=== PATIENT | female | born 1955 | race Caucasian/White ===

== ENCOUNTER → 2020-02-03 09:10 | Outpatient (REF) | payer MEDICARE, MEDICAID, SELFPAY ==
--- NOTE | 2020-02-03 09:30 | CA_ITS ---
Transthoracic Echocardiogram Patient (Last, First, Middle): Petra Meadows N Gender: Female Date of : 1955 Age: 64 Procedure Date: 02/03/2020 Procedure Type: Transthoracic Echocardiogram Location: OP Height: 162.56 cm Weight: 94.35 kg BSA: 1.99 m2 Heart Rate: bpm BP: 129 / 70 mmHg Scientific Systems Analyst: Referring MD: Jhonatan Aguilar MD Symptoms: [facility] [place] Study Quality: Good ECG Rhythm: Sinus Conclusions: - The left ventricular systolic function is normal. The visually estimated ejection fraction is between 55-60%. - There is mild to moderate tricuspid valve regurgitation. - There is a small pericardial effusion. Findings Left Ventricle Normal left ventricular cavity size. There is normal left ventricular wall thickness. The left ventricular systolic function is normal. The visually estimated ejection fraction is between 55-60%. There is no evidence of regional wall motion abnormalities. E/E prime ratio is between 8 and 15 consistent with indeterminate filling pressures. Evidence suggests grade I (mild) diastolic dysfunction. Right Ventricle Normal right ventricular cavity size and systolic function. Atria The left atrium is mildly dilated. The right atrium is normal in size. Aortic Valve There is a normal trileaflet aortic valve. There is no aortic valve stenosis. There is no aortic valve regurgitation. Mitral Valve The mitral valve appears normal. There is trace mitral valve regurgitation. There is no mitral valve stenosis. Pulmonic Valve The pulmonic valve was not well visualized. There is trace pulmonic valve regurgitation. Tricuspid Valve Normal tricuspid valve structure. There is mild to moderate tricuspid valve regurgitation. The pulmonary artery systolic pressure is normal. Great Vessels The aortic annulus, sinuses of valsalva, and asc aorta are normal in size. Venous The inferior vena cava is normal in size and collapses greater than 50% with inspiration. Pericardium/Pleural There is a small pericardial effusion. There are no definitive echocardiographic findings of tamponade physiology. Prior Study Comparison Changes noted compared to prior study dated: 11/13/1914. Pericardial effusion not previously described. Measurements 2D Linear Measurements RVIDd: 2.95 RVIDd Index: 1.48 IVSd: 0.92 0.6-0.9/0.6-1.0 cm LVIDd: 5.65 3.9-5.3/4.2-5.9 cm LVIDd Index: 2.84 2.4-3.2/2.2-3.1 cm/m2 LVIDs: 3.17 2.0-3.6 cm LVPWd: 0.93 0.7-1.1 cm Ao Root: 2.80 2.1-3.5 cm LA Diam: 4.40 2.7-3.8/3.0-4.0 cm LAIDs Index: 2.21 1.5-2.3 cm/m2 LV Mass: 250.12 67-162/88-224 g LV Mass Index: 125.69 43-95/49-115 g/m2 LVOT Diam: 2.00 3.0+(-)1.3 cm 2D Systolic Function EF 4C: 58.20 >55% EF 2C: 70.60 >55% EF BiP: 63.90 >55% Mitral Valve MV Pk E: 0.77 MV PK A: 0.71 MV Decel Time: 218.00 E/A: 1.10 E'Lateral: 8.22 E'Medial: 6.67 E/E' Med: 11.60 E/E' Lat: 9.40 Aortic Valve AoV Pk Rafal: 1.81 AoV Mn Rafal: 1.02 AoV VTI: 0.32 AoV Pk Grad: 13.00 Aov Mn Grad: 5.00 MICHELLE Cont.VTI: 2.88 LVOT LVOT Pk Rafal: 1.45 LVOT Mn Rafal: 0.90 LVOT VTI: 0.30 LVOT Pk Grad: 8.00 LVOT Mn Grad: 4.00 LVOT Diam: 2.00 LVOT Area: 3.14 Diastolic Function MV Pk E: 0.77 MV Pk A: 0.71 E/A: 1.10 E'Medial: 6.67 E/E' Med: 11.60 E' Laterial: 8.22 E/E' Lat: 9.40 Tricuspid Valve TR Pk Rafal: 2.52 TR Pk Grad: 25.00 RA Press: 3.00 RVSP: 28.00 Great Vessels Aorta Ao Root-2D: 2.80 2.0-3.7 cm Ao Asc: 2.70 2.1-3.4 cm Updated in Other Vendor System with Status of Final Nhan Moore MD electronically signed on 02/03/2020 12:18:00 PM with status of Final
== END ==
LOC: HO.CARD 09:10
PROVIDERS: PCP Student in an Organized Health Care Education/Training Program; Visit Provider Surgery
DX: Z01.818 Encounter for other preprocedural examination (principal); I10 Essential (primary) hypertension; R06.00 Dyspnea, unspecified
CPT/HCPCS: 93306

== ENCOUNTER → 2020-02-05 08:12 | Outpatient (BNVA) | payer MEDICARE, MEDICAID, SELFPAY | PROVIDERS: Visit Provider Surgery | DX: E66.9 Obesity, unspecified (principal); I10 Essential (primary) hypertension; E03.9 Hypothyroidism, unspecified; J45.909 Unspecified asthma, uncomplicated; G47.30 Sleep apnea, unspecified; K21.9 Gastro-esophageal reflux disease without esophagitis; R11.0 Nausea | CPT/HCPCS: 99214 ==

== ENCOUNTER 2020-02-14 08:39 | Outpatient (REF) | payer MEDICARE, MEDICAID, SELFPAY ==
[2020-02-14 10:13] LABS: MANUAL DIFF FLAG NO
[2020-02-14 10:24] LABS: Basophils Percent Auto 0.5 % (0-2); Eosinophils Absolute Auto 0.1 X10*3/uL (0.0-0.4); Eosinophils Percent Auto 1.2 % (0-4); Hematocrit 41.7 % (37-47); Hemoglobin 13.3 g/dl (12.0-16.0); Imm Gran Abs Auto 0.02 X10*3/uL (0.00-0.03); Imm Gran Pct Auto 0.3 % (0.0-0.4); Lymphocytes Absolute Auto 1.7 X10*3/uL (1.2-4.9); Lymphocytes Percent Auto 22.5 % (20-40); Mean Corpuscular HGB Conc 31.9 g/dl (31.0-35.0); Mean Corpuscular Hemoglobin 27.1 pg (27.0-33.0); Mean Corpuscular Volume 84.9 fL (80-98); Mean Platelet Volume 10.4 fL (9.4-12.3); Monocytes Absolute Auto 0.5 X10*3/uL (0.1-1.2); Monocytes Percent Auto 6.1 % (2-11); Neutrophils Absolute Auto 5.1 X10*3/uL (2.0-8.3); Neutrophils Percent Auto 69.4 % (45-73); Platelet Count 301 X10*3/uL (160-400); Red Blood Count 4.91 X10*6/uL (4.20-5.50); Red Cell Distribution Width 14.6 % (11.0-16.0); White Blood Count 7.3 X10*3/uL (4.8-10.8)
[2020-02-14 10:26] LABS: Estimated Average Glucose 117 mg/dL; Hemoglobin A1c % 5.7 %
[2020-02-14 10:28] LABS: INTERNATIONAL NORM RATIO 1.1 (0.9-1.1)
[2020-02-14 10:31] LABS: Partial Thromboplastin Time 35.3 SEC (24.1-38.0)
[2020-02-14 10:37] LABS: Alanine Aminotransferase 23 U/L (0-31); Albumin Level 4.6 g/dL (3.5-5.0); Alkaline Phosphatase 118 U/L (39-117); Anion Gap 12 (12-20); Aspartate Amino Transferase 27 U/L (5-31); Bilirubin Total 0.8 mg/dL (0.0-1.0); Blood Urea Nitrogen 12 mg/dL (9-16); Calcium 9.8 mg/dL (8.4-10.2); Carbon Dioxide 36 mmol/L (22-29); Chloride 92 mmol/L (96-108); Cholesterol 176 mg/dL; Estimated Glomerular Filt Rate 51; Glucose Random 110 mg/dL (60-115); HDL Cholesterol 40 mg/dL; LDL Cholesterol Calculated 113 mg/dl; Potassium 3.3 mmol/l (3.3-5.1); Sodium 137 mmol/L (135-145); Total Protein 7.7 g/dL (6.5-8.0); Triglycerides 118 mg/dL
[2020-02-14 10:58] LABS: Thyroid Stimulating Hormone 0.29 mIU/mL (0.32-4.0)
[2020-02-17 12:42] LABS: Insulin Level Total 13.1 uIU/mL
== END 2020-02-14 08:40 | disposition home or self-care (01) ==
LOC: HO.LAB 08:39
PROVIDERS: PCP Student in an Organized Health Care Education/Training Program; Visit Provider Surgery
DX: E66.9 Obesity, unspecified (principal); I10 Essential (primary) hypertension
CPT/HCPCS: 36415; 80053; 80061; 83036; 83525; 84443; 85025; 85610; 85730; 86140; 86850; 86870

== ENCOUNTER 2020-02-20 06:04 | Day surgery (SDC) | payer MEDICARE, MEDICAID, SELFPAY ==
[2020-02-13 14:52] VITALS: BMI 34.3
--- NOTE | 2020-02-14 14:00 | P.CONAN_ITS ---
Documented by User: Estefany Gamboa 02/14/20 15:24 HPI - Anesthesia Eval Consult details Narrative: 64yo F for gastric sleeve Remote h/o DI. Glidescope to be available. Airway exam at PAT benign. Stable at last pulm visit 12/30/19. Pt describes no SOB at rest and able to exercise regulary without signif BERNAL. PMFSH Past Medical History Medical History Anxiety Asthma Cervical spondylosis Fibromyalgia GERD (gastroesophageal reflux disease) Granulomatous angiitis Hiatal hernia Hypertension Hypothyroidism Obesity Osteoarthritis Paresthesia Sleep apnea Tricuspid valve regurgitation Wegeners granulomatosis Functional capacity: independent ambulation Family History Family History Father Heart disease Mother Cirrhosis of liver Recurrent strokes Diabetes Sister Lupus Arthritis Daughter No problems noted. Son No problems noted. Family history of problems with anesthesia: No Surgical History Surgical History History of bronchoscopy History of esophagogastroduodenoscopy (EGD) History of pneumonectomy Hx of biopsy Hx of biopsy Hx of colonoscopy Hx of LASIK History of Problems with Anesthesia: Yes (? Difficult intubation 2004) Social History Social History Are you a primary critical care educator to a significant other at home: No Do you presently have visiting nurse or other home services: No Alcohol intake: never Smoking Status: Former smoker Smoking Quit Date: 2003 Second Hand Smoke Exposure: No Use of substances other than those prescribed or required for medical reasons: No Have you been hit, kicked, punched, or otherwise hurt by someone within the past year? If so, by whom?: No Spiritual Healthcare Practices: none Yazdanism Healthcare Practices: none Cultural Healthcare Practices: none Advance Directives: No Advance Directives Information Provided: No Advance Directives on File: No Recently lost weight without trying: No Narrative Narrative: >4 mets with daily exercise (walking, aerobic video) No recent illness Meds Allergies Allergy/AdvReac Type Severity Reaction Status Date / Time iron dextran complex Allergy Unknown Shakiness Verified 02/20/20 08:33 [IRON DEXTRAN COMPLEX] Home Medications Medication Instructions Recorded Confirmed Type acetaminophen 325 mg tablet mg PO 02/05/20 02/05/20 History albuterol sulfate 90 mcg/actuation 2 puff PO Q4-6H PRN 02/05/20 02/05/20 History aerosol inhaler blood pressure test kit-large #1 ea 02/05/20 02/05/20 History cholecalciferol (vitamin D3) 50 50 mcg PO DAILY 02/05/20 02/05/20 History mcg (2,000 unit) capsule fluticasone 100 mcg-salmeterol 50 1 ea PO BID 02/05/20 02/05/20 History mcg/dose blistr powdr for inhalation fluticasone 250 mcg-salmeterol 50 1 inh INHALATION BID 02/05/20 02/05/20 History mcg/dose blistr powdr for inhalation furosemide 20 mg tablet 20 mg PO DAILY 02/05/20 02/05/20 History hydrochlorothiazide 25 mg tablet 25 mg PO DAILY 02/05/20 02/05/20 History levothyroxine 125 mcg tablet 125 mcg PO DAILY 02/05/20 02/05/20 History losartan 100 mg tablet 100 mg PO DAILY 02/05/20 02/05/20 History montelukast 10 mg tablet 10 mg PO BEDTIME 02/05/20 02/05/20 History sennosides 8.6 mg tablet 8.6 mg PO DAILY 02/05/20 02/05/20 History tramadol 50 mg tablet 50 mg PO BID PRN 02/05/20 02/05/20 History vitamin A 10,000 unit capsule 2 cap PO DAILY 02/05/20 02/05/20 History vitamin B complex 1 tab PO DAILY 02/05/20 02/05/20 History Exam Exam Date and Time: February 14, 2020 1400 Height,Weight and Vital Signs: Height 5 ft 4 in Weight 90.718 kg Pertinent Lab Results Pertinent Lab Results: Laboratory Tests 02/14/20 02/14/20 02/14/20 09:20 09:20 09:20 WBC 7.3 Hgb 13.3 Hct 41.7 Plt Count 301 PT 13.0 INR 1.1 APTT 35.3 Sodium 137 Potassium 3.3 Chloride 92 L Carbon Dioxide 36 H BUN 12 Creatinine 1.08 Hemoglobin A1c % C-Reactive Protein 1.70 H TSH 0.29 L 02/14/20 09:20 WBC Hgb Hct Plt Count PT INR APTT Sodium Potassium Chloride Carbon Dioxide BUN Creatinine Hemoglobin A1c % 5.7 C-Reactive Protein TSH TYPE AND SCREEN DONE Narrative Narrative: ECHO 02/03/20: LVEF 55-60%, nml systolic function, mil to mod TR, small pericard effusion (Rev'd with ASaviri) EKG 01/22/20 NSR @ 65, ? LAE PFT 01/07/20: No obstructive defect, moderate restrictive Airway Mallampati Class: II TM Dist: >3cm Neck ROM: Limited (Cervial sponylosis) Loose/Missing/Broken Teeth: No Heart: RRR Lungs: CTAB Assessment and Plan Assessment Anesthesia Assessment: Anesthesia Plan Discussed and PAT Visit Documented by User: Isidro Cortez 02/20/20 08:45 [facility] Past Medical History Medical History Anxiety Asthma Cervical spondylosis Fibromyalgia GERD (gastroesophageal reflux disease) Granulomatous angiitis Hiatal hernia Hypertension Hypothyroidism Obesity Osteoarthritis Paresthesia Sleep apnea Tricuspid valve regurgitation Wegeners granulomatosis Family History Family History Father Heart disease Mother Cirrhosis of liver Recurrent strokes Diabetes Sister Lupus Arthritis Daughter No problems noted. Son No problems noted. Surgical History Surgical History History of bronchoscopy History of esophagogastroduodenoscopy (EGD) History of pneumonectomy Hx of biopsy Hx of biopsy Hx of colonoscopy Hx of LASIK Social History Social History Are you a primary critical care educator to a significant other at home: No Do you presently have visiting nurse or other home services: No Alcohol intake: never Smoking Status: Former smoker Smoking Quit Date: 2003 Second Hand Smoke Exposure: No Use of substances other than those prescribed or required for medical reasons: No Have you been hit, kicked, punched, or otherwise hurt by someone within the past year? If so, by whom?: No Spiritual Healthcare Practices: none Yazdanism Healthcare Practices: none Cultural Healthcare Practices: none Advance Directives: No Advance Directives Information Provided: No Advance Directives on File: No Recently lost weight without trying: No Meds Allergies Allergy/AdvReac Type Severity Reaction Status Date / Time iron dextran complex Allergy Unknown Shakiness Verified 02/20/20 08:33 [IRON DEXTRAN COMPLEX] Home Medications Medication Instructions Recorded Confirmed Type acetaminophen 325 mg tablet mg PO 02/05/20 02/05/20 History albuterol sulfate 90 mcg/actuation 2 puff PO Q4-6H PRN 02/05/20 02/05/20 History aerosol inhaler blood pressure test kit-large #1 ea 02/05/20 02/05/20 History cholecalciferol (vitamin D3) 50 50 mcg PO DAILY 02/05/20 02/05/20 History mcg (2,000 unit) capsule fluticasone 100 mcg-salmeterol 50 1 ea PO BID 02/05/20 02/05/20 History mcg/dose blistr powdr for inhalation fluticasone 250 mcg-salmeterol 50 1 inh INHALATION BID 02/05/20 02/05/20 History mcg/dose blistr powdr for inhalation furosemide 20 mg tablet 20 mg PO DAILY 02/05/20 02/05/20 History hydrochlorothiazide 25 mg tablet 25 mg PO DAILY 02/05/20 02/05/20 History levothyroxine 125 mcg tablet 125 mcg PO DAILY 02/05/20 02/05/20 History losartan 100 mg tablet 100 mg PO DAILY 02/05/20 02/05/20 History montelukast 10 mg tablet 10 mg PO BEDTIME 02/05/20 02/05/20 History sennosides 8.6 mg tablet 8.6 mg PO DAILY 02/05/20 02/05/20 History tramadol 50 mg tablet 50 mg PO BID PRN 02/05/20 02/05/20 History vitamin A 10,000 unit capsule 2 cap PO DAILY 02/05/20 02/05/20 History vitamin B complex 1 tab PO DAILY 02/05/20 02/05/20 History
[2020-02-14 14:29] VITALS: BP 108/51; PULSE 106; RESP 16; O2SAT 97; BMI 34.1
--- NOTE | 2020-02-20 07:37 | PM.OP ---
Brief Operative Note Date of procedure: 02/20/20 Surgeon: Jhonatan Aguilar MD
--- NOTE | 2020-02-20 07:37 | MHC.SHP ---
Pre-Procedural Eval Section A The patient is an INPATIENT: Yes The History & Physical has been completed within 30 days and I have reviewed it.: Yes Section B Chief Complaint: S/p Gastrectomy Sleeve Allergies: Allergies Allergy/AdvReac Type Severity Reaction Status Date / Time iron dextran complex Allergy Unknown UNKNOWN Unverified 01/16/20 16:44 [IRON DEXTRAN COMPLEX] Review of Systems Sugical H&P ROS: Negative: Constitution, Cardiovascular, Respiratory, Neurological, Psychiatric, Hem-Onc, Allergic/Immunologic, Gastrointestinal, Genitourinary, Musculoskeletal, Integumentary, Endocrine and Eyes/Ears/Nose/Throat Exam Surgical H&P Exam: Normal: HEENT, Normal: Heart, Normal: Lungs, Normal: Extremities, Normal: Abdomen, Normal: Skin and Normal: Neurological Plan Diagnosis/Plan: Unchanged Patient has been examined and remains a candidate for the planned procedure
[2020-02-20 08:12] VITALS: BP 123/59; PULSE 79; RESP 18; TEMP 36.3; O2SAT 99
[2020-02-20] MEDS: Lactated Ringers 1,000 ML 999 ML IVCONT (08:59)
[2020-02-20] MEDS: Lactated Ringers 1,000 ML 100 ML IVCONT (08:59)
[2020-02-20] MEDS: ceFAZolin Sodium/Dextrose,Iso 2 GM/50 ML PIGGYBACK IV (09:02)
[2020-02-20 09:22] LABS: SARS COV2 PCR INHOUSE POSITIVE (Negative)
--- NOTE | 2020-02-20 10:39 | PC.NURSE ---
pt test result for covid came back positive. transferred to isolation room that's pressurized. in to speak with patient and surgery cancelled.
--- NOTE | 2020-02-20 14:20 | PC.NURSE ---
pt 's surgery cancelled earlier due to positive covid test. iv tylenol hanging on pole and bed stripped and cleaned by housekeeping. unable to return bottle. cori contacted and stated ok to just waste in the medical center.
== END 2020-02-20 23:59 ==
LOC: HO.SSS 06:04 → HO.SSSA 09:33 → HO.SSS 03-04 08:45
PROVIDERS: PCP Student in an Organized Health Care Education/Training Program; Visit Provider Surgery
DX: E66.9 Obesity, unspecified (principal); Z53.09 Procedure and treatment not carried out because of other contraindication; Z20.828 Contact with and (suspected) exposure to other viral communicable diseases; Z68.36 Body mass index [BMI] 36.0-36.9, adult; Z98.84 Bariatric surgery status; I10 Essential (primary) hypertension; E03.9 Hypothyroidism, unspecified; J45.909 Unspecified asthma, uncomplicated; G47.30 Sleep apnea, unspecified; K21.9 Gastro-esophageal reflux disease without esophagitis; Z79.51 Long term (current) use of inhaled steroids; Z79.899 Other long term (current) drug therapy; Z88.8 Allergy status to other drugs, medicaments and biological substances
CPT/HCPCS: 86850; 86870; 86880; 86885; 86900; 86901; 86905; 86920; 86922; 87635; J0131; J0690; J2250; J3010

== ENCOUNTER 2020-03-14 08:23 | Outpatient (REF) | payer MEDICARE, MEDICAID, SELFPAY ==
[2020-03-14 09:34] LABS: MANUAL DIFF FLAG NO
[2020-03-14 09:36] LABS: Basophils Percent Auto 0.6 % (0-2); Eosinophils Absolute Auto 0.1 X10*3/uL (0.0-0.4); Eosinophils Percent Auto 2.1 % (0-4); Hematocrit 37.4 % (37-47); Hemoglobin 11.7 g/dl (12.0-16.0); Imm Gran Abs Auto 0.02 X10*3/uL (0.00-0.03); Imm Gran Pct Auto 0.3 % (0.0-0.4); Lymphocytes Absolute Auto 1.4 X10*3/uL (1.2-4.9); Lymphocytes Percent Auto 21.3 % (20-40); Mean Corpuscular HGB Conc 31.3 g/dl (31.0-35.0); Mean Corpuscular Volume 86.4 fL (80-98); Mean Platelet Volume 9.9 fL (9.4-12.3); Monocytes Absolute Auto 0.4 X10*3/uL (0.1-1.2); Monocytes Percent Auto 5.8 % (2-11); Neutrophils Absolute Auto 4.6 X10*3/uL (2.0-8.3); Neutrophils Percent Auto 69.9 % (45-73); Platelet Count 261 X10*3/uL (160-400); Red Blood Count 4.33 X10*6/uL (4.20-5.50); Red Cell Distribution Width 15.3 % (11.0-16.0); White Blood Count 6.6 X10*3/uL (4.8-10.8)
[2020-03-14 09:56] LABS: Alanine Aminotransferase 19 U/L (0-31); Albumin Level 4.2 g/dL (3.5-5.0); Alkaline Phosphatase 103 U/L (39-117); Anion Gap 10 (12-20); Aspartate Amino Transferase 18 U/L (5-31); Bilirubin Total 0.5 mg/dL (0.0-1.0); Blood Urea Nitrogen 12 mg/dL (9-16); Calcium 9.2 mg/dL (8.4-10.2); Carbon Dioxide 31 mmol/L (22-29); Chloride 104 mmol/L (96-108); Estimated Glomerular Filt Rate > 60; Glucose Random 99 mg/dL (60-115); Potassium 4.3 mmol/l (3.3-5.1); Sodium 141 mmol/L (135-145)
[2020-03-14 10:10] LABS: INTERNATIONAL NORM RATIO 1.1 (0.9-1.1); Prothrombin Time 12.6 SEC (10.8-13.0)
[2020-03-14 10:12] LABS: Partial Thromboplastin Time 36.8 SEC (24.1-38.0)
== END 2020-03-14 08:24 | disposition home or self-care (01) ==
LOC: HO.LAB 08:23
PROVIDERS: Physician Assistant; PCP Student in an Organized Health Care Education/Training Program; Visit Provider Surgery
DX: Z13.89 Encounter for screening for other disorder (principal)
CPT/HCPCS: 36415; 80053; 85025; 85610; 85730; 86850; 86870; U0003

== ENCOUNTER 2020-03-17 06:56 | Inpatient (IN) | payer MEDICARE, MEDICAID, SELFPAY ==
[2020-03-17] VITALS (13 sets, daily range): BP systolic 143–168; BP diastolic 58–97; PULSE 70–85; RESP 12–18; TEMP 36.2–37.1; O2SAT 95–100; BMI 35.2
[2020-03-17 07:05] LABS: COVID-19 Test Negative (Negative)
--- NOTE | 2020-03-17 07:14 | P.CONAN_ITS ---
[facility] Past Medical History Medical History Anxiety Asthma Cervical spondylosis COVID-19 Fibromyalgia GERD (gastroesophageal reflux disease) Granulomatous angiitis Hiatal hernia Hypertension Hypothyroidism Obesity Osteoarthritis Paresthesia Sleep apnea Tricuspid valve regurgitation Wegeners granulomatosis Family History Family History Father Heart disease Mother Cirrhosis of liver Recurrent strokes Diabetes Sister Lupus Arthritis Daughter No problems noted. Son No problems noted. Surgical History Surgical History History of bronchoscopy History of esophagogastroduodenoscopy (EGD) History of pneumonectomy Hx of biopsy Hx of biopsy Hx of colonoscopy Hx of LASIK Social History Social History Are you a primary home day care provider to a significant other at home: No Do you presently have visiting nurse or other home services: No Alcohol intake: never Smoking Status: Former smoker Second Hand Smoke Exposure: No Advance Directives: No Advance Directives Information Provided: No Advance Directives on File: No Recently lost weight without trying: No Meds Allergies Allergy/AdvReac Type Severity Reaction Status Date / Time iron dextran complex Allergy Unknown Shakiness Verified 02/20/20 08:33 [IRON DEXTRAN COMPLEX] Home Medications Medication Instructions Recorded Confirmed Type acetaminophen 325 mg tablet mg PO 02/05/20 02/05/20 History albuterol sulfate 90 mcg/actuation 2 puff PO Q4-6H PRN 02/05/20 02/05/20 History aerosol inhaler blood pressure test kit-large #1 ea 02/05/20 02/05/20 History cholecalciferol (vitamin D3) 50 50 mcg PO DAILY 02/05/20 02/05/20 History mcg (2,000 unit) capsule fluticasone 100 mcg-salmeterol 50 1 ea PO BID 02/05/20 02/05/20 History mcg/dose blistr powdr for inhalation fluticasone 250 mcg-salmeterol 50 1 inh INHALATION BID 02/05/20 02/05/20 History mcg/dose blistr powdr for inhalation furosemide 20 mg tablet 20 mg PO DAILY 02/05/20 02/05/20 History hydrochlorothiazide 25 mg tablet 25 mg PO DAILY 02/05/20 02/05/20 History levothyroxine 125 mcg tablet 125 mcg PO DAILY 02/05/20 02/05/20 History losartan 100 mg tablet 100 mg PO DAILY 02/05/20 02/05/20 History montelukast 10 mg tablet 10 mg PO BEDTIME 02/05/20 02/05/20 History sennosides 8.6 mg tablet 8.6 mg PO DAILY 02/05/20 02/05/20 History tramadol 50 mg tablet 50 mg PO BID PRN 02/05/20 02/05/20 History vitamin A 10,000 unit capsule 2 cap PO DAILY 02/05/20 02/05/20 History vitamin B complex 1 tab PO DAILY 02/05/20 02/05/20 History Exam Exam Date and Time: March 17, 2020713 Height,Weight and Vital Signs: Height 5 ft 4 in Weight 93.18 kg Last Vital Signs Temp 98.4 F 03/17/20 06:23 Pulse 85 03/17/20 06:23 Resp 16 03/17/20 06:23 BP 143/58 H 03/17/20 06:23 Pulse Ox 98 03/17/20 06:23 Pertinent Lab Results Pertinent Lab Results: Laboratory Tests 03/14/20 03/17/20 09:10 06:19 COVID-19 ([facility]ST[facility]) Negative COVID-19 Clin Com See Note Blood Type O Positive Antibody Screen POSITIVE Antibody Identification Anti-S Airway Mallampati Class: III TM Dist: >3cm Neck ROM: Full Loose/Missing/Broken Teeth: No Heart: [id number] Lungs: cta b/l Assessment and Plan Assessment Anesthesia Assessment: Anesthesia Plan Discussed and Chart Reviewed Final Anesthetic Review NPO: Yes ASA Class: III Final Preanesthetic Review: No Changes in Pt Med Stat, Meds/Allgs Chart Reviewed, Consent Obtained/Reviewed and Anes Risks/Benef Reviewed Patient Risk: Intermediate Procedure Risk: Low Assessment/Block/Sedation in SS: Assess/Block/Sedation-SS Anesthetic Plan Anesthetic Plan: GA Disposition: Standard PACU
--- NOTE | 2020-03-17 07:30 | P.HPSUR_ITS ---
Pre-Procedural Eval Section A The patient is an INPATIENT: Yes Changes since office visit: Yes Cold of Flu in the past 2 weeks The History & Physical has been completed within 30 days and I have reviewed it.: Yes Section B Chief Complaint: obesity Details of Present Illness: obesity Relevant Family History (Specify if Yes): No Relevant Social History: None Present Medications: see Short Stay Collaborative assessment Medical History: Significant History (HTN, hypothyroidism, GERD, Riggins's esophagus, DJD, stress incontinence, hiatal hernia, asthma, Misael's granulomatous disease) History of Previous Operations: Relevant previous surgery/procedure and date(s) (Two c-sections) Allergies: Allergies Allergy/AdvReac Type Severity Reaction Status Date / Time iron dextran complex Allergy Unknown Shakiness Verified 02/20/20 08:33 [IRON DEXTRAN COMPLEX] Review of Systems Sugical H&P ROS: Negative: Constitution, Cardiovascular, Respiratory, Neurological, Psychiatric, Hem-Onc, Allergic/Immunologic, Gastrointestinal, Genitourinary, Musculoskeletal, Integumentary, Endocrine and Eyes/Ears/Nose/Throat Exam Surgical H&P Exam: Normal: HEENT, Normal: Heart, Normal: Lungs, Normal: Extremit ies, Normal: Abdomen, Normal: Skin and Normal: Neurological Plan Diagnosis/Plan: Unchanged Patient has been examined and remains a candidate for the planned procedure
[2020-03-17 10:53] LABS: MANUAL DIFF FLAG NO
[2020-03-17 10:56] LABS: Basophils Percent Auto 0.3 % (0-2); Eosinophils Percent Auto 0.1 % (0-4); Hematocrit 35.6 % (37-47); Hemoglobin 11.6 g/dl (12.0-16.0); Imm Gran Abs Auto 0.05 X10*3/uL (0.00-0.03); Imm Gran Pct Auto 0.5 % (0.0-0.4); Lymphocytes Absolute Auto 0.9 X10*3/uL (1.2-4.9); Lymphocytes Percent Auto 9.3 % (20-40); Mean Corpuscular HGB Conc 32.6 g/dl (31.0-35.0); Mean Corpuscular Hemoglobin 28.2 pg (27.0-33.0); Mean Corpuscular Volume 86.6 fL (80-98); Mean Platelet Volume 9.4 fL (9.4-12.3); Monocytes Absolute Auto 0.1 X10*3/uL (0.1-1.2); Monocytes Percent Auto 1.4 % (2-11); Neutrophils Absolute Auto 8.3 X10*3/uL (2.0-8.3); Neutrophils Percent Auto 88.4 % (45-73); Platelet Count 207 X10*3/uL (160-400); Red Blood Count 4.11 X10*6/uL (4.20-5.50); Red Cell Distribution Width 15.2 % (11.0-16.0); White Blood Count 9.4 X10*3/uL (4.8-10.8)
--- NOTE | 2020-03-17 10:56 | PM.OP ---
Brief Operative Note Date of Service: 03/17/20 Pre-op diagnosis: Severe obesity with a BMI of 38.3 kg/m2 ans associated comorbidities Post-op diagnosis: same Procedure: INITIAL PATIENT BMI ON PRESENTATION AT OUR OFFICE: 38.3 kg/m2 LAST BMI BEFORE SURGERY: 36 kg/m2 COMORBIDITIES: The patient participated in an intensive weekly lifestyle intervention and exercise program during which the patient has lost between the initial office visit and the last preoperative visit 14.4 lbs, or 6.46% of initial actual body weight. The patient met the BMI-criteria for bariatric surgery based on the BMI on initial presentation. The patient should not be penalized for achieving such weight loss because it is not sustainable long-term without surgical intervention and it was achieved in preparation for bariatric surgery under my direction and based on my published research ([email or web address] and [email or web address]) that a 10% preoperative weight loss improves long-term weight loss after surgery and reduces perioperative complications. Insurance carriers such as [facility] have endorsed my recommendations and have included in their policies criteria to include a 10% preoperative weight loss requirement. PROCEDURE: Esophago-gastroscopy, laparoscopic repair of incarcerated diaphragmatic hernia, laparoscopic lysis of adhesions, laparoscopic sleeve gastrectomy and laparoscopic gastropexy INDICATIONS: This is a 64 year-old female who was electively scheduled for laparoscopic, possibly open sleeve gastrectomy. The risks and complications of the procedure were discussed with the patient in advance, particularly the possibility of ; pulmonary embolism; staple line leak; bleeding; GERD; cardiac, pulmonary, or renal complications; as well as long-term problems such as insufficient weight loss, vitamin deficiency, strictures, or ulcers. The patient understood all the risks, and was in agreement to proceed with surgery. DESCRIPTION OF PROCEDURE: After informed consent was obtained from the patient, the patient was given preoperative antibiotics, and was transferred to the operating room. After successful induction of general anesthesia, pneumatic compressive devices were placed on both lower extremities. An upper endoscopy was performed next. The oropharynx and esophagus appeared to be within normal limits. There was a diaphragmatic hernia present of moderate size consistent with the findings of the preoperative upper GI. The stomach was entered. Then after all fluid and air were suctioned and the stomach was fully decompressed, the scope was withdrawn and secured in the mid esophagus. The patient was then prepped and draped in the usual sterile manner, and abdominal access was established at the right upper quadrant with the Dara technique. A 12 mm blunt port was inserted, and the abdomen was insufflated with CO2 to a pressure of 15 mmHg. Under direct visualization, additional ports were placed, specifically two 5 mm Versi-step ports to the left upper quadrant, and a 5 mm Versi-Step port to the right upper quadrant. 1% lidocained plan was used to infiltrate all port sites as well as all fascia defects. Following that, the patient was placed in a steep reverse Trendelenburg position. An additional 5 mm port was placed to the right flank for the Mediflex retractor that was used to retract the left lobe of the liver. The gastro-esophageal fat pad was opened with the ultrasonic device (Thunderbeat, Olympus) and the anterior esophagus and hiatus were exposed. The angle of His was opened with the ultrasonic device the fundus of the stomach from any diaphragmatic and splenic attachments. I then opened the gastrocolic ligament between the transverse colon and the greater curvature of the stomach with the ultrasonic device to enter the lesser sac and facilitate the ligation of the short gastric vessels. I started at a mid-point along the greater curvature and using the Thunderbeat, all short gastric vessels were divided all the way to the angle of His until the left adam was completely dissected at its entirety. I then divided the gastro-colic ligament distally to a distance of about 3-4 cm proximal to the esophagus. There were extensive congenital adhesions between the pancreas and posterior gastric wall. Those were lysed completely with the ultrasonic device. Adhesiolysis took approximately 25 min to complete. There was an obvious significant-sized hiatal hernia. I continued dissecting along the hiatus toward the left adam and the angle of His. I fully mobilized the fat pad that was incarcerated in the hernia. I then continued by dissecting even further into the posterior retro-esophageal space all the way to the angle of His. I continued to mobilize the esophagus into the mediastinum circumferentially. The right adam was also dissected completely. Both vagal nerves were seen and preserved. At that point, I was able to have at least 3 to 5 cm of esophagus into the abdomen. After I completely mobilized the esophagus from both the left and right adam and I had a good mobilization of the esophagus circumferentially, I closed the hernia defect with one interrupted #0 Surgidac suture using the Endo Stitch device, which was placed posterior to the esophagus. The stomach was then divided transversely with one Endo LLUVIA-45 purple load and five LLUVIA-60 articulating orange loads using the AEON stapler and loads. Every effort was made that the gastric sleeve had a tubular shape and an even caliber throughout. Once the sleeve resection was completed, the staple line of the gastric sleeve was reinforced with Hemoclips. The resected stomach was retrieved without difficulty from the Dara port. A gastropexy was then performed in order to prevent postoperative GERD and partial gastric volvulus. Several interrupted 2.0 Surgidac sutures were placed between the sleeve's staple line and the previously divided greater omentum and gastro-colic ligament using the Endo-Stitch device. An upper endoscopy was performed. There was no narrowing at the GE junction. The scope was easily advanced all the way to the pylorus which was clearly visualized. There was no narrowing anywhere and the sleeve's caliber was even throughout. The sleeve's staple line was inspected and there was no evidence of ischemia, bleeding or dehiscence. At that point the gastroscope was withdrawn from the patient?s mouth while we were decompressing the bowel and the stomach from any remaining air. I looked into the lesser sac to see how the sleeve was situating and it was situating well. There was no bleeding from the staple line, spleen, or short gastric vessels. The Mediflex retractor was removed, and the undersurface of the liver was inspected and there was no bleeding. The patient was placed in supine position. I closed the fascial defect of the 12 mm port site with a figure of eight #1 Polysorb suture. Then 100 cc 0.25 % Marcaine plain with 10 mg of Dexamethasone were used to infiltrate the fascial closure as well as all skin incisions. At this point, the abdomen was deflated, all ports were removed under direct vision, and no bleeding was noted from any of the port sites. The skin incisions were irrigated with saline and were closed with 4-0 absorbable monofilament sutures. Steri-Strips and OpSites were used to cover all incisions. The patient was extubated and was transferred in stable condition to the recovery room for further care. I was present and performed all stevenson parts of the procedure. Ms. Sanon was the management assistant. There were no residents to assist with this case. Adan Aguilar MD, PhD, FACS Surgeon: Jhonatan Aguilar MD Anesthesia: GETA, local and other (TAP block) Corporate Bond Trader: Maliha Sanon Estimated blood loss (mL): 10 IV fluids (mL): 2,500 Urine output (mL): 0 (No Floey to record) Pathology: other (Stomach) Condition: stable Disposition: PACU
[2020-03-17] MEDS: Famotidine/PF 20 MG/2 ML VIAL IVPUSH ×2 (10:57→21:15)
[2020-03-17] MEDS: ondansetron HCL 4 MG/2 ML VIAL IVPUSH ×2 (10:57→18:04)
--- NOTE | 2020-03-17 11:03 | PM.PNGS ---
Subjective Subjective Interval history: Patient has mild incisional pain. Was able to ambulate and use the incentive spirometer. Physical Exam Vital Signs: Vital Signs: Last Vital Signs Temp 97.1 F 03/17/20 10:19 Pulse 78 03/17/20 10:34 Resp 16 03/17/20 10:34 BP 154/74 H 03/17/20 10:34 Pulse Ox 100 03/17/20 10:34 Body Mass Index 35.2 Chest: Chest palpation & inspection: normal inspection of the chest Resp: Effort & Inspection: normal respiratory effort Cardio: Jugular venous distension: no JVD Rate: regular rate GI: Inspection: Yes normal to inspection, Yes incision (clean, dry and intact) and Yes obesity Extrem: Right lower extremity: normal to inspection (no calf tenderness) Left lower extremity: normal to inspection (no calf tenderness) Progress Note: A&P Assessment and plan (1) Obesity: Status: Acute Assessment and Plan: Doing well. 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,sees Dr Thurston, Dr Reed, Dr Marcus Whaley Status: Acute (12) S/P laparoscopic sleeve gastrectomy: Status: Acute (13) S/P repair of paraesophageal hernia: Status: Acute (14) Stress incontinence: Status: Acute (15) Steatosis, liver: Status: Acute (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: Status: Acute (17) Asthma: Problem details: daily and prn inhalers Status: Acute Fall Risk Details Current Medications: Current Medications Generic Name Dose Route Start Last Admin Trade Name Freq PRN Reason Stop Dose Admin Famotidine 20 mg 03/17/20 10:30 03/17/20 10:57 Famotidine/Pf 20 Mg/2 Ml Vial IVPUSH 20 mg BID LIDIA Administration Hydromorphone HCl 0.25 mg 03/17/20 10:18 Hydromorphone Hcl 0.5 Mg/0.5 Ml Syringe IVPUSH Q4H PRN Pain, Moderate (Pain Scale 4-6 Lactated Ringer's 1,000 mls @ 50 mls/hr 03/17/20 07:15 Lr IVCONT .Q20H LIDIA Lactated Ringer's 1,000 mls @ 125 mls/hr 03/17/20 10:30 Lr IVCONT .Q8H LIDIA Cefazolin Sodium/Dextrose 2 gm in 50 mls @ 100 mls/hr 03/17/20 13:30 Ancef IV 03/17/20 13:59 [id number]@1330 LIDIA Metoclopramide HCl 10 mg 03/17/20 10:18 Metoclopramide Hcl 10 Mg/2 Ml Vial IVPUSH Q6H PRN Nausea Ondansetron HCl 4 mg 03/17/20 07:18 Ondansetron Hcl 4 Mg/2 Ml Vial IVPUSH ONCE PRN Nausea and Vomiting Ondansetron HCl 4 mg 03/17/20 11:00 03/17/20 10:57 Ondansetron Hcl 4 Mg/2 Ml Vial IVPUSH 4 mg Q8H LIDIA Administration Sodium Chloride 3 ml 03/17/20 16:00 0.9 % Sodium Chloride Flush 3 Ml Syringe IVFLUSH QSHIFT LIDIA Time Spent With Patient Time: Total time spent is greater than 50% in coordination of care (as documented) at patient's floor/unit and/or counseling patient: Time with patient: less than 15 minutes Procedures Abscess I/D Date of Service: 03/18/20
[2020-03-17 11:27] LABS: Alanine Aminotransferase 51 U/L (0-31); Albumin Level 3.9 g/dL (3.5-5.0); Alkaline Phosphatase 106 U/L (39-117); Anion Gap 12 (12-20); Anion Gap 13 (12-20); Aspartate Amino Transferase 50 U/L (5-31); Bilirubin Total 0.6 mg/dL (0.0-1.0); Blood Urea Nitrogen 8 mg/dL (9-16); Calcium 8.8 mg/dL (8.4-10.2); Carbon Dioxide 26 mmol/L (22-29); Carbon Dioxide 27 mmol/L (22-29); Chloride 106 mmol/L (96-108); Creatinine Clr Calc Pharmacy 84.9; Estimated Glomerular Filt Rate > 60; Glucose Random 139 mg/dL (60-115); Glucose Random 143 mg/dL (60-115); Potassium 4.3 mmol/l (3.3-5.1); Sodium 141 mmol/L (135-145); Total Protein 6.7 g/dL (6.5-8.0)
[2020-03-17] MEDS: Lactated Ringers 1,000 ML 125 ML IVCONT (12:14)
[2020-03-17] MEDS: ceFAZolin Sodium/Dextrose,Iso 2 GM/50 ML PIGGYBACK IV (13:08)
[2020-03-17] MEDS: Losartan Potassium 50 MG TABLET 100 MG PO (13:09)
--- NOTE | 2020-03-17 14:28 | MHC.CM.PN ---
NURSE DRYWALL HANGER FRAMER NOTE ELECTRONIC MEDICAL RECORD REVIEWED . MET WITH PATIENT AND EXPLAINED THE ROLE OF THE NURSE DRYWALL HANGER FRAMER IN THE TRANSITION OF HOSPITAL TO HOME, PATIENT IS S/P BARIATRIC SURGERY. SHE REPORTS THAT SHE DOES REQUIRE ASSISTANCE OF HER FAMILY AT TIMES , SECONDARY TO HER MANY DIAGNOSIS. SHE LIVES WITH HER SISTER AND FAMILY, ALSO SUPPORTS ,SHE REPORTED THAT SHE IS FOLLOWED BY PULMONARY , RHEUMATOLOGY AND RENAL SPECIALIST SHE REPORTS THAT SHE HAS ANXIETY BUT IT IN IS IN RELATION TO HAVING A MRI OR CT , CONFINED TO SMALL PLACES ,.SHE REPORTED THAT SHE HAS A CANE , WALKER AT HOME , SHE HAS DIFFICULITIES GOING UP /DOWN THE STAIRS. SHE HAS SLEEP APNEA AND WAS USING A CPAPA MACHINE BUT NO ONGER NEEDS IT.SHE CURRENTLY HAS NO VNA /NO DME SERVICES IN THE HOME . SHE IS AWARE THAT SHE WI PROBABY BE ABLE TO BE DISCHARGED HOME TOMORROW AND WILL NOT HAVE ANY VNA . DISCHARGE PLAN HOME NO SERVICES PCP DR FAIR PATIENT TO FOLLOW UP POST [facility]OS[facility]ITLA DISCHARGE INSTRUCTIONS BARIATRIC SURGICAL FOLOW UP PER DISCHARGE INSTRUCTINS TRANSPORTATION FAMILY
[2020-03-17] MEDS: Montelukast Sodium 10 MG TABLET PO (21:15)
[2020-03-17] MEDS: Metoclopramide HCl 10 MG/2 ML VIAL IVPUSH (21:15)
[2020-03-17] MEDS: Lactated Ringers 1,000 ML 100 ML IVCONT (21:16)
[2020-03-17] MEDS: 0.9 % Sodium Chloride Flush 3 ML SYRINGE IVFLUSH (21:16)
[2020-03-18] MEDS: ondansetron HCL 4 MG/2 ML VIAL IVPUSH ×2 (02:04→10:52)
[2020-03-18 04:00] VITALS: BP 143/66; PULSE 67; RESP 18; TEMP 36.3; O2SAT 96
[2020-03-18] MEDS: Levothyroxine Sodium 125 MCG TABLET PO (05:02)
[2020-03-18] MEDS: Lactated Ringers 1,000 ML 100 ML IVCONT (06:21)
[2020-03-18 06:26] LABS: MANUAL DIFF FLAG NO
[2020-03-18 06:51] LABS: Basophils Percent Auto 0.2 % (0-2); Hematocrit 34.1 % (37-47); Hemoglobin 10.9 g/dl (12.0-16.0); Imm Gran Abs Auto 0.06 X10*3/uL (0.00-0.03); Imm Gran Pct Auto 0.5 % (0.0-0.4); Lymphocytes Absolute Auto 1.2 X10*3/uL (1.2-4.9); Lymphocytes Percent Auto 10.3 % (20-40); Mean Corpuscular Hemoglobin 27.4 pg (27.0-33.0); Mean Corpuscular Volume 85.7 fL (80-98); Monocytes Absolute Auto 0.7 X10*3/uL (0.1-1.2); Monocytes Percent Auto 5.7 % (2-11); Neutrophils Absolute Auto 9.4 X10*3/uL (2.0-8.3); Neutrophils Percent Auto 83.3 % (45-73); Platelet Count 248 X10*3/uL (160-400); Red Blood Count 3.98 X10*6/uL (4.20-5.50); Red Cell Distribution Width 15.3 % (11.0-16.0); White Blood Count 11.3 X10*3/uL (4.8-10.8)
[2020-03-18 07:12] LABS: Anion Gap 14 (12-20); Blood Urea Nitrogen 8 mg/dL (9-16); Calcium 8.8 mg/dL (8.4-10.2); Carbon Dioxide 26 mmol/L (22-29); Chloride 100 mmol/L (96-108); Creatinine Clr Calc Pharmacy 92.3; Estimated Glomerular Filt Rate > 60; Glucose Random 93 mg/dL (60-115); Potassium 4.1 mmol/l (3.3-5.1); Sodium 136 mmol/L (135-145)
[2020-03-18 07:36] LABS: Thyroid Stimulating Hormone 0.11 uIU/mL (0.32-4.0)
[2020-03-18 08:00] VITALS: BP 146/61; PULSE 61; RESP 18; TEMP 36.1; O2SAT 99
--- NOTE | 2020-03-18 09:02 | HO.POSTANES ---
Post Anesthesia Evaluation Post Anesthesia Evaluation Vital Signs: Vital Signs Temp Pulse Resp BP Pulse Ox 03/18/20 08:00 97.0 F 61 18 146/61 H 99 03/18/20 04:00 97.3 F 67 18 143/66 H 96 03/17/20 23:59 98.7 F 79 16 152/64 H 96 Anesthesia: General Mental Status: Awake Pain Control: Satisfactory Nausea/Vomiting: None Hydration: Adequate Anesthesia-Related Issues: No Anes. Related Issues
--- NOTE | 2020-03-18 09:31 | MHC.CM.PN ---
nurse care management note electronic medical record reviewed anticipate patient to be discharged home today with no services primary care physician- patient to call for follow up post hospital discharge bariatric surgical fllow up per discharge instructions transportation griffin
[2020-03-18] MEDS: Famotidine/PF 20 MG/2 ML VIAL IVPUSH (09:32)
[2020-03-18] MEDS: Losartan Potassium 50 MG TABLET 100 MG PO (09:32)
--- NOTE | 2020-04-22 15:41 | PM.DS ---
DS: Providers Provider Date of admission: 03/17/20 06:56 Primary care physician: Fatuma Hardy MD DS: Diagnosis Discharge Diagnosis (1) Obesity: Status: Acute (2) BMI 38.0-38.9,adult: Status: Acute (3) Sleep apnea with use of continuous positive airway pressure (CPAP): Status: Acute (4) Hypothyroidism: Status: Acute Problem details: Paige's thyroiditis (5) GERD (gastroesophageal reflux disease): Status: Acute (6) Hypertension: Status: Acute (7) Diaphragmatic hernia: Status: Acute (8) Granulomatous angiitis: Status: Acute (9) Osteoarthritis: Status: Acute (10) Wegeners granulomatosis: Status: Acute Problem details: lungs and kidneys,sees Dr Thurston, Dr Reed, Dr Marcus Whaley (11) S/P laparoscopic sleeve gastrectomy: Status: Acute (12) S/P repair of paraesophageal hernia: Status: Acute (13) Stress incontinence: Status: Acute (14) Steatosis, liver: Status: Acute (15) Congenital intra-abdominal adhesions: Status: Acute (16) Asthma: Status: Acute Problem details: daily and prn inhalers DS: Medications Discharge Medications Home Medications: Home Medications Medication Instructions Recorded Confirmed acetaminophen 325 mg tablet mg PO 02/05/20 02/05/20 albuterol sulfate 90 mcg/actuation 2 puff PO Q4-6H PRN 02/05/20 02/05/20 aerosol inhaler blood pressure test kit-large #1 ea 02/05/20 02/05/20 fluticasone 100 mcg-salmeterol 50 1 ea PO BID 02/05/20 02/05/20 mcg/dose blistr powdr for inhalation fluticasone 250 mcg-salmeterol 50 1 inh INHALATION BID 02/05/20 02/05/20 mcg/dose blistr powdr for inhalation furosemide 20 mg tablet 20 mg PO DAILY 02/05/20 02/05/20 hydrochlorothiazide 25 mg tablet 25 mg PO DAILY 02/05/20 02/05/20 levothyroxine 125 mcg tablet 125 mcg PO DAILY 02/05/20 02/05/20 losartan 100 mg tablet 100 mg PO DAILY 02/05/20 02/05/20 montelukast 10 mg tablet 10 mg PO BEDTIME 02/05/20 02/05/20 sennosides 8.6 mg tablet 8.6 mg PO DAILY 02/05/20 02/05/20 Previous Rx's Medication Instructions Recorded ondansetron HCl 4 mg tablet 4 mg PO Q6H PRN #30 tab 02/05/20 pantoprazole 40 mg tablet,delayed 40 mg PO DAILY #30 tab 02/05/20 release sucralfate 100 mg/mL oral 10 ml PO BID #1800 ml 03/18/20 suspension tramadol 50 mg tablet 50 mg PO BID PRN #60 tab 03/31/20 DS: Summary Time Spent with Patient Time attestation: Total time spent providing and/or coordinating discharge services: Physical Exam Vital Signs: Vital Signs: Last Vital Signs Temp 97.0 F 03/18/20 08:00 Pulse 61 03/18/20 08:00 Resp 18 03/18/20 08:00 BP 146/61 H 03/18/20 08:00 Pulse Ox 99 03/18/20 08:00 Body Mass Index 35.2 DS: Data Data Completed and Pending Completed studies during hospitalization [Text1]: Pending at discharge 03/17/20 08:40 Surgical [PTH] Routine Procedures Excision of Stomach, Percutaneous Endoscopic Approach, Vertical (03/17/20) Release Peritoneum, Percutaneous Endoscopic Approach (03/17/20) Repair Diaphragm, Percutaneous Endoscopic Approach (03/17/20) Labs on day of discharge: 03/14/20 09:10 Antibody Identification Routine Type and Screen Routine 03/17/20 05:07 Complete Blood Count Auto Diff DAILY@0500 03/17/20 06:19 COVID-19 ID NOW (Hernandez) Stat 03/17/20 07:05 Bupivacaine MPF 0.25 % [Sensorcaine-MPF 0.25% 10 ML] 10 ml .ROUTE .STK-MED ONE Lidocaine HCl 1 % MPF [Xylocaine 1 % MPF] 5 ml .ROUTE .STK-MED ONE 03/17/20 07:08 Ketamine HCl/NS 50 mg IVPUSH .STK-MED ONE Lidocaine HCl 2 % MPF [Xylocaine 2 % MPF] 5 ml .ROUTE .STK-MED ONE Midazolam HCl/PF [Versed] 2 mg .ROUTE .STK-MED ONE Rocuronium Goldvein [Zemuron] 100 mg IV .STK-MED ONE dexAMETHasone Sod Phosphate/PF [Decadron] 10 mg .ROUTE .STK-MED ONE fentaNYL citrate/PF [Sublimaze] 50 mcg .ROUTE .STK-MED ONE propofoL [Diprivan] 200 mg IVPUSH .STK-MED ONE 03/17/20 07:15 Lactated Ringers [Lr] 1,000 ml IVCONT 50 mls/hr 03/17/20 07:18 Continuous pulse oximetry CONT Oxygen administration Nasal Cannula 3 lpm Vital Signs Q1H Vital Signs Q5MIN ondansetron HCL [Zofran] 4 mg IVPUSH ONCE PRN 03/17/20 07:30 Lactated Ringers [Lr] 1,000 ml IVCONT 999 mls/hr 03/17/20 07:32 ceFAZolin Sodium/Dextrose,Iso [Ancef] 2 gm in 50 ml IV PREOP 03/17/20 07:34 Acetaminophen [Ofirmev] 1,000 mg in 100 ml IV As directed 03/17/20 07:53 ceFAZolin Sodium/Dextrose,Iso [Ancef] 2 gm in 50 ml .ROUTE As directed 03/17/20 08:01 dexAMETHasone sod phosphate [Decadron] 4 mg .ROUTE .STK-MED ONE ondansetron HCL [Zofran] 4 mg .ROUTE .STK-MED ONE 03/17/20 08:09 Lidocaine HCl 1 % MPF [Xylocaine 1 % MPF] 5 ml .ROUTE .STK-MED ONE 03/17/20 08:34 Phenylephrine HCL 1,000 mcg IVPUSH .STK-MED ONE 03/17/20 08:40 Surgical [PTH] Routine 03/17/20 08:43 HYDROmorphone HCl [Dilaudid] 2 mg .ROUTE .STK-MED ONE 03/17/20 09:53 Sugammadex Sodium [Bridion] 200 mg IVPUSH .STK-MED ONE 03/17/20 10:18 Ambulate Q4H WHILE AWAKE Compression Therapy QSHIFT Head of bed elevation DIRECTED Incentive Spirometry Q1HR WHILE AWAKE Intake and Output Q4HR Oxygen administration Nasal Cannula 2 lpm Code Status Routine HYDROmorphone HCl [Dilaudid] 0.25 mg IVPUSH Q4H PRN Metoclopramide HCl [Reglan] 10 mg IVPUSH Q6H PRN 03/17/20 10:19 Apply Abdominal Binder TOLERATED Vital Signs Q4H 03/17/20 10:30 Famotidine/PF [Pepcid/PF] 20 mg IVPUSH BID Lactated Ringers [Lr] 1,000 ml IVCONT 100 mls/hr 03/17/20 10:49 Basic Metabolic Panel Stat Comprehensive Met. Panel DAILY@0500 03/17/20 10:51 Famotidine/PF [Pepcid/PF] 20 mg IVPUSH .STK-MED ONE ondansetron HCL [Zofran] 4 mg .ROUTE .STK-MED ONE 03/17/20 11:00 ondansetron HCL [Zofran] 4 mg IVPUSH Q8H 03/17/20 11:47 Albuterol Sulfate [Ventolin] 2 puff INHALE RQ6H PRN 03/17/20 11:59 Losartan Potassium [Cozaar] 100 mg PO ONCE ONE 03/17/20 13:30 ceFAZolin Sodium/Dextrose,Iso [Ancef] 2 gm in 50 ml IV ONCE@1330 03/17/20 16:00 0.9 % Sodium Chloride Flush [NS Flush] 3 ml IVFLUSH QSHIFT 03/17/20 17:45 Acetaminophen [Ofirmev] 1,000 mg in 100 ml IV 16.7 mls/hr 03/17/20 21:00 Montelukast Sodium [Singulair] 10 mg PO BEDTIME 03/18/20 06:00 Levothyroxine Sodium [Synthroid] 125 mcg PO DAILY@0600 03/18/20 06:02 Basic Metabolic Panel DAILY@0600 Complete Blood Count Auto Diff DAILY@0600 Thyroid Stimulating Hormone Routine 03/18/20 08:00 Fluticasone/Vilanterol 100/25 [Breo Ellipta 100/25] 1 puff INHALE RDAILY 03/18/20 09:00 Losartan Potassium [Cozaar] 100 mg PO DAILY Laboratory Last Values WBC 11.3 X10*3/uL (4.8-10.8) H 03/18/20 06:02 RBC 3.98 X10*6/uL (4.20-5.50) L 03/18/20 06:02 Hgb 10.9 g/dl (12.0-16.0) L 03/18/20 06:02 Hct 34.1 % (37-47) L 03/18/20 06:02 MCV 85.7 fL (80-98) 03/18/20 06:02 MCH 27.4 pg (27.0-33.0) 03/18/20 06:02 MCHC 32.0 g/dl (31.0-35.0) 03/18/20 06:02 RDW 15.3 % (11.0-16.0) 03/18/20 06:02 Plt Count 248 X10*3/uL (160-400) 03/18/20 06:02 MPV 10.0 fL (9.4-12.3) 03/18/20 06:02 Immature Gran % (Auto) 0.5 % (0.0-0.4) H 03/18/20 06:02 Neut % (Auto) 83.3 % (45-73) H 03/18/20 06:02 Lymph % (Auto) 10.3 % (20-40) L 03/18/20 06:02 [place] % (Auto) 5.7 % (2-11) 03/18/20 06:02 Eos % (Auto) 0.0 % (0-4) 03/18/20 06:02 Baso % (Auto) 0.2 % (0-2) 03/18/20 06:02 Lymph # (Auto) 1.2 X10*3/uL (1.2-4.9) 03/18/20 06:02 [place] # (Auto) 0.7 X10*3/uL (0.1-1.2) 03/18/20 06:02 Eos # (Auto) 0.0 X10*3/uL (0.0-0.4) 03/18/20 06:02 Baso # (Auto) 0.0 X10*3/uL (0.0-0.2) 03/18/20 06:02 Abs Immat Gran (auto) 0.06 X10*3/uL (0.00-0.03) H 03/18/20 06:02 Absolute Neuts (auto) 9.4 X10*3/uL (2.0-8.3) H 03/18/20 06:02 Absolute Nucleated RBC 0.000 X10*3/uL (0.0-0.012) 03/18/20 06:02 Nucleated RBC % (auto) 0.0 /100WBC (0.0-0.2) 03/18/20 06:02 Sodium 136 mmol/L (135-145) 03/18/20 06:02 Potassium 4.1 mmol/l (3.3-5.1) 03/18/20 06:02 Chloride 100 mmol/L (96-108) 03/18/20 06:02 Carbon Dioxide 26 mmol/L (22-29) 03/18/20 06:02 Anion Gap 14 (12-20) 03/18/20 06:02 BUN 8 mg/dL (9-16) L 03/18/20 06:02 Creatinine 0.69 mg/dL (0.5-1.4) 03/18/20 06:02 Estim Creat Clear Calc 92.3 03/18/20 06:02 Estimated GFR > 60 03/18/20 06:02 Random Glucose 93 mg/dL (60-115) 03/18/20 06:02 Calcium 8.8 mg/dL (8.4-10.2) 03/18/20 06:02 Total Bilirubin 0.6 mg/dL (0.0-1.0) 03/17/20 10:49 AST 50 U/L (5-31) H D 03/17/20 10:49 ALT 51 U/L (0-31) H 03/17/20 10:49 Alkaline Phosphatase 106 U/L (39-117) 03/17/20 10:49 Total Protein 6.7 g/dL (6.5-8.0) 03/17/20 10:49 Albumin 3.9 g/dL (3.5-5.0) 03/17/20 10:49 TSH 0.11 uIU/mL (0.32-4.0) L 03/18/20 06:02 COVID-19 (KARSTEN) Negative (Negative) 03/17/20 06:19 COVID-19 Clin Com See Note 03/17/20 06:19 Blood Type O Positive 03/14/20 09:10 Antibody Screen POSITIVE 03/14/20 09:10 Antibody Identification Anti-Fya Anti-S 03/14/20 09:10 Antibody Identification Anti-Fya Anti-S 03/14/20 09:10 Crossmatch (AHG) See Detail 03/14/20 09:10 Discharge Plan Discharge Anticipated Discharge Date/Time: 03/18/20 11:33 Patient Disposition: Home, Self-Care Referrals: Fatuma Hardy MD [Primary Care Provider] - Discharge Medications: Continued levothyroxine 125 mcg tablet 125 mcg PO DAILY RF: 0 montelukast 10 mg tablet 10 mg PO BEDTIME RF: 0 losartan 100 mg tablet 100 mg PO DAILY RF: 0 fluticasone propion-salmeterol 100-50 mcg/dose blister with device 1 ea PO BID RF: 0 albuterol sulfate 90 mcg/actuation HFA aerosol inhaler 2 puff PO Q4-6H PRN (Reason: Shortness Of Breath Or Wheezing) RF: 0 acetaminophen 325 mg tablet PO RF: 0 fluticasone propion-salmeterol [Advair Diskus] 250-50 mcg/dose blister with device 1 inh inhalation BID RF: 0 ondansetron HCl [Zofran] 4 mg tablet 4 mg PO Q6H PRN (Reason: nausea and vomiting) Qty: 30 RF: 0 pantoprazole 40 mg tablet,delayed release (DR/EC) 40 mg PO DAILY Qty: 30 RF: 2 Held hydrochlorothiazide 25 mg tablet 25 mg PO DAILY RF: 0 Hold Instructions: Resume on 03/20/20. Discuss with Dr Aguilar before restarting furosemide 20 mg tablet 20 mg PO DAILY RF: 0 Hold Instructions: Resume on 03/20/20. Discuss with Dr Aguilar before restarting sennosides [Natural Senna Laxative] 8.6 mg tablet 8.6 mg PO DAILY RF: 0 Hold Instructions: Resume on 03/24/20. Discuss with Dr Aguilar before restarting Discontinued polyethylene glycol 3350 [Miralax] 17 gram powder in packet 17 g PO DAILY Qty: 14 RF: 0 cholecalciferol (vitamin D3) 50 mcg (2,000 unit) capsule 50 mcg PO DAILY RF: 0 vitamin A 10,000 unit capsule 2 cap PO DAILY RF: 0 vitamin B complex [B Complex-Vitamin B12] Tablet 1 tab PO DAILY RF: 0 peg 3350-electrolytes [Golytely] 236-22.74-6.74 -5.86 gram recon soln 120 ml PO Q10M Qty: 4000 RF: 0 No Action sucralfate 100 mg/mL suspension 10 ml PO BID Qty: 1800 RF: 0 tramadol 50 mg tablet 50 mg PO BID PRN (Reason: pain) Qty: 60 RF: 5 (DME) blood pressure test kit-large Kit See Rx Instructions ea .ROUTE DIRECTED Qty: 1 RF: 0 Discharge Orders: Discharge Order (Routine); Ordered 03/18/20 Ordered By: Jhonatan Aguilar Diet: other Activity on Discharge: No heavy lifting Discharge Date/Time: 03/18/20 11:40 Activity Restrictions/Additional Instructions: ADMITTING DIAGNOSIS: morbid obesity, hiatal hernia. HTN, Hypothyroidism, COPD, Wegeners syndrome, Asthma, ANTHONY, GERD, fibromyalgia DISCHARGE DIAGNOSIS: same, s/p laparoscopic sleeve gastrectomy and hiatal hernia repair PAST SURGICAL HISTORY: c section x 2, lung and kidney PROCEDURE: upper endoscopy, laparoscopic sleeve gastrectomy and hiatal hernia repair DISCHARGE SUMMARY: History of Present Illness: The patient is a 64 year-old woman with a BMI of 38.27 kg/m2 and associated co-morbidities as described above. The patient had extensive work-up,lost 14.4 lbs preoperatively and was electively scheduled for laparoscopic, possible open sleeve gastrectomy and gastropexy. Risks and complications of the surgery were discussed with the patient in advance, particularly the possibility of , pulmonary embolism, anastomotic leak, bleeding, bowel injury, GERD, cardiac, renal or pulmonary complications. The patient understood all the risks and was in agreement with the surgical plan. Hospital Course: The patient underwent an uneventful laparoscopic sleeve gastrectomy with gastropexy the day of admission. Postoperatively, the patient was transferred to the surgical floor. The patient was on IV Acetaminophen and IV dilaudid for pain control. Patient was started on bariatric phase 1 diet POD #0. On postoperative day one, the patient was feeling well without nausea, vomiting, fevers, or tachycardia. The patient had some mild incisional pain. The abdomen was soft. On the morning of postoperative day one, the patient was continued on 1 ounce of water or ice every half hour. During the first day, the patient did fairly well, having some incisional pain, but able to ambulate adequately and to tolerate liquids well. Since the patient is doing well, we decided that the patient was ready to be discharged. The patient was given instructions to follow-up with me next week and to call my office for any fever over 101, persistent abdominal pain, nausea, vomiting, GERD, change in the color of the CHRISTINA fluid, symptoms of DVT such as calf tenderness, or leg swelling, or pulmonary embolism such as chest pain or shortness of breath. The patient was also instructed to drink 40-60 ounces of liquids per day using the 1-ounce cups. The patient was given prescription for Tylenol for pain, Zofran prn for nausea, and pantoprazole and carafate. The patient was encouraged to ambulate and use the incentive spirometer. The patient was allowed to shower, but no baths, and encouraged to stay active at home. All of these instructions were given to the patientpersonally. All questions were answered and the patient understood all instructions, the instructions were also given to the patient in print. INSTRUCTIONS You are being discharged home on bariatric diet phase 1. Continue this today and start bariatric phase 2 tomorrow morning. Follow all instructions in the bariatric hand book and call with any questions. No lifting, sexual relations, tub baths or vigorous exercise, do not restart until told to do so by Dr Aguilar. No alcohol, tobacco or caffeine products. Visit Report Forms: Patient Portal Discharge page Care Plan Goals: weight loss Health Concerns: obesity Plan of Treatment: see discharge instructions
== END 2020-03-18 11:40 | disposition home or self-care (01) | DRG 620 ==
LOC: HO.SSSA 11:22 → HO.S3 11:23
PROVIDERS: Physician Assistant; Admitting Provider Surgery; PCP Student in an Organized Health Care Education/Training Program; Visit Provider Surgery
PROC: 0DB64Z3 Excision of Stomach, Percutaneous Endoscopic Approach, Vertical (ICD-10-PCS; CPT 43845; principal; 2020-03-17 07:30)
DX: E66.01 Morbid (severe) obesity due to excess calories (principal); K44.0 Diaphragmatic hernia with obstruction, without gangrene; F41.9 Anxiety disorder, unspecified; J45.909 Unspecified asthma, uncomplicated; K21.9 Gastro-esophageal reflux disease without esophagitis; K66.0 Peritoneal adhesions (postprocedural) (postinfection); E03.9 Hypothyroidism, unspecified; G47.30 Sleep apnea, unspecified; Z20.828 Contact with and (suspected) exposure to other viral communicable diseases; Z68.35 Body mass index [BMI] 35.0-35.9, adult; Z79.51 Long term (current) use of inhaled steroids; Z79.890 Hormone replacement therapy; Z79.891 Long term (current) use of opiate analgesic; Z79.899 Other long term (current) drug therapy
CPT/HCPCS: 36415; 80048; 80053; 84443; 85025; 85610; 85730; 86850; 86870; 86885; 86900; 86901; 86920; 86922; 87635; 88307; 88342; 99024; A4649; J0131; J0690; J1100; J1170; J2250; J2370; J2405; J2765; J3010; U0003

== ENCOUNTER → 2020-03-23 07:32 | Outpatient (BNVA) | payer MEDICARE, MEDICAID, SELFPAY | PROVIDERS: PCP Student in an Organized Health Care Education/Training Program; Referring Provider Student in an Organized Health Care Education/Training Program; Visit Provider Surgery | DX: E66.9 Obesity, unspecified (principal); Z68.31 Body mass index [BMI] 31.0-31.9, adult; Z98.84 Bariatric surgery status | CPT/HCPCS: 99212 ==

== ENCOUNTER → 2020-04-27 09:10 | Outpatient (BNVA) | payer MEDICARE, MEDICAID, SELFPAY | PROVIDERS: PCP Student in an Organized Health Care Education/Training Program; Visit Provider Surgery | DX: E66.9 Obesity, unspecified (principal); Z68.31 Body mass index [BMI] 31.0-31.9, adult; Z71.3 Dietary counseling and surveillance | CPT/HCPCS: 99212 ==

== ENCOUNTER 2020-05-09 07:55 | Outpatient (REF) | payer MEDICARE, MEDICAID, SELFPAY ==
[2020-05-09 08:39] LABS: MANUAL DIFF FLAG NO
[2020-05-09 08:42] LABS: Basophils Percent Auto 0.4 % (0-2); Eosinophils Absolute Auto 0.2 X10*3/uL (0.0-0.4); Eosinophils Percent Auto 2.1 % (0-4); Hematocrit 37.4 % (37-47); Hemoglobin 11.9 g/dl (12.0-16.0); Imm Gran Abs Auto 0.03 X10*3/uL (0.00-0.03); Imm Gran Pct Auto 0.4 % (0.0-0.4); Lymphocytes Absolute Auto 1.2 X10*3/uL (1.2-4.9); Lymphocytes Percent Auto 14.6 % (20-40); Mean Corpuscular HGB Conc 31.8 g/dl (31.0-35.0); Mean Corpuscular Hemoglobin 28.1 pg (27.0-33.0); Mean Corpuscular Volume 88.4 fL (80-98); Monocytes Absolute Auto 0.8 X10*3/uL (0.1-1.2); Monocytes Percent Auto 9.2 % (2-11); Neutrophils Absolute Auto 6.2 X10*3/uL (2.0-8.3); Neutrophils Percent Auto 73.3 % (45-73); Platelet Count 221 X10*3/uL (160-400); Red Blood Count 4.23 X10*6/uL (4.20-5.50); Red Cell Distribution Width 15.7 % (11.0-16.0); White Blood Count 8.5 X10*3/uL (4.8-10.8)
[2020-05-09 09:17] LABS: C Reactive Protein 11.27 mg/dL (< or = 0.50)
[2020-05-09 09:18] LABS: Protein/Creatinine Ratio, Ur 0.14 (<0.2); Total Protein Urine Random 49 mg/dL (<12)
[2020-05-09 09:37] LABS: Erythrocyte Sedimentation Rate 38 MM/HR (0-20)
== END 2020-05-09 07:56 | disposition home or self-care (01) ==
LOC: HO.LAB 07:55
PROVIDERS: PCP Student in an Organized Health Care Education/Training Program; Visit Provider Student in an Organized Health Care Education/Training Program
DX: M31.30 Wegener's granulomatosis without renal involvement (principal)
CPT/HCPCS: 36415; 84156; 85025; 85652; 86140

== ENCOUNTER → 2020-05-25 08:03 | Outpatient (BNVA) | payer MEDICARE, MEDICAID, SELFPAY | PROVIDERS: PCP Student in an Organized Health Care Education/Training Program; Visit Provider Surgery | DX: E66.3 Overweight (principal) | CPT/HCPCS: 99212 ==

== ENCOUNTER 2020-06-26 08:22 | Outpatient (REF) | payer MEDICARE, MEDICAID, SELFPAY ==
--- NOTE | ~2020-06-26 | XR_ITS ---
EXAMINATION: XR CHEST CLINICAL INFORMATION: Cough. COMPARISON: 01/22/2020 TECHNIQUE: 2 views of the chest were obtained. FINDINGS: Cardiac and mediastinal silhouette is stable. Redemonstrated is volume loss in the left hemithorax. Left lung atelectasis/scarring, more prominent in the left upper lobe, overall appears similar as compared to previous. No new focal consolidation is seen. No lobar consolidation is seen. No effusion, edema or pneumothorax. No acute osseous abnormality. XR/XR chest 2V IMPRESSION: Volume loss in the left hemithorax with scarring and atelectasis, appearing similar as compared to previous. No new focal consolidation is seen.
[2020-06-26 13:14] LABS: MANUAL DIFF FLAG NO
[2020-06-26 13:17] LABS: Basophils Percent Auto 0.5 % (0-2); Eosinophils Absolute Auto 0.2 X10*3/uL (0.0-0.4); Eosinophils Percent Auto 3.3 % (0-4); Hematocrit 38.8 % (37-47); Hemoglobin 12.4 g/dl (12.0-16.0); Imm Gran Abs Auto 0.01 X10*3/uL (0.00-0.03); Imm Gran Pct Auto 0.2 % (0.0-0.4); Lymphocytes Absolute Auto 1.8 X10*3/uL (1.2-4.9); Lymphocytes Percent Auto 29.4 % (20-40); Mean Corpuscular Hemoglobin 28.4 pg (27.0-33.0); Mean Corpuscular Volume 88.8 fL (80-98); Mean Platelet Volume 10.2 fL (9.4-12.3); Monocytes Absolute Auto 0.3 X10*3/uL (0.1-1.2); Monocytes Percent Auto 5.3 % (2-11); Neutrophils Absolute Auto 3.7 X10*3/uL (2.0-8.3); Neutrophils Percent Auto 61.3 % (45-73); Platelet Count 242 X10*3/uL (160-400); Red Blood Count 4.37 X10*6/uL (4.20-5.50); Red Cell Distribution Width 14.8 % (11.0-16.0); White Blood Count 6.1 X10*3/uL (4.8-10.8)
[2020-06-26 13:38] LABS: C Reactive Protein 0.66 mg/dL (< or = 0.50)
[2020-06-26 13:56] LABS: Erythrocyte Sedimentation Rate 19 MM/HR (0-20)
== END 2020-06-26 08:23 | disposition home or self-care (01) ==
LOC: HO.LAB 08:22
PROVIDERS: Absent Provider Student in an Organized Health Care Education/Training Program; PCP Student in an Organized Health Care Education/Training Program; Visit Provider Surgery
DX: Z13.89 Encounter for screening for other disorder (principal)
CPT/HCPCS: 36415; 71046; 85025; 85652; 86140; Q3014

== ENCOUNTER 2020-06-26 11:28 | Outpatient (REF) | payer MEDICARE, MEDICAID, SELFPAY | END 2020-06-26 11:29 | disposition home or self-care (01) | LOC: HO.LAB 11:28 | PROVIDERS: Visit Provider Internal Medicine | DX: Z20.822 Contact with and (suspected) exposure to COVID-19 (principal) | CPT/HCPCS: 36415; 71046; 85025; 85652; 86140; C9803; Q3014; U0003; U0005 ==

== ENCOUNTER → 2020-07-24 08:08 | Outpatient (BNVA) | payer MEDICARE, MEDICAID, SELFPAY | PROVIDERS: PCP Student in an Organized Health Care Education/Training Program; Visit Provider Surgery | DX: E66.3 Overweight (principal); Z68.27 Body mass index [BMI] 27.0-27.9, adult; Z71.3 Dietary counseling and surveillance | CPT/HCPCS: Q3014 ==

== ENCOUNTER 2020-08-14 07:55 | Outpatient (REF) | payer MEDICARE, MEDICAID, SELFPAY ==
[2020-08-14 08:38] LABS: MANUAL DIFF FLAG NO
[2020-08-14 08:46] LABS: Basophils Percent Auto 0.4 % (0-2); Eosinophils Absolute Auto 0.2 X10*3/uL (0.0-0.4); Eosinophils Percent Auto 3.7 % (0-4); Hematocrit 39.1 % (37-47); Hemoglobin 12.3 g/dl (12.0-16.0); Imm Gran Abs Auto 0.01 X10*3/uL (0.00-0.03); Imm Gran Pct Auto 0.2 % (0.0-0.4); Lymphocytes Absolute Auto 1.5 X10*3/uL (1.2-4.9); Lymphocytes Percent Auto 30.3 % (20-40); Mean Corpuscular HGB Conc 31.5 g/dl (31.0-35.0); Mean Corpuscular Hemoglobin 27.7 pg (27.0-33.0); Mean Corpuscular Volume 88.1 fL (80-98); Mean Platelet Volume 9.6 fL (9.4-12.3); Monocytes Absolute Auto 0.2 X10*3/uL (0.1-1.2); Monocytes Percent Auto 4.9 % (2-11); Neutrophils Percent Auto 60.5 % (45-73); Platelet Count 223 X10*3/uL (160-400); Red Blood Count 4.44 X10*6/uL (4.20-5.50); White Blood Count 4.9 X10*3/uL (4.8-10.8)
[2020-08-14 09:00] LABS: Albumin Level 4.1 g/dL (3.5-5.0); Anion Gap 12 (12-20); Blood Urea Nitrogen 18 mg/dL (9-16); Calcium 9.5 mg/dL (8.4-10.2); Carbon Dioxide 28 mmol/L (22-29); Chloride 107 mmol/L (96-108); Estimated Glomerular Filt Rate > 60; Phosphorus 3.7 mg/dL (2.7-4.5); Potassium 4.8 mmol/L (3.3-5.1); Sodium 142 mmol/L (135-145)
[2020-08-14 09:11] LABS: Alanine Aminotransferase 14 U/L (0-31); Alkaline Phosphatase 94 U/L (39-117); Aspartate Amino Transferase 14 U/L (5-31); Bilirubin Direct 0.3 mg/dL (0.0-0.5); Bilirubin Total 0.4 mg/dL (0.0-1.0); Cholesterol 155 mg/dL; HDL Cholesterol 48 mg/dL; LDL Cholesterol Calculated 92 mg/dl; Triglycerides 77 mg/dL
[2020-08-14 09:16] LABS: Vitamin D 25-OH Total 26.2 ng/mL (>30)
[2020-08-14 09:17] LABS: Thyroid Stimulating Hormone 0.12 uIU/mL (0.32-4.0)
[2020-08-14 09:32] LABS: Renal w Reflex Lab Use Only Order verified
[2020-08-14 10:10] LABS: Glucose Urine UA NEG (NEG); Leukocyte Esterase Urine NEG (NEG); Nitrite Urine NEG (NEG); Urine Blood TRACE (NEG); Urine Ketones NEG (NEG); Urine Protein NEG (NEG-TRACE)
[2020-08-14 10:12] LABS: Appearance Urine CLEAR; Color Urine YELLOW
[2020-08-14 10:13] LABS: Renal w Reflex-LAB USE ONLY Order Verified
[2020-08-14 10:16] LABS: Squamous Epithelial Cell Urine 1+ /LPF; WBC Urine 0 /HPF (0-4)
[2020-08-14 11:20] LABS: Creatinine Urine 204.14 mg/dL; Microalbum/Creatinine Ratio Ur 27.9 ug/mg cr; Total Protein Urine Random 20 mg/dL (<12)
== END 2020-08-14 07:56 | disposition home or self-care (01) ==
LOC: HO.LAB 07:55
PROVIDERS: Absent Provider Student in an Organized Health Care Education/Training Program; PCP Student in an Organized Health Care Education/Training Program; Visit Provider Internal Medicine Nephrology
DX: I12.9 Hypertensive chronic kidney disease with stage 1 through stage 4 chronic kidney disease, or unspecified chronic kidney disease (principal); N18.2 Chronic kidney disease, stage 2 (mild); R31.9 Hematuria, unspecified; R80.9 Proteinuria, unspecified
CPT/HCPCS: 36415; 80051; 80061; 80076; 81001; 82040; 82043; 82306; 82310; 82565; 83735; 84100; 84156; 84443; 84520; 85025

== ENCOUNTER → 2020-08-19 07:57 | Outpatient (BNVA) | payer MEDICARE, MEDICAID, SELFPAY | PROVIDERS: PCP Student in an Organized Health Care Education/Training Program; Visit Provider Student in an Organized Health Care Education/Training Program | DX: Z86.79 Personal history of other diseases of the circulatory system (principal) | CPT/HCPCS: 99212 ==

== ENCOUNTER → 2020-08-31 08:23 | Outpatient (BNVA) | payer MEDICARE, MEDICAID, SELFPAY | PROVIDERS: PCP Student in an Organized Health Care Education/Training Program; Visit Provider Surgery | DX: E66.3 Overweight (principal); Z68.25 Body mass index [BMI] 25.0-25.9, adult | CPT/HCPCS: Q3014 ==

== ENCOUNTER → 2020-09-03 10:56 | Outpatient (BNVA) | payer MEDICARE, MEDICAID, SELFPAY | PROVIDERS: PCP Student in an Organized Health Care Education/Training Program; Referring Provider Student in an Organized Health Care Education/Training Program; Visit Provider Physician Assistant ==

== ENCOUNTER 2021-01-05 08:03 | Outpatient (REF) | payer MEDICARE, MEDICAID, SELFPAY ==
[2021-01-05 08:40] LABS: MANUAL DIFF FLAG NO
[2021-01-05 08:55] LABS: Basophils Percent Auto 0.6 % (0-2); Eosinophils Absolute Auto 0.2 X10*3/uL (0.0-0.4); Eosinophils Percent Auto 3.1 % (0-4); Hematocrit 39.5 % (37-47); Hemoglobin 12.6 g/dl (12.0-16.0); Imm Gran Abs Auto 0.01 X10*3/uL (0.00-0.03); Imm Gran Pct Auto 0.2 % (0.0-0.4); Lymphocytes Absolute Auto 1.5 X10*3/uL (1.2-4.9); Lymphocytes Percent Auto 29.7 % (20-40); Mean Corpuscular HGB Conc 31.9 g/dl (31.0-35.0); Mean Corpuscular Volume 90.8 fL (80-98); Mean Platelet Volume 9.4 fL (9.4-12.3); Monocytes Absolute Auto 0.3 X10*3/uL (0.1-1.2); Monocytes Percent Auto 6.3 % (2-11); Neutrophils Absolute Auto 2.9 X10*3/uL (2.0-8.3); Neutrophils Percent Auto 60.1 % (45-73); Platelet Count 180 X10*3/uL (160-400); Red Blood Count 4.35 X10*6/uL (4.20-5.50); Red Cell Distribution Width 13.8 % (11.0-16.0); White Blood Count 4.9 X10*3/uL (4.8-10.8)
[2021-01-05 09:11] LABS: Alanine Aminotransferase 24 U/L (0-31); Albumin Level 3.9 g/dL (3.5-5.0); Alkaline Phosphatase 96 U/L (39-117); Anion Gap 8 (12-20); Aspartate Amino Transferase 19 U/L (5-31); Bilirubin Total 0.9 mg/dL (0.0-1.0); Blood Urea Nitrogen 15 mg/dL (9-16); C Reactive Protein 0.12 mg/dL (< or = 0.50); Calcium 9.5 mg/dL (8.4-10.2); Carbon Dioxide 30 mmol/L (22-29); Chloride 109 mmol/L (96-108); Estimated Glomerular Filt Rate > 60; Glucose Random 88 mg/dL (60-115); Potassium 4.7 mmol/L (3.3-5.1); Sodium 142 mmol/L (135-145); Total Protein 6.6 g/dL (6.5-8.0)
[2021-01-05 09:32] LABS: Erythrocyte Sedimentation Rate 8 MM/HR (0-20)
[2021-01-05 09:43] LABS: Appearance Urine CLEAR; Color Urine YELLOW; Glucose Urine UA NEG (NEG); Leukocyte Esterase Urine NEG (NEG); Nitrite Urine NEG (NEG); Specific Gravity - Urine 1.025 (1.005-1.025); Urine Blood 2+ (NEG); Urine Ketones NEG (NEG); Urine Protein NEG (NEG-TRACE)
[2021-01-05 10:30] LABS: Mucus Urine 1+ /LPF; Squamous Epithelial Cell Urine 1+ /LPF
== END 2021-01-05 08:04 | disposition home or self-care (01) ==
LOC: HO.LAB 08:03
PROVIDERS: PCP Student in an Organized Health Care Education/Training Program; Visit Provider Student in an Organized Health Care Education/Training Program
DX: Z86.79 Personal history of other diseases of the circulatory system (principal)
CPT/HCPCS: 36415; 80053; 81001; 85025; 85652; 86140

== ENCOUNTER → 2021-01-07 07:52 | Outpatient (BNVA) | payer MEDICARE, MEDICAID, SELFPAY | PROVIDERS: PCP Student in an Organized Health Care Education/Training Program; Visit Provider Student in an Organized Health Care Education/Training Program | CPT/HCPCS: Q3014 ==

== ENCOUNTER → 2021-01-11 08:28 | Outpatient (BNVA) | payer MEDICARE, MEDICAID, SELFPAY | PROVIDERS: PCP Student in an Organized Health Care Education/Training Program; Visit Provider Physician Assistant Surgical | CPT/HCPCS: Q3014 ==

== ENCOUNTER 2021-01-20 07:16 | Outpatient (REF) | payer MEDICARE, MEDICAID, SELFPAY ==
--- NOTE | ~2021-01-20 | FL_ITS ---
EXAMINATION: FL GI SERIES CLINICAL INFORMATION: Gastroesophageal reflux disease without esophagitis. COMPARISON: None TECHNIQUE: Routine upper GI air-contrast study was performed in upright and lying position. FINDINGS: Following oral administration of thick barium and effervescent granules there is normal propagation of bolus from the oral cavity through the pharynx, esophagus into stomach without any evidence of obstruction, narrowing or stricture. On placing patient supine there is small size stomach likely from previous gastric reduction surgery/sleeve surgery. There is large gastroesophageal reflux into the upper esophagus but no hiatal hernia. The rest of the course of the stomach, duodenum and the sweep is normal except for small diverticulum in the duodenum. The mucosal pattern of the stomach and the duodenum is normal. FLUOROSCOPY TIME: 1.6 minutes DOSE AREA PRODUCT: 18.275 uGy-m2 (microgray-meter squared) FL/FL upper GI series IMPRESSION: Small stomach likely from previous gastric sleeve or gastric reduction surgery. Large gastroesophageal reflux into the upper esophagus. There is a small diverticulum in the second segment of the duodenum.
== END 2021-01-20 07:17 | disposition home or self-care (01) ==
LOC: HO.XRAY 07:16
PROVIDERS: PCP Student in an Organized Health Care Education/Training Program; Visit Provider Physician Assistant Surgical
DX: K21.9 Gastro-esophageal reflux disease without esophagitis (principal); Z87.19 Personal history of other diseases of the digestive system; Z98.890 Other specified postprocedural states
CPT/HCPCS: 74240

== ENCOUNTER 2021-01-29 08:37 | Outpatient (REF) | payer MEDICARE, MEDICAID, SELFPAY ==
--- NOTE | ~2021-01-29 | MM_ITS ---
EXAMINATION: MM SCREENING DIGITAL BREAST TOMOSYNTHESIS, BILATERAL CLINICAL INFORMATION: Screening. Asymptomatic. The lifetime risk of breast cancer based on the Tyrer-Cuzick Model is 8%. COMPARISON: Mammography: 12/13/2019, 04/16/2018, 04/30/2016 TECHNIQUE: Digital breast tomosynthesis is performed in both the craniocaudal and mediolateral oblique views along with computer-aided detection (CAD). Synthesized 2D images are generated from the tomosynthesis. FINDINGS: There are scattered areas of fibroglandular density (ACR BI-RADS breast composition Category b). Breast tissue composition borders on heterogeneously dense. There is a fibronodular parenchymal pattern with stable smooth nodularity posterior central left breast and mid medial right breast. The group of dermal calcifications overlie o'clock left breast. Other scattered benign punctate round calcifications again seen. Significant changes. MM/MM tomosynthesis screening BI IMPRESSION: No significant changes from prior exams. ASSESSMENT: BI-RADS 2: Benign RECOMMENDATION: Routine annual mammography screening. This patient's information was entered into a reminder system with a target due date for their next mammogram.
[2021-01-29 10:27] LABS: Anion Gap 12 (12-20); Blood Urea Nitrogen 16 mg/dL (9-16); Calcium 9.6 mg/dL (8.4-10.2); Carbon Dioxide 28 mmol/L (22-29); Chloride 106 mmol/L (96-108); Estimated Glomerular Filt Rate > 60; Glucose Random 88 mg/dL (60-115); Potassium 4.8 mmol/L (3.3-5.1); Sodium 141 mmol/L (135-145)
== END 2021-01-29 08:38 | disposition home or self-care (01) ==
LOC: HO.MAMMO 08:37
PROVIDERS: Absent Provider Internal Medicine; PCP Student in an Organized Health Care Education/Training Program; Visit Provider Student in an Organized Health Care Education/Training Program
DX: Z12.31 Encounter for screening mammogram for malignant neoplasm of breast (principal); I10 Essential (primary) hypertension
CPT/HCPCS: 36415; 77063; 77067; 80048

== ENCOUNTER → 2021-02-15 08:11 | Outpatient (BNVA) | payer MEDICARE, MEDICAID, SELFPAY | PROVIDERS: PCP Student in an Organized Health Care Education/Training Program; Visit Provider Physician Assistant Surgical | DX: Z13.89 Encounter for screening for other disorder (principal) | CPT/HCPCS: Q3014 ==

== ENCOUNTER → 2021-05-10 07:56 | Outpatient (BNVA) | payer MEDICARE, MEDICAID, SELFPAY | PROVIDERS: PCP Student in an Organized Health Care Education/Training Program; Visit Provider Physician Assistant Surgical ==

== ENCOUNTER → 2021-10-12 07:49 | Outpatient (BNVA) | payer MEDICARE, MEDICAID, SELFPAY | PROVIDERS: PCP Student in an Organized Health Care Education/Training Program; Visit Provider Nurse Practitioner Family | DX: Z86.79 Personal history of other diseases of the circulatory system (principal) | CPT/HCPCS: 99212 ==

== ENCOUNTER 2021-10-19 07:37 | Outpatient (REF) | payer MEDICARE, MEDICAID, SELFPAY ==
--- NOTE | ~2021-10-19 | XR_ITS ---
EXAMINATION: XR CHEST CLINICAL INFORMATION: Z86.79, personal history of other disease of circulatory system COMPARISON: 06/26/2020 TECHNIQUE: 2 views of the chest were obtained. FINDINGS: No acute findings. Chronic volume loss of the left upper lobe. Old linear opacities of scarring in the left lung. No acute consolidation or pleural effusion. The chronic left lung volume loss is associated with mild left-sided shift of the cardiomediastinal silhouette. Pulmonary vessels are normal in size. The visualized bones are intact. A staple line is observed in the epigastric region of the upper abdomen. XR/XR chest 2V IMPRESSION: Chronic opacities of scarring in the left lung and chronic left upper lobe volume loss. No acute cardiopulmonary disease compared to 06/26/2020.
[2021-10-19 08:05] LABS: MANUAL DIFF FLAG NO
[2021-10-19 08:42] LABS: Basophils Percent Auto 0.4 % (0-2); Eosinophils Absolute Auto 0.1 X10*3/uL (0.0-0.4); Eosinophils Percent Auto 2.8 % (0-4); Hematocrit 38.6 % (37.0-47.0); Hemoglobin 12.3 g/dl (12.0-16.0); Imm Gran Abs Auto 0.01 X10*3/uL (0.00-0.03); Imm Gran Pct Auto 0.2 % (0.0-0.4); Lymphocytes Absolute Auto 1.4 X10*3/uL (1.2-4.9); Lymphocytes Percent Auto 29.9 % (20-40); Mean Corpuscular HGB Conc 31.9 g/dl (31.0-35.0); Mean Corpuscular Hemoglobin 29.1 pg (27.0-33.0); Mean Corpuscular Volume 91.3 fL (80.0-98.0); Mean Platelet Volume 9.4 fL (9.4-12.3); Monocytes Absolute Auto 0.3 X10*3/uL (0.1-1.2); Monocytes Percent Auto 6.9 % (2-11); Neutrophils Absolute Auto 2.8 x10*3/uL (2.0-8.3); Neutrophils Percent Auto 59.8 % (45-73); Platelet Count 208 X10*3/uL (160-400); Red Blood Count 4.23 X10*6/uL (4.20-5.50); Red Cell Distribution Width 14.5 % (11.0-16.0); White Blood Count 4.7 X10*3/uL (4.8-10.8)
[2021-10-19 09:03] LABS: Alanine Aminotransferase 22 U/L (0-31); Alkaline Phosphatase 104 U/L (39-117); Anion Gap 10 (12-20); Aspartate Amino Transferase 23 U/L (5-31); Bilirubin Total 0.7 mg/dL (0.0-1.0); Blood Urea Nitrogen 10 mg/dL (9-16); C Reactive Protein 0.19 mg/dL (< or = 0.50); Calcium 9.4 mg/dL (8.4-10.2); Carbon Dioxide 29 mmol/L (22-29); Chloride 107 mmol/L (96-108); Estimated Glomerular Filt Rate > 60; Glucose Random 71 mg/dL (60-115); Potassium 4.5 mmol/L (3.3-5.1); Sodium 141 mmol/L (135-145); Total Protein 6.8 g/dL (6.5-8.0)
[2021-10-19 09:22] LABS: Erythrocyte Sedimentation Rate 14 MM/HR (0-20)
[2021-10-19 10:09] LABS: Appearance Urine CLEAR; Color Urine YELLOW; Glucose Urine UA NEG (NEG); Leukocyte Esterase Urine NEG (NEG); Nitrite Urine NEG (NEG); PH 5.5 (5.0-8.0); Specific Gravity - Urine 1.025 (1.005-1.025); Urine Blood TRACE (NEG); Urine Ketones NEG (NEG); Urine Protein NEG (NEG-TRACE)
[2021-10-19 10:25] LABS: Squamous Epithelial Cell Urine TRACE /LPF; WBC Urine 0 /HPF (0-4)
[2021-10-19 10:48] LABS: Creatinine Urine 128.09 mg/dL; Microalbum/Creatinine Ratio Ur 18.7 ug/mg cr
== END 2021-10-19 07:38 | disposition home or self-care (01) ==
LOC: HO.LAB 07:37
PROVIDERS: PCP Student in an Organized Health Care Education/Training Program; Visit Provider Nurse Practitioner Family
DX: Z86.79 Personal history of other diseases of the circulatory system (principal)
CPT/HCPCS: 36415; 71046; 80053; 81001; 82043; 85025; 85652; 86140

== ENCOUNTER → 2022-03-30 11:38 | Outpatient (BNVA) | payer MEDICARE, MEDICAID, SELFPAY | PROVIDERS: PCP Student in an Organized Health Care Education/Training Program; Visit Provider Physician Assistant Surgical | DX: E66.3 Overweight (principal); K21.9 Gastro-esophageal reflux disease without esophagitis; Z98.84 Bariatric surgery status; Z68.27 Body mass index [BMI] 27.0-27.9, adult | CPT/HCPCS: 99212 ==

== ENCOUNTER 2022-04-08 07:57 | Outpatient (REF) | payer MEDICARE, MEDICAID, SELFPAY ==
[2022-04-08 08:16] LABS: MANUAL DIFF FLAG NO
[2022-04-08 08:39] LABS: Basophils Percent Auto 0.6 % (0-2); Eosinophils Absolute Auto 0.1 X10*3/uL (0.0-0.4); Eosinophils Percent Auto 2.9 % (0-4); Hematocrit 38.4 % (37.0-47.0); Hemoglobin 12.3 g/dl (12.0-16.0); Imm Gran Abs Auto 0.01 X10*3/uL (0.00-0.03); Imm Gran Pct Auto 0.2 % (0.0-0.4); Lymphocytes Absolute Auto 1.4 X10*3/uL (1.2-4.9); Lymphocytes Percent Auto 30.1 % (20-40); Mean Corpuscular Hemoglobin 29.6 pg (27.0-33.0); Mean Corpuscular Volume 92.5 fL (80.0-98.0); Mean Platelet Volume 9.4 fL (9.4-12.3); Monocytes Absolute Auto 0.4 X10*3/uL (0.1-1.2); Monocytes Percent Auto 7.3 % (2-11); Neutrophils Absolute Auto 2.8 x10*3/uL (2.0-8.3); Neutrophils Percent Auto 58.9 % (45-73); Platelet Count 245 X10*3/uL (160-400); Red Blood Count 4.15 X10*6/uL (4.20-5.50); Red Cell Distribution Width 13.7 % (11.0-16.0); White Blood Count 4.8 X10*3/uL (4.8-10.8)
[2022-04-08 08:51] LABS: Estimated Average Glucose 111 mg/dL; Hemoglobin A1c % 5.5 %
[2022-04-08 09:27] LABS: Alanine Aminotransferase 11 U/L (0-31); Alkaline Phosphatase 105 U/L (39-117); Anion Gap 10 (12-20); Aspartate Amino Transferase 15 U/L (5-31); Bilirubin Total 0.5 mg/dL (0.0-1.0); Blood Urea Nitrogen 19 mg/dL (9-16); C Reactive Protein 0.28 mg/dL (< or = 0.50); Calcium 9.5 mg/dL (8.4-10.2); Carbon Dioxide 29 mmol/L (22-29); Chloride 105 mmol/L (96-108); Cholesterol 179 mg/dL; Estimated Glomerular Filt Rate > 60; Ferritin 15 ng/mL (10-250); Glucose Random 85 mg/dL (60-115); HDL Cholesterol 69 mg/dL; Insulin 6 uU/mL (2-29); Iron 65 mcg/dL (30-160); LDL Cholesterol Calculated 100 mg/dl; Percent Iron Saturation 22 % (15-50); Potassium 4.4 mmol/L (3.3-5.1); Sodium 140 mmol/L (135-145); TSH reflex Free T4 0.64 uIU/mL (0.32-4.0); Total Iron Binding Capacity 301 mcg/dL (228-428); Total Protein 6.8 g/dL (6.5-8.0); Triglycerides 51 mg/dL; Unsaturated Iron Binding 236 ug/dL; Vitamin D 25-OH Total 15.9 ng/mL (>30)
[2022-04-08 10:19] LABS: Folate 10.8 ng/mL (> or = 4.0); Vitamin B12 < 148 pg/mL (200-900)
[2022-04-12 15:13] LABS: Calcium (PTHI) 9.5 mg/dL (8.6-10.4); PTHI 61 pg/mL (16-77)
[2022-04-14 05:58] LABS: Zinc 84 mcg/dL (60-130)
[2022-04-14 12:49] LABS: Vitamin A 36 mcg/dL (38-98)
[2022-04-16 14:28] LABS: Vitamin B1 14 nmol/L (8-30)
== END 2022-04-08 07:58 | disposition home or self-care (01) ==
LOC: HO.LAB 07:57
PROVIDERS: PCP Student in an Organized Health Care Education/Training Program; Visit Provider Physician Assistant Surgical
DX: K91.2 Postsurgical malabsorption, not elsewhere classified (principal); Z98.84 Bariatric surgery status
CPT/HCPCS: 36415; 80053; 80061; 82306; 82607; 82728; 82746; 83036; 83525; 83540; 83970; 84425; 84443; 84590; 84630; 85025; 86140

== ENCOUNTER 2022-10-20 19:48 | Emergency (ER) | payer MEDICARE, MEDICAID, SELFPAY ==
[2022-10-20 20:16] VITALS: BP 147/69; PULSE 77; RESP 15; TEMP 36.8; O2SAT 97; BMI 27.3
--- NOTE | 2022-10-20 20:17 | ED_ITS ---
HPI - General Adult General Chief complaint: General Medical Stated complaint: Throat swollen/body aches/chills Time Seen by Provider: 10/20/22 21:54 Source: patient Mode of arrival: ambulatory Limitations: no limitations History of Present Illness HPI narrative: 67 y/o F, hx of granulomatosis and polyangiitis, GERD, and sleep apnea, presenting to the ER for sore throat, chills and subjective fevers x 2 days. Enrique flores states that she is able to swallow liquids but has increased pain with swallowing solids. She states that the glans of her neck feels swollen. She also complains of myalgias and arthralgias. She had nausea with no vomiting. She states she took Tylenol and tramadol at home with no relief for pain Related Data Home Medications Medication Instructions Recorded Confirmed acetaminophen 325 mg tablet mg PO 02/05/20 03/30/22 albuterol sulfate 90 mcg/actuation 2 puff PO Q4-6H PRN Shortness Of 02/05/20 03/30/22 aerosol inhaler Breath Or Wheezing blood pressure test kit-large #1 ea 02/05/20 03/30/22 fluticasone 100 mcg-salmeterol 50 1 ea PO BID 02/05/20 03/30/22 mcg/dose blistr powdr for inhalation fluticasone 250 mcg-salmeterol 50 1 inh inhalation BID 02/05/20 03/30/22 mcg/dose blistr powdr for inhalation (Advair Diskus) montelukast 10 mg tablet 10 mg PO BEDTIME 02/05/20 03/30/22 sennosides 8.6 mg tablet (Natural 8.6 mg PO DAILY 02/05/20 03/30/22 Senna Laxative) tramadol 50 mg tablet 50 mg PO BID PRN 10/12/21 03/30/22 levothyroxine 125 mcg tablet 100 mcg PO DAILY 03/30/22 03/30/22 Previous Rx's Medication Instructions Recorded tizanidine 4 mg tablet 4 mg PO BEDTIME PRN muscle 01/07/21 spasticity #90 tabs famotidine 20 mg tablet 20 mg PO BID #60 tabs 03/30/22 cholecalciferol (vitamin D3) 125 125 mcg PO DAILY #90 caps 04/19/22 mcg (5,000 unit) capsule vitamin A palmitate 3,000 mcg 10,000 unit PO DAILY #90 caps 04/19/22 (10,000 unit) capsule cyanocobalamin (vitamin B-12) 1,000 mcg PO DAILY #90 tabs 08/02/22 1,000 mcg tablet Allergies Allergy/AdvReac Type Severity Reaction Status Date / Time iron dextran complex Allergy Unknown Shakiness Verified 03/30/22 11:42 [IRON DEXTRAN COMPLEX] Review of Systems Review of Systems: Yes all other systems are reviewed and are negative [facility] Past Medical History [facility] Narrative: Social history: She denies tobacco, alcohol and drug use. Medical History Anxiety Asthma Riggins esophagus Riggins's esophagus Cervical spondylosis Congenital intra-abdominal adhesions COPD (chronic obstructive pulmonary disease) COVID-19 Diaphragmatic hernia Fibromyalgia GERD (gastroesophageal reflux disease) Granulomatous angiitis Hiatal hernia History of granulomatosis with polyangiitis Hypertension Hypothyroidism Obesity Osteoarthritis Paresthesia Sleep apnea Steatosis, liver Stress incontinence Tricuspid valve regurgitation Wegeners granulomatosis Surgical History History of bronchoscopy History of esophagogastroduodenoscopy (EGD) History of pneumonectomy History of sleeve gastrectomy Hx of biopsy Hx of biopsy Hx of colonoscopy Hx of LASIK S/P laparoscopic sleeve gastrectomy Family History Family History Father Heart disease Mother Cirrhosis of liver Recurrent strokes Diabetes Sister Lupus Arthritis Daughter No problems noted. Son No problems noted. Social History Social History Are you a primary healthcare economics consultant to a significant other at home: No Do you presently have visiting nurse or other home services: No Alcohol intake: never Patient Tobacco Use Status: Former Tobacco user Smoked in Last 30 Days: Yes Second Hand Smoke Exposure: No Use of substances other than those prescribed or required for medical reasons: No Advance Directives: No Advance Directives Information Provided: No Physical Exam ED Vital Signs: Vital Signs - 24 hr 10/20/22 20:16 10/20/22 21:23 Temperature 98.3 F 97.6 F Pulse Rate 77 76 Respiratory Rate 15 16 Blood Pressure 147/69 H 142/62 H Pulse Oximetry 97 98 Oxygen Delivery Method Room Air Room Air BMI result Body Mass Index 27.3 Const General: cooperative and no acute distress Orientation/consciousness: oriented to person and oriented to place Limitations: no limitations HENMT Other: Normal cephalic atraumatic, pupils equal round reactive light, sclera contact however normal, mouth revealed moist membranes with posterior erythema and exudates, no palate or tonsil swelling, no trismus Eyes General: appearance normal, both eyes and all related structures Pupils: Equal, round and reactive pupils present Neck Neck: Yes normal visual inspection, Yes no lymphadenopathy, Yes trachea midline and Yes supple Chest Chest palpation & inspection: normal inspection of the chest and normal palpation of entire chest wall Resp Effort & Inspection: normal respiratory effort and able to speak in complete sentences Auscultation: clear to auscultation bilaterally Cardio Rate: regular rate Rhythm: regular rhythm Heart sounds: S1 normal heart sound present, S2 normal heart sound present and no murmurs GI Inspection: Yes normal to inspection Palpation (GI): Soft to palpation, nontender and no guarding Auscultation: normal bowel sounds Neuro General: oriented to person and oriented to place Cranial nerves: Yes CN's II-XII intact bilaterally and Yes Equal, round and reactive pupils present Cognition (Neuro): normal cognition Extrem General: Yes normal to inspection Course Course Course Narrative: This is an RME: Additional HPI, ROS, PE not included below will be deferred to primary provider. 67 y/o F, hx of granulomatosis and polyangiitis, GERD, and sleep apnea, presenting to the ER for sore throat, chills and subjective fevers x 2 days. Oral pharynx mildly erythematous, airway patent. Plan: strep test ordered Medications Administered Discontinued Medications Generic Name Dose Route Start Last Admin Trade Name Freq PRN Reason Stop Dose Admin Ibuprofen 400 mg 10/20/22 22:08 10/20/22 22:44 Ibuprofen 400 Mg Tablet PO 10/20/22 22:09 400 mg ONCE ONE Administration Penicillin V Potassium 500 mg 10/20/22 22:08 10/20/22 22:44 Penicillin V Potassium 250 Mg Tablet PO 10/20/22 22:09 500 mg ONCE ONE Administration Medical Decision Making Medical Decision Making [facility] Narrative: 67-year-old female who presents emergency department for evaluation of sore throat, nausea, chills, myalgias, arthralgias x2 days. Patient's vital signs did reveal an elevated blood pressure 147/69. Patient's posterior pharynx has erythema with exudates, exam is otherwise unremarkable. Patient's rapid strep test was negative. COVID-19 was ordered. Patient was given penicillin 500 mg orally, and ibuprofen 40 mg orally. Patient will be treated with penicillin 500 mg twice a day for 10 days for bacterial pharyngitis. Differential Diagnosis Differential diagnosis includes was not limited to strep pharyngitis, bacterial and pharyngitis, viral pharyngitis, COVID-19 infection Lab Data [facility] Lab Attestation statement: I reviewed the patient's lab results. Patient's rapid strep test was negative. Patient's COVID-19 test was negative. Labs: Lab Results 10/20/22 10/20/22 Range/Units 20:32 22:33 COVID-19 (KARSTEN) Negative (Negative) COVID-19 Clin Com See Note S. pyogenes GrpA JULIUS Negative (Negative) Discharge Plan Discharge Clinical Impression: Pharyngitis Qualifiers: Pharyngitis/tonsillitis etiology: unspecified etiology Qualified Code(s): J02.9 - Acute pharyngitis, unspecified Patient Disposition: Home, Self-Care Instructions: Pharyngitis (ED) Additional Instructions: Your rapid strep test was negative. I will text your daughter with your COVID-19 result Take ibuprofen 200 mg pills, 23 pills every 6 hours as needed for pain. Take Tylenol (acetaminophen) 500 mg pills, 2 pills every 6 hours as needed for pain. Take penicillin 500 mg pills, 1 pill twice a day for 10 days. Finish the entire antibiotic prescription. Follow-up with your doctor in 2 days. Please return to the emergency department if your symptoms get worse or if you develop any symptoms that are concerning to you. Prescriptions: No Action cholecalciferol (vitamin D3) 125 mcg (5,000 unit) capsule 125 mcg PO DAILY Qty: 90 3RF vitamin A palmitate 10,000 unit capsule 10,000 unit PO DAILY Qty: 90 3RF cyanocobalamin (vitamin B-12) 1,000 mcg tablet 1,000 mcg PO DAILY Qty: 90 0RF montelukast 10 mg tablet 10 mg PO BEDTIME (DME) blood pressure test kit-large Kit See Rx Instructions .ROUTE DIRECTED Qty: 1 Rx Instructions: As directed fluticasone propion-salmeterol 100-50 mcg/dose blister with device 1 ea PO BID albuterol sulfate 90 mcg/actuation HFA aerosol inhaler 2 puff PO Q4-6H PRN (Reason: Shortness Of Breath Or Wheezing) acetaminophen 325 mg tablet PO fluticasone propion-salmeterol [Advair Diskus] 250-50 mcg/dose blister with de vice 1 inh inhalation BID sennosides [Natural Senna Laxative] 8.6 mg tablet 8.6 mg PO DAILY Hold Instructions: Resume on 03/24/20. Discuss with Dr Aguilar before restarting levothyroxine 125 mcg tablet 100 mcg PO DAILY tizanidine 4 mg tablet 4 mg PO BEDTIME PRN (Reason: muscle spasticity) Qty: 90 2RF famotidine 20 mg tablet 20 mg PO BID Qty: 60 3RF tramadol 50 mg tablet 50 mg PO BID PRN Interventions: ED Discharge Assessment Last Done: 10/20/22 23:02 Discharge Date/Time: 10/20/22 23:03
[2022-10-20 21:15] LABS: IDNOW Serial# 08D9AD1C; Strep A Nucleic Acid Negative (Negative)
[2022-10-20 21:23] VITALS: BP 142/62; PULSE 76; RESP 16; TEMP 36.4; O2SAT 98
[2022-10-20] MEDS: Penicillin V Potassium 250 MG TABLET 500 MG PO (22:44)
[2022-10-20] MEDS: Ibuprofen 400 MG TABLET PO (22:44)
[2022-10-20 22:51] LABS: COVID-19 Test Negative (Negative); IDNOW Serial# BCCEAD1C
== END 2022-10-20 23:03 | disposition home or self-care (01) ==
PROVIDERS: Physician Assistant Medical; Emergency Provider Emergency Medicine Emergency Medical Services; PCP Student in an Organized Health Care Education/Training Program
DX: J02.9 Acute pharyngitis, unspecified (principal); Z20.822 Contact with and (suspected) exposure to COVID-19; I10 Essential (primary) hypertension; Z79.899 Other long term (current) drug therapy
CPT/HCPCS: 87635; 87651; 99283; 99284

== ENCOUNTER → 2022-11-03 09:58 | Outpatient (BNVA) | payer MEDICARE, MEDICAID, SELFPAY | PROVIDERS: PCP Student in an Organized Health Care Education/Training Program; Visit Provider Internal Medicine Rheumatology ==

== ENCOUNTER 2022-11-03 11:20 | Outpatient (REF) | payer MEDICARE, MEDICAID, SELFPAY | END 2022-11-03 11:21 | disposition home or self-care (01) | LOC: HO.10HDL 11:20 | PROVIDERS: Visit Provider Internal Medicine Rheumatology | DX: E55.9 Vitamin D deficiency, unspecified (principal); Z86.79 Personal history of other diseases of the circulatory system | CPT/HCPCS: 36415; 80053; 82306; 84156; 85025; 85652; 86140; 99212 ==

== ENCOUNTER 2023-05-22 09:16 | Outpatient (REF) | payer MEDICARE, MEDICAID, SELFPAY ==
[2023-05-22 15:40] LABS: Anion Gap 10 (12-20); Blood Urea Nitrogen 15 mg/dL (9-16); Calcium 9.8 mg/dL (8.4-10.2); Carbon Dioxide 30 mmol/L (22-29); Chloride 106 mmol/L (96-108); Estimated Glomerular Filt Rate > 60; Glucose Random 74 mg/dL (60-115); Potassium 4.3 mmol/L (3.3-5.1); Sodium 142 mmol/L (135-145)
[2023-05-22 15:43] LABS: Thyroid Stimulating Hormone 0.14 uIU/mL (0.32-4.0); Vitamin D 25-OH Total 18.9 ng/mL (>30)
[2023-05-22 15:58] LABS: Vitamin B12 154 pg/mL (200-900)
== END 2023-05-22 09:17 | disposition home or self-care (01) ==
LOC: HO.CHCLDS 09:16
PROVIDERS: Visit Provider Student in an Organized Health Care Education/Training Program
DX: I12.9 Hypertensive chronic kidney disease with stage 1 through stage 4 chronic kidney disease, or unspecified chronic kidney disease (principal); N18.9 Chronic kidney disease, unspecified; E55.9 Vitamin D deficiency, unspecified; E03.9 Hypothyroidism, unspecified; R53.83 Other fatigue
CPT/HCPCS: 36415; 80048; 82306; 82607; 84443

== ENCOUNTER 2023-06-28 07:44 | Outpatient (REF) | payer MEDICARE, MEDICAID, SELFPAY ==
--- NOTE | ~2023-06-28 | MM_ITS ---
EXAMINATION: MM SCREENING DIGITAL BREAST TOMOSYNTHESIS, BILATERAL CLINICAL INFORMATION: Screening. Asymptomatic. COMPARISON: Mammography: This study is compared with prior exams dating back to 2018. TECHNIQUE: Digital breast tomosynthesis is performed in both the craniocaudal and mediolateral oblique views along with computer-aided detection (CAD). Synthesized 2D images are generated from the tomosynthesis. FINDINGS: The breasts are heterogeneously dense, which may obscure small masses (ACR BI-RADS breast composition Category c). In the lower outer quadrant of the left breast, there are grouped calcifications which warrant additional mammographic imaging with magnification. In the right breast, there are no significant masses, abnormal calcifications, or other abnormalities. MM/MM tomosynthesis screening BI IMPRESSION: Left breast calcifications warrant additional mammographic imaging with magnification. No mammographic signs of malignancy right breast. ASSESSMENT: BI-RADS BI-RADS 0 - Incomplete: Needs additional Imaging. RECOMMENDATION: Additional views of the left breast Radiology department staff will contact the patient for additional imaging. Additional Imaging required This examination should not preclude the clinical evaluation of a suspicious palpable abnormality. This patient's information was entered into a reminder system with a target due date for their next mammogram.
== END 2023-06-28 07:45 | disposition home or self-care (01) ==
LOC: HO.MAMMO 07:44
PROVIDERS: PCP Student in an Organized Health Care Education/Training Program; Visit Provider Student in an Organized Health Care Education/Training Program
DX: Z12.31 Encounter for screening mammogram for malignant neoplasm of breast (principal)
CPT/HCPCS: 77063; 77067

== ENCOUNTER → 2023-06-28 08:30 | Outpatient (BNV) | payer MEDICARE, MEDICAID, SELFPAY | PROVIDERS: PCP Student in an Organized Health Care Education/Training Program; Visit Provider Radiology Diagnostic Radiology | DX: Z12.31 Encounter for screening mammogram for malignant neoplasm of breast (principal) | CPT/HCPCS: 77063; 77067 ==

== ENCOUNTER 2023-07-20 08:05 | Outpatient (REF) | payer MEDICARE, MEDICAID, SELFPAY ==
--- NOTE | ~2023-07-20 | MM_ITS ---
EXAMINATION: MM DIAGNOSTIC DIGITAL MAMMOGRAPHY, LEFT CLINICAL INFORMATION: Evaluate calcifications seen screening exam inferior left breast on MLO view, and far lateral posterior left breast on CC view. COMPARISON: Mammography: 06/20/2023, 01/29/2021, 12/13/2019, 04/16/2018, and 02/29/2016. TECHNIQUE: Digital mammography is performed in the following views: 2-D spot magnification left CC and left ML views x2 FINDINGS: The breasts are heterogeneously dense, which may obscure small masses (ACR BI-RADS breast composition Category c). Calcifications in the inferior left breast are dermal in origin, and benign. These have been previously characterized. Calcifications in the approximate 3:00 axis of the left breast, posterior one third, have been present to some degree since 2000 exams, and even dating back to 2018 exam, and have minimally changed although no prior magnification view is available for comparison. These calcifications are probably benign. There is predominantly globular in appearance, grouped, with no definite pleomorphic, branching, or casting forms. No suspicious distribution. They remain probably benign and six-month interval follow-up left breast diagnostic mammography to include magnification views is recommended for continued evaluation. Results are provided to the patient at time of visit by the technologist. MM/MM added views LT IMPRESSION: 1. Calcifications in the inferior left breast are dermal and benign. No further follow-up recommended. 2. Calcifications in the approximate 9:00 axis left breast are probably benign, and follow-up in 6 months with diagnostic left breast magnification views is recommended to ensure stability. ASSESSMENT: BI-RADS BI-RADS 3 - Probably benign finding(s) - 6 month follow-up suggested RECOMMENDATION: 6 Month F/U This patient's information was entered into a reminder system with a target due date for their next mammogram.
== END 2023-07-20 08:06 | disposition home or self-care (01) ==
LOC: HO.MAMMO 08:05
PROVIDERS: PCP Student in an Organized Health Care Education/Training Program; Visit Provider Student in an Organized Health Care Education/Training Program
DX: R92.1 Mammographic calcification found on diagnostic imaging of breast (principal)
CPT/HCPCS: 77065

== ENCOUNTER → 2023-07-20 08:30 | Outpatient (BNV) | payer MEDICARE, MEDICAID, SELFPAY | PROVIDERS: PCP Student in an Organized Health Care Education/Training Program; Visit Provider Radiology Diagnostic Radiology | DX: R92.1 Mammographic calcification found on diagnostic imaging of breast (principal) | CPT/HCPCS: 77065 ==

== ENCOUNTER 2024-01-29 10:15 | Outpatient (REF) | payer MEDICARE, MEDICAID, SELFPAY ==
--- NOTE | ~2024-01-29 | MM_ITS ---
EXAMINATION: MM DIAGNOSTIC DIGITAL BREAST TOMOSYNTHESIS, LEFT CLINICAL INFORMATION: 6 month follow-up for probably benign left breast calcifications inferior, far lateral and posterior left breast. COMPARISON: Mammography: 07/20/2023 (BI-RADS 3), 06/28/2023 (BI-RADS 0), and exams dating back to 2018. TECHNIQUE: Digital breast tomosynthesis is performed in the following views: 2-D spot magnification left CC and LM views. Per technologist, patient was in some degree of respiratory distress, limiting the LM magnification view from motion. FINDINGS: The breasts are heterogeneously dense, which may obscure small masses (ACR BI-RADS breast composition Category c). Calcifications in the upper outer quadrant 3:00 axis left breast, posterior one third, has slightly become more coarse and appearance since the prior exam 6 months ago, however the number of calcifications has remained unchanged. No aggressive changes observed. There are skin calcifications along the nipple line on the CC magnification view. A stable small benign circumscribed mass is also present along the CC nipple. No suspicious abnormalities. MM/MM tomosynthesis diagnostic LT IMPRESSION: -There are no findings in the left breast suspicious for malignancy. -Probably benign calcifications left breast, as described. Recommend additional 6 month follow-up magnification views when the patient is due for bilateral screening, to continue to assess for stability. ASSESSMENT: BI-RADS BI-RADS 3 - Probably benign finding(s) - 6 month follow-up suggested RECOMMENDATION: 6 Month F/U Results were provided to the patient at time of visit by the technologist. This patient's information was entered into a reminder system with a target due date for their next mammogram. Electronically signed by: Berto Yeh MD 01/29/2024 11:41 AM EDT
== END 2024-01-29 10:16 | disposition home or self-care (01) ==
LOC: HO.MAMMO 10:15
PROVIDERS: PCP Student in an Organized Health Care Education/Training Program; Visit Provider Student in an Organized Health Care Education/Training Program
DX: R92.1 Mammographic calcification found on diagnostic imaging of breast (principal)
CPT/HCPCS: 77061; 77065

== ENCOUNTER → 2024-01-29 11:00 | Outpatient (BNV) | payer MEDICARE, MEDICAID, SELFPAY | PROVIDERS: PCP Student in an Organized Health Care Education/Training Program; Visit Provider Radiology Diagnostic Radiology | DX: R92.1 Mammographic calcification found on diagnostic imaging of breast (principal) | CPT/HCPCS: 77065; G0279 ==

== ENCOUNTER 2024-01-30 15:28 | Outpatient (AMB) | payer MEDICARE, MEDICAID, SELFPAY ==
[2024-01-30 15:48] VITALS: BP 122/68; PULSE 76; O2SAT 99; BMI 28.9
--- NOTE | 2024-01-30 15:48 | A.OFFVIS_ITS ---
Vital Signs 01/30/24 15:48 Height 5 ft 3 in Weight 163 lb BMI 28.9 BP 122/68 Blood Pressure Location Lt brachial Position Sitting Pulse 76 Pulse Source Pulse Oximeter Pulse Oximetry (%) 99 Oxygen Delivery Method Room Air Intake Visit Reasons: GPA Intake Note: Patient presents today for follow up on GPA and lab review, she was last seen in the office on 11/03/[address] Patel. Allergies iron dextran complex [IRON DEXTRAN COMPLEX] Allergy (Unknown, Verified 01/30/24 15:49) Shakiness Medication List - Last Reconciled 01/30/24 by Radha Ruiz MD acetaminophen mg PO albuterol sulfate 90 mcg/actuation 2 puffs PO Q4-6H PRN blood pressure test kit-large As directed cholecalciferol (vitamin D3) 125 mcg PO DAILY cyanocobalamin (vitamin B-12) 1,000 mcg PO DAILY famotidine 20 mg PO BID fluticasone propion-salmeterol 100-50 mcg/dose 1 ea PO BID fluticasone propion-salmeterol 250-50 mcg/dose (Advair Diskus) 1 inh inhalation BID ibuprofen 600 mg PO Q8H PRN levothyroxine 100 mcg PO DAILY montelukast 10 mg PO BEDTIME penicillin V potassium 500 mg PO BID sennosides (Natural Senna Laxative) 8.6 mg PO DAILY tizanidine 4 mg PO BEDTIME PRN tramadol 50 mg PO BID PRN vitamin A palmitate 10,000 units PO DAILY HPI Comments Details: This is a 68-year-old female with history of GPA who presents for follow-up. Last seen 10/[address] Patel. She has not been treated since approximately 2011. She states that she has been doing plenty of testing and going to multiple doctors recently. She had a PET scan showed activity in the lung. She had a bronchoscopy with biopsy. The pathology is benign. She states that she has generalized tingling and numbness of her upper and lower extremities. 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 Steatosis, liver Stress incontinence Diaphragmatic hernia Riggins's esophagus COVID-19 Cervical spondylosis Tricuspid valve regurgitation Hiatal hernia Paresthesia Granulomatous angiitis Osteoarthritis Fibromyalgia Wegeners granulomatosis Anxiety GERD (gastroesophageal reflux disease) Sleep apnea Asthma Hypothyroidism Hypertension Obesity Surgical History History of sleeve gastrectomy S/P laparoscopic sleeve gastrectomy Hx of LASIK History of pneumonectomy Hx of biopsy Hx of biopsy History of bronchoscopy History of esophagogastroduodenoscopy (EGD) Hx of colonoscopy Family History Father Heart disease Mother Cirrhosis of liver Recurrent strokes Diabetes Sister Lupus Arthritis Daughter No problems noted. Son No problems noted. Social History Are you a primary hospice spiritual care coordinator to a significant other at home: No Do you presently have visiting nurse or other home services: No Alcohol intake: never Patient Tobacco Use Status: Former Tobacco user Second Hand Smoke Exposure: No Review of Systems Const Reports fatigue, Reports weakness and Denies weight loss Musc Reports arthralgias, Reports numbness and Reports tingling Neuro Reports numbness, Reports tingling and Reports weakness Endo Reports fatigue Physical Exam Vital Signs: Last Vital Signs Pulse 76 01/30/24 15:48 BP 122/68 01/30/24 15:48 Pulse Ox 99 01/30/24 15:48 Oxygen Delivery Method Room Air 01/30/24 15:48 BMI result Body Mass Index 28.9 Const General: cooperative, healthy appearing and comfortable Nutritional Appearance: overweight Orientation/consciousness: patient oriented x3 Limitations: no limitations HEENT Head: Yes normocephalic and Yes atraumatic Mouth: moist mucous membranes Resp Effort & Inspection: normal respiratory effort Auscultation: rales on the left at the base Cardio Rate: regular rate Skin General skin exam: no rashes or lesions noted Neuro General: patient oriented x3 Extrem Other: No active synovitis No rashes Normal nailfold capillaroscopy Assessment & Plan Assessment & Plan (1) History of granulomatosis with polyangiitis: Comment: 2006 - polyarthritis RX with Plaquenil. rheumatoid nodule 2006 bx of lung showed GPA, sinuisitis. pneumothorax [id number] oral cytoxan [id number] Imuran. Hx kidney bx showing sclerosis/no vasculitis - ? date Code(s): Z86.79 - Personal history of other diseases of the circulatory system Category: Medical Plan: This is a 68-year-old female who presents for evaluation of GPA. This is her 1st visit with me. Upon evaluation I do not see any obvious signs of active dis ease. 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 Recent PET scan was positive for lung nodules, bronchoscopy with biopsy was negative for malignancy or inflammation. Follow-up in about 4 weeks (2) Respiratory crackles at left lung base: Code(s): R09.89 - Other specified symptoms and signs involving the circulatory and respiratory systems Category: Medical Plan: Will attempt to reach out to patient's outside collector to w to request a recent CT scan of the chest (3) Fibromyalgia: Code(s): M79.7 - Fibromyalgia Category: Medical Plan: Does explain most of her symptoms today I will refill her tizanidine She takes tramadol 50 mg as needed for joint pains. Will prescribe tramadol, 15 tablets should last her one-month Plan I spent 46 minutes reviewing patient's chart, evaluating patient, ordering diag nostic workup, counseling patient and documenting in the chart Orders: Orders WALTER Reflex Titer and Pattern Today M32.9 - Systemic lupus erythematosus, unspecified Anti DNA DS Antibody Today M32.9 - Systemic lupus erythematosus, unspecified Complement C3 Today M32.9 - Systemic lupus erythematosus, unspecified Complement C4 Today M32.9 - Systemic lupus erythematosus, unspecified C Reactive Protein Today M32.9 - Systemic lupus erythematosus, unspecified Erythrocyte Sedimentation Rate Today M32.9 - Systemic lupus erythematosus, unspecified Sjogren's Antibodies Today M32.9 - Systemic lupus erythematosus, unspecified Cyclic Citrullinated Peptide Today M32.9 - Systemic lupus erythematosus, unspecified T Spot TB Today Z11.7 - Encounter for testing for latent tuberculosis infection ANCA Vasculitides Today Z86.79 - Personal history of other diseases of the circulatory system Comprehensive Met. Panel Today M32.9 - Systemic lupus erythematosus, unspecified Thiopurine Methyltransferase Today Z51.81 - Encounter for therapeutic drug level monitoring, Z79.624 - half-way (current) use of inhibitors of nucleotide synthesis Anti Extractable Nuclear Ag Today M32.9 - Systemic lupus erythematosus, unspecified DNA Double Stranded-Crithidia Today M32.9 - Systemic lupus erythematosus, unspecified Protein Creatinine Ratio, Ur Today M32.9 - Systemic lupus erythematosus, unspecified UA w Microscopic Today M32.9 - Systemic lupus erythematosus, unspecified Rheumatoid Factor Today M32.9 - Systemic lupus erythematosus, unspecified Immunofixation Pnl, Serum Today M32.9 - Systemic lupus erythematosus, unspecified Protein Electrophoresis, Serum Today M32.9 - Systemic lupus erythematosus, unspecified Hepatitis A,B,C Profile Today Z11.59 - Encounter for screening for other viral diseases Complete Blood Count Auto Diff Today M32.9 - Systemic lupus erythematosus, unspecified Medications: Changed From tramadol 50 mg PO BID PRN To tramadol 15 tabs should last 30 days 50 mg PO DAILY PRN 15 tabs 0RF pain From tizanidine 4 mg PO BEDTIME PRN 90 tabs 2RF muscle spasticity To tizanidine 8 mg (2 x 4 mg) PO BEDTIME 60 tabs 2RF Coding Level of Care Code Est Pt Level 5 (52647) Complex EM visit Add On G2211 Diagnoses History of granulomatosis with polyangiitis Z86.79 Respiratory crackles at left lung base R09.89 Fibromyalgia M79.7
== END 2024-01-30 16:17 | disposition home or self-care (01) ==
PROVIDERS: PCP Student in an Organized Health Care Education/Training Program; Visit Provider Student in an Organized Health Care Education/Training Program
DX: R09.89 Other specified symptoms and signs involving the circulatory and respiratory systems (principal); Z86.79 Personal history of other diseases of the circulatory system; M79.7 Fibromyalgia
CPT/HCPCS: 99215; G2211

== ENCOUNTER → 2024-01-30 15:28 | Outpatient (BNVA) | payer MEDICARE, MEDICAID, SELFPAY | PROVIDERS: PCP Student in an Organized Health Care Education/Training Program; Visit Provider Student in an Organized Health Care Education/Training Program | DX: M79.7 Fibromyalgia (principal); M32.9 Systemic lupus erythematosus, unspecified; R09.89 Other specified symptoms and signs involving the circulatory and respiratory systems; Z86.79 Personal history of other diseases of the circulatory system; Z79.624 Long term (current) use of inhibitors of nucleotide synthesis | CPT/HCPCS: 99212 ==

== ENCOUNTER 2024-02-05 08:01 | Outpatient (REF) | payer MEDICARE, MEDICAID, SELFPAY ==
[2024-02-05 08:29] LABS: MANUAL DIFF FLAG NO
[2024-02-05 09:08] LABS: Basophils Percent Auto 0.8 % (0-2); Eosinophils Absolute Auto 0.1 X10*3/uL (0.0-0.4); Eosinophils Percent Auto 2.9 % (0-4); Hematocrit 36.3 % (37.0-47.0); Hemoglobin 11.6 g/dl (12.0-16.0); Imm Gran Abs Auto 0.01 X10*3/uL (0.00-0.03); Imm Gran Pct Auto 0.2 % (0.0-0.4); Lymphocytes Absolute Auto 1.6 X10*3/uL (1.2-4.9); Lymphocytes Percent Auto 32.8 % (20-40); Mean Corpuscular Hemoglobin 27.4 pg (27.0-33.0); Mean Corpuscular Volume 85.8 fL (80.0-98.0); Mean Platelet Volume 9.3 fL (9.4-12.3); Monocytes Absolute Auto 0.4 X10*3/uL (0.1-1.2); Monocytes Percent Auto 7.4 % (2-11); Neutrophils Absolute Auto 2.7 x10*3/uL (2.0-8.3); Neutrophils Percent Auto 55.9 % (45-73); Platelet Count 242 X10*3/uL (160-400); Red Blood Count 4.23 X10*6/uL (4.20-5.50); Red Cell Distribution Width 14.3 % (11.0-16.0); White Blood Count 4.9 X10*3/uL (4.8-10.8)
[2024-02-05 09:22] LABS: Appearance Urine Clear; Color Urine Yellow; Glucose Urine UA Negative (Negative); Leukocyte Esterase Urine Small (1+) (Negative); Nitrite Urine Negative (Negative); PH 6.5 (5.0-9.0); Specific Gravity - Urine 1.025 (1.005-1.025); UMIC TRIGGER UA YES; Urine Blood Small (1+) (Negative); Urine Ketones Negative (Negative); Urine Protein Negative (Neg-Trace)
[2024-02-05 09:37] LABS: Bacteria Urine None Seen (None Seen); Hyaline Casts Urine 0-2 /LPF (0-2); Squamous Epithelial Cell Urine 0-2 /HPF (0-2); WBC Urine 0-5 /HPF (0-5)
[2024-02-05 09:50] LABS: Alanine Aminotransferase 40 U/L (0-31); Alkaline Phosphatase 114 U/L (39-117); Anion Gap 12 (12-20); Aspartate Amino Transferase 32 U/L (5-31); Bilirubin Total 0.5 mg/dL (0.0-1.0); Blood Urea Nitrogen 12 mg/dL (9-16); C Reactive Protein 0.67 mg/dL (< or = 0.50); Calcium 10.1 mg/dL (8.4-10.2); Carbon Dioxide 27 mmol/L (22-29); Chloride 107 mmol/L (96-108); Erythrocyte Sedimentation Rate 28 MM/HR (0-20); Estimated Glomerular Filt Rate > 60; Glucose Random 88 mg/dL (60-115); Potassium 4.1 mmol/L (3.3-5.1); Sodium 142 mmol/L (135-145); Total Protein 7.3 g/dL (6.5-8.0)
[2024-02-05 10:10] LABS: Creatinine Urine 183.47 mg/dL; Protein/Creatinine Ratio, Ur 0.08 (<0.2); Total Protein Urine Random 14 mg/dL (<12)
[2024-02-05 10:11] LABS: HBS Num1 0.33 mIU/mL (0-7.99); HBc Num1 0.11 S/CO (0.00-0.79); HBsAGNum1 0.26 S/CO (0.00-0.99); Hepatitis A Antibody IgM 0.12 Index (0-0.79); Hepatitis B Core Antibody Nonreactive (Nonreactive); Hepatitis B Surface Antigen Negative (Negative); ~HepC Num1 0.12 S/CO (0.00-0.79); ~Hepatitis A Antibody IgM Nonreactive (Nonreactive); ~Hepatitis B Surface Antibody NONREACTIVE (Nonreactive); ~Hepatitis C Antibody Nonreactive (Nonreactive)
[2024-02-05 10:14] LABS: Rheumatoid Factor < 13.0 IU/mL (<15.0)
[2024-02-05 10:20] LABS: Alanine Aminotransferase 40 U/L (0-31); Alkaline Phosphatase 113 U/L (39-117); Anion Gap 11 (12-20); Aspartate Amino Transferase 33 U/L (5-31); Bilirubin Direct 0.2 mg/dL (0.0-0.5); Bilirubin Total 0.5 mg/dL (0.0-1.0); Blood Urea Nitrogen 13 mg/dL (9-16); Carbon Dioxide 28 mmol/L (22-29); Chloride 106 mmol/L (96-108); Cholesterol 167 mg/dL (<200); Estimated Glomerular Filt Rate > 60; Glucose Random 87 mg/dL (60-115); HDL Cholesterol 63 mg/dL (>40); LDL Cholesterol Calculated 88 mg/dL (<100); Potassium 4.1 mmol/L (3.3-5.1); Sodium 141 mmol/L (135-145); Total Protein 7.2 g/dL (6.5-8.0); Triglycerides 80 mg/dL (<150)
[2024-02-05 10:27] LABS: TSH reflex Free T4 < 0.01 uIU/mL (0.32-4.0)
[2024-02-05 11:26] LABS: Free T4 (Free Thyroxine) 1.35 ng/dL (0.71-1.85)
[2024-02-06 13:13] LABS: Prot Elec - Alpha1 0.3 g/dL (0.2-0.3); Prot Elec - Alpha2 0.8 g/dL (0.5-0.9); Prot Elec - Beta 1 0.5 g/dL (0.4-0.6); Prot Elec - Beta 2 0.4 g/dL (0.2-0.5); Prot Elec - Gamma 1.2 g/dL (0.8-1.7); Prot Elec - Total Protein 7.2 g/dL (6.1-8.1)
[2024-02-07 07:54] LABS: Anti DNA DS Antibody <1 IU/mL; Antibody to SS-A Antigen <1.0 NEG AI (<1.0 NEG); Antibody to SS-B Antigen <1.0 NEG AI (<1.0 NEG); Myeloperoxidase Antibody <1.0 AI; Proteinase 3 PR3 Antibodies <1.0 AI; SM/Ribonucleoprotein Ab <1.0 NEG AI (<1.0 NEG); Smith Protein <1.0 NEG AI (<1.0 NEG)
[2024-02-07 18:08] LABS: Complement C3 80 mg/dL (83-193)
[2024-02-07 21:28] LABS: IgA 169 mg/dL (70-320); IgG 1351 mg/dL (600-1540); IgM 106 mg/dL (50-300)
[2024-02-08 00:59] LABS: TS Negative Control Passed; TS Panel A 1; TS Panel B 1; TS Positive Control Passed; TSpotTB Negative (Negative)
[2024-02-08 13:48] LABS: Anti Nuclear Antibody Screen POSITIVE (NEGATIVE)
[2024-02-09 05:14] LABS: DNAds, Crithidia Antibody Positive (Negative)
[2024-02-09 05:33] LABS: DNAds, Crithidia Antibody 1:20 titer (<1:10)
[2024-02-13 12:05] LABS: Cyclic Citrullinated Peptide <16
== END 2024-02-05 08:02 | disposition home or self-care (01) ==
LOC: HO.LAB 08:01
PROVIDERS: Absent Provider Student in an Organized Health Care Education/Training Program; PCP Student in an Organized Health Care Education/Training Program; Visit Provider Student in an Organized Health Care Education/Training Program
DX: I10 Essential (primary) hypertension (principal); I12.9 Hypertensive chronic kidney disease with stage 1 through stage 4 chronic kidney disease, or unspecified chronic kidney disease; E03.9 Hypothyroidism, unspecified; M32.9 Systemic lupus erythematosus, unspecified; Z11.7 Encounter for testing for latent tuberculosis infection; Z86.79 Personal history of other diseases of the circulatory system; Z51.81 Encounter for therapeutic drug level monitoring; Z79.624 Long term (current) use of inhibitors of nucleotide synthesis; Z11.59 Encounter for screening for other viral diseases
CPT/HCPCS: 36415; 80048; 80053; 80061; 80076; 81001; 82248; 82570; 82784; 84156; 84165; 84433; 84439; 84443; 85025; 85652; 86021; 86038; 86039; 86140; 86160; 86200; 86225; 86235; 86255; 86334; 86431; 86481; 86704; 86706; 86709; 86803; 87340

== ENCOUNTER 2024-03-12 07:06 | Outpatient (AMB) | payer MEDICARE, MEDICAID, SELFPAY ==
--- NOTE | 2024-03-12 07:31 | MHC.OFFVIS ---
Vital Signs 03/12/24 07:38 Height 5 ft 3 in Weight 165 lb 5.547 oz BMI 29.3 BP 115/64 Blood Pressure Location Rt brachial Position Sitting Pulse 79 Pulse Source Pulse Oximeter Pulse Oximetry (%) 99 Oxygen Delivery Method Room Air Intake Visit Reasons: GPA/CM Intake Note: Patient presents for GPA. Allergies iron dextran complex [IRON DEXTRAN COMPLEX] Allergy (Unknown, Verified 03/12/24 07:35) Shakiness Medication List - Last Reconciled 03/12/24 by Radha Ruiz MD acetaminophen mg PO albuterol sulfate 90 mcg/actuation 2 puffs PO Q4-6H PRN blood pressure test kit-large As directed cholecalciferol (vitamin D3) 125 mcg PO DAILY cyanocobalamin (vitamin B-12) 1,000 mcg PO DAILY famotidine 20 mg PO BID fluticasone furoate-vilanterol 200-25 mcg/dose (Breo Ellipta) 1 inh inhalation DAILY fluticasone propion-salmeterol 100-50 mcg/dose 1 ea PO BID fluticasone propion-salmeterol 250-50 mcg/dose (Advair Diskus) 1 inh inhalation BID hydrochlorothiazide 12.5 mg PO DAILY ibuprofen 600 mg PO Q8H PRN levothyroxine 100 mcg PO DAILY montelukast 10 mg PO BEDTIME penicillin V potassium 500 mg PO BID sennosides (Natural Senna Laxative) 8.6 mg PO DAILY sumatriptan succinate 50 mg PO tizanidine 8 mg (2 x 4 mg) PO BEDTIME tramadol 50 mg PO DAILY PRN umeclidinium 62.5 mcg/actuation (Incruse Ellipta) 1 inh inhalation DAILY vitamin A palmitate 10,000 units PO DAILY HPI Comments Details: This is a 68-year-old female with history of GCA who presents for follow-up after completion of her blood work. She states that she continues to have achiness and stiffness of her neck, shoulders, hips. She gets tired with activity. She states that she was evaluated by a physician in the past and injections in her neck and spine were discussed but patient did not proceed with it. She would like to be evaluated for that. Denies any fevers, skin rashes, swollen joints. Initial history : This is a 68-year-old female with history of GPA who presents for follow-up. Last seen 10/[address] Patel. She has not been treated since approximately 2011. She states that she has been doing plenty of testing and going to multiple doctors recently. She had a PET scan showed activity in the lung. She had a bronchoscopy with biopsy. The pathology is benign. She states that she has generalized tingling and numbness of her upper and lower extremities. 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 Steatosis, liver Stress incontinence Diaphragmatic hernia Riggins's esophagus COVID-19 Cervical spondylosis Tricuspid valve regurgitation Hiatal hernia Paresthesia Granulomatous angiitis Osteoarthritis Fibromyalgia Wegeners granulomatosis Anxiety GERD (gastroesophageal reflux disease) Sleep apnea Asthma Hypothyroidism Hypertension Obesity Surgical History History of sleeve gastrectomy S/P laparoscopic sleeve gastrectomy Hx of LASIK History of pneumonectomy Hx of biopsy Hx of biopsy History of bronchoscopy History of esophagogastroduodenoscopy (EGD) Hx of colonoscopy Family History Father Heart disease Mother Cirrhosis of liver Recurrent strokes Diabetes Sister Lupus Arthritis Daughter No problems noted. Son No problems noted. Social History Are you a primary intensive care anaesthetist to a significant other at home: No Do you presently have visiting nurse or other home services: No Alcohol intake: never Patient Tobacco Use Status: Former Tobacco user Second Hand Smoke Exposure: No Review of Systems Const Reports fatigue, Reports weakness and Denies weight loss ENT Reports neck pain Musc Reports back pain, Reports arthralgias, Reports neck pain, Reports numbness and Reports tingling Neuro Reports numbness, Reports tingling and Reports weakness Endo Reports fatigue Physical Exam Vital Signs: Last Vital Signs Pulse 79 03/12/24 07:38 BP 115/64 03/12/24 07:38 Pulse Ox 99 03/12/24 07:38 Oxygen Delivery Method Room Air 03/12/24 07:38 BMI result Body Mass Index 29.3 Const General: cooperative, healthy appearing and comfortable Nutritional Appearance: overweight Orientation/consciousness: patient oriented x3 Limitations: no limitations HEENT Head: Yes normocephalic and Yes atraumatic Mouth: moist mucous membranes Resp Effort & Inspection: normal respiratory effort Auscultation: rales on the left at the base Cardio Rate: regular rate Skin General skin exam: no rashes or lesions noted Neuro General: patient oriented x3 Extrem Other: No active synovitis No rashes Normal nailfold capillaroscopy Results Reviewed Results Reviewed: Assessment & Plan Assessment & Plan (1) History of granulomatosis with polyangiitis: Comment: 2006 - polyarthritis RX with Plaquenil. rheumatoid nodule 2006 bx of lung showed GPA, sinuisitis. pneumothorax [id number] oral cytoxan [id number] Imuran. Hx kidney bx showing sclerosis/no vasculitis - ? date Code(s): Z86.79 - Personal history of other diseases of the circulatory system Category: Medical Plan: This is a 68-year-old female who presents for evaluation of GPA. Upon evaluation. I do not see any active disease. I do not see any need for DMARDs at this time. Recent PET scan was positive for lung nodules, bronchoscopy with biopsy was negative for malignancy or inflammation. We will continue to follow patient periodically. Labs before next visit in 6 months (2) Fibromyalgia: Code(s): M79.7 - Fibromyalgia Category: Medical Plan: Does explain most of her symptoms today I will refill her tizanidine She takes tramadol 50 mg as needed for joint pains. Will prescribe tramadol, 15 tablets should last her one-month (3) Degenerative cervical disc: Code(s): M50.30 - Other cervical disc degeneration, unspecified cervical region Category: Medical Plan: Was evaluated by a specialist in the past and injections were discussed. Patient would like to be re-evaluated. Referred her to pain management. Plan I spent 26 minutes reviewing patient's chart, evaluating patient, ordering diagnostic workup, counseling patient and documenting in the chart Orders: Orders Comprehensive Met. Panel 6 Months M32.9 - Systemic lupus erythematosus, unspecified C Reactive Protein 6 Months M32.9 - Systemic lupus erythematosus, unspecified Anti DNA DS Antibody 6 Months M32.9 - Systemic lupus erythematosus, unspecified Complement C3 6 Months M32.9 - Systemic lupus erythematosus, unspecified Complement C4 6 Months M32.9 - Systemic lupus erythematosus, unspecified UA w Microscopic 6 Months M32.9 - Systemic lupus erythematosus, unspecified Protein Creatinine Ratio, Ur 6 Months M32.9 - Systemic lupus erythematosus, unspecified DNA Double Stranded-Crithidia 6 Months M32.9 - Systemic lupus erythematosus, unspecified Complete Blood Count Auto Diff 6 Months M32.9 - Systemic lupus erythematosus, unspecified Erythrocyte Sedimentation Rate 6 Months M32.9 - Systemic lupus erythematosus, unspecified Referrals Pain Management Referral M50.30 - Other cervical disc degeneration, unspecified cervical region Coding Level of Care Code Est Pt Level 4 (76796) Diagnoses History of granulomatosis with polyangiitis Z86.79 Fibromyalgia M79.7 Degenerative cervical disc M50.30
[2024-03-12 07:38] VITALS: BP 115/64; PULSE 79; O2SAT 99; BMI 29.3
== END 2024-03-12 07:57 | disposition home or self-care (01) ==
PROVIDERS: PCP Student in an Organized Health Care Education/Training Program; Visit Provider Student in an Organized Health Care Education/Training Program
DX: Z86.79 Personal history of other diseases of the circulatory system (principal); M79.7 Fibromyalgia; M50.30 Other cervical disc degeneration, unspecified cervical region
CPT/HCPCS: 99214

== ENCOUNTER → 2024-03-12 07:06 | Outpatient (BNVA) | payer MEDICARE, MEDICAID, SELFPAY | PROVIDERS: PCP Student in an Organized Health Care Education/Training Program; Visit Provider Student in an Organized Health Care Education/Training Program | DX: M25.611 Stiffness of right shoulder, not elsewhere classified (principal); M25.612 Stiffness of left shoulder, not elsewhere classified; M79.7 Fibromyalgia; M50.30 Other cervical disc degeneration, unspecified cervical region; M32.9 Systemic lupus erythematosus, unspecified; Z86.79 Personal history of other diseases of the circulatory system | CPT/HCPCS: 99212 ==

== ENCOUNTER 2024-05-08 08:35 | Outpatient (AMB) | payer MEDICARE, MEDICAID, SELFPAY ==
--- NOTE | 2024-05-08 08:39 | A.OFFVIS_ITS ---
Vital Signs 05/08/24 08:40 Height 5 ft 3 in Weight 163 lb BMI 28.9 BP 163/69 H Blood Pressure Location Lt brachial Position Sitting Respiration 16 Pulse 72 Pulse Source Pulse Oximeter Pulse Oximetry (%) 97 Oxygen Delivery Method Room Air Intake Visit Reasons: Other cervical disc degeneration Allergies iron dextran complex [IRON DEXTRAN COMPLEX] Allergy (Unknown, Verified 05/08/24 08:42) Shakiness Medication List - Last Reconciled 05/08/24 by Letitia Alba LPN acetaminophen 650 mg PO Q4-6H PRN albuterol sulfate 90 mcg/actuation 2 puffs PO Q4-6H PRN blood pressure test kit-large As directed cetirizine 10 mg PO DAILY cyanocobalamin (vitamin B-12) 1,000 mcg PO DAILY hydrochlorothiazide 12.5 mg PO DAILY levothyroxine 100 mcg PO DAILY montelukast 10 mg PO BEDTIME naproxen 500 mg PO BID sumatriptan succinate 50 mg PO tizanidine 8 mg (2 x 4 mg) PO BEDTIME PRN tramadol 50 mg PO DAILY PRN umeclidinium 62.5 mcg/actuation (Incruse Ellipta) 1 inh inhalation DAILY HPI Comments Details: Petra is a very pleasant 68-year-old female who presents to the office today for evaluation and management of her chronic neck pain. She was referred by Rheumatology. She reports many years of neck pain. Denies inciting injury, fall, trauma. Denies radiation of the pain down either upper extremities. Pain is worse with movement, tender to palpation. She endorses decreased range of motion of her neck. Denies recent imaging Denies recent attempts at physical therapy, chiropractor, acupuncture. She has tried massage which helps some though can not be painful if they use too much pressure. Currently taking Tylenol, naproxen, tizanidine and tramadol as needed for her pain. Pain today is rated as 8/10. Low she is also suffering fibromyalgia therefore she states that her pain is everywhere including hands neck feet arms legs back. In terms of muscle damage condition is described as burning, numbness, stabbing, cramping, flushing, tingling, tiring, aching, cold Pain is negatively impacting patient's enjoyment of life, general activity, ability to care for self, ability to function normally, sleep and mobility. 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 She has a cane that she uses as needed for mobility. Pain is constant throughout the day. Worse at night which is somewhat improved but the prescribed tizanidine. Denies implantable devices, pacemaker or defibrillator Denies current use of anticoagulants Denies current use of nicotine, tobacco, alcohol or illicit substances [facility] Medical History Riggins esophagus COPD (chronic obstructive pulmonary disease) History of granulomatosis with polyangiitis Congenital intra-abdominal adhesions Steatosis, liver Stress incontinence Diaphragmatic hernia Riggins's esophagus COVID-19 Cervical spondylosis Tricuspid valve regurgitation Hiatal hernia Paresthesia Granulomatous angiitis Osteoarthritis Fibromyalgia Wegeners granulomatosis Anxiety GERD (gastroesophageal reflux disease) Sleep apnea Asthma Hypothyroidism Hypertension Obesity Surgical History History of sleeve gastrectomy S/P laparoscopic sleeve gastrectomy Hx of LASIK History of pneumonectomy Hx of biopsy Hx of biopsy History of bronchoscopy History of esophagogastroduodenoscopy (EGD) Hx of colonoscopy Family History Father Heart disease Mother Cirrhosis of liver Recurrent strokes Diabetes Sister Lupus Arthritis Daughter No problems noted. Son No problems noted. Social History Are you a primary healthcare financial analyst to a significant other at home: No Do you presently have visiting nurse or other home services: No Alcohol intake: never Patient Tobacco Use Status: Former Tobacco user Second Hand Smoke Exposure: No Review of Systems Const All systems reviewed & are unremarkable except as noted in HPI and below Physical Exam Vital Signs: Last Vital Signs Pulse 72 05/08/24 08:40 Resp 16 05/08/24 08:40 BP 163/69 H 05/08/24 08:40 Pulse Ox 97 05/08/24 08:40 Oxygen Delivery Method Room Air 05/08/24 08:40 BMI result Body Mass Index 28.9 General: awake, alert, oriented. Answers questions appropriately. Fully engaged in examination. Skin: warm, dry, intact HEENT: Normocephalic. Hearing intact. Cardiac: External chest normal in appearance. Respiratory: No cough, audible wheezing or stridor. Abdomen: without gross distension. MS: No obvious swelling or deformities. Able to transition from sit to stand unassisted. Ambulates with bilaterally normal heel strike and toe off Cervical Spine: Visible inspection without gross abnormality Tenderness throughout bilateral upper trapezius muscles Tenderness to palpation midline cervical vertebrae and cervical paraspinal muscles decreased cervical ROM in all planes Spurling compression test positive BUE strength 5/5 Neurological: Oriented to person, place, time and situation. Thought process intact. No gait abnormalities appreciated. Psychiatric: Appropriate mood and affect. Good judgment and insight. Assessment & Plan Assessment & Plan (1) Myofascial neck pain: Code(s): M54.2 - Cervicalgia Category: Medical (2) Cervical spondylolysis: Code(s): M43.02 - Spondylolysis, cervical region Category: Medical Plan Patient presents the office today for evaluation and management of her chronic neck pain History, physical exam and provocative testing consistent with cervical spondylosis, myofascial neck pain with underlying component of fibromyalgia. Order placed for PT eval and treat X-ray cervical spine ordered TENS unit ordered, patient provided with pamphlet detailing instructions for use Continue with Tylenol, naproxen, tizanidine and tramadol as needed All questions and concerns have been answered, patient agrees with the plan. Follow up after physical therapy, sooner if needed Orders: Orders PT Evaluation and Treatment Today M43.02 - Spondylolysis, cervical region, M54.2 - Cervicalgia XR cervical spine w flex/ext Today M43.02 - Spondylolysis, cervical region, M50.30 - Other cervical disc degeneration, unspecified cervical region, M54.2 - Cervicalgia Coding Level of Care Code New Pt Level 4 (44176) Complex EM visit Add On G2211 Diagnoses Myofascial neck pain M54.2 Cervical spondylolysis M43.02
[2024-05-08 08:40] VITALS: BP 163/69; PULSE 72; RESP 16; O2SAT 97; BMI 28.9
== END 2024-05-08 09:28 | disposition home or self-care (01) ==
PROVIDERS: PCP Student in an Organized Health Care Education/Training Program; Referring Provider Student in an Organized Health Care Education/Training Program; Visit Provider Registered Nurse Emergency
DX: M54.2 Cervicalgia (principal); M43.02 Spondylolysis, cervical region
CPT/HCPCS: 99204; G2211

== ENCOUNTER → 2024-05-08 08:35 | Outpatient (BNVA) | payer MEDICARE, MEDICAID, SELFPAY | PROVIDERS: PCP Student in an Organized Health Care Education/Training Program; Referring Provider Student in an Organized Health Care Education/Training Program; Visit Provider Registered Nurse Emergency | DX: M54.2 Cervicalgia (principal); M43.02 Spondylolysis, cervical region | CPT/HCPCS: 99202 ==

== ENCOUNTER 2024-07-13 08:40 | Outpatient (REF) | payer MEDICARE, MEDICAID, SELFPAY ==
[2024-07-13 08:55] LABS: MANUAL DIFF FLAG NO
[2024-07-13 09:42] LABS: Basophils Percent Auto 0.6 % (0-2); Eosinophils Absolute Auto 0.1 X10*3/uL (0.0-0.4); Eosinophils Percent Auto 2.3 % (0-4); Hematocrit 38.3 % (37.0-47.0); Hemoglobin 12.3 g/dl (12.0-16.0); Imm Gran Abs Auto 0.01 X10*3/uL (0.00-0.03); Imm Gran Pct Auto 0.2 % (0.0-0.4); Lymphocytes Absolute Auto 1.8 X10*3/uL (1.2-4.9); Lymphocytes Percent Auto 35.4 % (20-40); Mean Corpuscular HGB Conc 32.1 g/dl (31.0-35.0); Mean Corpuscular Hemoglobin 26.9 pg (27.0-33.0); Mean Corpuscular Volume 83.8 fL (80.0-98.0); Mean Platelet Volume 9.8 fL (9.4-12.3); Monocytes Absolute Auto 0.5 X10*3/uL (0.1-1.2); Neutrophils Absolute Auto 2.7 x10*3/uL (2.0-8.3); Neutrophils Percent Auto 52.5 % (45-73); Platelet Count 241 X10*3/uL (160-400); Red Blood Count 4.57 X10*6/uL (4.20-5.50); Red Cell Distribution Width 15.4 % (11.0-16.0); White Blood Count 5.2 X10*3/uL (4.8-10.8)
[2024-07-13 10:05] LABS: Appearance Urine Clear; Color Urine Dark Yellow; Glucose Urine UA Negative (Negative); Leukocyte Esterase Urine Small (1+) (Negative); Nitrite Urine Negative (Negative); Specific Gravity - Urine >= 1.030 (1.005-1.025); UMIC TRIGGER UA YES; Urine Blood Moderate (2+) (Negative); Urine Ketones Trace mg/dL (Negative); Urine Protein 30 (1+) mg/dL (Neg-Trace)
[2024-07-13 10:10] LABS: Bacteria Urine None Seen (None Seen); Hyaline Casts Urine 0-2 /LPF (0-2); RBC Urine >20 /HPF (0-2)
[2024-07-13 10:23] LABS: Anion Gap 13 (12-20); Blood Urea Nitrogen 23 mg/dL (9-16); Calcium 9.8 mg/dL (8.4-10.2); Carbon Dioxide 30 mmol/L (22-29); Chloride 103 mmol/L (96-108); Estimated Glomerular Filt Rate > 60; Potassium 3.5 mmol/L (3.3-5.1); Sodium 142 mmol/L (135-145)
[2024-07-13 10:38] LABS: Protein/Creatinine Ratio, Ur 0.12 (<0.2); Total Protein Urine Random 33 mg/dL (<12)
[2024-07-18 15:32] LABS: Anti Nuclear Antibody Screen POSITIVE (NEGATIVE)
== END 2024-07-13 08:41 | disposition home or self-care (01) ==
LOC: HO.LAB 08:40
PROVIDERS: PCP Student in an Organized Health Care Education/Training Program; Visit Provider Internal Medicine Nephrology
DX: R80.1 Persistent proteinuria, unspecified (principal); N18.32 Chronic kidney disease, stage 3b; N18.2 Chronic kidney disease, stage 2 (mild)
CPT/HCPCS: 36415; 80051; 81001; 82310; 82565; 82570; 84156; 84520; 85025; 86038; 86039

== ENCOUNTER 2024-08-07 09:41 | Outpatient (REF) | payer MEDICARE, MEDICAID, SELFPAY ==
--- NOTE | ~2024-08-07 | MM_ITS ---
EXAMINATION: MM DIAGNOSTIC DIGITAL BREAST TOMOSYNTHESIS, BILATERAL CLINICAL INFORMATION: 1 year follow-up for grouped calcifications in the upper outer left breast. COMPARISON: Mammography: Comparison is made with relevant prior exams. TECHNIQUE: Digital breast mammography with tomosynthesis is performed in both the craniocaudal and mediolateral oblique views along with computer-aided detection (CAD). FINDINGS: The breasts are heterogeneously dense, which may obscure small masses (ACR BI-RADS breast composition Category c). Grouped amorphous calcifications in the upper outer breast are not significantly changed from priors dating back for one year on magnification views. No suspicious masses or other abnormal findings. Results are provided to the patient at time of visit by the technologist. MM/MM tomosynthesis diagnostic BI IMPRESSION: Grouped amorphous calcifications in the upper outer quadrant are not significantly changed on magnification views dating back for one year. Recommend one-year follow-up with magnification views to demonstrate 2 years of stability. ASSESSMENT: BI-RADS BI-RADS 3 - Probably benign finding(s) - 12 month follow-up suggested RECOMMENDATION: 12 month diagnostic follow up This patient's information was entered into a reminder system with a target due date for their next mammogram. Electronically signed by: Dolly Howard DO 08/07/2024 12:09 PM EDT
--- OUTSIDE RECORDS SUMMARY | 2024-08-07 10:34 | XMS_ITS | Encounter Summary ---
Author Organization [employer] Address [address] [place] [address] [address] [place] [address] Care Team Providers Care Director Search Marketing Strategies Name Role Phone Fatuma Hardy MD Primary Care Provider [phone] Encounter Details Date Type Department Care Team (Latest Contact Info) Description 12/29/2020 Abstract [facility] CONVERSIONS Dental, Provider, DDS Social History Tobacco Use Types Packs/Day Years Used Date Smoking Tobacco: Never Assessed Comments Unknown Sex and Gender Information Value Date Recorded Sex Assigned at Female 02/28/2022 10:17 AM EDT Legal Sex Female 10:17 AM EDT Gender Identity Female 02/28/2022 10:17 AM EDT Sexual Orientation Straight 02/28/2022 10 :17 AM EDT documented as of this encounter Plan of Treatment Upcoming Encounters Date Type Department Care Team (Late st Contact Info) Description 08/14/2024 11:00 AM EDT Office Visit [facility] [address] [place] [address] Cornelius Herr DMD [address] [place] [address] 08/27/2024 9:00 AM EDT Office Visit [facility] [address] [place] [address] Dar Hull 09/02/2024 8:30 AM EDT Office Visit [facility] [address] [place] [address] Fatuma Hardy MD [address] [place] [address] documented as of this encounter Visit Diagnoses Not on filedocumented in this encounter Care Teams Director Search Marketing Strategies Relationship Specialty Start Date End Date Fatuma Hardy MD [address] [place] [id number] PCP - General Family Medicine 04/12/12 documented as of this encounter
--- OUTSIDE RECORDS SUMMARY | 2024-08-07 10:34 | XMS_ITS | Encounter Summary ---
Author Organization [employer] Address [address] [place] [address] [address] [place] [address] Care Team Providers Care Mechanical Repair Worker Name Role Phone Fatuma Hardy MD Primary Care Provider [phone] Encounter Details Date Type Department Care Team (Late st Contact Info) Description 11/24/2022 Orders Only [facility] [address] [place] [address] Fatuma Hardy MD [address] [place] [address] Social History Tobacco Use Types Packs/Day Years Used Date Smoking Tobacco: Never Smokeless Tobacco: Never Comments Unknown Sex and Gender Information Value [...] Description 08/14/2024 11:00 AM EDT Office Visit [facility] [address] [place] [address] Cornelius Herr DMD [address] [place] [address] 08/27/2024 9:00 AM EDT Office Visit [facility] [address] [place] [address] Dar Barton 09/02/2024 8:30 AM EDT Office Visit [facility] [address] [place] [address] Fatuma Hardy MD [address] [place] [address] documented as of this encounter Visit Diagnoses Not on filedocumented in this encounter Care Teams Mechanical Repair Worker Relationship Specialty Start Date End Date Fatuma Hardy MD [address] [place] [id number] PCP - General Family Medicine 04/12/12 documented as of this encounter
--- OUTSIDE RECORDS SUMMARY | 2024-08-07 10:34 | XMS_ITS | Encounter Summary ---
Author Organization [employer] Address [address] [place] [address] [address] [place] [address] Care Team Providers Care Kick Boxer Name Role Phone Fatuma Hardy MD Primary Care Provider Reason for Visit * Reason Onset Date Comments PT1 08/09/2022 Encounter Details Date Type Department Care Team (Late st Contact Info) Description 08/09/2022 Telephone [facility] [address] [place] [address] Fatuma Hardy MD [address] [place] [address] PT1 Social History Tobacco Use Types Packs/Day Years Used Date Smoking Tobacco: Never Smokeless Tobacco: Never Comments Unknown Sex and Gender Information Value Date Recorded Sex Assigned at Female 02/28/2022 10:17 AM EDT Legal Sex Female 10:17 AM EDT Gender Identity Female 02/28/2022 10:17 AM EDT Sexual Orientation Straight 02/28/2022 10 :17 AM EDT documented as of this encounter Miscellaneous Notes * Telephone Encounter - Ronna Gregorio - 08/09/2022 1:43 PM EDT Tc from pt requesting a PT1 Location: [address] [place] [address] Specialty: wine and spirits clerk Date&Time: N/a Cocoa Bean Roaster Helper: no No wheel chair or cane documented in this encounter Plan of Treatment Upcoming Encounters Date Type Department Care Team (Late st Contact Info) Description 08/14/2024 11:00 AM EDT Office Visit [facility] [address] [place] [address] Cornelius Herr DMD [address] [place] [address] 08/27/2024 9:00 AM EDT Office Visit [facility] [address] [place] [address] Dar Hull 09/02/2024 8:30 AM EDT Office Visit [facility] [address] [place] [address] Fatuma Hardy MD [address] [place] [address] documented as of this encounter Visit Diagnoses Not on filedocumented in this encounter Care Teams Kick Boxer Relationship Specialty Start Date End Date Fatuma Hardy MD [address] [place] [phone] PCP - General Family Medicine 04/12/12 documented as of this encounter
--- OUTSIDE RECORDS SUMMARY | 2024-08-07 10:34 | XMS_ITS | Clinical Summary ---
Author Organization 175 [facility] Address [address] [place] [address] Phone Care Team Providers Care Relations Manager Name Role Phone Fatuma Hardy MD Primary Care Provider [phone] Allergies No known active allergies Medications albuterol HFA (PROAIR HFA ; PROVENTIL HFA ; VENTOLIN HFA) 90 mcg/actuation inhaler Inhale 2 puffs by mouth every 4 (four) hours if needed. Active cetirizine (ZyrTEC) 10 mg tablet Take 1 tablet (10 mg total) by mouth. Active montelukast (SINGULAIR) 10 mg tablet Take 1 tablet (10 mg total) by mouth at bedtime. Active albuterol 2.5 mg /3 mL (0.083 %) nebulizer solution Take 3 mL (2.5 mg total) by nebulization every 4 (four) hours if needed for wheezing. Active cyclobenzaprine (FLEXERIL) 10 mg tablet Take 1 tablet (10 mg total) by mouth 2 (two) times a day if needed for muscle spasms. Active fluticasone/carmen anterol (FLUTICASONE FUROATE-VILANTE ROL INHL) Inhale by mouth. 100-25 MCG/ACT AEROSOL POWDER,BREATH ACTIVATED Active fluticasone propion-salmete roL (ADVAIR DISKUS) 500-50 mcg/dose diskus inhaler Inhale by mouth. Act jovani furosemide (LASIX) 20 mg tablet Take 1 tablet (20 mg total) by mouth 1 (one) time each day. Active umeclidinium-vi lanteroL (ANORO ELLIPTA) 62.5-25 mcg/actuation inhaler Inhale by mouth. Act jovani vitamin A 3,000 mcg (10,000 unit) tablet Take by mouth daily. 3 Active calcium carbonate-vitam in D3 600 mg-5 mcg (200 unit) capsule Take 1 capsule by mouth. 3 Active ALPRAZolam (XANAX) 0.25 mg tablet TAKE 1 TABLET BY MOUTH 1 HOUR PRIOR TO PROCEDURE THEN TAKE 1 TABLET BY MOUTH EVERY DAY NEEDED AFTER PROCEDURE 4 Active BinaxNOW COVID-19 Ag Self Test kit TEST DIRECTED TODAY 4 Active famotidine (PEPCID) 20 mg tablet Take 1 tablet (20 mg total) by mouth. Active hydroCHLOROthia zide 12.5 mg tablet Take 1 tablet (12.5 mg total) by mouth 1 (one) time each day. 4 02/26/20 25 Active levothyroxine (SYNTHROID, LEVOTHROID) 150 mcg tablet Take 1 tablet (150 mcg total) by mouth. 4 Active SUMAtriptan (IMITREX) 50 mg tablet TAKE 1 TABLET(50 MG) BY MOUTH 1 TIME NEEDED FOR MIGRAINE. MAY REPEAT DOSE 1 TIME IN 2 HOURS IF NO RELIEF. DO NOT EXCEED 2 DOSES IN 24 HOURS 5 Active tiZANidine (ZANAFLEX) 4 mg capsule Take 1 capsule (4 mg total) by mouth. Active traMADoL (ULTRAM) 50 mg tablet Take 1 tablet (50 mg total) by mouth 1 (one) time each day if needed. Max Daily Amount: 50 mg Active Incruse Ellipta 62.5 mcg/actuation inhalation Take 1 puff by mouth 1 (one) time each day. 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 Acanthosis nigricans 04/11/2012 Hypothyroidism 04/11/2012 Resolved Problems Problem Noted Date Diagnosed Date Resolved Date Blood in urine 10/08/2020 05/15/2024 Encounters Date Type Department Care Team Description 07/16/2024 8:10 AM EDT - 07/16/2024 11:59 PM EDT Hospital Encounter [facility] [address] [place] [phone] Asthma Discharge Disposition: Home or Self Care 05/15/2024 9:00 AM EST Consult Orthopedic Surgery - [place] [address] [facility] [address] [place] [phone] Lino Francois, DPM Dermatophytosis of nail (Primary Dx); Pain in toe of right foot; Pain in toe of left foot; Corns and callosities; Metatarsalgia of both feet; Bilateral femoral artery stenosis (CMS/HCC); Tinea pedis of both feet from Last 3 Months Immunizations Name Administration Dates Next Due Influenza Quadravalent, MDCK , 0.5ml, preservative free (Flucelvax) 6mo and older 03/09/2019 Influenza Quadrivalent, with preservative (Fluzone; Afluria) 6mo and older 03/29/2018,03/08/2016 Influenza Split 01/15/2013 Influenza trivalent, 0.5mL ( Fluzone High-dose) 65yo and older 01/31/2024 Influenza trivalent, with pr eservative (Fluzone; Afluria) 6mo and older 01/18/2010 Pneumococcal polysaccharide 23 valent (Pneumovax 23) 2yo and older 08/08/2013,04/04/2006 Tdap Tetanus diptheria acell ular pertussis (Boostrix; Adacel) 7yo and older 03/08/2016,11/21/2015 Medical History Medical History Date Comments Blood in urine 10/08/2020 Social History Tobacco Use Types Packs/Day Years Used Date Smoking Tobacco: Never Assessed Comments Unknown Sex and Gender Information Value Date Recorded Sex Assigned at Female 07/12/2024 10:42 AM EDT Legal Sex Female 3:42 PM EDT Gender Identity Female 07/12/2024 10:42 AM EDT Sexual Orientation Straight 07/12/2024 10 :42 AM EDT Obstetrics History Last Filed Vital Signs Vital Sign Reading Time Taken Comments Blood Pressure - - Pulse - - Temperature - - Respiratory Rate - - Oxygen Saturation - - Inhaled Oxygen Concentration - - Weight 74.4 kg (164 lb) 05/15/2024 8:57 AM EST Height 160 cm (5' 3 ) 05/15/2024 8:57 AM EST Body Mass Index 29.05 05/15/2024 8:57 AM EST Plan of Treatment Upcoming Encounters Date Type Department Care Team (Late st Contact Info) Description 09/11/2024 10:00 AM EDT Ancillary Procedure [facility] - [facility] [address] [facility] [address] [place] [address] 10/14/2024 9:45 AM EDT Office Visit [facility] - [place] [address] [phone] Lino Francois, DPM [address] [address] Health Maintenance Due Date Last Done Comments Breast Cancer Screening 1955 Zoster Vaccines (1 of 2) 2006 Pneumococcal Vaccine: 50+ Years (2 of 2 - PCV) 08/08/2014 08/08/2013, 04/04/2006 RSV Immunization Adult Patients (1 - Risk 60-74 years 1-dose series) 2016 COVID-19 Vaccine ( season) 2023 06/16/2021, 10/07/2020, 09/02/2020 Depression Screening 02/07/2024 Falls Risk Assessment 02/07/2024 Hepatitis C Screening 02/07/2024 Medicare Annual Wellness Visit 02/07/2024 Osteoporosis Screening (Bone Density Screening) 02/07/2024 Social Influencers of Health Screening 02/07/2024 Hypertension/CHF/CAD Annual BMP Blood Test 05/22/2024 05/22/2023 DTaP,Tdap,and Td Vaccines (3 - Td or Tdap) 03/08/2026 03/08/2016, 11/21/2015 Colorectal Cancer Screening: FIT-DNA (Cologuard) 06/05/2026 06/05/2023, 06/05/2023 Cholesterol Screening (Lipid Panel) 02/04/2029 02/05/2024, 07/21/2022 Influenza Vaccine Completed 01/31/2024, , 03/29/2018, Additional history exists HIB Vaccines Aged Out No longer eligi ble based on patient's age to complete this topic HPV Vaccines Aged Out No longer eligi ble based on patient's age to complete this topic Hepatitis A Vaccines Aged Out No long er eligible based on patient's age to complete this topic Hepatitis B Vaccines Aged Out No long er eligible based on patient's age to complete this topic IPV Vaccines Aged Out No longer eligi ble based on patient's age to complete this topic MMR Vaccines Aged Out No longer eligi ble based on patient's age to complete this topic Meningococcal ACWY Vaccine Aged Out N o longer eligible based on patient's age to complete this topic Meningococcal B Vaccine Aged Out No l onger eligible based on patient's age to complete this topic RSV Immunization Patients Under 20 months Aged Out No longer eligible based on patient's age to complete this topic Varicella Vaccines Aged Out No longer eligible based on patient's age to complete this topic Procedures Procedure Name Priority Date/Time Associated Diagnosis Comments HC SPIROMETRY BRONCHODILATION RESPONSIVENESS PRE/POST BRONCHODILATOR ADMINISTRATION Routine 07/16/2024 9:06 AM EDT Asthma FIT-DNA Routine 06/05/2023 ANNUAL BMP BLOOD TEST Routine 05/22/2023 LIPID PANEL Routine 07/21/2022 from Last 3 Months or Most Recently Relevant to Health Maintenance Results * Pulmonary function testing: Carbon Monoxide Diffusing Capacity, Nitrogen Wash Out, Spirometry with Bronchodilator (07/16/2024 9:06 AM EDT) Narrative Bita Amin MD - 07/16/2024 10:46 AM EDT FEV1/FVC 70%. FEV1 1.53 at 72.5% w/ Z-score of -1.52 FVC 81.4%. No bronchodilator response. TLC 74% w/ Z-score of -2.18. RV 70%. DLCO 77% (adjusted 77%). Mild obstruction. ??Mild restriction. ??And mild decrease in diffusion. 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 Result [facility] Maximus Thurston MD PFT ORDERABLES Final Result * FIT-DNA (Cologuard) (06/05/2023) [facility] Colorectal Cancer Screening: FIT-DNA (Cologuard) no interpretation , abstracted Result [facility] Provider HEALTH MAINTENANCE Final Result * Annual BMP Blood Test (05/22/2023) [facility] Annual BMP Blood Test abstracted Result [facility] Provider HEALTH MAINTENANCE Final Result * Lipid panel (07/21/2022) [facility] LDL/HDL Ratio 0 0 - 0 Triglycerides 0 0 - 0 mg/dL Cholesterol 0 0 - 0 mg/dL HDL 0 0 - 0 mg/dL LDL Cholesterol 0 0 - 0 mg/dL Blood Venous blood specimen / Unknown Result [facility] Provider LAB BLOOD ORDERABLES Della l Result from Last 3 Months or Most Recently Relevant to Health Maintenance Insurance MEDICARE MEDICAID - [place] Care Teams Relations Manager Relationship Specialty Start Date End Date Fatuma Hardy MD [address] [place] [id number] PCP - General Family Medicine 07/02/24
--- OUTSIDE RECORDS SUMMARY | 2024-08-07 10:34 | XMS_ITS | Encounter Summary ---
Author Organization [employer] Address [address] [place] [address] [address] [place] [address] Care Team Providers Care Child Care Group Leader Name Role Phone Fatuma Hardy MD Primary Care Provider [phone] Reason for Visit * Reason Onset Date Comments Med Refill 04/17/2023 Encounter Details Date Type Department Care Team (Late Contact Info) Description 04/17/2023 Telephone [facility] [address] [place] [address] Fatuma Hardy MD [address] [place] [address] Med Refill Social History Tobacco Use Types Packs/Day Years [...] encounter Miscellaneous Notes * Telephone Encounter - Yasmin Cornejo - 04/17/2023 9:45 AM EST Tc from pt requesting med refill on; tiZANidine (Zanaflex) 4 MG tablet documented in this encounter Plan of Treatment Upcoming Encounters Date Type Department Care Team (Late Contact Info) Description 08/14/2024 11:00 AM EDT Office Visit [facility] [address] [place] [address] Cornelius Herr DMD [address] [place] [address] 08/27/2024 9:00 AM EDT Office Visit [facility] [address] [place] [address] [place] 09/02/2024 8:30 AM EDT Office Visit [facility] [address] [place] [address] Fatuma Hardy MD [address] [place] [address] documented as of this encounter Visit Diagnoses Not on filedocumented in this encounter Care Teams Child Care Group Leader Relationship Specialty Start Date End Date Fatuma Hardy MD [address] [place] [phone] PCP - General Family Medicine 04/12/12 documented as of this encounter
--- OUTSIDE RECORDS SUMMARY | 2024-08-07 10:34 | XMS_ITS | Clinical Summary ---
Author Organization [facility] Address [address] [facility] [address] [place] [address] Phone Care Team Providers Care Limnology Teacher Name Role Phone Fatuma Hardy MD Primary Care Provider [phone] Allergies No known active allergies Medications montelukast (SINGULAIR) 10 MG tablet Active fluticasone-master meterol (ADVAIR DISKUS) 250-50 MCG/DOSE diskus inhaler Active cyclobenzaprine (AMRIX) 15 MG 24 hr capsule Take 1 capsule by mouth 1 (one) time each day Active cholecalciferol (VITAMIN D-3) 25 MCG (1000 UT) capsule Take 1 capsule by mouth 1 (one) time each day Active albuterol HFA (PROVENTIL HFA;VENTOLIN HFA) 108 (90 Base) MCG/ACT inhaler 2 puffs by Other route 4 (four) times a day Active senna (SENOKOT) 8.6 MG tablet TAKE 1 TO 2 TABLETS BY MOUTH EVERY NIGHT AT BEDTIME IF NEEDED FOR CONSTIPATION . 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 Blood in urine 10/08/2020 Chronic kidney disease stage 2 10/08/2020 Hypertensive renal disease 10/08/2020 Hypertensive renal disease 10/08/2020 Proteinuria 10/08/2020 Encounters Date Type Department Care Team Description 07/13/2024 Orders Only [facility] [address] [phone] Vidal Reed MD 07/08/2024 Orders Only [facility] [address] [phone] Vidal Reed MD Persistent proteinuria; 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, not otherwise specified (HCC); Chronic kidney disease stage 2 07/04/2024 9:15 AM EST Telemedicine [facility] [address] [phone] Vidal Reed MD Persistent proteinuria (Primary Dx); 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, not otherwise specified (HCC); Chronic kidney disease stage 2 06/25/2024 Office Communication [facility] [address] [phone] Melida Mary from Last 3 Months Immunizations Name Administration Dates Next Due Influenza Split 01/15/2013 Influenza Split High Dose Preservative Free IM 1 Influenza, MDCK, PF, Quadrivalent 03/09/2019 Influenza, Quadrivalent, With Preservative 03/29,03/08/2016 Pneumococcal Polysaccharide 08/08/2013, 6 Tdap 03/08/2016,11/21/2015 Family History Medical History Relation Comments Heart disease Father Diabetes Mother Hypertension Mother Stroke Mother Hypertension Sibling sister Relation Status Comments Father Mother Sibling Social History Tobacco Use Types Packs/Day Years Used Date Smoking Tobacco: Former Alcohol Use Standard Drinks/Week Comments Yes 0 (1 standard drink = 0.6 oz pure alcohol) Alcoholic Drinks/day: Occasional social drink Comments Unknown Sex and Gender Information Value Date Recorded Sex Assigned at Not on file Legal Sex Female 4:58 PM EST Gender Identity Not on file Sexual Orientation Not on file Last Filed Vital Signs Vital Sign Reading Time Taken Comments Blood Pressure 120/70 02/26/2024 9:02 AM EDT Pulse 65 02/26/2024 9:02 AM EDT Temperature - - Respiratory Rate - - Oxygen Saturation 99% 02/26/2024 9:02 AM EDT Inhaled Oxygen Concentration - - Weight 74.6 kg (164 lb 6.4 oz) 02/26/2024 9:02 A M EDT Height 162.6 cm (5' 4 ) 05/02/2019 12:00 PM EST Body Mass Index 28.22 05/02/2019 12:00 PM EST Plan of Treatment Upcoming Encounters Date Type Department Care Team (Late st Contact Info) Description 02/26/2025 1:00 PM EDT Office Visit [facility] [address] [phone] Vidal Reed MD [address] [phone] Health Maintenance Due Date Last Done Comments Breast Cancer Screening 1955 Colorectal Cancer Screening: Annual FOBT 2005 Colorectal Cancer Screening: Colonoscopy 2005 Colorectal Cancer Screening: Sigmoidoscopy 2005 Pneumococcal Vaccine: 65+ Years (3 of 3 - PCV) 08/08/2014 08/08/2013, 04/04/2006 Influenza Vaccine Completed 01/31/2024, , 03/29/2018, Additional history exists Hepatitis B Vaccine Aged Out No longe r eligible based on patient's age to complete this topic Procedures Procedure Name Priority Date/Time Associated Diagnosis Comments PROTEIN / CREATININE RATIO, URINE Routine 07/13/2024 9:45 AM EDT Persistent proteinuria 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, not otherwise specified (HCC) Chronic kidney disease stage 2 URINALYSIS WITH MICROSCOPIC Routine 07/13/2024 9:45 AM EDT Persistent proteinuria 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, not otherwise specified (HCC) Chronic kidney disease stage 2 WALTER W/REFLEX Routine 07/13/2024 8:53 AM EDT CALCIUM Routine 07/13/2024 8:53 AM EDT CREATININE, BLOOD Routine 07/13/2024 8:5 3 AM EDT BUN Routine 07/13/2024 8:53 AM EDT ELECTROLYTE PANEL Routine 07/13/2024 8:5 3 AM EDT CBC AND DIFFERENTIAL Routine 07/13/2024 8:53 AM EDT Persistent proteinuria 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 Urine (Urine, Clean Catch) 07/13/2024 9:45 AM EDT 07/13/2024 9:45 AM EDT us Vidal Reed MD LAB URINE ORDERABLES Final Re sult [place] See order comments [place] [address] * (ABNORMAL) Urinalysis with microscopic (07/13/2024 9:45 AM EDT) Color Urine Dark Yellow See or mingo comments Appearance Urine Clear See order comments pH Urine 6.0 5.0 - 9.0 See order comments Glucose Urine Negative Negative mg/dL See order comments Blood, Urine Moderate (2+)(A) Negative See order comments Specific Simms Urine >=1.030(H) 1.005 - 1.025 See order comments Protein Urine 30 (1+)(A) Neg-Trace mg/dL See order comments Ketones, Urine Trace Negative mg/dL See order comments Nitrite, Urine Negative Negative See o rder comments Leukocyte Esterase Urine Small (1+)(A) Negative See order comments RBC, Urine >20(A) 0 - 2 /HPF See orde r comments WBC 6-10(A) 0 - 5 /HPF See order comments Squamous Epithelial, Urine 6-10 0 - 2 /HPF See order comments Bacteria, Urine None Seen None Seen See order comments Hyaline Casts, Urine 0-2 0 - 2 /LPF See order comments Urine (Urine, Clean Catch) 07/13/2024 9:45 AM EDT 07/13/2024 9:45 AM EDT us Vidal Reed MD LAB URINE ORDERABLES Final Re sult Performing Organization Address [facility] de Phone Number [facility] See order comments [place] [address] * Creatinine (07/13/2024 8:53 AM EDT) Creatinine Serum 0.62 0.5 - 1.4 mg/dL See order comments eGFR >60 See order comments Comment: Chronic Kidney Disease: ??Estimated GFR < 60 mL/min/1.73m2 Severe Kidney Disease: ??Estimated GFR < 15 mL/min/1.73m2 07/13/2024 8:53 AM EDT 07/13/2024 8:53 AM EDT us Vidal Reed MD LAB BLOOD ORDERABLES Final Re sult Performing Organization Address [facility] de Phone Number [place] See order comments [place] [address] * (ABNORMAL) WALTER W/Reflex (07/13/2024 8:53 AM EDT) WALTER Screen POSITIVE( A) NEGATIVE See order comments Comment: WALTER IFA is a first line screen for detecting the presence of up to approximately 150 autoantibodies in various autoimmune diseases. A positive WALTER IFA result is suggestive of autoimmune disease and reflexes to titer and pattern. Further laboratory testing may be considered if clinically indicated. For additional information, please refer to http://education.Recurly/faq/IRB643 (This link is being provided for informational/ educational purposes only.) WALTER 1:80(A) titer See order comments Comment: A low level WALTER titer may be present in pre-clinical autoimmune diseases and normal individuals. ?Reference Range ?<1:40 ?Negative ?1:40-1:80 ?Low Antibody Level ?>1:80 ?Elevated Antibody Level WALTER Pattern (A) See jodi smith comments Comment: Cytoplasmic, Reticular/AMA ??Abnormal Flag: A Coarse granular filamentous staining extending throughout the cytoplasm (e.g., anti-mitochondrial antibodies). Pattern is common in primary biliary cholangitis (PBC), systemic sclerosis, and rare in other systemic autoimmune rheumatic diseases (SARD). AC-21: Reticular/AMA International Consensus on WALTER Patterns (https://doi.org/10.1515/nllp-2549-4799) THIS TEST WAS PERFORMED AT: [employer] [address] [place] [address] ??[phone] RIGO MAYEN MD WALTER TITER 2 TNP See orde r comments WALTER Pattern 2 TNP See or mingo comments WALTER TITER 3 TNP See orde r comments WALTER Pattern 3 TNP See or mingo comments 07/13/2024 8:53 AM EDT 07/13/2024 8:53 AM EDT us Vidal Reed MD LAB BLOOD ORDERABLES Final Re sult [place] See order comments [place] [address] * (ABNORMAL) CBC and differential (07/13/2024 8:53 AM EDT) WBC 5.2 4.8 - 10.8 X10*3/uL See order comments RBC 4.57 4.20 - 5.50 X10*6/uL See order comments Hgb 12.3 12.0 - 16.0 g/dl See order comments Hematocrit 38.3 37.0 - 47.0 % See order comments MCV 83.8 80.0 - 98.0 fL See order comments MCH 26.9(L) 27.0 - 33.0 pg See order comments MCHC 32.1 31.0 - 35.0 g/dl See order comments RDW 15.4 11.0 - 16.0 % See order comments Platelets 241 160 - 400 X10*3/uL See order comments MPV 9.8 9.4 - 12.3 fL See order comments Neutrophils % Auto 52.5 45 - 73 % See order comments Immature Granulocytes 0.2 0.0 - 0.4 % See order comments Lymphocytes Relative 35.4 20 - 40 % See order comments Monocytes 9.0 2 - 11 % See order comments Eosinophils Relative 2.3 0 - 4 % See order comments Basophils Relative 0.6 0 - 2 % See order comments nRBC Count 0.0 0.0 - 0.2 /100WBC See order comments Neutrophils Absolute 2.7 2.0 - 8.3 x10*3/uL See order comments Immature Grans (Absolute) 0.01 0.00 - 0.03 X10*3/uL See order comments Lymphocytes Absolute 1.8 1.2 - 4.9 X10*3/uL See order comments Monocytes Absolute 0.5 0.1 - 1.2 X10*3/uL See order comments Eosinophils Absolute 0.1 0.0 - 0.4 X10*3/uL See order comments Basophils Absolute 0.0 0.0 - 0.2 X10*3/uL See order comments NRBC Absolute 0.000 0.0 - 0.012 X10*3/uL See order comments Blood (Blood, Venous) 07/13/2024 8:53 AM EDT 07/13/2024 8:53 AM EDT us Vidal Reed MD LAB BLOOD ORDERABLES Final Re sult [place] See order comments [place] [address] * (ABNORMAL) BUN (07/13/2024 8:53 AM EDT) BUN 23(H) 9 - 16 mg/dL See order comments 07/13/2024 8:53 AM EDT 07/13/2024 8:53 AM EDT Vidal Reed MD LAB BLOOD ORDERABLES Final Re sult Performing Organization Address [facility] Co de Phone Number [place] See order comments [place] [address] * Calcium (07/13/2024 8:53 AM EDT) Calcium 9.8 8.4 - 10.2 mg/dL See order comments 07/13/2024 8:53 AM EDT 07/13/2024 8:53 AM EDT Vidal Reed MD LAB BLOOD ORDERABLES Final Re sult Performing Organization Address [facility] de Phone Number [place] See order comments [place] [address] * (ABNORMAL) Electrolyte panel (07/13/2024 8:53 AM EDT) Sodium 142 135 - 145 mmol/L See order comments Potassium 3.5 3.3 - 5.1 mmol/L See order comments Chloride 103 96 - 108 mmol/L See order comments Bicarbonate (CO2) 30(H) 22 - 29 mmol/L See order comments Anion Gap 13 12 - 20 See order comments 07/13/2024 8:53 AM EDT 07/13/2024 8:53 AM EDT us Vidal Reed MD LAB BLOOD ORDERABLES Final Re sult Performing Organization Address [facility] de Phone Number [facility] See order comments [place] [address] from Last 3 Months Insurance [place]ICAID [place] MEDICARE [place]ICAID [place] MEDICARE Care Teams Limnology Teacher Relationship Specialty Start Date End Date Fatuma Hardy MD [address] [place] [id number] PCP - General 05/11/20
--- OUTSIDE RECORDS SUMMARY | 2024-08-07 10:34 | XMS_ITS | Encounter Summary ---
Author Organization [employer] Address [address] [place] [address] 7t [place] [address] Care Team Providers Care Hatchery Man Name Role Phone Fatuma Hardy MD Primary Care Provider [phone] Reason for Visit * Reason Onset Date Comments PA status 06/28/2022 Encounter Details Date Type Department Care Team (Late st Contact Info) Description 06/28/2022 Telephone [facility] MED & PEDS [address] [place] [address] Fatuma Hardy MD [address] [place] [address] PA status Social History Tobacco Use Types Packs/Day Years [...] encounter Miscellaneous Notes * Telephone Encounter - Vahe Mcclelland - 06/28/2022 1:23 PM EST Tc from pt requesting status a previous PA Please contact pt at [phone] documented in this encounter Plan of Treatment Upcoming Encounters Date Type Department Care Team (Late st Contact Info) Description 08/14/2024 11:00 AM EDT Office Visit [facility] ADULT DENTAL [address] [place] [address] Cornelius Herr DMD [address] [place] [address] 08/27/2024 9:00 AM EDT Office Visit [facility] ADULT DENTAL [address] [place] [address] Dar Hull 09/02/2024 8:30 AM EDT Office Visit [facility] MED & PEDS [address] [place] [address] Fatuma Hardy MD [address] [place] [address] documented as of this encounter Visit Diagnoses Not on filedocumented in this encounter Care Teams Hatchery Man Relationship Specialty Start Date End Date Fatuma Hardy MD [address] [place] [address] PCP - General Family Medicine 04/12/12 documented as of this encounter
--- OUTSIDE RECORDS SUMMARY | 2024-08-07 10:34 | XMS_ITS | Encounter Summary ---
Author Organization [employer] Address [address] [place] [address] 7t [place] [address] Care Team Providers Care Channeler Insole Name Role Phone Fatuma Hardy MD Primary Care Provider [phone] Reason for Visit * Reason Comments Med Refill Encounter Details Date Type Department Care Team (Late st Contact Info) Description 04/18/2023 Refill [facility] MED & PEDS [address] [place] [address] Fatuma Hardy MD [address] [place] [address] Fibromyositis Social History Tobacco Use Types Packs/Day Years [...] 11:00 AM EDT Office Visit [facility] ADULT DENTAL [address] [place], [place] [phone] Cornelius Herr DMD [address] [place] [address] 08/27/2024 9:00 AM EDT Office Visit [facility] ADULT DENTAL [address] [place] [address] Dar Hull 09/02/2024 8:30 AM EDT Office Visit [facility] MED [facility]EDS [address] [place] [address] Fatuma Hardy MD [address] [place] [address] documented as of this encounter Visit Diagnoses Diagnosis Fibromyositis Unspecified myalgia and myositis documented in this encounter Care Teams Channeler Insole Relationship Specialty Start Date End Date Fatuma Hardy MD [address] [place] [address] PCP - General Family Medicine 04/12/12 documented as of this encounter
--- OUTSIDE RECORDS SUMMARY | 2024-08-07 10:35 | XMS_ITS | Encounter Summary ---
Author Organization [facility] [facility] Address [address] [place] [address] 7t [place] [address] Care Team Providers Care Application Development Specialist Name Role Phone Fatuma Hardy MD Primary Care Provider [phone] Encounter Details Date Type Department Care Team (Late st Contact Info) Description 11/10/2023 Orders Only [facility] MED & PEDS [address] [place] [address] Provider, MD Pipe Social History Tobacco Use Types Packs/Day Years Used Date Smoking Tobacco: Never Smokeless Tobacco: Never Comments No Sex and Gender Information Value Date Recorded Sex Assigned at Female 02/28/2022 10:17 AM EDT Legal Sex Female 10:17 AM EDT Gender Identity Female 02/28/2022 10:17 AM EDT Sexual Orientation Straight 02/28/2022 10 :17 AM EDT documented as of this encounter Plan of Treatment Upcoming Encounters Date Type Department Care Team (Late st Contact Info) Description 08/14/2024 11:00 AM EDT Office Visit [facility] ADULT DENTAL [address] [place] [address] Cornelius Herr, LAUREN [address] [place] [address] 08/27/2024 9:00 AM EDT Office Visit [facility] ADULT DENTAL [address] [place] [address] Dar Hull 09/02/2024 8:30 AM EDT Office Visit [facility] MED & PEDS [address] [place] [address] Fatuma Hardy MD [address] [place] [address] documented as of this encounter Procedures Procedure Name Priority Date/Time Associated Diagnosis Comments CT CHEST WO CONTRAST Routine 11/09/2023 10:34 AM EDT documented in this encounter Results * CT Chest w/o Contrast (11/09/2023 10:34 AM EDT) Anatomical Region Laterality Modality Body, Chest Computed Tomogra phy us Historical Provider MD VILLASENOR CT PROCEDURES Final R esult documented in this encounter Visit Diagnoses Not on filedocumented in this encounter Care Teams Application Development Specialist Relationship Specialty Start Date End Date Fatuma Hardy MD [address] [place] [address] PCP - General Family Medicine 04/12/12 documented as of this encounter
--- OUTSIDE RECORDS SUMMARY | 2024-08-07 10:35 | XMS_ITS | Encounter Summary ---
Author Organization [employer] Address [address] [facility] 7t [place] [address] Care Team Providers Care Buffing Machine Operator Name Role Phone Fatuma Hardy MD Primary Care Provider Reason for Visit * Reason Onset Date Comments Nurse Triage 06/26/2024 Encounter Details Date Type Department Care Team ([facility] Contact Info) Description 06/26/2024 Telephone [facility] MED & PEDS [address] [place] [address] Fatuma Hardy MD 505 [place] [address] Nurse Triage Social History Tobacco Use Types Packs/Day Years Used Date Smoking Tobacco: Never Smokeless Tobacco: Never Alcohol Use Standard Drinks/Week Comments Defer 0 (1 standard drink = 0.6 oz pur e alcohol) Housing Stability Answer Date Recorded What is your housing situation today? I have arabella reyes 01/23/[address] you li ve. Do you have problems with any of the following? None of the above 01/23/2024 Food Insecurity Answer Date Recorded Within the past 12 months, y ou worried that your food would run out before you got money to buy more: Never True 01/23/2024 Within the past 12 months,th e food you bought just didn't last and you didn't have enough money to get more: Never True Transportation Answer Date Recorded In the past 12 months, has l ack of transportation kept you from medical appts, meetings, work or from getting things needed for daily living? No 01/23/2024 Utilities Answer Date Recorded In the past 12 months, has t he electric, gas, oil or water company threatened to shut off services in your home? No 01/23/2024 Internet Access Answer Date Recorded Internet Access Q1 Yes 01/23/2024 Internet Access Q2 Not on file 01/23/2024 Comments No Sex and Gender Information Value Date Recorded Sex Assigned at Female 02/28/2022 10:17 AM EDT Legal Sex Female 10:17 AM EDT Gender Identity Female 02/28/2022 10:17 AM EDT Sexual Orientation Straight 02/28/2022 10 :17 AM EDT documented as of this encounter Miscellaneous Notes * Telephone Encounter - Danielle Delcid RN - 06/26/2024 3:08 PM EST Pt called back to cancel apt for the due to transportation. [facility] apt scheduled for 07/03/24 @1100am with Dr. Hardy. Pt will call PT 1 now to secure transportation. * Telephone Encounter - Danielle Delcid RN - 06/26/2024 1:02 PM EST Triage call Pt reports was at [facility] apt yesterday and was told BP was very low. No number given or known. Pt had been taking hydrochlorothyazide prescribed by renal MD. Pt was told to stop taking this medication and follow up with PCP. Pt reports stopped taking the medication yesterday as instructed. Pt has BP machine at home but, reports it is broken and unable to take BP at time of call. Pt reports tiredness and dizziness yesterday but, not today. Pt is given home care instructions for fall prevention, advised to continue to not take HCTZ and drink adequate liquids. ASK apt with PCP06/27/24 @ 1045am . Pt agrees with disposition and insurance is verified as active prior to booking. Protocol Used: Blood Pressure - Low (Adult) Protocol-Based Disposition: See in Office or Video Visit within 3 Days Positive Triage Questions: * Brief weakness or lightheadedness after standing up or eating * Wants doctor to measure BP * All higher-acuity triage questions were negative Care Advice Discussed: * Reassurance and Education - Low (Diastolic) Blood Pressure * Reassurance and Education - Low (Systolic) Blood Pressure * Where Can You Go to Get a Blood Pressure Check? * Fall Prevention * Reasons To Call Back - Lightheadedness, weakness, or dizziness occurs - Systolic BP under 90 - You feel sick - You become worse * Telephone Encounter - Ronna Gregorio - 06/26/2024 12:20 PM EST Symptom: Low Blood Pressure concern , some tiredness, dizziness - Caller Reports Outcome: Schedule a same-day appointment or talk to a nurse or provider today Reason: Caller denied all higher acuity questions The caller accepted this outcome. documented in this encounter Plan of Treatment Upcoming Encounters Date Type Department Care Team (Late st Contact Info) Description 08/14/2024 11:00 AM EDT Office Visit [facility] ADULT DENTAL [address] [place] [address] Cornelius Herr, LAUREN [address] [place] [address] 08/27/2024 9:00 AM EDT Office Visit [facility] ADULT DENTAL [address] [place] [address] Dar Hull 09/02/2024 8:30 AM EDT Office Visit [facility] MED & PEDS [address] [place] [address] Fatuma Hardy MD 505 [place] [address] documented as of this encounter Visit Diagnoses Not on filedocumented in this encounter Care Teams Buffing Machine Operator Relationship Specialty Start Date End Date Fatuma Hardy MD [address] [place] [address] PCP - General Family Medicine 04/12/12 documented as of this encounter
--- OUTSIDE RECORDS SUMMARY | 2024-08-07 10:35 | XMS_ITS | Encounter Summary ---
Author Organization [employer] Address [address] [facility] 7t [place] [address] Care Team Providers Care Dry Cleaning Supervisor Name Role Phone Fatuma Hardy MD Primary Care Provider [phone] Reason for Visit * Reason Onset Date Comments PT-1 06/04/2024 Encounter Details Date Type Department Care Team ([facility] Contact Info) Description 06/04/2024 Telephone [facility] CHC MED & PEDS [address] [place] [address] Fatuma Hardy MD [address] [place] [address] PT-1 Social History Tobacco Use Types Packs/Day Years [...] * Telephone Encounter - Ronna Gregorio - 06/04/2024 2:23 PM EST 1.)Patient calling requesting PT1 Home Address verified: Y/N: Yes Provider name or facility name: [facility] Facility Address: [address] [address] Escort needed: Y/N: No Do you have a wheelchair: Y/N: No If yes- Manual or electric: n/a Visits: 2 times a month for 12 months 2.)Home Address verified: Y/N: Yes Provider name or facility name: [facility] Facility Address: [address] [place] [address] Escort needed: Y/N: No Do you have a wheelchair: Y/N: No If yes- Manual or electric: N/a Visits: 2 times a month for 12 months documented in this encounter Plan of Treatment Upcoming Encounters Date Type Department Care Team (Late st Contact Info) Description 08/14/2024 11:00 AM EDT Office Visit [facility] ADULT DENTAL [address] [place] [address] Cornelius Herr DMD [address] [place] [address] 08/27/2024 9:00 AM EDT Office Visit [facility] ADULT DENTAL [address] [place] [address] Dar Hull 09/02/2024 8:30 AM EDT Office Visit [facility] CHC MED & PEDS [address] [place] [address] Fatuma Hardy MD [address] [place] [address] documented as of this encounter Visit Diagnoses Not on filedocumented in this encounter Care Teams Dry Cleaning Supervisor Relationship Specialty Start Date End Date Fatuma Hardy MD [address] [place] [id number] PCP - General Family Medicine 04/12/12 documented as of this encounter
--- OUTSIDE RECORDS SUMMARY | 2024-08-07 10:35 | XMS_ITS | Encounter Summary ---
Author Organization [employer] Address [address] [facility] 7t [place] [address] Care Team Providers Care Public Housing Manager Name Role Phone Fatuma Hardy MD Primary Care Provider [phone] Reason for Visit * Reason Onset Date Comments PT-1 05/05/2023 Encounter Details Date Type Department Care Team (Late st Contact Info) Description 05/05/2023 Telephone [facility] MEDICINE [address] [place] [address] Fatuma Hardy MD [address] [place], [place] [phone] PT-1 Social History Tobacco Use Types Packs/Day [...] encounter Miscellaneous Notes * Telephone Encounter - Rosario Huerta - 05/05/2023 12:00 PM EST PT-1 submitted for patient. They will receive a letter of approval or denial in the mail. * Telephone Encounter - Harrison Benz - 05/05/2023 8:43 AM EST PT1 needed Date N/A Time: N/A Visits: 4 Address: [address] [facility] Facility: [facility] Wheel Chair: no Chart Snatcher Needed: no PT1 needed Date: N/A Time: N/A Visits: 4 Address: [address] [facility] Facility: [facility] Wheel Chair: no Chart Snatcher Needed: no PT1 needed Date: N/A Time: N/A Visits: 4 Address: [address], [place] [address] Facility:[facility] Wheel Chair: no Chart Snatcher Needed: no documented in this encounter Plan of Treatment Upcoming Encounters Date Type Department Care Team (Late st Contact Info) Description 08/14/2024 11:00 AM EDT Office Visit [facility] ADULT DENTAL [address] [place] [address] oCrnelius Herr, LAUREN [address] [place] [address] 08/27/2024 9:00 AM EDT Office Visit [facility] ADULT DENTAL [address] [place] [address] Dar Hull 09/02/2024 8:30 AM EDT Office Visit [facility] MED & PEDS [address] [place] [address] Fatuma Hardy MD [address] [place] [address] documented as of this encounter Visit Diagnoses Not on filedocumented in this encounter Care Teams Public Housing Manager Relationship Specialty Start Date End Date Fatuma Hardy MD [address] [place] [address] PCP - General Family Medicine 04/12/12 documented as of this encounter
--- OUTSIDE RECORDS SUMMARY | 2024-08-07 10:35 | XMS_ITS | Encounter Summary ---
Author Organization [employer] Address [address] [facility] 7t [place] [address] Care Team Providers Care Jewelry Sales Coordinator Name Role Phone Fatuma Hardy MD Primary Care Provider [phone] Reason for Visit * Reason Onset Date Comments PT1 11/03/2023 Encounter Details Date Type Department Care Team ([facility] st Contact Info) Description 11/03/2023 Telephone [facility] MEDICINE [address] [place] [address] Fatuma Hardy MD [address] [place], [place] [phone] PT1 Social History Tobacco Use Types Packs/Day [...] * Telephone Encounter - Yasmin Cornejo - 11/03/2023 1:53 PM EDT Patient calling requesting PT1 Home Address verified: Y/N: Yes Provider name or facility name: [facility] Facility Address: [address] [place] [address] Escort needed: Y/N: No Do you have a wheelchair: Y/N: No If yes- Manual or electric: n/a Visits: 12 a year documented in this encounter Plan of Treatment Upcoming Encounters Date Type Department Care Team (Late st Contact Info) Description 08/14/2024 11:00 AM EDT Office Visit [facility] ADULT DENTAL [address] [place] [address] Cornelius Herr, DMD [address] [place] [address] 08/27/2024 9:00 AM EDT Office Visit [facility] ADULT DENTAL [address] [place] [address] Dar Hull 09/02/2024 8:30 AM EDT Office Visit [facility] MED & PEDS [address] [place] [address] Fatuma Hardy MD [address] [place] [address] documented as of this encounter Visit Diagnoses Not on filedocumented in this encounter Care Teams Jewelry Sales Coordinator Relationship Specialty Start Date End Date Fatuma Hardy MD [address] [place] [address] PCP - General Family Medicine 04/12/12 documented as of this encounter
--- OUTSIDE RECORDS SUMMARY | 2024-08-07 10:35 | XMS_ITS | Encounter Summary ---
Author Organization [employer] Address [address] [facility] 7t [place] [address] Care Team Providers Care Test Lead Application Testing Name Role Phone Fatuma Hardy MD Primary Care Provider [phone] Reason for Visit * Reason Onset Date Comments PT1 06/26/2024 Encounter Details Date Type Department Care Team ([facility] Contact Info) Description 06/26/2024 Telephone [facility] MED & PEDS [address] [place] [address] Fatuma Hardy MD [address] [place] [address] PT1 Social History Tobacco Use Types Packs/Day [...] Telephone Encounter - Ronna Gregorio - 06/26/2024 12:15 PM EST Patient calling requesting PT1 Home Address verified: Y/N: Yes Provider name or facility name: [facility] Facility Address: [address] [place] [address] [address], [place] [address] Escort needed: Y/N: No Do you have a wheelchair: Y/N: No If yes- Manual or electric: n/a Visits: 1-2 for 6 months documented in this encounter Plan of Treatment Upcoming Encounters Date Type Department Care Team (Late st Contact Info) Description 08/14/2024 11:00 AM EDT Office Visit [facility] ADULT DENTAL [address] [place] [address] Cornelius Herr DMD [address] [place] [address] 08/27/2024 9:00 AM EDT Office Visit [facility] ADULT DENTAL [address] [place] [address] Dar Hull 09/02/2024 8:30 AM EDT Office Visit [facility] MED & PEDS [address] [place] [address] Fatuma Hardy MD [address] [place] [address] documented as of this encounter Visit Diagnoses Not on filedocumented in this encounter Care Teams Test Lead Application Testing Relationship Specialty Start Date End Date Fatuma Hardy MD [address] [place] [address] PCP - General Family Medicine 04/12/12 documented as of this encounter
--- OUTSIDE RECORDS SUMMARY | 2024-08-07 10:35 | XMS_ITS | Clinical Summary ---
Author Organization [employer] Address [address] [facility] [facility] [address] [place] [address] Care Team Providers Care Stock Hanger Name Role Phone Fatuma Hardy MD Primary Care Provider [phone] Allergies No known active allergies Medications lidocaine (Lidoderm) 5 % patchIndicatio ns:Pain Apply 2 patches topically in the morning. Remove & discard patch within 12 hours or as directed by . 60 patch 11 05/11/19 23 Active albuterol 108 (90 Base) MCG/ACT inhaler Inhale 2 puffs every 4 (four) hours if needed. 08/30/19 23 Active Calcium Carbonate-Zoya min D (Liquid Calcium/Vitami n D) 600-5 MG-MCG capsule Take 1 tablet by mouth. 07/14/19 13 Active ibuprofen 600 MG tablet Take 1 tablet by mouth every 8 (eight) hours if needed. 10/22/19 23 Active beta carotene (vitamin A) 3 MG (85831 UT) capsule Take by mouth in the morning. 08/02/19 23 Active traMADol (Ultram) 50 MG tabletIndicati ons:Fibromyosi tis TAKE 1 TABLET(50 MG) BY MOUTH EVERY 12 HOURS 10 tablet 01/08/20 24 Active tiZANidine (Zanaflex) 4 MG tabletIndicati ons:Fibromyosi tis TAKE 1 TABLET(4 MG) BY MOUTH AT BEDTIME FOR 10 DAYS 30 tablet 3 01/27/20 24 Active cyclobenzaprin e (Amrix) 15 MG 24 hr capsule Take 1 capsule by mouth Once per day. Active Breo Ellipta 100-25 MCG/ACT aerosol powder INAHLE 1 PUFF BY MOUTH ONCE DAILY AT THE SAME TIME EVERY DAY 01/30/20 24 Active montelukast (Singulair) 10 MG tablet Take 10 mg by mouth at bedtime. Active ALPRAZolam (Xanax) 0.25 MG tablet TAKE 1 TABLET BY MOUTH 1 HOUR PRIOR TO PROCEDURE THEN TAKE 1 TABLET BY MOUTH EVERY DAY NEEDED AFTER PROCEDURE 11/08/19 24 Active SUMAtriptan (Imitrex) 50 MG tablet TAKE 1 TABLET(50 MG) BY MOUTH 1 TIME NEEDED FOR MIGRAINE. MAY REPEAT DOSE 1 TIME IN 2 HOURS IF NO RELIEF. DO NOT EXCEED 2 DOSES IN 24 HOURS 9 tablet 05/08/19 25 Active levothyroxine (Synthroid, Levoxyl) 150 MCG tablet TAKE 1 TABLET(150 MCG) BY MOUTH BEFORE BREAKFAST 90 tablet 1 05/23/19 25 Active Blood Pressure kit CHECK BLOOD PRESSURE DAILY 1 kit 07/24/19 25 Active Blood Pressure kit CHECK BLOOD PRESSURE DAILY 1 kit 07/04/19 25 025 Discontinued(Re order (will not trigger notification to Pharmacy)) Active Problems Problem Noted Date Diagnosed Date Primary hypertension 01/31/2024 Rhinosinusitis 03/31/2023 Assessment & Plan (03/31/2023 2:41 PM EST): Patient that presented visit with complaints of Rhinosinusitis will be prescribed antibiotics to treat symptoms. 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 04/11/2012 Hypothyroidism 04/11/2012 Asthma 04/11/2012 Acanthosis nigricans 04/11/2012 Obstructive sleep apnea syndrome 04/11/2012 Encounters Date Type Department Care Team Description 07/25/2024 8:00 AM EDT Office Visit [facility] [address] [place] [address] Cornelius Herr DMD Dental caries (Primary Dx); Full coverage crown needed for tooth at risk for fracture 07/22/2024 Refill [facility] [address] [place] [address] Fatuma Hardy MD 07/13/2024 Orders Only GENERIC EXTERNAL DATA DEPARTMENT Provider, Generic External Data 07/03/2024 11:00 AM EST Office Visit [facility] [address] [place] [address] Fatuma Hardy MD Edema, unspecified type (Primary Dx); Primary hypertension 07/03/2024 Refill [facility] [address] [facility] [place] [address] Fatuma Hardy MD 07/03/2024 Travel 07/02/2024 Travel 06/26/2024 Patient Outreach [facility] [address] [place] [address] Fatuma Hardy MD Care Coordination (CHW outreach for SDOH PT-1 and food needs-referral completed /) 06/26/2024 Telephone [facility] [address] [place] [address] Fatuma Hardy MD Nurse Triage 06/26/2024 Telephone [facility] [address] [place] [address] Fatuma Hardy MD PT1 06/04/2024 Patient Outreach [facility] [address] [place] [address] Fatuma Hardy MD Care Coordination (CHW outreach for SDOH PT-1 and food needs-referral completed /) 06/04/2024 Telephone [facility] [address] [place] [address] Fatuma Hardy MD PT-1 05/22/2024 Refill [facility] [address] [place] [address] Fatuma Hardy MD from Last 3 Months Immunizations Name Administration Dates Next Due Influenza, High Dose Seasonal, Preservative Free 01/31/2024 Pneumococcal Polysaccharide PPSV23 08/08/2013, Tdap 03/08/2016,11/21/2015 Social History Tobacco Use Types Packs/Day Years Used Date Smoking Tobacco: Never Smokeless Tobacco: Never Tobacco Cessation:Counseling Given: Not Answered Alcohol Use Standard Drinks/Week Comments Defer 0 [...] Orientation Straight 02/28/2022 10 :17 AM EDT Last Filed Vital Signs Vital Sign Reading Time Taken Comments Blood Pressure 130/78 07/25/2024 8:09 AM EDT Pulse 68 07/03/2024 11:02 AM EST Temperature 36.6 ??C (97.9 ??F) 07/03/2024 11:[address] Respiratory Rate 16 07/03/2024 11:02 AM EST Oxygen Saturation 98% 07/03/2024 11:02 AM EST Inhaled Oxygen Concentration - - Weight 75.1 kg (165 lb 9.6 oz) 07/03/2024 11:02 AM EST Height 160 cm (5' 3 ) 07/03/2024 11:02 AM EST Body Mass Index 29.33 07/03/2024 11:02 AM EST Plan of Treatment Upcoming Encounters Date Type Department Care Team (Late st Contact Info) Description 08/14/2024 11:00 AM EDT Office Visit [facility] [address] [place] [address] Cornelius Herr, DMD [address] [place] [address] 08/27/2024 9:00 AM EDT Office Visit [facility] [address] [place] [address] Dar Hull 09/02/2024 8:30 AM EDT Office Visit [facility] [address] [place] [address] Fatuma Hardy MD [address] [place] [address] Health Maintenance Due Date Last Done Comments CT Colonography 1955 Colonoscopy 1955 Depression Screening 1955 FIT 1955 FOBT 1955 Sigmoidoscopy 1955 Alcohol/Substance Use Screening 1968 Zoster Vaccines (1 of 2) 2006 Pneumococcal Vaccine: 50+ Years (2 of 2 - PCV) 08/08/2014 08/08/2013, 04/04/2006 RSV Patients and Patients Aged 60 years or older (1 - Risk 60-74 years 1-dose series) 2016 COVID-19 Vaccine ( season) 2023 06/16/2021, 10/07/2020, 09/02/2020 Mammogram 07/28/2024 01/29/2024, 03/05/2023, 06/28/2023, Additional history exists Dental X-Ray: Bitewings 07/31/2024 07/31/19 24, 12/21/2022, 04/20/2022 Dental Oral Exam 08/14/2024 02/13/2024, , 04/20/2022 Dental Prophylaxis 08/14/2024 02/13/2024, 0 07/31/2023, 12/21/2022, Additional history exists SDOH Screening 01/22/2025 01/23/2024 Tobacco Screening 07/25/2025 07/25/2024 DTaP/Tdap/Td Vaccines (3 - Td or Tdap) 03/08/2026 03/08/2016, 11/21/2015 Colorectal Cancer Screening 06/05/2026 FIT DNA/Cologuard 06/05/2026 06/05/2023 Dental X-Ray: Full Mouth 07/31/2026 07/31/2023 Lipid Panel 02/04/2029 02/05/2024, 0306/2022, 04/08/2022, Additional history exists Cervical Cancer Screening Discontinued HPV/Cotest Discontinued 03/29/2016 Influenza Vaccine Completed 01/31/2024, , 03/29/2018, Additional history exists Hepatitis C Screening Completed 02/05/2024 HIB Vaccines Aged Out No longer eligi [...] patient's age to complete this topic Meningococcal Vaccine Aged Out No conrad riya eligible based on patient's age to complete this topic Pap Smear Discontinued RSV under 20 months Aged Out No longe r eligible based on patient's age to complete this topic Rotavirus Vaccines Aged Out No longer eligible based on patient's age to complete this topic Procedures Procedure Name Priority Date/Time Associated Diagnosis Comments CASE PRESENTATION, DETAILED AND EXTENSIVE TREATMENT PLANNING Routine 07/25/2024 8:00 AM EDT Dental caries Full coverage crown needed for tooth at risk for fracture 30 CORE BUILDUP, INCL ANY PINS WHEN REQ Routine 07/25/2024 8:00 AM EDT Dental caries Full coverage crown needed for tooth at risk for fracture 30 CROWN PREP Routine 07/25/2024 8:00 AM EDT Dental caries Full coverage crown needed for tooth at risk for fracture WALTER SCREEN, IFA, W/REFL TITER AND PATTERN Routine 07/13/2024 8:53 AM EDT CALCIUM Routine 07/13/2024 8:53 AM EDT CREATININE, SERUM Routine 07/13/2024 8:5 3 AM EDT UREA NITROGEN (BUN) Routine 07/13/2024 8 :53 AM EDT ELECTROLYTE PANEL Routine 07/13/2024 8:5 3 AM EDT CBC WITH AUTO DIFFERENTIAL Routine 07/13/2024 8:53 AM EDT PROTEIN CREATININE RATIO, URINE Routine 07/13/2024 8:50 AM EDT URINALYSIS, COMPLETE Routine 07/13/2024 8:50 AM EDT PROPHYLAXIS - ADULT Routine 02/13/2024 9 :00 AM EDT Gingivitis Dental caries PERIODIC ORAL EVALUATION - ESTABLISHED PATIENT Routine 02/13/2024 9:00 AM EDT Gingivitis Dental caries HEPATITIS PANEL, GENERAL Routine 02/05/2024 8:23 AM EDT LIPID PANEL, STANDARD Routine 02/05/2024 8:23 AM EDT Primary hypertension BI MAMMOGRAM DIAGNOSTIC TOMOSYNTHESIS LEFT Routine 01/29/2024 10:30 AM EDT INTRAORAL - COMPLETE SERIES OF RADIOGRAPHIC IMAGES Routine 07/31/2023 8:00 AM EDT LAB COLOGUARD?? COLON CANCER SCREEN Routine 06/05/2023 1:00 PM EST Encounter for screening for malignant neoplasm of colon ZZZ HISTORICAL HPV MRNA E6/E7 Routine 03/29/2016 1:40 PM EST from Last 3 Months or Most Recently Relevant to Health Maintenance Results * Creatinine, Serum (07/13/2024 8:53 AM EDT) Creatinine, Serum 0.62 0.5 - 1.4 mg/dL [facility] Estimated Glomerular Filt Rate >60 [facility] Comment:Chronic Kidney Disea se: Estimated GFR < 60 mL/min/[id number] Kidney Disease: Estimated GFR < 15 mL/min/1.73m2 07/13/2024 8:53 AM EDT 07/13/2024 8:53 AM EDT us Generic External Data Provider LAB BLOOD ORDERAB LES Final Result [facility] [address] [place] [address] [phone] * (ABNORMAL) CBC auto differential (07/13/2024 8:53 AM EDT) White Blood Count 5.2 4.8 - 10.8 X10*3/uL [facility] Red Blood Count 4.57 4.20 - 5.50 X10*6/uL [facility] Hemoglobin 12.3 12.0 - 16.0 g/dl [facility] Hematocrit 38.3 37.0 - 47.0 % [facility] Mean Corpuscular Volume 83.8 80.0 - 98.0 fL [facility] Mean Corpuscular Hemoglobin 26.9(L) 27.0 - 33.0 pg [facility] Mean Corpuscular HGB Conc 32.1 31.0 - 35.0 g/dl [facility] Red Cell Distribution Width 15.4 11.0 - 16.0 % [facility] Platelet Count 241 160 - 400 X10*3/uL [facility] Mean Platelet Volume 9.8 9.4 - 12.3 fL [facility] Neutrophils Percent Auto 52.5 45 - 73 % [facility] Imm Gran Pct Auto 0.2 0.0 - 0.4 % [facility] Lymphocytes Percent Auto 35.4 20 - 40 % [facility] Monocytes Percent Auto 9.0 2 - 11 % [facility] Eosinophils Percent Auto 2.3 0 - 4 % [facility] Basophils Percent Auto 0.6 0 - 2 % [facility] NRBC Pct Auto 0.0 0.0 - 0.2 /100WBC [facility] Neutrophils Absolute Auto 2.7 2.0 - 8.3 x10*3/uL [facility] Imm Gran Abs Auto 0.01 0.00 - 0.03 X10*3/uL [facility] Lymphocytes Absolute Auto 1.8 1.2 - 4.9 X10*3/uL [facility] Monocytes Absolute Auto 0.5 0.1 - 1.2 X10*3/uL [facility] Eosinophils Absolute Auto 0.1 0.0 - 0.4 X10*3/uL [facility] Basophils Absolute Auto 0.0 0.0 - 0.2 X10*3/uL [facility] NRBC Abs Auto 0.000 0.0 - 0.012 X10*3/uL [facility] 07/13/2024 8:53 AM EDT 07/13/2024 8:53 AM EDT us Generic External Data Provider LAB BLOOD ORDERAB LES Final Result [facility] [address] [place] [phone] * (ABNORMAL) WALTER Screen,IFA, with Reflex to Titer and Pattern (07/13/2024 8:53 AM EDT) Anti Nuclear Antibody Screen POSITIVE (A) NEGATIVE [facility] Comment:WALTER IFA is a first l ine screen for detecting thepresence of up to approximately 150 autoantibodies invarious autoimmune diseases. A positive WALTER IFA resultis suggestive of autoimmune disease and reflexes totiter and pattern. Further laboratory testing may beconsidered if clinically indicated.For additional information, please refer [email or web address](This link is being provided for informational/educational purposes only.) WALTER Titer 1:80(A) titer [facility] Comment:A low level WALTER tite r may be present in pre-clinicalautoimmune diseases and normal individuals. Reference Range <1:40 Negative 1:40-1:80 Low Antibody Level >1:80 Elevated Antibody Level WALTER Pattern (A) [facility] Comment:Cytoplasmic, Reticul ar/AMA Abnormal Flag: ACoarse granular filamentous staining extendingthroughout the cytoplasm (e.g., anti-mitochondrialantibodies). Pattern is common in primary biliarycholangitis (PBC), systemic sclerosis, and rare inother systemic autoimmune rheumatic diseases (SARD).AC-21: Reticular/AMAInternational Consensus on WALTER Patterns(https://doi.org/10.1515/rnhx-8560-5695)THIS TEST WAS PERFORMED AT:[employer] [place] [phone] MAYEN MD WALTER TITER 2 (REF LAB) [facility] WALTER Pattern 2 [facility] WALTER TITER 3 [facility] WALTER PATTERN 3 [facility] 07/13/2024 8:53 AM EDT 07/13/2024 8:53 AM EDT Generic External Data Provider LAB BLOOD ORDERAB LES Final Result Performing Organization Address [facility]/ZIP Co de Phone Number [facility] [address] [place] [phone] * (ABNORMAL) BUN (Blood Urea Nitrogen) (07/13/2024 8:53 AM EDT) Urea Nitrogen (BUN) 23(H) 9 - 16 mg/dL [facility] 07/13/2024 8:53 AM EDT 07/13/2024 8:53 AM EDT Generic External Data Provider LAB BLOOD ORDERAB LES Final Result Performing Organization Address [facility]/ZIP Co de Phone Number [facility] [address] [place] [phone] * Calcium (07/13/2024 8:53 AM EDT) Calcium 9.8 8.4 - 10.2 mg/dL [facility] 07/13/2024 8:53 AM EDT 07/13/2024 8:53 AM EDT Generic External Data Provider LAB BLOOD ORDERAB LES Final Result Performing Organization Address [facility] de Phone Number [facility] [address] [place] [phone] * (ABNORMAL) Electrolyte Panel (07/13/2024 8:53 AM EDT) Sodium 142 135 - 145 mmol/L [facility] Potassium 3.5 3.3 - 5.1 mmol/L [facility] Chloride 103 96 - 108 mmol/L [facility] Carbon Dioxide 30(H) 22 - 29 mmol/L [facility] Anion Gap 13 12 - 20 [facility] 07/13/2024 8:53 AM EDT 07/13/2024 8:53 AM EDT Generic External Data Provider LAB BLOOD ORDERAB LES Final Result Performing Organization Address [facility] de Phone Number [facility] [address] [place] [phone] * (ABNORMAL) Protein Creatinine Ratio, Urine (07/13/2024 8:50 AM EDT) Creatinine, Urine 282.06 mg/dL [facility] Protein, Total, Random Urine 33(H) <12 mg/dL [facility] Protein/Creati nine Ratio, Ur 0.12 <0.2 [facility] Comment:The spot urine prote in:creatinine ratio may increase to 0.3during normal . 07/13/2024 8:50 AM EDT 07/13/2024 9:45 AM EDT Generic External Data Provider LAB URINE ORDERAB LES Final Result Performing Organization Address [facility] de Phone Number [facility] [address] [place] [phone] * (ABNORMAL) Urinalysis Complete (07/13/2024 8:50 AM EDT) Color Urine Dark Yellow [facility] Appearance Urine Clear [facility] PH 6.0 5.0 - 9.0 [facility] Glucose Urine UA Negative Negative mg/dL [facility] Urine Blood Moderate (2+)(A) Negative [facility] Specific Gaffney - Urine >=1.030(H) 1.005 - 1.025 [facility] Urine Protein 30 (1+)(A) Neg-Trace mg/dL [facility] Urine Ketones Trace Negative mg/dL [facility] Nitrite Urine Negative Negative [facility] Leukocyte Esterase Urine Small (1+)(A) Negative [facility] RBC Urine >20(A) 0 - 2 /HPF [facility] Urine WBC 6-10(A) 0 - 5 /HPF [facility] Urine Squamous Epithelial Cell 6-10 0 - 2 /HPF [facility] Urine Bacteria None Seen None Seen [facility] Hyaline Casts, Urine 0-2 0 - 2 /LPF [facility] 07/13/2024 8:50 AM EDT 07/13/2024 9:45 AM EDT us Generic External Data Provider LAB URINE ORDERAB LES Final Result [facility] [address] [place] [phone] * Hepatitis Panel, General (02/05/2024 8:23 AM EDT) Hepatitis A IgM Nonreactive Nonreactive [facility] Comment:IgM antibodies to GONZALEZ V not detected; does not exclude earlyacute or recovered HAV infection. ~Hepatitis B Surface Antibody NONREACTIVE Nonreactive [facility] Comment:Nonreactive: < 8.00 mIU/mL Hepatitis B Core Antibody Nonreactive Nonreactive [facility] Hepatitis C Antibody Nonreactive Nonreactive [facility] Comment:Antibodies to HCV no t detected; does not exclude early acuteHCV infection. Hepatitis B Surface Ag Negative Negative [facility] 02/05/2024 8:23 AM EDT 02/05/2024 8:27 AM EDT us Generic External Data Provider LAB BLOOD ORDERAB LES Final Result Performing Organization Address City/[facility]/ZIP Co de Phone Number [facility] [address] [place] [phone] [phone] * Lipid Panel, Standard (02/05/2024 8:23 AM EDT) Triglycerides 80 <150 mg/dL [facility] Comment:Desirable Triglyceri de: less than 150 mg/dLBorderline High Triglyceride 150-199 mg/dLHigh Triglyceride: 200-499 mg/dLVery High Triglyceride: greater than or equal to 5OO mg/dL Cholesterol 167 <200 mg/dL [facility] Comment:Desirable Cholestero l: less than 200 mg/dLBorderline High Cholesterol: 200-239 mg/dLHigh Cholesterol: greater than 239 mg/dL LDL Cholesterol Calculated 88 <100 mg/dL [facility] Comment:Desirable LDL: less than 100 mg/dLNear Optimal/Above Optimal LDL: 110- 129 mg/dLBorderline High LDL: 130-159 mg/dLHigh LDL: 160-189 mg/dLVery High LDL: greater than or equal to 190 mg/dL HDL Cholesterol 63 >40 mg/dL [facility] Comment:Desirable HDL: great er than 40 mg/dL Note: This HDL assay may give artificially low results in patients with liver disease. Blood Venous blood specimen / Unknown 02/05/2024 8:23 AM EDT 02/05/2024 8:27 AM EDT us Fatuma Hardy MD LAB BLOOD ORDERABLES Final Resul t Performing Organization Address City/[facility]/ZIP Co de Phone Number [facility] [address] [place] [phone] * BI Mammogram Diagnostic Tomosynthesis Left (01/29/2024 10:30 AM EDT) Anatomical Region Laterality Modality Breast Left Mammography 01/29/2024 10:3 0 AM EDT Narrative 01/29/2024 11:44 AM EDT ? [facility] ? [address] ?[place] [address] ? Mammography Report ? Signed ? Patient: Meadows,Ada N ?MR#: [id number] ? : 1955 ?Acct:[id number] ? Age/Sex: 68 / F ?ADM Date: 01/29/24 ? Loc: HO.MAMMO ? Attending Dr: Fatuma Hardy MD ? Ordering Physician: Fatuma Hardy MD ?Results: 3.6MPro ?? bably Benign Finding - Short 6 M F/U Suggested ? Date of Service: 01/29/24 ?Follow Up: 6 Month F/U ? Procedure(s): MM tomosynthesis diagnostic LT ?? Accession Number(s): [id number] ? cc: Fatuma Hardy MD ? EXAMINATION: ?? MM DIAGNOSTIC DIGITAL BREAST TOMOSYNTHESIS, LEFT ? CLINICAL INFORMATION: ? 6 month follow-up for probably benign left breast calcifications ?? inferior, far lateral and posterior left breast. ? COMPARISON: ?? Mammography: 07/20/2023 (BI-RADS 3), 06/28/2023 (BI-RADS 0), and exams ?? dating back to 2018. ? TECHNIQUE: ?? Digital breast tomosynthesis is performed in the following views: 2-D ?? spot magnification left CC and LM views. Per technologist, patient was ?? in some degree of respiratory distress, limiting the LM magnification ?? view from motion. ? FINDINGS: ?? The breasts are heterogeneously dense, which may obscure small masses ?? (ACR BI-RADS breast composition Category c). ? Calcifications in the upper outer quadrant 3:00 axis left breast, ?? posterior one third, has slightly become more coarse and appearance ?? since the prior exam 6 months ago, however the number of calcifications ?? has remained unchanged. No aggressive changes observed. ? There are skin calcifications along the nipple line on the CC ?? magnification view. A stable small benign circumscribed mass is also ?? present along the CC nipple. No suspicious abnormalities. ? MM/MM tomosynthesis diagnostic LT ?? IMPRESSION: ?? -There are no findings in the left breast suspicious for malignancy. ? -Probably benign calcifications left breast, as described. Recommend ?? additional 6 month follow-up magnification views when the patient is ?? due for bilateral screening, to continue to assess for stability. ? ASSESSMENT: ? BI-RADS BI-RADS 3 - Probably benign finding(s) - 6 month follow-up ?? suggested ? RECOMMENDATION: ?? 6 Month F/U ? Results were provided to the patient at time of visit by the ?? technologist. ? This patient's information was entered into a reminder system with a ?? target due date for their next mammogram. ? Electronically signed by: ??Berto Yeh MD ??01/29/2024 11:41 AM EDT RP ? Dictated By: ?Berto Yeh MD ? Signed By: ?<Electronically signed by Berto Yeh MD in OV> ?01/29/24 1141 ? DD/ 1030 ? TD/TT: 01/29/24 1050 ? Bark Spudder: ? Procedure Note Oanh, Hetal - 01/29/2024 [place] [facility] [address] [place] [address] Mammography Report Signed Patient: Petra Meadows NMR#: [id number] : 7Acct:[id number] Age/Sex: 68 / FADM Date: 01/29/24 Loc: HO.MAMMO Attending Dr: Fatuma Hardy MD Ordering Physician: Fatuma Hardy MDResults: 3.6MPro bably Benign Finding - Short 6 M F/U Suggested Date of Service: 01/29/24Follow Up: 6 Month F/U Procedure(s): MM tomosynthesis diagnostic LT Accession Number(s): [id number] cc: Fatuma Hardy MD EXAMINATION: MM DIAGNOSTIC DIGITAL BREAST TOMOSYNTHESIS, LEFT CLINICAL INFORMATION: 6 month follow-up for probably benign left breast calcifications inferior, far lateral and posterior left breast. COMPARISON: Mammography: 07/20/2023 (BI-RADS 3), 06/28/2023 (BI-RADS 0), and exams dating back to 2018. TECHNIQUE: Digital breast tomosynthesis is performed in the following views: 2-D spot magnification left CC and LM views. Per technologist, patient was in some degree of respiratory distress, limiting the LM magnification view from motion. FINDINGS: The breasts are heterogeneously dense, which may obscure small masses (ACR BI-RADS breast composition Category c). Calcifications in the upper outer quadrant 3:00 axis left breast, posterior one third, has slightly become more coarse and appearance since the prior exam 6 months ago, however the number of calcifications has remained unchanged. No aggressive changes observed. There are skin calcifications along the nipple line on the CC magnification view. A stable small benign circumscribed mass is also present along the CC nipple. No suspicious abnormalities. MM/MM tomosynthesis diagnostic LT IMPRESSION: -There are no findings in the left breast suspicious for malignancy. -Probably benign calcifications left breast, as described. Recommend additional 6 month follow-up magnification views when the patient is due for bilateral screening, to continue to assess for stability. ASSESSMENT: BI-RADS BI-RADS 3 - Probably benign finding(s) - 6 month follow-up suggested RECOMMENDATION: 6 Month F/U Results were provided to the patient at time of visit by the technologist. This patient's information was entered into a reminder system with a target due date for their next mammogram. Electronically signed by: Berto Yeh MD 01/29/2024 11:41 AM EDT Dictated By: Berto Yeh MD Signed By: <Electronically signed by Berto Yeh MD in OV> 01/29/24 1141 DD/ 1030 TD/TT: 01/29/24 1050 Bark Spudder: Fatuma Hardy MD IMG BI PROCEDURES Final Result * Cologuard?? colon cancer screening (06/05/2023 1:00 PM EST) Cologuard Result Negative Negative 06/18/19 9:01 AM EST [facility] (CLIA #:[id number]) Comment: NEGATIVE TEST RESULT. A negative Cologuard result indicates a low likelihood that a colorectal cancer (CRC) or advanced adenoma (adenomatous polyps with more advanced pre-malignant features) ??is present. The chance that a person with a negative Cologuard test has a colorectal cancer is less than 1 in 1500 (negative predictive value >99.9%) or has an ??advanced adenoma is less than ??5.3% (negative predictive value 94.7%). These data are based on a prospective cross-sectional study of 10,000 individuals at average risk for colorectal cancer who were screened with both Cologuard and colonoscopy. (Alicia Jeter et al, N Engl J Med 2014;370(14):1286- 1297) The normal value (reference range) for this assay is negative. COLOGUARD RE-SCREENING RECOMMENDATION: Periodic colorectal cancer screening is an important part of preventive healthcare for asymptomatic individuals at average risk for colorectal cancer. ??Following a negative Cologuard result, the [place] [employer] and U.S. Multi-Society Task Force screening guidelines recommend a Cologuard re-screening interval of 3 years. References: [place] [employer] Guideline for Colorectal Cancer Screening: https://www.cancer.org/cancer/lzkke-oymtzc-wxnayc/zxxspfvei-kgqkirzji-teuugup/ac s-rec ommendations.html.; Julio WORTHINGTON, Vipin MCGOWAN, Dominitz JK, Colorectal Cancer Screening: Recommendations for Physicians and Patients from the U.S. Multi-Society Task Force on Colorectal Cancer Screening , Am J Gastroenterology 2017; 112:4548-3766. TEST DESCRIPTION: Composite algorithmic analysis of stool DNA-biomarkers with hemoglobin immunoassay. ?? Quantitative values of individual biomarkers are not reportable and are not associated with individual biomarker result reference ranges. Cologuard is intended for colorectal cancer screening of adults of either sex, 45 years or older, who are at average-risk for colorectal cancer (CRC). Cologuard has been approved for use by the U.S. FDA. The performance of Cologuard was established in a cross sectional study of average-risk adults aged 50-84. Cologuard performance in patients ages 45 to 49 years was estimated by sub-group analysis of near-age groups. Colonoscopies performed for a positive result may find as the most clinically significant lesion: colorectal cancer [4.0%], advanced adenoma (including sessile serrated polyps greater than or equal to 1cm diameter) [20%] or non- advanced adenoma [31%]; or no colorectal neoplasia [45%]. These estimates are derived from a prospective cross-sectional screening study of 10,000 individuals at average risk for colorectal cancer who were screened with both Cologuard and colonoscopy. (Alicia Andrew. et al, N Engl J Med 2014;370(14):9132-3946.) Cologuard may produce a false negative or false positive result (no colorectal cancer or precancerous polyp present at colonoscopy follow up). A negative Cologuard test result does not guarantee the absence of CRC or advanced adenoma (pre-cancer). The current Cologuard screening interval is every 3 years. ([place] [employer] and U.S. Multi-Society Task Force). Cologuard performance data in a 10,000 patient pivotal study using colonoscopy as the reference method can be accessed at the following location: www.ID.me/results. Additional description of the Cologuard test process, warnings and precautions can be found at www.[employer]. Stool specimen (specimen) 06/05/2023 1:00 PM EST 06/07/2023 2:46 PM EST us Fatuma Hardy MD LAB MOLECULAR DIAGNOSTICS ORDERA BLES Final Result [facility] (CLIA #:[id number]) [place] [address], * HPV mRNA E6/E7 (03/29/2016 1:40 PM EST) HPV mRNA E6/E7 Not Detected NOT DETECTED [facility] Comment: This test was performed using the APTIMA(R) HPV Assay ([employer] This assay detects E6/E7 viral messenger RNA (mRNA) from 14 high-risk HPV types (16,18,31,33,35,39,45,51, 52,56,58,59,66,68). For additional information please refer to: http://education.eNovance/faq/XEZ027e1 (This link is being provided for informational/ educational purposes only.) Test Performed by [facility], [employer] [facility], [address] [place] [address] Jim Young M.D., Ph.D., Director of Laboratories , [place] [id number] Please note: ??Effective 01/11/2016, HPV testing will be performed using [employer]'s APTIMA test which targets mRNA. Detecting mRNA instead of DNA, as in older methods, offers significant improvements in specificity. 03/29/2016 1:40 PM EST us Xochilt Alcaraz CNM HISTORICAL/NON ORDERABLE LABS Final Result [facility] [address] from Last 3 Months or Most Recently Relevant to Health Maintenance Insurance [facility] MEDICAID STAND ADULT Care Teams Stock Hanger Relationship Specialty Start Date End Date Fatuma Hardy MD [address] [place] [address] [place] [address] PCP - General Family Medicine 04/12/12
--- OUTSIDE RECORDS SUMMARY | 2024-08-07 10:35 | XMS_ITS | Encounter Summary ---
Author Organization [employer] Address [address] [facility] [address] [place] [address] Care Team Providers Care Data Processing Control Clerk Name Role Phone Fatuma Hardy MD Primary Care Provider [phone] Reason for Visit * Reason Onset Date Comments PT1 04/10/2024 Encounter Details Date Type Department Care Team ([facility] Contact Info) Description 04/10/2024 Telephone [facility] [address] [place] [address] Fatuma Hardy MD [address] [place] [address] PT1 Social History Tobacco Use Types Packs/Day [...] encounter Miscellaneous Notes * Telephone Encounter - Jane Hester - 04/17/2024 2:55 PM EST Tc from pt returning update on PT-1 for [facility] [address] [place] [id number] , states PT-1 was submitted with [address] and they are no longer located in that location and needs to be updated with correct address. Please contact at [phone] * Telephone Encounter - Mariola Jimmy - 04/10/2024 11:14 AM EST Patient calling requesting PT1 Home Address verified: Y/N: Yes Provider name or facility name: [facility] Facility Address: [address] [place] [address] Escort needed: Y/N: No Do you have a wheelchair: Y/N: No If yes- Manual or electric: n/a Visits: 1 x 3 months Patient calling requesting PT1 Home Address verified: Y/N: Yes Provider name or facility name: [facility] Facility Address: [address] [facility] Escort needed: Y/N: No Do you have a wheelchair: Y/N: No If yes- Manual or electric: n/a Visits: 1 x 3 months Patient calling requesting PT1 Home Address verified: Y/N: Yes Provider name or facility name: [facility] Facility Address: [address] [place] [address] Escort needed: Y/N: Yes Do you have a wheelchair: Y/N: No If yes- Manual or electric: n/a Visits: 1 x month Patient calling requesting PT1 Home Address verified: Y/N: Yes Provider name or facility name: [facility] Facility Address: [address] [place] [address] [address], [place] [address] Escort needed: Y/N: No Do you have a wheelchair: Y/N: No If yes- Manual or electric: n/a Visits: 1 x 3 months documented in this encounter Plan of Treatment Upcoming Encounters Date Type Department Care Team (Late st Contact Info) Description 08/14/2024 11:00 AM EDT Office Visit [facility] [address] [place] [address] Corenlius Herr, DMD [address] [place] [address] 08/27/2024 9:00 AM EDT Office Visit [facility] [address] [place] [address] Dar Hull 09/02/2024 8:30 AM EDT Office Visit [facility] [address] [place] [address] Fatuma Hardy MD [address] [place] [address] documented as of this encounter Visit Diagnoses Not on filedocumented in this encounter Care Teams Data Processing Control Clerk Relationship Specialty Start Date End Date Fatuma Hardy MD [address] [place] [address] PCP - General Family Medicine 04/12/12 documented as of this encounter
== END 2024-08-07 09:42 | disposition home or self-care (01) ==
LOC: HO.MAMMO 09:41
PROVIDERS: PCP Student in an Organized Health Care Education/Training Program; Visit Provider Student in an Organized Health Care Education/Training Program
DX: R92.1 Mammographic calcification found on diagnostic imaging of breast (principal)
CPT/HCPCS: 77062; 77066

== ENCOUNTER → 2024-08-07 10:30 | Outpatient (BNV) | payer MEDICARE, MEDICAID, SELFPAY | PROVIDERS: PCP Student in an Organized Health Care Education/Training Program; Visit Provider Internal Medicine | DX: R92.1 Mammographic calcification found on diagnostic imaging of breast (principal) | CPT/HCPCS: 77066; G0279 ==

== ENCOUNTER 2024-09-10 08:48 | Outpatient (AMB) | payer MEDICARE, MEDICAID, SELFPAY ==
--- NOTE | 2024-09-10 08:55 | MHC.OFFVIS ---
Vital Signs 09/10/24 09:00 Height 5 ft 3 in Weight 166 lb 0.129 oz BMI 29.4 BP 130/80 Blood Pressure Location Lt brachial Position Sitting Respiration 16 Pulse 68 Pulse Source Pulse Oximeter Pulse Oximetry (%) 98 Oxygen Delivery Method Room Air Intake Visit Reasons: GPA/FMS Intake Note: Patient presents for GPA/FMS follow up. Allergies iron dextran complex [IRON DEXTRAN COMPLEX] Allergy (Unknown, Verified 09/10/24 08:59) Shakiness HPI Comments Details: Patient is a 69-year-old female with hypertension, hypothyroidism, migraine headaches, fibromyalgia and granulomatosis with polyangiitis here today for follow up Interval History: Patient last seen 03/12/[address] Ruiz. At that time she was following up for her GPA and fibromyalgia. Not on any immunosuppression but on Tizanidine and Tramadol for her fibromyalgia pain. Continued to complain of achiness/stiffness in her neck, shoulder and hips. Today, No hemoptysis, frothy urine, blood in the urine, recurrent sinus infections, or respiratory complaints Still complains of shoulder, neck and hip stiffness Rheumatologic History: GPA 2005 - polyarthritis RX with Plaquenil. rheumatoid nodule 2006 respirtatory complaints along with recurrent sinus infections. Complicated by respiratory failure and ICU stay. bx of lung showed GPA, sinuisitis. pneumothorax. Steroids [id number] oral cytoxan 1330-9957 Imuran. Hx kidney bx showing sclerosis/no vasculitis - ? date Has been off medication Current Rheumatology Medication(s): Tizanidine 8mg at night prn Tramadol 50mg prn PFSH Medical History (Updated 09/10/24 @ 09:15 by Melba Caputo MD) Granulomatosis with polyangiitis Riggins esophagus COPD (chronic obstructive pulmonary disease) Congenital intra-abdominal adhesions Steatosis, liver Stress incontinence Diaphragmatic hernia Riggins's esophagus COVID-19 Cervical spondylosis Tricuspid valve regurgitation Hiatal hernia Paresthesia Granulomatous angiitis Osteoarthritis Fibromyalgia Anxiety GERD (gastroesophageal reflux disease) Sleep apnea Asthma Hypothyroidism Hypertension Obesity Surgical History History of sleeve gastrectomy S/P laparoscopic sleeve gastrectomy Hx of LASIK History of pneumonectomy Hx of biopsy Hx of biopsy History of bronchoscopy History of esophagogastroduodenoscopy (EGD) Hx of colonoscopy Family History Father Heart disease Mother Cirrhosis of liver Recurrent strokes Diabetes Sister Lupus Arthritis Daughter No problems noted. Son No problems noted. Social History Are you a primary certified caregiver to a significant other at home: No Do you presently have visiting nurse or other home services: No Alcohol intake: never Patient Tobacco Use Status: Former Tobacco user Second Hand Smoke Exposure: No Review of Systems Const Details: Review of Systems Constitutional: Denies fever, chills, weight loss ENT: Denies vision changes, eye pain or eye redness, dental caries, dry mouth GI: Denies nausea, vomiting, diarrhea, abdominal pain, change in BM Pulm: Denies SOB, BERNAL, hemoptysis, wheezing Cards: Denies chest pain, palpitations Skin: Denies Raynaud's, rash, nail changes, photosensitivity, WATER PLUMBER: Denies headaches, weakness, paresthesias, recurrent falls MSK: as per HPI All other systems reviewed and are unremarkable except noted above Physical Exam Vital Signs: Last Vital Signs Pulse 68 09/10/24 09:00 Resp 16 09/10/24 09:00 BP 130/80 09/10/24 09:00 Pulse Ox 98 09/10/24 09:00 Oxygen Delivery Method Room Air 09/10/24 09:00 BMI result Body Mass Index 29.4 Vital signs reviewed Physical Examination CONSTITUITIONAL Patient alert and cooperative. Well appearing and in no apparent painful distress HEENT Conjunctiva and sclera clear. ?Pupils equal round and reactive to light. ?No lymphadenopathy. ? CHEST/RESPIRATORY SYSTEM Normal respiratory effort and able to speak in complete sentences. ?Clear to auscultation bilaterally. ?No crackles, rales, rhonchi, wheezes heard. CARDIAC SYSTEM Regular rate and rhythm. ?S1 and S2 heard no murmurs. ?Radial pulses intact bilaterally MSK Hands: ?Able to make a fist. No synovitis noted to the MCPs, PIPs or DIPs. ?No tenderness to palpation of these joints. No deformities noted. ? Wrists: ?Full range of motion at the wrists without pain. ?No tenderness to palpation or synovitis noted to the wrists. Elbows: Full range of motion without pain. No tenderness, weakness, swelling, increased warmth or erythema. Shoulders: Full range of active range of motion without pain. No tenderness, weakness, swelling, increased warmth or erythema. Hips: Full range of motion without pain. Hip bursa: No tenderness to palpation Knees: ?Full range of motion. ?No tenderness, swelling, increased warmth or erythema.?No effusion or crepitations Ankles: Full range of motion. ?No tenderness, swelling, increased warmth or erythema.? Feet: ?Negative squeeze test. ?No tenderness to palpation or swelling of the MTPs. Tender points:?Tenderness to palpation of the bilateral trapezius, supraspinatus, anterior costochondral junctions, bilateral gluteal areas, bilateral suboccipital muscle insertions SKIN Skin intact without rashes. Results Reviewed Results Reviewed: Laboratory Tests 09/10/24 09:56 WBC 5.4 RBC 4.18 L Hgb 11.2 L Hct 34.8 L Plt Count 239 ESR 25 H Sodium 140 Potassium 4.3 D Chloride 106 Carbon Dioxide 27 BUN 18 H Creatinine 0.58 AST 26 ALT 19 C-Reactive Protein 0.43 Urine studies 09/10/24 09:56 Urine Color Yellow Urine Appearance Clear Urine Protein Negative Urine Blood Negative Protein/Creatinin Ratio 0.17 Immunology lab 02/05/24 08:23 Proteinase 3 (PR3) Ab <1.0 Myeloperoxidase Ab <1.[address] Skull to thighs 11/2023 Findings: Head and neck: No abnormal FDG activity Thorax: Bilateral postsurgical change. Previously seen opacity in the left lung base decreased in size from prior and now measures 11 x 9 mm (previously 26 x 23 mm) SUV max 1.5. More anteriorly in the left lung base 18 x 18 mm opacity without significant FDG activity SUV max 1.4; similar in appearance dating back to 2013. Architectural distortion in the lingula SUV max 1.9; similar in appearance dating back to October 2013 Left hilar FDG activity corresponding to soft tissue attenuation measuring up to SUV max 4.2; near site of postsurgical change. Focal FDG activity along the wall of the ascending thoracic aorta SUV max 6.9. Ascending thoracic aorta is dilated at the level of the pulmonary trunk measuring approximately 3.8 cm; similar to most recent prior outside chest CT. Paratracheal lymph node without significant FDG activity SUV max 1.7. Nonspecific focal FDG activity of the mid esophagus measuring up to 2.5 SUV max. Abdomen/pelvis: No FDG avid abdominal or pelvic lymph nodes. Mild FDG activity noted in bilateral inguinal lymph nodes measuring up to 1.5 SUV max; possibly reactive Nonspecific FDG activity in segment V SUV max 2.9 (background liver activity SUV max 2.7). Status post gastric bypass surgery. Diverticulosis with variable nonspecific bowel FDG activity. Musculoskeletal: No abnormal FDG activity. Impression: 1. Interval decrease in size of left lung base opacity demonstrating mild FDG activity; likely representing postinfectious/postinflammatory process 2. Nonspecific left hilar FDG activity corresponding to soft tissue attenuation and postsurgical change. Consider direct visualization with bronchoscopy 3. Dilatation of the ascending thoracic aorta measuring approximately 3.8 cm at the level of the pulmonary trunk with focal FDG activity along the wall in keeping with vasculitis 4. Nonspecific focal FDG activity in the right hepatic lobe segment the; slightly increased from background liver activity without a CT correlate. Consider further evaluation with contrast-enhanced MRI of the abdomen Assessment & Plan Assessment & Plan (1) Granulomatosis with polyangiitis: Comment: 2005 - polyarthritis RX with Plaquenil. rheumatoid nodule 2006 bx of lung showed GPA, sinuisitis. pneumothorax [id number] oral cytoxan [id number] Imuran. Hx kidney bx showing sclerosis/no vasculitis - ? 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 Plan: #GPA Patient is a 69-year-old female with granulomatosis with polyangiitis without renal involvement here today for follow up. At this time patient appears to be in remission with no respiratory, sinus or renal complaints. Her previous urine studies showed blood in the urine however her repeat done today did not have any blood or protein in the urine. Her last PET scan done 11/2023 showed some dilatation of the ascending thoracic aorta with focal FDG activity in keeping with vasculitis. It is unclear whether she is having an active disease currently. I think this warrants a repeat PET scan in November of this year. Since she is currently asymptomatic we can continue to monitor her off immunosuppression with low threshold to restart medication Plan - Continue to monitor off immunosuppression - Repeat PET scan 11/2024 - RTC 4 months - Labs before visit: CBC, CMP,ESR, CRP, ANCA vasculitidies, UA and UPC (2) Fibromyalgia: Code(s): M79.7 - Fibromyalgia Category: Medical Plan: #Fibromyalgia Patient with fibromyalgia, overall doing okay. Continue on tizanidine and tramadol Plan I spent 38 minutes reviewing the record and labs, taking a history, examining the patient, discussing the treatment plan, ordering diagnostic work up and documenting in the medical record Orders: Orders Comprehensive Met. Panel 4 Months - 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 Comprehensive Met. Panel 09/10/24 - Mauriloi's granulomatosis without renal involvement Complete Blood Count Auto Diff 4 Months - 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 C Reactive Protein 4 Months - 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 ANCA Vasculitides 09/10/24 - 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 Erythrocyte Sedimentation Rate 4 Months - 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 Protein Creatinine Ratio, Ur 09/10/24 - 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 UA w Microscopic 09/10/24 - 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 ANCA Vasculitides 4 Months - 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 Complete Blood Count Auto Diff 09/10/24 - 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 C Reactive Protein 09/10/24 - 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 Erythrocyte Sedimentation Rate 09/10/24 - 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 Vitamin D 25-OH (D2 and D3) 09/10/24 E55.9 - Vitamin D deficiency, unspecified Protein Creatinine Ratio, Ur 4 Months - 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 UA w Microscopic 4 Months - 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 Medications: Refilled tizanidine 8 mg (2 x 4 mg) PO BEDTIME PRN 60 tabs 5RF for muscle spasm M79.7 - Fibromyalgia tramadol 50 mg PO ONCE PRN 30 tabs 5RF pain M54.2 - Cervicalgia Coding Level of Care Code Est Pt Level 4 (79569) Complex EM visit Add On G2211 Diagnoses Granulomatosis with polyangiitis, unspecified whether renal involvement M31.30 Granulomatosis renal involvement: unspecified whether renal involvement Fibromyalgia M79.7
[2024-09-10 09:00] VITALS: BP 130/80; PULSE 68; RESP 16; O2SAT 98; BMI 29.4
--- OUTSIDE RECORDS SUMMARY | 2024-09-10 09:13 | XMS_ITS | Encounter Summary ---
Author Organization [employer] Address [address] [facility] [address] [place] [address] Care Team Providers Care Printing Press Operator Name Role Phone Fatuma Hardy MD Primary Care Provider [phone] Reason for Visit * Reason Onset Date Comments PT1 06/26/2024 Encounter Details Date Type Department Care Team ([facility] st Contact Info) Description 06/26/2024 Telephone [facility] [address] [place] [address] Fatuma Hardy MD [address] [place] [address] PT1 Social History Tobacco Use Types Packs/Day [...] Y/N: Yes Provider name or facility name: [facility] Facility Address: [address] [place] [address] [address] [address] Escort needed: Y/N: No Do you have a wheelchair: Y/N: No If yes- Manual or electric: n/a Visits: 1-2 for 6 months documented in this encounter Plan of Treatment Upcoming Encounters Date Type Department Care Team (Late st Contact Info) Description 02/26/2025 8:00 AM EDT Office Visit [facility] [address] [place] [address] Miriam Watson documented as of this encounter Visit Diagnoses Not on filedocumented in this encounter Care Teams Printing Press Operator Relationship Specialty Start Date End Date Fatuma Hardy MD [address] [place] [address] PCP - General Family Medicine 04/12/12 documented as of this encounter
--- OUTSIDE RECORDS SUMMARY | 2024-09-10 09:13 | XMS_ITS | Encounter Summary ---
Author Organization [employer] Address 75 [facility] 7t [place] [address] Care Team Providers Care Slate Splitter Name Role Phone Fatuma Hardy MD Primary Care Provider [phone] Reason for Visit * Reason Onset Date Comments PT1 11/03/2023 Encounter Details Date Type Department Care Team ([facility] st Contact Info) Description 11/03/2023 Telephone [facility] MEDICINE [address] [place] [address] Fatuma Hardy MD [address] [place], [place] [address] PT1 Social History Tobacco Use Types Packs/Day [...] Y/N: Yes Provider name or facility name: [facility] Facility Address: [address] [place] [address] Escort needed: Y/N: No Do you have a wheelchair: Y/N: No If yes- Manual or electric: n/a Visits: 12 a year documented in this encounter Plan of Treatment Upcoming Encounters Date Type Department Care Team (Late st Contact Info) Description 02/26/2025 8:00 AM EDT Office Visit [facility] ADULT DENTAL [address] [place] [address] Miriam Watson documented as of this encounter Visit Diagnoses Not on filedocumented in this encounter Care Teams Slate Splitter Relationship Specialty Start Date End Date Fatuma Hardy MD [address] [place] [address] PCP - General Family Medicine 04/12/12 documented as of this encounter
--- OUTSIDE RECORDS SUMMARY | 2024-09-10 09:13 | XMS_ITS | Encounter Summary ---
Author Organization [employer] Address 75 [facility] 7t [place] [address] Care Team Providers Care Mill Worker Name Role Phone Fatuma Hardy MD Primary Care Provider [phone] Reason for Visit * Reason Onset Date Comments PT-1 05/05/2023 Encounter Details Date Type Department Care Team ([facility] st Contact Info) Description 05/05/2023 Telephone [facility] MEDICINE [address] [place] [address] Fatuma Hardy MD [address] [place], [place] [phone] PT-1 Social History Tobacco Use Types Packs/Day [...] N/A Time: N/A Visits: 4 Address: [address] [facility] Facility: [facility] Wheel Chair: no Jewel Bearing Polisher Needed: no PT1 needed Date: N/A Time: N/A Visits: 4 Address: 100 [facility] Facility: [employer] Wheel Chair: no Jewel Bearing Polisher Needed: no PT1 needed Date: N/A Time: N/A Visits: 4 Address: [address] [place] [address] 3rd Floor, [place] [address] Facility:[facility] Wheel Chair: no Jewel Bearing Polisher Needed: no documented in this encounter Plan of Treatment Upcoming Encounters Date Type Department Care Team (Late st Contact Info) Description 02/26/2025 8:00 AM EDT Office Visit [facility] ADULT DENTAL [address] [place] [address] Miriam Watson documented as of this encounter Visit Diagnoses Not on filedocumented in this encounter Care Teams Mill Worker Relationship Specialty Start Date End Date Fatuma Hardy MD [address] [place] [address] PCP - General Family Medicine 04/12/12 documented as of this encounter
--- OUTSIDE RECORDS SUMMARY | 2024-09-10 09:13 | XMS_ITS | Encounter Summary ---
Author Organization [employer] Address [address] [place] [address] 7t [place] [address] Care Team Providers Care Electrical Control Assembler Name Role Phone Fatuma Hardy MD Primary Care Provider [phone] Reason for Visit * Reason Comments Med Refill Encounter Details Date Type Department Care Team (Late st Contact Info) Description 04/18/2023 Refill [facility] MED & PEDS [address] [place], [place] [phone] Fatuma Hardy MD [address] [place], [place] [phone] Fibromyositis Social History Tobacco Use Types Packs/Day [...] Department Care Team (Late Contact Info) Description 02/26/2025 8:00 AM EDT Office Visit [facility] ADULT DENTAL [address] [place], [place] [phone] Miriam Watson documented as of this encounter Visit Diagnoses Diagnosis Fibromyositis Unspecified myalgia and myositis documented in this encounter Care Teams Electrical Control Assembler Relationship Specialty Start Date End Date Fatuma Hardy MD [address] [place] [address] [id number] PCP - General Family Medicine 04/12/12 documented as of this encounter
--- OUTSIDE RECORDS SUMMARY | 2024-09-10 09:13 | XMS_ITS | Encounter Summary ---
Author Organization [employer] Address 75 [facility] 7t [place] [address] Care Team Providers Care Mental Health Program Manager Name Role Phone Fatuma Hardy MD Primary Care Provider [phone] Reason for Visit * Reason Onset Date Comments PT1 08/09/2022 Encounter Details Date Type Department Care Team (Late st Contact Info) Description 08/09/2022 Telephone [facility] MED & PEDS 505 [place] [address] Fatuma Hardy MD [address] [place] [address] PT1 Social History Tobacco Use Types Packs/Day [...] Tc from pt requesting a PT1 Location: [address] [place] [address] 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: N/a Machine Puller: no No wheel chair or cane documented in this encounter Plan of Treatment Upcoming Encounters Date Type Department Care Team (Late st Contact Info) Description 02/26/2025 8:00 AM EDT Office Visit [facility] ADULT DENTAL [address] [place] [address] Miriam Watson documented as of this encounter Visit Diagnoses Not on filedocumented in this encounter Care Teams Mental Health Program Manager Relationship Specialty Start Date End Date Fatuma Hardy MD [address] [place] [address] PCP - General Family Medicine 04/12/12 documented as of this encounter
--- OUTSIDE RECORDS SUMMARY | 2024-09-10 09:13 | XMS_ITS | Encounter Summary ---
Author Organization [employer] Address 75 [facility] 7t [place] [address] Care Team Providers Care Pharmacist Helper Name Role Phone Fatuma Hardy MD Primary Care Provider [phone] Encounter Details Date Type Department Care Team (Late st Contact Info) Description 11/24/2022 Orders Only [facility] MED & PEDS 505 [place], [place] [phone] Fatuma Hardy MD 505 [place] [address] Social History Tobacco Use Types Packs/Day Years [...] 02/26/2025 8:00 AM EDT Office Visit [facility] ADULT DENTAL 505 [place], [place] [phone] Miriam Watson documented as of this encounter Visit Diagnoses Not on filedocumented in this encounter Care Teams Pharmacist Helper Relationship Specialty Start Date End Date Fatuma Hardy MD [address] [place] [address] PCP - General Family Medicine 04/12/12 documented as of this encounter
--- OUTSIDE RECORDS SUMMARY | 2024-09-10 09:13 | XMS_ITS | Clinical Summary ---
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 Acanthosis nigricans 04/11/2012 Hypothyroidism 04/11/2012 Resolved Problems Problem Noted Date Diagnosed Date Resolved Date Blood in urine 10/08/2020 05/15/2024 Encounters Date Type Department Care Team Description 07/16/2024 8:10 AM EDT - 07/16/2024 11:59 PM EDT Hospital Encounter [facility] Pulmonary [address] [place] [address] Asthma Discharge Disposition: Home or Self Care from Last 3 Months Immunizations Name Administration [...] Description 09/11/2024 10:00 AM EDT Ancillary Procedure [facility] [address] [place] [address] 10/14/2024 9:45 AM EDT Office Visit [facility] [place] [address] [facility] 250 [place] [phone] Lino Francois, DPM 175 [facility] 250 [place] [address] Health Maintenance Due Date Last Done Comments [...] with mixed obstructive and restrictive lung disease. us Maximus Thurston MD PFT ORDERABLES Final Result * FIT-DNA (Cologuard) (06/05/2023) [facility] Colorectal Cancer Screening: FIT-DNA (Cologuard) no interpretation , abstracted Historical Provider HEALTH MAINTENANCE Final Result * Annual BMP Blood Test (05/22/2023) [facility] Annual BMP Blood Test abstracted Historical Provider HEALTH MAINTENANCE Final Result * Lipid panel (07/21/2022) [facility] LDL/HDL Ratio 0 0 - 0 Triglycerides 0 0 - 0 mg/dL Cholesterol 0 0 - 0 mg/dL HDL 0 0 - 0 mg/dL LDL Cholesterol 0 0 - 0 mg/dL Blood Venous blood specimen / Unknown Historical Provider LAB BLOOD ORDERABLES Della l Result from Last 3 Months or Most Recently Relevant to Health Maintenance Insurance MEDICARE MEDICAID - [place] Care Teams Rehabilitation Program Coordinator Relationship Specialty Start Date End Date Fatuma Hardy MD [address] [place] [id number] PCP - General Family Medicine 07/02/24
--- OUTSIDE RECORDS SUMMARY | 2024-09-10 09:13 | XMS_ITS | Encounter Summary ---
Author Organization [employer] Address [address] [place] [address] 7t [place] [address] Care Team Providers Care Preschool Assistant Director Name Role Phone Fatuma Hardy MD Primary Care Provider [phone] Reason for Visit * Reason Onset Date Comments PA status 06/28/2022 Encounter Details Date Type Department Care Team (Late st Contact Info) Description 06/28/2022 Telephone [facility] MED & PEDS [address] [place] [address] Fatuma Hardy MD [address] [place] [address] PA status Social History Tobacco Use Types [...] a previous PA Please contact pt at [phone] documented in this encounter Plan of Treatment Upcoming Encounters Date Type Department Care Team (Late st Contact Info) Description 02/26/2025 8:00 AM EDT Office Visit [facility] ADULT DENTAL [address] [place] [address] Miriam Watson documented as of this encounter Visit Diagnoses Not on filedocumented in this encounter Care Teams Preschool Assistant Director Relationship Specialty Start Date End Date Fatuma Hardy MD [address] [place] [phone] PCP - General Family Medicine 04/12/12 documented as of this encounter
--- OUTSIDE RECORDS SUMMARY | 2024-09-10 09:13 | XMS_ITS | Encounter Summary ---
Author Organization [employer] Address 75 [facility] 7t [place] [address] Care Team Providers Care Manager Of Supply Chain Name Role Phone Fatuma Hardy MD Primary Care Provider [phone] Encounter Details Date Type Department Care Team (Latest Contact Info) Description 12/29/[address] [facility] CONVERSIONS Dental, Provider, DDS Social History Tobacco [...] Description 02/26/2025 8:00 AM EDT Office Visit [facility] ADULT DENTAL [address] [place] [address] Miriam Watson documented as of this encounter Visit Diagnoses Not on filedocumented in this encounter Care Teams Manager Of Supply Chain Relationship Specialty Start Date End Date Fatuma Hardy MD [address] [place] [address] PCP - General Family Medicine 04/12/12 documented as of this encounter
--- OUTSIDE RECORDS SUMMARY | 2024-09-10 09:13 | XMS_ITS | Encounter Summary ---
Author Organization [employer] Address 75 [facility] 7t [place] [address] Care Team Providers Care Coat Checker Name Role Phone Fatuma Hardy MD Primary Care Provider [phone] Reason for Visit * Reason Onset Date Comments Med Refill 04/17/2023 Encounter Details Date Type Department Care Team (Late st Contact Info) Description 04/17/2023 Telephone [facility] MEDICINE [address] [place] [address] Fatuma Hardy MD 505 [place] [address] Med Refill Social History Tobacco Use Types [...] Description 02/26/2025 8:00 AM EDT Office Visit [facility] ADULT DENTAL [address] [place] [address] Miriam Watson documented as of this encounter Visit Diagnoses Not on filedocumented in this encounter Care Teams Coat Checker Relationship Specialty Start Date End Date Fatuma Hardy MD [address] [place] [address] PCP - General Family Medicine 04/12/12 documented as of this encounter
--- OUTSIDE RECORDS SUMMARY | 2024-09-10 09:13 | XMS_ITS | Encounter Summary ---
Author Organization [employer] Address 75 [facility] 7t [place] [address] Care Team Providers Care Breeding Technician Name Role Phone Fatuma Hardy MD Primary Care Provider [phone] Reason for Visit * Reason Onset Date Comments Nurse Triage 06/26/2024 Encounter Details Date Type Department Care Team ([facility] st Contact Info) Description 06/26/2024 Telephone [facility] MED & PEDS [address] [place] [address] Fatuma Hardy MD [address] [place] [address] Nurse Triage Social History Tobacco Use Types [...] EST Triage call 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
--- OUTSIDE RECORDS SUMMARY | 2024-09-10 09:13 | XMS_ITS | Encounter Summary ---
Author Organization [employer] Address 75 [facility] 7t [place] [address] Care Team Providers Care Multiple Sclerosis Nurse Name Role Phone Fatuma Hardy MD Primary Care Provider [phone] Reason for Visit * Reason Onset Date Comments PT-1 08/27/2024 Encounter Details Date Type Department Care Team ([facility] st Contact Info) Description 08/27/2024 Telephone [facility] MEDICINE [address] [place] [address] Fatuma Hardy MD [address] [place], [place] [phone] PT-1 Social History Tobacco Use Types Packs/Day [...] encounter Miscellaneous Notes * Telephone Encounter - Edwin Beth - 08/27/2024 2:26 PM EDT Patient calling requesting PT1 Home Address verified: Y/N: Yes Provider name or facility name: Dr. Calloway Escort needed: Y/N: No Do you have a wheelchair: Y/N: No If yes- Manual or electric: Visits: (2 x Monthkly) documented in this encounter Plan of Treatment Upcoming Encounters Date Type Department Care Team (Late st Contact Info) Description 02/26/2025 8:00 AM EDT Office Visit [facility] ADULT DENTAL [address] [place] [address] Miriam Watson documented as of this encounter Visit Diagnoses Not on filedocumented in this encounter Care Teams Multiple Sclerosis Nurse Relationship Specialty Start Date End Date Fatuma Hardy MD [address] [place] [phone] PCP - General Family Medicine 04/12/12 documented as of this encounter
--- OUTSIDE RECORDS SUMMARY | 2024-09-10 09:13 | XMS_ITS | Encounter Summary ---
Author Organization [email or web address] [facility] Address 75 [facility] 7t [place] [address] Care Team Providers Care Departure Clerk Name Role Phone Fatuma Hardy MD Primary Care Provider [phone] Encounter Details Date Type Department Care Team (Late st Contact Info) Description 11/10/2023 Orders Only [facility] MED & PEDS [address] [place] [address] Provider, Historical, Social History Tobacco Use Types Packs/Day Years [...] Description 02/26/2025 8:00 AM EDT Office Visit [facility] ADULT DENTAL [address] [place] [address] Miriam Watson documented as of this encounter Procedures Procedure Name Priority Date/Time Associated Diagnosis Comments CT CHEST WO CONTRAST Routine 11/09/2023 10:34 AM EDT documented in this encounter Results * CT Chest w/o Contrast (11/09/2023 10:34 AM EDT) Anatomical Region Laterality Modality Body, Chest Computed Tomogra phy Historical Provider MD VILLASENOR CT PROCEDURES Final R esult documented in this encounter Visit Diagnoses Not on filedocumented in this encounter Care Teams Departure Clerk Relationship Specialty Start Date End Date Fatuma Hardy MD [address] [place] [address] PCP - General Family Medicine 04/12/12 documented as of this encounter
--- OUTSIDE RECORDS SUMMARY | 2024-09-10 09:13 | XMS_ITS | Encounter Summary ---
Author Organization [employer] Address 75 [facility] 7t [place] [address] Care Team Providers Care Quantitative Analyst Marketing Name Role Phone Fatuma Hardy MD Primary Care Provider [phone] Reason for Visit * Reason Onset Date Comments PT-1 06/04/2024 Encounter Details Date Type Department Care Team ([facility] st Contact Info) Description 06/04/2024 Telephone [facility] MED & PEDS [address] [place] [address] Fatuma Hardy MD 505 [place] [address] PT-1 Social History Tobacco Use Types Packs/Day [...] or facility name: [facility] Facility Address: [address] [place] [address] Escort needed: Y/N: No Do you have a wheelchair: Y/N: No If yes- Manual or electric: n/a Visits: 2 times a month for 12 months 2.)Home Address verified: Y/N: Yes Provider name or facility name: [facility] Facility Address: [address] [place] [address] Escort needed: Y/N: No Do you have a wheelchair: Y/N: No If yes- Manual or electric: N/a Visits: 2 times a month for 12 months documented in this encounter Plan of Treatment Upcoming Encounters Date Type Department Care Team (Late st Contact Info) Description 02/26/2025 8:00 AM EDT Office Visit [facility] ADULT DENTAL [address] [place] [address] Miriam Watson documented as of this encounter Visit Diagnoses Not on filedocumented in this encounter Care Teams Quantitative Analyst Marketing Relationship Specialty Start Date End Date Fatuma Hardy MD [address] [place] [address] PCP - General Family Medicine 04/12/12 documented as of this encounter
--- OUTSIDE RECORDS SUMMARY | 2024-09-10 09:13 | XMS_ITS | Clinical Summary ---
Author Organization [employer] Address [address] [facility] [address] [place] [address] Care Team Providers Care Steeler Name Role Phone Fatuma Hardy MD Primary Care Provider [phone] Allergies No known active allergies Medications lidocaine (Lidoderm) 5 % patchIndication s:Pain Apply 2 patches topically in the morning. Remove & discard patch within 12 hours or as directed by . 60 patch 11 3 Active albuterol 108 (90 Base) MCG/ACT inhaler Inhale 2 puffs every 4 (four) hours if needed. 3 Active Calcium Carbonate-Vitam in D (Liquid Calcium/Vitamin D) 600-5 MG-MCG capsule Take 1 tablet by mouth. 3 Active ibuprofen 600 MG tablet Take 1 tablet by mouth every 8 (eight) hours if needed. 3 Active beta carotene (vitamin A) 3 MG (38656 UT) capsule Take by mouth in the morning. 3 Active traMADol (Ultram) 50 MG tabletIndicatio ns:Fibromyositi s TAKE 1 TABLET(50 MG) BY MOUTH EVERY 12 HOURS 10 tablet 4 Active tiZANidine (Zanaflex) 4 MG tabletIndicatio ns:Fibromyositi s TAKE 1 TABLET(4 MG) BY MOUTH AT BEDTIME FOR 10 DAYS 30 tablet 3 4 Active cyclobenzaprine (Amrix) 15 MG 24 hr capsule Take 1 capsule by mouth Once per day. Active Breo Ellipta 100-25 MCG/ACT aerosol powder INAHLE 1 PUFF BY MOUTH ONCE DAILY AT THE SAME TIME EVERY DAY 4 Active montelukast (Singulair) 10 MG tablet Take 10 mg by mouth at bedtime. Active ALPRAZolam (Xanax) 0.25 MG tablet TAKE 1 TABLET BY MOUTH 1 HOUR PRIOR TO PROCEDURE THEN TAKE 1 TABLET BY MOUTH EVERY DAY NEEDED AFTER PROCEDURE 4 Active SUMAtriptan (Imitrex) 50 MG tablet TAKE 1 TABLET(50 MG) BY MOUTH 1 TIME NEEDED FOR MIGRAINE. MAY REPEAT DOSE 1 TIME IN 2 HOURS IF NO RELIEF. DO NOT EXCEED 2 DOSES IN 24 HOURS 9 tablet 5 Active levothyroxine (Synthroid, Levoxyl) 150 MCG tablet TAKE 1 TABLET(150 MCG) BY MOUTH BEFORE BREAKFAST 90 tablet 1 5 Active Blood Pressure kit CHECK BLOOD PRESSURE DAILY 1 kit 5 Active furosemide (Lasix) 20 MG tablet Take 20 mg by mouth Once per day. Active Active Problems Problem Noted Date Diagnosed Date Chronic obstructive pulmonary disease 09/02/2024 Primary hypertension 01/31/2024 Rhinosinusitis 03/31/2023 Assessment & [...] Encounters Date Type Department Care Team Description 09/02/2024 8:30 AM EDT Office Visit [facility] [address] [place] [phone] Fatuma Hardy MD Chronic obstructive pulmonary disease, unspecified COPD type (CMS/HCC) (Primary Dx); Stage 2 chronic kidney disease; Primary hypertension; Hypothyroidism, unspecified type 09/02/2024 Travel 08/27/2024 9:00 AM EDT Office Visit [facility] [address] [place], [place] [phone] Dar Hull Dental calculus (Primary Dx) 08/27/2024 Patient Outreach [address] [phone] Fatuma Hardy MD Care Coordination (CH[facility] outreach for SDOH PT-1 and food needs-referral completed /) 08/27/[address] [address] Fatuma Hardy MD PT-1 08/14/2024 11:00 AM EDT Office Visit [facility] [address] [place] [address] Cornelius Herr DMD Full coverage crown needed for tooth at risk for fracture (Primary Dx) 07/25/2024 8:00 AM EDT Office Visit [facility] [address] [place] [address] Cornelius Herr DMD Dental caries (Primary Dx); Full coverage crown needed for tooth at risk for fracture 07/22/2024 Refill [facility] [address] [place] [phone] Fatuma Hardy MD 07/13/2024 Orders Only GENERIC EXTERNAL DATA DEPARTMENT Provider, Generic External Data 07/03/2024 11:00 AM EST Office Visit [facility] [address] [place] [address] Fatuma Hardy MD Edema, unspecified type (Primary Dx); Primary hypertension 07/03/2024 Refill [facility] [address] [place] [phone] Fatuma Hardy MD 07/03/2024 Travel 07/02/2024 Travel 06/26/2024 Patient Outreach [facility] [address] [place] [address] Fatuma Hardy MD Care Coordination (CHW outreach for SDOH PT-1 and food needs-referral completed /) 06/26/2024 Telephone [facility] [address] [place] [address] Fatuma Hardy MD Nurse Triage 06/26/2024 Telephone [facility] [address] [place] [address] Fatuma Hardy MD PT1 from Last 3 Months Immunizations Name Administration [...] Sign Reading Time Taken Comments Blood Pressure 137/73 09/02/2024 8:54 AM EDT Pulse 66 09/02/2024 8:54 AM EDT Temperature 36.4 ??C (97.5 ??F) 09/02/2024 8:54 AM ED T Respiratory Rate 16 09/02/2024 8:54 AM EDT Oxygen Saturation 96% 09/02/2024 8:54 AM EDT Inhaled Oxygen Concentration - - Weight 73 kg (161 lb) 09/02/2024 8:54 AM EDT Height 160 cm (5' 3 ) 09/02/2024 8:54 AM EDT Body Mass Index 28.52 09/02/2024 8:54 AM EDT Plan of Treatment Upcoming Encounters Date Type Department Care Team (Late st Contact Info) Description 02/26/2025 8:00 AM EDT Office Visit [facility] [address] [place] [address] Miriam Watson Health Maintenance Due Date Last Done Comments [...] Vaccine ( season) 2023 06/16/2021, 10/07/2020, 09/02/2020 SDOH Screening 01/22/2025 01/23/2024 Dental Oral Exam 02/27/2025 08/27/2024, , 12/21/2022, Additional history exists Dental Prophylaxis 02/27/2025 08/27/2024, 1 , 07/31/2023, Additional history exists Diagnostic Breast Imaging 08/11/20252024, 01/29/2024, 07/20/2023 Tobacco Screening 08/27/2025 08/27/2024 Dental X-Ray: Bitewings 08/28/2025 08/28/19 25, 07/31/2023, 12/21/2022, Additional history exists DTaP/Tdap/Td Vaccines (3 - Td or Tdap) 03/08/2026 03/08/2016, 11/21/2015 Colorectal Cancer Screening 06/05/2026 FIT DNA/Cologuard 06/05/2026 06/05/2023 Dental X-Ray: Full Mouth 07/31/2026 07/31/2023 Lipid Panel 02/04/2029 02/05/2024, 03/2 06/2022, 04/08/2022, Additional history exists Cervical Cancer Screening [...] Procedure Name Priority Date/Time Associated Diagnosis Comments PROPHYLAXIS - ADULT Routine 08/27/2024 9 :00 AM EDT COMPREHENSIVE PERIODONTAL EVALUATION - NEW OR ESTABLISHED PATIENT Routine 08/27/2024 9:00 AM EDT PERIODIC ORAL EVALUATION - ESTABLISHED PATIENT Routine 08/27/2024 9:00 AM EDT INTRAORAL - PERIAPICAL EACH ADDITIONAL RADIOGRAPHIC IMAGE Routine 08/27/2024 9:00 AM EDT INTRAORAL - PERIAPICAL FIRST RADIOGRAPHIC IMAGE Routine 08/27/2024 9:00 AM EDT BITEWINGS - 4 RADIOGRAPHIC IMAGES Routine 08/27/2024 9:00 AM EDT CASE PRESENTATION, DETAILED AND EXTENSIVE TREATMENT PLANNING Routine 08/27/2024 9:00 AM EDT CASE PRESENTATION, DETAILED AND EXTENSIVE TREATMENT PLANNING Routine 08/14/2024 11:00 AM EDT Full coverage crown needed for tooth at risk for fracture 30 CROWN - PORCELAIN/CERAMIC Routine 08/14/2024 11:00 AM EDT Full coverage crown needed for tooth at risk for fracture BI MAMMOGRAM DIAGNOSTIC TOMOSYNTHESIS BILATERAL Routine 08/07/2024 10:00 AM EDT CASE PRESENTATION, DETAILED AND EXTENSIVE TREATMENT PLANNING [...] URINALYSIS, COMPLETE Routine 07/13/2024 8:50 AM EDT HEPATITIS PANEL, GENERAL Routine 02/05/2024 8:23 AM EDT LIPID PANEL, STANDARD Routine 02/05/2024 8:23 AM EDT Primary hypertension INTRAORAL - COMPLETE SERIES OF RADIOGRAPHIC IMAGES Routine 07/31/2023 8:00 AM EDT LAB COLOGUARD?? COLON CANCER SCREEN Routine 06/05/2023 1:00 PM EST Encounter for screening for malignant neoplasm of colon ZZZ HISTORICAL HPV MRNA E6/E7 Routine 03/29/2016 1:40 PM EST from Last 3 Months or Most Recently Relevant to Health Maintenance Results * BI Mammogram Diagnostic Tomosynthesis Bilateral (08/07/2024 10:00 AM EDT) Anatomical Region Laterality Modality Breast Bilateral Mammography 08/07/2024 10:0 0 AM EDT Narrative 08/07/2024 12:12 PM EDT ? [facility] ? [address] ?[place] [address] ?[phone] ? Mammography Report ? Signed ? Patient: Meadows,Petra N ?MR#: [id number] ? : 1955 ?Acct:[id number] ? Age/Sex: 68 / F ?ADM Date: 08/07/24 ? Loc: HO.MAMMO ? Attending Dr: Fatuma Hardy MD ? Ordering Physician: Fatuma Hardy MD ?Results: 3.12MPr ?? obably Benign Finding - 12 month F/U Suggested ? Date of Service: 08/07/24 ?Follow Up: 12 month diagnos ?? tic follow up ? Procedure(s): MM tomosynthesis diagnostic BI ?? Accession Number(s): [id number] ? cc: Fatuma Hardy MD ? EXAMINATION: ?? MM DIAGNOSTIC DIGITAL BREAST TOMOSYNTHESIS, BILATERAL ? CLINICAL INFORMATION: ? 1 year follow-up for grouped calcifications in the upper outer left ?? breast. ? COMPARISON: ?? Mammography: Comparison is made with relevant prior exams. ? TECHNIQUE: ?? Digital breast mammography with tomosynthesis is performed in both the ?? craniocaudal and mediolateral oblique views along with computer-aided ?? detection (CAD). ? FINDINGS: ?? The breasts are heterogeneously dense, which may obscure small masses ?? (ACR BI-RADS breast composition Category c). ?? Grouped amorphous calcifications in the upper outer breast are not ?? significantly changed from priors dating back for one year on ?? magnification views. ?? No suspicious masses or other abnormal findings. ? Results are provided to the patient at time of visit by the ?? technologist. ? MM/MM tomosynthesis diagnostic BI ?? IMPRESSION: ?? Grouped amorphous calcifications in the upper outer quadrant are not ?? significantly changed on magnification views dating back for one year. ?? Recommend one-year follow-up with magnification views to demonstrate 2 ?? years of stability. ? ASSESSMENT: ? BI-RADS BI-RADS 3 - Probably benign finding(s) - 12 month follow-up ?? suggested ? RECOMMENDATION: ?? 12 month diagnostic follow up ? This patient's information was entered into a reminder system with a ?? target due date for their next mammogram. ? Electronically signed by: ??Dolly Howard DO ??08/07/2024 12:09 PM EDT ? Dictated By: ?Dolly Howard DO ? Signed By: ?<Electronically signed by Dolly Howard, DO in OV> ? 08/07/24 1209 ? DD/ 1000 ? TD/TT: 08/07/24 1020 ? Lining Stuffer: ? Procedure Note Hetal Hugo - 08/07/2024 [facility] [address] [place] [address] [place] [address] Mammography Report Signed Patient: Petra Meadows NMR#: [id number] : 7Acct:[id number] Age/Sex: 68 / FADM Date: 08/07/24 Loc: HO.MAMMO Attending Dr: Fatuma Hardy MD Ordering Physician: Fatuma Hardy MDResults: 3.12MPr obably Benign Finding - 12 month F/U Suggested Date of Service: 08/07/24Follow Up: 12 month diagnos tic follow up Procedure(s): MM tomosynthesis diagnostic BI Accession Number(s): [id number] cc: Fatuma Hardy MD EXAMINATION: MM DIAGNOSTIC DIGITAL BREAST TOMOSYNTHESIS, BILATERAL CLINICAL INFORMATION: 1 year follow-up for grouped calcifications in the upper outer left breast. COMPARISON: Mammography: Comparison is made with relevant prior exams. TECHNIQUE: Digital breast mammography with tomosynthesis is performed in both the craniocaudal and mediolateral oblique views along with computer-aided detection (CAD). FINDINGS: The breasts are heterogeneously dense, which may obscure small masses (ACR BI-RADS breast composition Category c). Grouped amorphous calcifications in the upper outer breast are not significantly changed from priors dating back for one year on magnification views. No suspicious masses or other abnormal findings. Results are provided to the patient at time of visit by the technologist. MM/MM tomosynthesis diagnostic BI IMPRESSION: Grouped amorphous calcifications in the upper outer quadrant are not significantly changed on magnification views dating back for one year. Recommend one-year follow-up with magnification views to demonstrate 2 years of stability. ASSESSMENT: BI-RADS BI-RADS 3 - Probably benign finding(s) - 12 month follow-up suggested RECOMMENDATION: 12 month diagnostic follow up This patient's information was entered into a reminder system with a target due date for their next mammogram. Electronically signed by: Dolly Howard DO 08/07/2024 12:09 PM EDT Dictated By: Dolly Howard DO Signed By: <Electronically signed by Dolly Howard DO in OV> 08/07/24 1209 DD/ 1000 TD/TT: 08/07/24 1020 Lining Stuffer: Fatuma Hardy MD IMG BI PROCEDURES Final Result * Creatinine, Serum (07/13/2024 8:53 AM EDT) Creatinine, Serum 0.62 0.5 - 1.4 mg/dL [facility] Estimated Glomerular Filt Rate >60 [facility] Comment:Chronic Kidney Disea se: Estimated GFR < 60 mL/min/1.79s7Igrjbs Kidney Disease: Estimated GFR < 15 mL/min/1.73m2 07/13/2024 8:53 AM EDT 07/13/2024 8:53 AM EDT us Generic External Data Provider LAB BLOOD ORDERAB LES Final Result [facility] [address] [place] [address] [phone] * (ABNORMAL) CBC auto differential (07/13/2024 8:53 AM EDT) White Blood Count 5.2 4.8 - 10.8 X10*3/uL [facility] Red Blood Count 4.57 4.20 - 5.50 X10*6/uL [facility] Hemoglobin 12.3 12.0 - 16.0 g/dl [facility] Hematocrit 38.3 37.0 - 47.0 % [facility] Mean Corpuscular Volume 83.8 80.0 - 98.0 fL [facility] Mean Corpuscular Hemoglobin 26.9(L) 27.0 - 33.0 pg [facility] Mean Corpuscular HGB Conc 32.1 31.0 - 35.0 g/dl [facility] Red Cell Distribution Width 15.4 11.0 - 16.0 % [facility] Platelet Count 241 160 - 400 X10*3/uL [facility] Mean Platelet Volume 9.8 9.4 - 12.3 fL [facility] Neutrophils Percent Auto 52.5 45 - 73 % [facility] Imm Gran Pct Auto 0.2 0.0 - 0.4 % [facility] Lymphocytes Percent Auto 35.4 20 - 40 % [facility] Monocytes Percent Auto 9.0 2 - 11 % [facility] Eosinophils Percent Auto 2.3 0 - 4 % [facility] Basophils Percent Auto 0.6 0 - 2 % [facility] NRBC Pct Auto 0.0 0.0 - 0.2 /100WBC [facility] Neutrophils Absolute Auto 2.7 2.0 - 8.3 x10*3/uL [facility] Imm Gran Abs Auto 0.01 0.00 - 0.03 X10*3/uL [facility] Lymphocytes Absolute Auto 1.8 1.2 - 4.9 X10*3/uL [facility] Monocytes Absolute Auto 0.5 0.1 - 1.2 X10*3/uL [facility] Eosinophils Absolute Auto 0.1 0.0 - 0.4 X10*3/uL [facility] Basophils Absolute Auto 0.0 0.0 - 0.2 X10*3/uL [facility] NRBC Abs Auto 0.000 0.0 - 0.012 X10*3/uL [facility] 07/13/2024 8:53 AM EDT 07/13/2024 8:53 AM EDT us Generic External Data Provider LAB BLOOD ORDERAB LES Final Result [facility] [address] [place] [phone] * (ABNORMAL) WALTER Screen,IFA, with Reflex to Titer and Pattern (07/13/2024 8:53 AM EDT) Anti Nuclear Antibody Screen POSITIVE (A) NEGATIVE [facility] Comment:WALTER IFA is a first l ine screen for detecting thepresence of up to approximately 150 autoantibodies invarious autoimmune diseases. A positive WALTER IFA resultis suggestive of autoimmune disease and reflexes totiter and pattern. Further laboratory testing may beconsidered if clinically indicated.For additional information, please refer [email or web address]/[email or web address](This link is being provided for informational/educational purposes only.) WALTER Titer 1:80(A) titer [facility] Comment:A low level WALTER tite r may be present in pre-clinicalautoimmune diseases and normal individuals. Reference Range <1:40 Negative 1:40-1:80 Low Antibody Level >1:80 Elevated Antibody Level WALTER Pattern (A) [facility] Comment:Cytoplasmic, Reticul ar/AMA Abnormal Flag: ACoarse granular filamentous staining extendingthroughout the cytoplasm (e.g., anti-mitochondrialantibodies). Pattern is common in primary biliarycholangitis (PBC), systemic sclerosis, and rare inother systemic autoimmune rheumatic diseases (SARD).AC-21: Reticular/AMAInternational Consensus on WALTER Patterns(https://doi.org/10.1515/ytuy-1587-6626)THIS TEST WAS PERFORMED AT:[facility] [place] [id number] MAYEN MD WALTER TITER 2 (REF LAB) [facility] WALTER Pattern 2 [facility] WALTER TITER 3 [facility] WALTER PATTERN 3 [facility] 07/13/2024 8:53 AM EDT 07/13/2024 8:53 AM EDT us Generic External Data Provider LAB BLOOD ORDERAB LES Final Result Performing Organization Address [facility]/ZIP Co de Phone Number [facility] [address] [place] [phone] * (ABNORMAL) BUN (Blood Urea Nitrogen) (07/13/2024 8:53 AM EDT) Urea Nitrogen (BUN) 23(H) 9 - 16 mg/dL [facility] 07/13/2024 8:53 AM EDT 07/13/2024 8:53 AM EDT us Generic External Data Provider LAB BLOOD ORDERAB LES Final Result Performing Organization Address [facility]/ZIP Co de Phone Number [facility] [address] [place] [phone] * Calcium (07/13/2024 8:53 AM EDT) Calcium 9.8 8.4 - 10.2 mg/dL [facility] 07/13/2024 8:53 AM EDT 07/13/2024 8:53 AM EDT Generic External Data Provider LAB BLOOD ORDERAB LES Final Result Performing Organization Address [facility] Co de Phone Number [facility] [address] [place] [phone] * (ABNORMAL) Electrolyte Panel (07/13/2024 8:53 AM EDT) Pathologist [facility] Sodium 142 135 - 145 mmol/L [facility] Potassium 3.5 3.3 - 5.1 mmol/L [facility] Chloride 103 96 - 108 mmol/L [facility] Carbon Dioxide 30(H) 22 - 29 mmol/L [facility] Anion Gap 13 12 - 20 [facility] 07/13/2024 8:53 AM EDT 07/13/2024 8:53 AM EDT Generic External Data Provider LAB BLOOD ORDERAB LES Final Result Performing Organization Address [facility] de Phone Number [facility] [address] [place] [phone] * (ABNORMAL) Protein Creatinine Ratio, Urine (07/13/2024 8:50 AM EDT) Creatinine, Urine 282.06 mg/dL [facility] Protein, Total, Random Urine 33(H) <12 mg/dL [facility] Protein/Creati nine Ratio, Ur 0.12 <0.2 [facility] Comment:The spot urine prote in:creatinine ratio may increase to 0.3during normal . 07/13/2024 8:50 AM EDT 07/13/2024 9:45 AM EDT us Generic External Data Provider LAB URINE ORDERAB LES Final Result [facility] [address] [place] [address] [phone] * (ABNORMAL) Urinalysis Complete (07/13/2024 8:50 AM EDT) Color Urine Dark Yellow [facility] Appearance Urine Clear [facility] PH 6.0 5.0 - 9.0 [facility] Glucose Urine UA Negative Negative mg/dL [facility] Urine Blood Moderate (2+)(A) Negative [facility] Specific [place] - Urine >=1.030(H) 1.005 - 1.025 [facility] Urine Protein 30 (1+)(A) Neg-Trace mg/dL [facility] Urine Ketones Trace Negative mg/dL [facility] Nitrite Urine Negative Negative [facility] Leukocyte Esterase Urine Small (1+)(A) Negative [facility] RBC Urine >20(A) 0 - 2 /HPF [facility] Urine WBC 6-10(A) 0 - 5 /HPF [facility] Urine Squamous Epithelial Cell 6-10 0 - 2 /HPF [facility] Urine Bacteria None Seen None Seen [facility] Hyaline Casts, Urine 0-2 0 - 2 /LPF [facility] 07/13/2024 8:50 AM EDT 07/13/2024 9:45 AM EDT us Generic External Data Provider LAB URINE ORDERAB LES Final Result Performing Organization Address City/[facility]/ZIP Co de Phone Number [facility] [address] [place] [phone] * Hepatitis Panel, General (02/05/2024 8:23 AM EDT) Hepatitis A IgM Nonreactive Nonreactive [facility] Comment:IgM antibodies to GONZALEZ V not detected; does not exclude earlyacute or recovered HAV infection. ~Hepatitis B Surface Antibody NONREACTIVE Nonreactive [facility] Comment:Nonreactive: < 8.00 mIU/mL Hepatitis B Core Antibody Nonreactive Nonreactive [facility] Hepatitis C Antibody Nonreactive Nonreactive [facility] Comment:Antibodies to HCV no t detected; does not exclude early acuteHCV infection. Hepatitis B Surface Ag Negative Negative [facility] 02/05/2024 8:23 AM EDT 02/05/2024 8:27 AM EDT us Generic External Data Provider LAB BLOOD ORDERAB LES Final Result [facility] [address] [place] [phone] * Lipid Panel, Standard (02/05/2024 8:23 AM EDT) Triglycerides 80 <150 mg/dL [facility] Comment:Desirable Triglyceri de: less than 150 mg/dLBorderline High Triglyceride 150-199 mg/dLHigh Triglyceride: 200-499 mg/dLVery High Triglyceride: greater than or equal to 5OO mg/dL Cholesterol 167 <200 mg/dL [facility] Comment:Desirable Cholestero l: less than 200 mg/dLBorderline High Cholesterol: 200-239 mg/dLHigh Cholesterol: greater than 239 mg/dL LDL Cholesterol Calculated 88 <100 mg/dL [facility] Comment:Desirable LDL: less than 100 mg/dLNear Optimal/Above Optimal LDL: 110- 129 mg/dLBorderline High LDL: 130-159 mg/dLHigh LDL: 160-189 mg/dLVery High LDL: greater than or equal to 190 mg/dL HDL Cholesterol 63 >40 mg/dL [facility] Comment:Desirable HDL: great er than 40 mg/dL Note: This HDL assay may give artificially low results in patients with liver disease. Blood Venous blood specimen / Unknown 02/05/2024 8:23 AM EDT 02/05/2024 8:27 AM EDT us Fatuma Hardy MD LAB BLOOD ORDERABLES Final Resul t [facility] [address] [place] [address] [phone] * Cologuard?? colon cancer screening (06/05/2023 1:00 PM EST) Cologuard Result Negative Negative 06/18/19 9:01 AM EST [facility] (CLIA #:[id number]) Comment: NEGATIVE TEST RESULT. A negative Cologuard [...] Andrew. et al, N Engl J Med 2014;370(14):1286- 1297) The normal value (reference range) for this assay is negative. COLOGUARD RE-SCREENING RECOMMENDATION: Periodic colorectal cancer screening is an important part of preventive healthcare for asymptomatic individuals at average risk for colorectal cancer. ??Following a negative Cologuard result, the [place] [employer] and U.S. Multi-Society Task Force screening guidelines recommend a Cologuard re-screening interval of 3 years. References: [place] [employer] Guideline for Colorectal Cancer Screening: https://www.cancer.org/cancer/bcysh-wiqhrb-ljsryo/gjpewjxkw-niwojczoe-ktenjqa/ac s-rec ommendations.html.; Julio WORTHINGTON, Vipin MCGOWAN, Moni CatherineK, Colorectal Cancer Screening: Recommendations for Physicians and Patients from the U.S. Multi-Society Task Force on Colorectal Cancer Screening , Am J Gastroenterology 2017; 112:6696-0315. TEST DESCRIPTION: Composite algorithmic analysis of stool [...] Jeter et al, N Engl J Med 2014;370(14):9459-7477.) Cologuard may produce a false negative or false positive result (no colorectal cancer or precancerous polyp present at colonoscopy follow up). A negative Cologuard test result does not guarantee the absence of CRC or advanced adenoma (pre-cancer). The current Cologuard screening interval is every 3 years. ([place] [employer] and U.S. Multi-Society Task Force). Cologuard performance data in a 10,000 patient pivotal study using colonoscopy as the reference method can be accessed at the following location: www.[employer]/results. Additional description of the Cologuard test process, warnings and precautions can be found at www.[employer].com. Stool specimen (specimen) 06/05/2023 1:00 PM EST 06/07/2023 2:46 PM EST us Fatuma Hardy MD LAB MOLECULAR DIAGNOSTICS ORDERA BLES Final Result [facility] (CLIA #:[id number]) [place] [address], * HPV mRNA E6/E7 (03/29/2016 1:40 PM EST) HPV mRNA E6/E7 Not Detected NOT DETECT[facility] Comment: This test was performed using the APTIMA(R) HPV Assay ([employer] This assay detects E6/E7 viral messenger RNA (mRNA) from 14 high-risk HPV types (16,18,31,33,35,39,45,51, 52,56,58,59,66,68). For additional information please refer to: http://education.[employer]/faq/KEQ511t0 (This link is being provided for informational/ educational purposes only.) Test Performed by [employer], [employer] [facility], [address] [place] [address] Jim Young M.D., Ph.D., Director of Laboratories , [place] [id number] Please note: ??Effective 01/11/2016, HPV testing will be performed using [employer]'s APTIMA test which targets mRNA. Detecting mRNA instead of DNA, as in older methods, offers significant improvements in specificity. 03/29/2016 1:40 PM EST Xochilt Alcaraz CNM HISTORICAL/NON ORDERABLE LABS Final Result [facility] Pending sale to [facility] [address] from Last 3 Months or Most Recently Relevant to Health Maintenance Insurance MEDICARE [facility] STANDARD DENTAL-[facility] MEDICAID STAND ADULT Care Teams Steeler Relationship Specialty Start Date End Date Fatuma Hardy MD [address] [place] [address] PCP - General Family Medicine 04/12/12
--- OUTSIDE RECORDS SUMMARY | 2024-09-10 09:13 | XMS_ITS | Encounter Summary ---
Author Organization [employer] Address 75 [facility] 7t [place] [address] Care Team Providers Care Registered Public Surveyor Name Role Phone Fatuma Hardy MD Primary Care Provider [phone] Reason for Visit * Reason Onset Date Comments PT1 04/10/2024 Encounter Details Date Type Department Care Team ([facility] Contact Info) Description 04/10/2024 Telephone [facility] MED & PEDS 505 [place] [address] Fatuma Hardy MD [address] [place] [address] PT1 Social History Tobacco Use Types Packs/Day [...] PT-1 for [facility]- [address] [address] , states PT-1 was submitted with [address] and they are no longer located in that location and needs to be updated with correct address. Please contact at [phone] * Telephone Encounter - Mariola Jimmy - 04/10/2024 11:14 AM EST Patient calling requesting PT1 Home Address verified: Y/N: Yes Provider name or facility name: [facility] Facility Address: [address] [place] [address] Escort needed: Y/N: No Do you have a wheelchair: Y/N: No If yes- Manual or electric: n/a Visits: 1 x 3 months Patient calling requesting PT1 Home Address verified: Y/N: Yes Provider name or facility name: [facility] Facility Address: [address] [facility] Escort needed: Y/N: No Do you have a wheelchair: Y/N: No If yes- Manual or electric: n/a Visits: 1 x 3 months Patient calling requesting PT1 Home Address verified: Y/N: Yes Provider name or facility name: [facility] Facility Address: [address] [place] [address] Escort needed: Y/N: Yes Do you have a wheelchair: Y/N: No If yes- Manual or electric: n/a Visits: 1 x month Patient calling requesting PT1 Home Address verified: Y/N: Yes Provider name or facility name: [facility] Facility Address: [address] [place] [address] [address], [place] [address] Escort needed: Y/N: No Do you have a wheelchair: Y/N: No If yes- Manual or electric: n/a Visits: 1 x 3 months documented in this encounter Plan of Treatment Upcoming Encounters Date Type Department Care Team (Late st Contact Info) Description 02/26/2025 8:00 AM EDT Office Visit [facility] ADULT DENTAL [address] [place] [address] Miriam Watson documented as of this encounter Visit Diagnoses Not on filedocumented in this encounter Care Teams Registered Public Surveyor Relationship Specialty Start Date End Date Fatuma Hardy MD [address] [place] [address] PCP - General Family Medicine 04/12/12 documented as of this encounter
--- OUTSIDE RECORDS SUMMARY | 2024-09-10 09:13 | XMS_ITS | Clinical Summary ---
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, not otherwise specified (HCC); Chronic kidney disease stage 2 07/04/2024 9:15 AM EST Telemedicine [facility] [address] [phone] Vidal Reed MD Persistent proteinuria (Primary Dx); 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, not otherwise specified (HCC); Chronic kidney disease stage 2 06/25/2024 Office Communication [facility] [address] [phone] Melida Mary from Last 3 Months Immunizations Immunization Administration Dates Next Due Influenza Split 01/15/2013 [...] Office Visit [facility] [address] [phone] Vidal Reed MD [address] [phone] Health Maintenance Due Date Last Done Comments Breast Cancer Screening 1955 Colorectal Cancer Screening: Annual FOBT 2005 Colorectal Cancer Screening: Colonoscopy 2005 Colorectal Cancer Screening: Sigmoidoscopy 2005 Pneumococcal Vaccine: 50+ Years (3 of 3 - PCV) 08/08/2014 08/08/2013, 04/04/2006 Pneumococcal Vaccine: Peds (0 to 5 Years) and At-Risk Patients (6 to 49 Years) Discontinued 08/08/2013, 04/04/2006 Influenza Vaccine Completed 01/31/2024, , [...] MD LAB URINE ORDERABLES Final Re sult [facility] See order comments [place] [address] * (ABNORMAL) Urinalysis with microscopic (07/13/2024 9:45 AM EDT) Color Urine Dark Yellow See or mingo comments Appearance Urine Clear See order comments pH Urine 6.0 5.0 - 9.0 See order comments Glucose Urine Negative Negative mg/dL See order comments Blood, Urine Moderate (2+)(A) Negative See order comments Specific [place] Urine >=1.030(H) 1.005 - 1.025 See order [...] 9:45 AM EDT 07/13/2024 9:45 AM EDT Vidal Reed MD LAB URINE ORDERABLES Final Re sult Performing Organization Address [facility] de Phone Number [place] See order comments [place] [address] * Creatinine (07/13/2024 8:53 AM EDT) Creatinine Serum 0.62 0.5 - 1.4 mg/dL See order comments eGFR (Calc) >60 See orde r comments Comment: Chronic Kidney Disease: ??Estimated GFR < 60 mL/min/1.73m2 Severe Kidney Disease: ??Estimated GFR < 15 mL/min/1.73m2 07/13/2024 8:53 AM EDT 07/13/2024 8:53 AM EDT Vidal Reed MD LAB BLOOD ORDERABLES Final Re sult Performing Organization Address [facility] de Phone Number [place] See order comments [place] [address] * (ABNORMAL) WALTER W/Reflex (07/13/2024 8:53 AM [...] indicated. For additional information, please refer to http://education.[employer]/faq/ECC326 (This link is being provided for informational/ educational purposes only.) WALTER 1:80(A) titer See order comments Comment: A low level WALTER titer may be present in pre-clinical autoimmune diseases and normal individuals. ?Reference Range ?<1:40 ?Negative ?1:40-1:80 ?Low Antibody Level ?>1:80 ?Elevated Antibody Level WALTER Pattern (A) See jodi r comments Comment: Cytoplasmic, Reticular/AMA ??Abnormal Flag: A Coarse granular filamentous staining extending throughout the cytoplasm (e.g., anti-mitochondrial antibodies). Pattern is common in primary biliary cholangitis (PBC), systemic sclerosis, and rare in other systemic autoimmune rheumatic diseases (SARD). AC-21: Reticular/AMA International Consensus on WALTER Patterns (https://doi.org/10.1515/uomi-6528-2767) THIS TEST WAS PERFORMED AT: [employer] [address] [place] [address] ??[phone] RIGO MAYEN MD WALTER TITER 2 TNP See orde r comments WALTER Pattern 2 TNP See or mingo comments WALTER TITER 3 TNP See orde r comments WALTER Pattern 3 TNP See or mingo comments 07/13/2024 8:53 AM EDT 07/13/2024 8:53 AM EDT us Vidal Reed MD LAB BLOOD ORDERABLES Final Re sult [id number] See order comments [place] [address] * (ABNORMAL) CBC and differential (07/13/2024 8:53 [...] ORDERABLES Final Re sult Performing Organization Address [facility] Co de Phone Number [facility] See order comments [place] [address] * (ABNORMAL) BUN (07/13/2024 8:53 AM EDT) BUN 23(H) 9 - 16 mg/dL See order comments 07/13/2024 8:53 AM EDT 07/13/2024 8:53 AM EDT Vidal Reed MD LAB BLOOD ORDERABLES Final Re sult Performing Organization Address [facility] Co de Phone Number [facility] See order comments [place] [address] * Calcium (07/13/2024 8:53 AM EDT) Calcium 9.8 8.4 - 10.2 mg/dL See order comments 07/13/2024 8:53 AM EDT 07/13/2024 8:53 AM EDT Vidal Reed MD LAB BLOOD ORDERABLES Final Re sult Performing Organization Address [facility] de Phone Number [place] See order comments [place] [address] * (ABNORMAL) Electrolyte panel (07/13/2024 8:53 AM [...] ORDERABLES Final Re sult Performing Organization Address [facility] Co de Phone Number [facility] See order comments [place] [address] from Last 3 Months Insurance Medicaid [place] Medicare Care Teams Industrial Electrical Engineer Relationship Specialty Start Date End Date Fatuma Hardy MD [address] [place] [address] PCP - General 05/11/20
== END 2024-09-10 09:43 | disposition home or self-care (01) ==
LOC: HO.RHE 08:49
PROVIDERS: PCP Student in an Organized Health Care Education/Training Program; Visit Provider Student in an Organized Health Care Education/Training Program
DX: M31.30 Wegener's granulomatosis without renal involvement (principal); M79.7 Fibromyalgia
CPT/HCPCS: 99214; G2211

== ENCOUNTER → 2024-09-10 08:48 | Outpatient (BNVA) | payer MEDICARE, MEDICAID, SELFPAY | PROVIDERS: PCP Student in an Organized Health Care Education/Training Program; Visit Provider Student in an Organized Health Care Education/Training Program | DX: Z13.89 Encounter for screening for other disorder (principal) | CPT/HCPCS: 99212 ==

== ENCOUNTER 2024-09-10 09:49 | Outpatient (REF) | payer MEDICARE, MEDICAID, SELFPAY ==
--- OUTSIDE RECORDS SUMMARY | 2024-09-10 10:36 | XMS_ITS | Encounter Summary ---
Author Organization [facility] Address 75 [facility] 7t [place] [address] Care Team Providers Care Tool Hardener Name Role Phone Fatuma Hardy MD Primary Care Provider [phone] Encounter Details Date Type Department Care Team (Late st Contact Info) Description 11/10/2023 Orders Only [facility] MED & PEDS [address] [place] [address] Provider, Historical, Social History Tobacco Use Types [...] Description 02/26/2025 8:00 AM EDT Office Visit [facility] ADULT DENTAL [address] [place] [address] Miriam Watson documented as of this encounter [...] on filedocumented in this encounter Care Teams Tool Hardener Relationship Specialty Start Date End Date Fatuma Hardy MD [address] [place] [address] PCP - General Family Medicine 04/12/12 documented as of this encounter
--- OUTSIDE RECORDS SUMMARY | 2024-09-10 10:36 | XMS_ITS | Clinical Summary ---
Author Organization 175 [facility] Address [address] [place] [address] Phone Care Team Providers Care Bar Waiter/Waitress Name Role Phone Fatuma Hardy MD Primary Care Provider [phone] Allergies No known active allergies Medications albuterol [...] - 07/16/2024 11:59 PM EDT Hospital Encounter [facility] Pulmonary [address] [place] [address] Asthma Discharge Disposition: Home or [...] Description 09/11/2024 10:00 AM EDT Ancillary Procedure [facility] [address] [place] [address] 10/14/2024 9:45 AM EDT Office Visit [facility] [place] 250 [address] [facility] 250 [place] [phone] Lino Francois, DPM 175 [facility] 250 [place] [address] Health Maintenance Due Date Last Done Comments [...] ORDERABLES Final Result * FIT-DNA (Cologuard) (06/05/2023) [facility] Colorectal Cancer Screening: FIT-DNA (Cologuard) no interpretation , abstracted Historical Provider HEALTH MAINTENANCE Final Result * Annual BMP Blood Test (05/22/2023) [facility] Annual BMP Blood Test abstracted Historical Provider HEALTH MAINTENANCE Final Result * Lipid panel (07/21/2022) [facility] LDL/HDL Ratio 0 0 - 0 Triglycerides 0 0 - 0 mg/dL Cholesterol 0 0 - 0 mg/dL HDL 0 0 - 0 mg/dL LDL Cholesterol 0 0 - 0 mg/dL Blood Venous blood specimen / Unknown Historical Provider LAB BLOOD ORDERABLES Della l Result from Last 3 Months or Most Recently Relevant to Health Maintenance Insurance MEDICARE MEDICAID - [place] Care Teams Bar Waiter/Waitress Relationship Specialty Start Date End Date Fatuma Hardy MD [address] [place] [address] PCP - General Family Medicine 07/02/24
--- OUTSIDE RECORDS SUMMARY | 2024-09-10 10:36 | XMS_ITS | Encounter Summary ---
Author Organization [employer] Address [address] [place] [address] 7t [place] [address] Care Team Providers Care Cooky Machine Operator Name Role Phone Fatuma Hardy MD Primary Care Provider [phone] Reason for Visit * Reason Onset Date Comments PA status 06/28/2022 Encounter Details Date Type Department Care Team (Late st Contact Info) Description 06/28/2022 Telephone [facility] MED & PEDS [address] [place] [address] Fatuma Hardy MD 505 [place] [address] PA status Social History Tobacco Use Types [...] a previous PA Please contact pt at [phone] documented in this encounter Plan of Treatment Upcoming Encounters Date Type Department Care Team (Late st Contact Info) Description 02/26/2025 8:00 AM EDT Office Visit [facility] ADULT DENTAL [address] [place] [address] Miriam Watson documented as of this encounter Visit Diagnoses Not on filedocumented in this encounter Care Teams Cooky Machine Operator Relationship Specialty Start Date End Date Fatuma Hardy MD [address] [place] [address] PCP - General Family Medicine 04/12/12 documented as of this encounter
--- OUTSIDE RECORDS SUMMARY | 2024-09-10 10:36 | XMS_ITS | Encounter Summary ---
Author Organization [employer] Address 75 [facility] 7t [place] [address] Care Team Providers Care Warp Splitter Name Role Phone Fatuma Hardy MD Primary Care Provider [phone] Reason for Visit * Reason Onset Date Comments PT1 04/10/2024 Encounter Details Date Type Department Care Team ([facility] Contact Info) Description 04/10/2024 Telephone [facility] MED & PEDS 505 [place] [address] Fatuma Hardy MD 505 [place] [address] PT1 Social History Tobacco Use Types Packs/Day [...] PT-1 for [facility]- [address] [address] , states PT-1 was submitted with [address] they are no longer located in that location and needs to be updated with correct address. Please contact at [phone] * Telephone Encounter - Mariola Jimmy - 04/10/2024 11:14 AM EST Patient calling requesting PT1 Home Address verified: Y/N: Yes Provider name or facility name: [facility] Facility Address: [address] [place] [address] Escort needed: Y/N: No Do you have a wheelchair: Y/N: No If yes- Manual or electric: n/a Visits: 1 x 3 months Patient calling requesting PT1 Home Address verified: Y/N: Yes Provider name or facility name: [facility] Facility Address: [address] [facility] Escort needed: Y/N: No Do you have a wheelchair: Y/N: No If yes- Manual or electric: n/a Visits: 1 x 3 months Patient calling requesting PT1 Home Address verified: Y/N: Yes Provider name or facility name: [facility] Facility Address: [address] [place] [address] Escort needed: Y/N: Yes Do you have a wheelchair: Y/N: No If yes- Manual or electric: n/a Visits: 1 x month Patient calling requesting PT1 Home Address verified: Y/N: Yes Provider name or facility name: [facility] Facility Address: [address] [place] [address] [address], [place] [address] Escort needed: Y/N: No Do you have a wheelchair: Y/N: No If yes- Manual or electric: n/a Visits: 1 x 3 months documented in this encounter Plan of Treatment Upcoming Encounters Date Type Department Care Team (Late st Contact Info) Description 02/26/2025 8:00 AM EDT Office Visit [facility] ADULT DENTAL [address] [place] [address] Miriam Watson documented as of this encounter Visit Diagnoses Not on filedocumented in this encounter Care Teams Warp Splitter Relationship Specialty Start Date End Date Fatuma Hardy MD [address] [place] [address] PCP - General Family Medicine 04/12/12 documented as of this encounter
--- OUTSIDE RECORDS SUMMARY | 2024-09-10 10:36 | XMS_ITS | Encounter Summary ---
Author Organization [employer] Address 75 [facility] 7t [place] [address] Care Team Providers Care Adult School Teacher Name Role Phone Fatuma Hardy MD Primary Care Provider [phone] Reason for Visit * Reason Onset Date Comments PT-1 06/04/2024 Encounter Details Date Type Department Care Team ([facility] st Contact Info) Description 06/04/2024 Telephone [facility] MED & PEDS [address] [place] [address] Fatuma Hardy MD 505 [place] [address] PT-1 Social History Tobacco Use Types Packs/Day [...] or facility name: [facility] Facility Address: [address] [place] [address] Escort needed: Y/N: No Do you have a wheelchair: Y/N: No If yes- Manual or electric: n/a Visits: 2 times a month for 12 months 2.)Home Address verified: Y/N: Yes Provider name or facility name: [facility] Facility Address: [address] [place] [address] Escort needed: Y/N: No Do you have a wheelchair: Y/N: No If yes- Manual or electric: N/a Visits: 2 times a month for 12 months documented in this encounter Plan of Treatment Upcoming Encounters Date Type Department Care Team (Late st Contact Info) Description 02/26/2025 8:00 AM EDT Office Visit [facility] ADULT DENTAL [address] [place] [address] Miriam Watson documented as of this encounter Visit Diagnoses Not on filedocumented in this encounter Care Teams Adult School Teacher Relationship Specialty Start Date End Date Fatuma Hardy MD [address] [place] [address] PCP - General Family Medicine 04/12/12 documented as of this encounter
--- OUTSIDE RECORDS SUMMARY | 2024-09-10 10:36 | XMS_ITS | Encounter Summary ---
Author Organization [employer] Address 75 [facility] 7t [place] [address] Care Team Providers Care Tile Designer Name Role Phone Fatuma Hardy MD Primary Care Provider [phone] Reason for Visit * Reason Onset Date Comments PT1 08/09/2022 Encounter Details Date Type Department Care Team (Late st Contact Info) Description 08/09/[address] [facility] CH[facility] MED & PEDS 505 [place] [address] Fatuma Hardy MD 505 [place] [address] PT1 Social History Tobacco Use Types Packs/Day [...] Tc from pt requesting a PT1 Location: [address] [place] [address] Specialty: manager multicultural Date&Time: N/a Material Checker: no No wheel chair or cane documented in this encounter Plan of Treatment Upcoming Encounters Date Type Department Care Team (Late st Contact Info) Description 02/26/2025 8:00 AM EDT Office Visit [facility] ADULT DENTAL [address] [place] [address] Miriam Watson documented as of this encounter Visit Diagnoses Not on filedocumented in this encounter Care Teams Tile Designer Relationship Specialty Start Date End Date Fatuma Hardy MD [address] [place] [address] PCP - General Family Medicine 04/12/12 documented as of this encounter
--- OUTSIDE RECORDS SUMMARY | 2024-09-10 10:36 | XMS_ITS | Encounter Summary ---
Author Organization [employer] Address 75 [facility] 7t [place] [address] Care Team Providers Care President And Cmo Name Role Phone Fatuma Hardy MD Primary Care Provider Reason for Visit * Reason Onset Date Comments Nurse Triage 06/26/2024 Encounter Details Date Type Department Care Team ([facility] st Contact Info) Description 06/26/2024 Telephone [facility] MED & PEDS [address] [place] [address] Fatuma Hardy MD [address] [place] [address] Nurse Triage Social History Tobacco Use Types [...] EST Triage call Pt reports was at [employer] [facility] yesterday and was told BP was [...] Visit [facility] ADULT DENTAL [address] [place] [address] Miriam Watson documented as of this encounter Visit Diagnoses Not on filedocumented in this encounter Care Teams President And Cmo Relationship Specialty Start Date End Date Fatuma Hardy MD [address] [place] [address] PCP - General Family Medicine 04/12/12 documented as of this encounter
--- OUTSIDE RECORDS SUMMARY | 2024-09-10 10:36 | XMS_ITS | Encounter Summary ---
Author Organization [employer] Address 75 [facility] 7t [place] [address] Care Team Providers Care Kennel Hand Name Role Phone Fatuma Hardy MD Primary Care Provider Reason for Visit * Reason Onset Date Comments PT1 11/03/2023 Encounter Details Date Type Department Care Team ([facility] st Contact Info) Description 11/03/2023 Telephone [facility] [address] [place] [address] Fatuma Hardy MD [address] [place], [place] [id number] PT1 Social History Tobacco Use Types Packs/Day [...] Y/N: Yes Provider name or facility name: [facility] Facility Address: [address] [place] [address] Escort needed: Y/N: No Do you have a wheelchair: Y/N: No If yes- Manual or electric: n/a Visits: 12 a year documented in this encounter Plan of Treatment Upcoming Encounters Date Type Department Care Team (Late st Contact Info) Description 02/26/2025 8:00 AM EDT Office Visit [facility] ADULT DENTAL [address] [place] [address] Miriam Watson documented as of this encounter Visit Diagnoses Not on filedocumented in this encounter Care Teams Kennel Hand Relationship Specialty Start Date End Date Fatuma Hardy MD [address] [place] [address] PCP - General Family Medicine 04/12/12 documented as of this encounter
--- OUTSIDE RECORDS SUMMARY | 2024-09-10 10:36 | XMS_ITS | Encounter Summary ---
Author Organization [employer] Address 75 [facility] 7t [place] [address] Care Team Providers Care Direct Support Professional Caregiver Name Role Phone Fatuma Hardy MD Primary Care Provider [phone] Encounter Details Date Type Department Care Team (Late st Contact Info) Description 11/24/2022 Orders Only [facility] MED & PEDS [address] [place], [place] [phone] Fatuma Hardy MD 505 [place] [address] Social History Tobacco Use Types Packs/Day Years [...] [facility] [address] [place], [place] [phone] Miriam Watson documented as of this encounter Visit Diagnoses Not on filedocumented in this encounter Care Teams Direct Support Professional Caregiver Relationship Specialty Start Date End Date Fatuma Hardy MD [address] [place] [address] PCP - General Family Medicine 04/12/12 documented as of this encounter
--- OUTSIDE RECORDS SUMMARY | 2024-09-10 10:36 | XMS_ITS | Encounter Summary ---
Author Organization [employer] Address [address] [facility] 7t [place] [address] Care Team Providers Care Car Usher Name Role Phone Fatuma Hardy MD Primary Care Provider [phone] Reason for Visit * Reason Onset Date Comments Med Refill 04/17/2023 Encounter Details Date Type Department Care Team (Late st Contact Info) Description 04/17/2023 Telephone [facility] [address] [place] [address] Fatuma Hardy MD [address] [place] [address] Med Refill Social History Tobacco Use Types [...] Visit [facility] [address] [place] [address] Miriam Watson documented as of this encounter Visit Diagnoses Not on filedocumented in this encounter Care Teams Car Usher Relationship Specialty Start Date End Date Fatuma Hardy MD [address] [place] [id number] PCP - General Family Medicine 04/12/12 documented as of this encounter
--- OUTSIDE RECORDS SUMMARY | 2024-09-10 10:36 | XMS_ITS | Encounter Summary ---
Author Organization [employer] Address [address] [facility] 7[address] [place] [address] Care Team Providers Care Homicide Squad Sergeant Name Role Phone Fatuma Hardy MD Primary Care Provider [phone] Reason for Visit * Reason Onset Date Comments PT1 06/26/2024 Encounter Details Date Type Department Care Team ([facility] st Contact Info) Description 06/26/2024 Telephone [facility] MED & PEDS [address] [place] [address] Fatuma Hardy MD [address] [place] [address] PT1 Social History Tobacco Use Types Packs/Day [...] Y/N: Yes Provider name or facility name: [facility] Facility Address: [address] [place] [address] [address], [place] [address] Escort needed: Y/N: No Do you have a wheelchair: Y/N: No If yes- Manual or electric: n/a Visits: 1-2 for 6 months documented in this encounter Plan of Treatment Upcoming Encounters Date Type Department Care Team (Late st Contact Info) Description 02/26/2025 8:00 AM EDT Office Visit [facility] ADULT DENTAL [address] [place] [address] Miriam Wtason documented as of this encounter Visit Diagnoses Not on filedocumented in this encounter Care Teams Homicide Squad Sergeant Relationship Specialty Start Date End Date Fatuma Hardy MD [address] [place] [address] PCP - General Family Medicine 04/12/12 documented as of this encounter
--- OUTSIDE RECORDS SUMMARY | 2024-09-10 10:36 | XMS_ITS | Clinical Summary ---
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, not otherwise specified (HCC); Chronic kidney disease stage 2 07/04/2024 9:15 AM EST Telemedicine [facility] [address] [phone] Vidal Reed MD Persistent proteinuria (Primary Dx); 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, not otherwise specified (HCC); Chronic kidney disease stage 2 06/25/2024 Office Communication [facility] [address] [phone] Melida Mary from Last 3 Months Immunizations [...] Office Visit [facility] [address] [phone] Vidal Reed MD [address] [phone] Health Maintenance Due Date Last Done Comments [...] MD LAB URINE ORDERABLES Final Re sult [id number] See order comments [place] [address] * (ABNORMAL) Urinalysis with microscopic (07/13/2024 9:45 AM EDT) Color Urine Dark Yellow See or mingo comments Appearance Urine Clear See order comments pH Urine 6.0 5.0 - 9.0 See order comments Glucose Urine Negative Negative mg/dL See order comments Blood, Urine Moderate (2+)(A) Negative See order comments Specific [place] Urine >=1.030(H) 1.005 - 1.025 See order [...] Re sult Performing Organization Address [facility] de Phone Number [place] See order comments [place] [address] * Creatinine (07/13/2024 8:53 AM EDT) Creatinine Serum 0.62 0.5 - 1.4 mg/dL See order comments eGFR (Calc) >60 See orde r comments Comment: Chronic Kidney Disease: ??Estimated GFR < 60 mL/min/1.73m2 Severe Kidney Disease: ??Estimated GFR < 15 mL/min/1.73m2 07/13/2024 8:53 AM EDT 07/13/2024 8:53 AM EDT Vidal Reed MD LAB BLOOD ORDERABLES Final Re sult Performing Organization Address [facility] de Phone Number [place] See order comments [place] [address] * (ABNORMAL) WALTER W/Reflex (07/13/2024 8:53 AM [...] indicated. For additional information, please refer to http://education.[employer]/faq/WPN401 (This link is being provided for informational/ [...] AC-21: Reticular/AMA International Consensus on WALTER Patterns (https://doi.org/10.1515/onld-1756-4787) THIS TEST WAS PERFORMED AT: [facility] [address] [place] [address] ??[phone] RIGO MAYEN MD WALTER TITER 2 TNP See orde r comments WALTER Pattern 2 TNP See or mingo comments WALTER TITER 3 TNP See orde r comments WALTER Pattern 3 TNP See or mingo comments 07/13/2024 8:53 AM EDT 07/13/2024 8:53 AM EDT us iVdal Reed MD LAB BLOOD ORDERABLES Final Re sult [id number] See order comments [place] [address] * (ABNORMAL) CBC and differential (07/13/2024 8:53 [...] Re sult Performing Organization Address [facility] Co de Phone Number [facility] See order comments [place] [address] * (ABNORMAL) BUN (07/13/2024 8:53 AM EDT) BUN 23(H) 9 - 16 mg/dL See order comments 07/13/2024 8:53 AM EDT 07/13/2024 8:53 AM EDT Vidal Reed MD LAB BLOOD ORDERABLES Final Re sult Performing Organization Address [facility] Co de Phone Number [facility] See order comments [place] [address] * Calcium (07/13/2024 8:53 AM EDT) Calcium 9.8 8.4 - 10.2 mg/dL See order comments 07/13/2024 8:53 AM EDT 07/13/2024 8:53 AM EDT Vidal Reed MD LAB BLOOD ORDERABLES Final Re sult Performing Organization Address [facility] de Phone Number [place] See order comments [place] [address] * (ABNORMAL) Electrolyte panel (07/13/2024 8:53 AM [...] Re sult Performing Organization Address [facility] Co de Phone Number [facility] See order comments [place] [address] from Last 3 Months Insurance Medicaid [place] Medicare Care Teams Dry Plasterer Relationship Specialty Start Date End Date Fatuma Hardy MD [address] [place] [address] PCP - General 05/11/20
--- OUTSIDE RECORDS SUMMARY | 2024-09-10 10:36 | XMS_ITS | Encounter Summary ---
Author Organization [employer] Address [address] [place] [address] [address] [place] [address] Care Team Providers Care Morale Officer Name Role Phone Fatuma Hardy MD Primary Care Provider [phone] Reason for Visit * Reason Comments Med Refill Encounter Details Date Type Department Care Team (Late st Contact Info) Description 04/18/2023 Refill [facility] MED [facility] PEDS [address] [place], [place] [phone] Fatuma Hardy MD [address] [place], [place] [phone] Fibromyositis Social History Tobacco Use Types Packs/Day [...] 8:00 AM EDT Office Visit [facility] ADULT DENTAL [address] [place], [place] [phone] Miriam Watson documented as of this encounter Visit Diagnoses Diagnosis Fibromyositis Unspecified myalgia and myositis documented in this encounter Care Teams Morale Officer Relationship Specialty Start Date End Date Fatuma Hardy MD [address] [place] [phone] PCP - General Family Medicine 04/12/12 documented as of this encounter
--- OUTSIDE RECORDS SUMMARY | 2024-09-10 10:36 | XMS_ITS | Clinical Summary ---
Author Organization [employer] Address [address] [facility] 7t [place] [address] Care Team Providers Care Operations And Maintenance Manager Name Role Phone Fatuma Hardy MD Primary Care Provider [phone] Allergies No known active allergies Medications lidocaine [...] Active beta carotene (vitamin A) 3 MG (68756 UT) capsule Take by mouth in the [...] Description 09/02/2024 8:30 AM EDT Office Visit [facility] [address] [place] [address] Fatuma Hardy MD Chronic obstructive pulmonary disease, unspecified COPD type (CMS/HCC) (Primary Dx); Stage 2 chronic kidney disease; Primary hypertension; Hypothyroidism, unspecified type 09/02/2024 Travel 08/27/2024 9:00 AM EDT Office Visit [facility] [address] [place], [place] [phone] Dar Hull Dental calculus (Primary Dx) 08/27/2024 Patient Outreach [address] [address] Fatuma Hardy MD Care Coordination (CHW outreach for SDOH PT-1 and food needs-referral completed /) 08/27/[address] [address] Fatuma Hardy MD PT-1 08/14/2024 11:00 AM EDT Office Visit [facility] [address] [place] [address] Cornelius Herr DMD Full coverage crown needed for tooth at risk for fracture (Primary Dx) 07/25/2024 8:00 AM EDT Office Visit [facility] [address] [place] [address] Cornelius Herr DMD Dental caries (Primary Dx); Full coverage crown needed for tooth at risk for fracture 07/22/2024 Refill [facility] [address] [place] [phone] Fatuma Hardy MD 07/13/2024 Orders Only GENERIC EXTERNAL DATA DEPARTMENT Provider, Generic External Data 07/03/2024 11:00 AM EST Office Visit [facility] [address] [place] [address] Fatuma Hardy MD Edema, unspecified type (Primary Dx); Primary hypertension 07/03/2024 Refill [facility] [address] [place] [phone] Fatuma Hardy MD 07/03/2024 Travel 07/02/2024 Travel 06/26/2024 Patient Outreach [facility] [address] [place] [address] Fatuma Hardy MD Care Coordination (CHW outreach for SDOH PT-1 and food needs-referral completed /) 06/26/2024 Telephone [facility] [address] [place] [address] Fatuma Hardy MD Nurse Triage 06/26/2024 Telephone [facility] [address] [place] [address] Fatuma Hardy MD PT1 from Last 3 [...] Visit [facility] [address] [place] [address] Miriam Watson Health Maintenance Due Date Last [...] EDT Narrative 08/07/2024 12:12 PM EDT ? [facility] ? [address] ?[place] [address] ?[phone] ? Mammography Report ? Signed ? Patient: Meadows,Petra N ?MR#: [id number] ? : 1955 ?Acct:[id number] ? Age/Sex: 68 / F ?ADM Date: 08/07/24 ? Loc: HO.MAMMO ? Attending Dr: Fatuma Hardy MD ? Ordering Physician: Fatuma Hardy MD ?Results: 3.12MPr ?? obably Benign Finding - 12 month F/U Suggested ? Date of Service: 08/07/24 ?Follow Up: 12 month diagnos ?? tic follow up ? Procedure(s): MM tomosynthesis diagnostic BI ?? Accession Number(s): [id number] ? cc: Fatuma Hardy MD ? EXAMINATION: [...] DD/ 1000 ? TD/TT: 08/07/24 1020 ? Relay Associate: ? Procedure Note Hetal Hugo - 08/07/2024 [facility] [address] [place] [address] [place] [address] Mammography Report Signed Patient: Petra Meadows NMR#: [id number] : 7Acct:[id number] Age/Sex: 68 / FADM Date: 08/07/24 Loc: HO.MAMMO Attending Dr: Fatuma Hardy MD Ordering Physician: Fatuma Hardy MDResults: 3.12MPr obably Benign Finding - 12 month F/U Suggested Date of Service: 08/07/24Follow Up: 12 month diagnos tic follow up Procedure(s): MM tomosynthesis diagnostic BI Accession Number(s): [id number] cc: Fatuma Hardy MD EXAMINATION: MM DIAGNOSTIC [...] 08/07/24 1209 DD/ 1000 TD/TT: 08/07/24 1020 Relay Associate: Fatuma Hardy MD IMG BI PROCEDURES Final Result * Creatinine, Serum (07/13/2024 8:53 AM EDT) Creatinine, Serum 0.62 0.5 - 1.4 mg/dL [facility] Estimated Glomerular Filt Rate >60 [facility] Comment:Chronic Kidney Disea se: Estimated GFR < 60 mL/min/1.13e6Kbhwhn Kidney Disease: Estimated GFR < 15 mL/min/1.73m2 07/13/2024 8:53 AM EDT 07/13/2024 8:53 AM EDT us Generic External Data Provider LAB BLOOD ORDERAB LES Final Result [facility] [address] [place] [address] [phone] * (ABNORMAL) CBC auto differential (07/13/2024 8:53 AM EDT) White Blood Count 5.2 4.8 - 10.8 X10*3/uL [facility] Red Blood Count 4.57 4.20 - 5.50 X10*6/uL [facility] Hemoglobin 12.3 12.0 - 16.0 g/dl [facility] Hematocrit 38.3 37.0 - 47.0 % [facility] Mean Corpuscular Volume 83.8 80.0 - 98.0 fL [facility] Mean Corpuscular Hemoglobin 26.9(L) 27.0 - 33.0 pg [facility] Mean Corpuscular HGB Conc 32.1 31.0 - 35.0 g/dl [facility] Red Cell Distribution Width 15.4 11.0 - 16.0 % [facility] Platelet Count 241 160 - 400 X10*3/uL [facility] Mean Platelet Volume 9.8 9.4 - 12.3 fL [facility] Neutrophils Percent Auto 52.5 45 - 73 % [facility] Imm Gran Pct Auto 0.2 0.0 - 0.4 % [facility] Lymphocytes Percent Auto 35.4 20 - 40 % [facility] Monocytes Percent Auto 9.0 2 - 11 % [facility] Eosinophils Percent Auto 2.3 0 - 4 % [facility] Basophils Percent Auto 0.6 0 - 2 % [facility] NRBC Pct Auto 0.0 0.0 - 0.2 /100WBC [facility] Neutrophils Absolute Auto 2.7 2.0 - 8.3 x10*3/uL [facility] Imm Gran Abs Auto 0.01 0.00 - 0.03 X10*3/uL [facility] Lymphocytes Absolute Auto 1.8 1.2 - 4.9 X10*3/uL [facility] Monocytes Absolute Auto 0.5 0.1 - 1.2 X10*3/uL [facility] Eosinophils Absolute Auto 0.1 0.0 - 0.4 X10*3/uL [facility] Basophils Absolute Auto 0.0 0.0 - 0.2 X10*3/uL [facility] NRBC Abs Auto 0.000 0.0 - 0.012 X10*3/uL [facility] 07/13/2024 8:53 AM EDT 07/13/2024 8:53 AM EDT us Generic External Data Provider LAB BLOOD ORDERAB LES Final Result [facility] [address] [place] [phone] * (ABNORMAL) WALTER Screen,IFA, with Reflex to Titer and Pattern (07/13/2024 8:53 AM EDT) Anti Nuclear Antibody Screen POSITIVE (A) NEGATIVE [facility] Comment:WALTER IFA is a first l ine screen for detecting thepresence of up to approximately 150 autoantibodies invarious autoimmune diseases. A positive WALTER IFA resultis suggestive of autoimmune disease and reflexes totiter and pattern. Further laboratory testing may beconsidered if clinically indicated.For additional information, please refer tohttp://education.Iceotope/faq/TTG345(This link is being provided for informational/educational purposes only.) WALTER Titer 1:80(A) titer [facility] Comment:A low level WALTER tite r may be present in pre-clinicalautoimmune diseases and normal individuals. Reference Range <1:40 Negative 1:40-1:80 Low Antibody Level >1:80 Elevated Antibody Level WALTER Pattern (A) [facility] Comment:Cytoplasmic, Reticul ar/AMA Abnormal Flag: ACoarse granular filamentous staining extendingthroughout the cytoplasm (e.g., anti-mitochondrialantibodies). Pattern is common in primary biliarycholangitis (PBC), systemic sclerosis, and rare inother systemic autoimmune rheumatic diseases (SARD).AC-21: Reticular/AMAInternational Consensus on WALTER Patterns(https://doi.org/10.1515/qvkq-1313-2863)THIS TEST WAS PERFORMED AT:[employer] [place] [phone] MAYEN MD WALTER TITER 2 (REF LAB) [facility] WALTER Pattern 2 [facility] WALTER TITER 3 [facility] WALTER PATTERN 3 [facility] 07/13/2024 8:53 AM EDT 07/13/2024 8:53 AM EDT us Generic External Data Provider LAB BLOOD ORDERAB LES Final Result Performing Organization Address [facility]/ZIP Co de Phone Number [facility] [address] [place] [phone] * (ABNORMAL) BUN (Blood Urea Nitrogen) (07/13/2024 8:53 AM EDT) Urea Nitrogen (BUN) 23(H) 9 - 16 mg/dL [facility] 07/13/2024 8:53 AM EDT 07/13/2024 8:53 AM EDT us Generic External Data Provider LAB BLOOD ORDERAB LES Final Result Performing Organization Address [facility]/ZIP Co de Phone Number [facility] [address] [place] [phone] * Calcium (07/13/2024 8:53 AM EDT) Calcium 9.8 8.4 - 10.2 mg/dL [facility] 07/13/2024 8:53 AM EDT 07/13/2024 8:53 AM EDT Generic External Data Provider LAB BLOOD ORDERAB LES Final Result Performing Organization Address [facility] Co de Phone Number [facility] [address] [place] [phone] * (ABNORMAL) Electrolyte Panel (07/13/2024 8:53 AM EDT) Pathologist [facility] Sodium 142 135 - 145 mmol/L [facility] Potassium 3.5 3.3 - 5.1 mmol/L [facility] Chloride 103 96 - 108 mmol/L [facility] Carbon Dioxide 30(H) 22 - 29 mmol/L [facility] Anion Gap 13 12 - 20 [facility] 07/13/2024 8:53 AM EDT 07/13/2024 8:53 AM EDT Generic External Data Provider LAB BLOOD ORDERAB LES Final Result Performing Organization Address [facility] de Phone Number [facility] [address] [place] [phone] * (ABNORMAL) Protein Creatinine Ratio, Urine (07/13/2024 8:50 AM EDT) Creatinine, Urine 282.06 mg/dL [facility] Protein, Total, Random Urine 33(H) <12 mg/dL [facility] Protein/Creati nine Ratio, Ur 0.12 <0.2 [facility] Comment:The spot urine prote in:creatinine ratio may increase to 0.3during normal . 07/13/2024 8:50 AM EDT 07/13/2024 9:45 AM EDT us Generic External Data Provider LAB URINE ORDERAB LES Final Result [facility] [address] [place] [phone] [phone] * (ABNORMAL) Urinalysis Complete (07/13/2024 8:50 AM EDT) Color Urine Dark Yellow [facility] Appearance Urine Clear [facility] PH 6.0 5.0 - 9.0 [facility] Glucose Urine UA Negative Negative mg/dL [facility] Urine Blood Moderate (2+)(A) Negative [facility] Specific [place] - Urine >=1.030(H) 1.005 - 1.025 [facility] Urine Protein 30 (1+)(A) Neg-Trace mg/dL [facility] Urine Ketones Trace Negative mg/dL [facility] Nitrite Urine Negative Negative [facility] Leukocyte Esterase Urine Small (1+)(A) Negative [facility] RBC Urine >20(A) 0 - 2 /HPF [facility] Urine WBC 6-10(A) 0 - 5 /HPF [facility] Urine Squamous Epithelial Cell 6-10 0 - 2 /HPF [facility] Urine Bacteria None Seen None Seen [facility] Hyaline Casts, Urine 0-2 0 - 2 /LPF [facility] 07/13/2024 8:50 AM EDT 07/13/2024 9:45 AM EDT us Generic External Data Provider LAB URINE ORDERAB LES Final Result Performing Organization Address City/[facility]/ZIP Co de Phone Number [facility] [address] [place] [phone] * Hepatitis Panel, General (02/05/2024 8:23 AM EDT) Hepatitis A IgM Nonreactive Nonreactive [facility] Comment:IgM antibodies to GONZALEZ V not detected; does not exclude earlyacute or recovered HAV infection. ~Hepatitis B Surface Antibody NONREACTIVE Nonreactive [facility] Comment:Nonreactive: < 8.00 mIU/mL Hepatitis B Core Antibody Nonreactive Nonreactive [facility] Hepatitis C Antibody Nonreactive Nonreactive [facility] Comment:Antibodies to HCV no t detected; does not exclude early acuteHCV infection. Hepatitis B Surface Ag Negative Negative [facility] 02/05/2024 8:23 AM EDT 02/05/2024 8:27 AM EDT us Generic External Data Provider LAB BLOOD ORDERAB LES Final Result [facility] [address] [place] [phone] * Lipid Panel, Standard (02/05/2024 8:23 AM EDT) Triglycerides 80 <150 mg/dL [facility] Comment:Desirable Triglyceri de: less than 150 mg/dLBorderline High Triglyceride 150-199 mg/dLHigh Triglyceride: 200-499 mg/dLVery High Triglyceride: greater than or equal to 5OO mg/dL Cholesterol 167 <200 mg/dL [facility] Comment:Desirable Cholestero l: less than 200 mg/dLBorderline High Cholesterol: 200-239 mg/dLHigh Cholesterol: greater than 239 mg/dL LDL Cholesterol Calculated 88 <100 mg/dL [facility] Comment:Desirable LDL: less than 100 mg/dLNear Optimal/Above Optimal LDL: 110- 129 mg/dLBorderline High LDL: 130-159 mg/dLHigh LDL: 160-189 mg/dLVery High LDL: greater than or equal to 190 mg/dL HDL Cholesterol 63 >40 mg/dL [facility] Comment:Desirable HDL: great er than 40 mg/dL Note: This HDL assay may give artificially low results in patients with liver disease. Blood Venous blood specimen / Unknown 02/05/2024 8:23 AM EDT 02/05/2024 8:27 AM EDT us Fatuma Hardy MD LAB BLOOD ORDERABLES Final Resul t [facility] [address] [place] [phone] [phone] * Cologuard?? colon cancer screening (06/05/2023 1:00 PM EST) Cologuard Result Negative Negative 06/18/19 9:01 AM EST [facility] (CLIA #:[id number]) Comment: NEGATIVE TEST RESULT. A negative Cologuard [...] cancer. ??Following a negative Cologuard result, the [place] [employer] Society and U.S. Multi-Society Task Force screening guidelines recommend a Cologuard re-screening interval of 3 years. References: [place] [employer] Guideline for Colorectal Cancer Screening: https://www.cancer.org/cancer/xpkek-rbvjsa-gzjhku/flpwtxxey-axulemofo-vkuknbd/ac s-rec ommendations.html.; Julio WORTHINGTON, Vipin MCGWOAN, Moni CatherineK, Colorectal Cancer Screening: Recommendations for Physicians and Patients from the U.S. Multi-Society Task Force on Colorectal Cancer Screening , Am J Gastroenterology 2017; 112:4464-8106. TEST DESCRIPTION: Composite algorithmic analysis of stool [...] Jeter et al, N Engl J Med 2014;370(14):7936-5433.) Cologuard may produce a false negative or false positive result (no colorectal cancer or precancerous polyp present at colonoscopy follow up). A negative Cologuard test result does not guarantee the absence of CRC or advanced adenoma (pre-cancer). The current Cologuard screening interval is every 3 years. ([place] [employer] and U.S. Multi-Society Task Force). Cologuard performance data in a 10,000 patient pivotal study using colonoscopy as the reference method can be accessed at the following location: www.Edoome/results. Additional description of the Cologuard test process, warnings and precautions can be found at www.VisualOnogSponsifyrd.com. Stool specimen (specimen) 06/05/2023 1:00 PM EST 06/07/2023 2:46 PM EST us Fatuma Hardy MD LAB MOLECULAR DIAGNOSTICS ORDERA BLES Final Result [facility] (CLIA #:[id number]) [place] [place] [address], * HPV mRNA E6/E7 (03/29/2016 1:40 PM EST) HPV mRNA E6/E7 Not Detected NOT DETECTED [facility] Comment: This test was performed using the APTIMA(R) HPV Assay ([employer] This assay detects E6/E7 viral messenger RNA (mRNA) from 14 high-risk HPV types (16,18,31,33,35,39,45,51, 52,56,58,59,66,68). For additional information please refer to: http://education.Suo Yi/faq/OBZ748c2 (This link is being provided for informational/ educational purposes only.) Test Performed by [employer], Marco Vasco [facility], [address] [place] [address] Jim Young M.D., Ph.D., Director of Laboratories , [place] [id number] Please note: ??Effective 01/11/2016, HPV testing will be performed using [employer] APTIMA test which targets mRNA. Detecting mRNA instead of DNA, as in older methods, offers significant improvements in specificity. 03/29/2016 1:40 PM EST Xochilt Alcaraz CNM HISTORICAL/NON ORDERABLE LABS Final Result [facility] Anywhere [address] from Last 3 Months or Most Recently Relevant to Health Maintenance Insurance MEDICARE [facility] STANDARD DENTAL-[facility] MEDICAID STAND ADULT Care Teams Operations And Maintenance Manager Relationship Specialty Start Date End Date Fatuma Hardy MD [address] [place] [phone] PCP - General Family Medicine 04/12/12
--- OUTSIDE RECORDS SUMMARY | 2024-09-10 10:36 | XMS_ITS | Encounter Summary ---
Author Organization [employer] Address [address] [facility] 7t [place] [address] Care Team Providers Care Curator Of Photography And Prints Name Role Phone Fatuma Hardy MD Primary Care Provider [phone] Encounter Details Date Type Department Care Team (Latest Contact Info) Description 12/29/2020 Abstract [facility] Dental, Provider, DDS Social History Tobacco [...] Description 02/26/2025 8:00 AM EDT Office Visit [facility] [address] [place] [address] Miriam Watson documented as of this encounter Visit Diagnoses Not on filedocumented in this encounter Care Teams Curator Of Photography And Prints Relationship Specialty Start Date End Date Fatuma Hardy MD [address] [place] [phone] PCP - General Family Medicine 04/12/12 documented as of this encounter
--- OUTSIDE RECORDS SUMMARY | 2024-09-10 10:36 | XMS_ITS | Encounter Summary ---
Author Organization [employer] Address 75 [facility] 7t [place] [address] Care Team Providers Care Environmental Engineering Assistant Name Role Phone Fatuma Hardy MD Primary Care Provider [phone] Reason for Visit * Reason Onset Date Comments PT-1 05/05/2023 Encounter Details Date Type Department Care Team ([facility] st Contact Info) Description 05/05/[address] [facility] [address] [place] [address] Fatuma Hardy MD [address] [place], [place] [phone] PT-1 Social History Tobacco Use Types Packs/Day [...] N/A Time: N/A Visits: 4 Address: [address] [facility] Facility: [facility] Wheel Chair: no Buttonhole Tacker Needed: no PT1 needed Date: N/A Time: N/A Visits: 4 [facility] Facility: Supervisor Metalizing Wheel Chair: no Buttonhole Tacker Needed: no PT1 needed Date: N/A Time: N/A Visits: 4 Address: [address] [place] [address] [address] Floor, [place] [address] Facility:[facility] Wheel Chair: no Buttonhole Tacker Needed: no documented in this encounter Plan of Treatment Upcoming Encounters Date Type Department Care Team (Late st Contact Info) Description 02/26/2025 8:00 AM EDT Office Visit [facility] [address] [place] [address] Miriam Watson documented as of this encounter Visit Diagnoses Not on filedocumented in this encounter Care Teams Environmental Engineering Assistant Relationship Specialty Start Date End Date Fatuma Hardy MD [address] [place] [phone] PCP - General Family Medicine 04/12/12 documented as of this encounter
--- OUTSIDE RECORDS SUMMARY | 2024-09-10 10:36 | XMS_ITS | Encounter Summary ---
Author Organization [employer] Address [address] [facility] [address]t [place] [address] Care Team Providers Care Financial Assistance Advisor Name Role Phone Fatuma Hardy MD Primary Care Provider [phone] Reason for Visit * Reason Onset Date Comments PT-1 08/27/2024 Encounter Details Date Type Department Care Team ([facility] st Contact Info) Description 08/27/2024 Telephone [facility] [address] [place] [address] Fatuma Hardy MD [address] [place], [place] [phone] PT-1 Social History Tobacco Use Types Packs/Day [...] Description 02/26/2025 8:00 AM EDT Office Visit [facility] [address] [place] [address] Miriam Watson documented as of this encounter Visit Diagnoses Not on filedocumented in this encounter Care Teams Financial Assistance Advisor Relationship Specialty Start Date End Date Fatuma Hardy MD [address] [place] [phone] PCP - General Family Medicine 04/12/12 documented as of this encounter
[2024-09-10 13:15] LABS: MANUAL DIFF FLAG NO
[2024-09-10 13:26] LABS: Appearance Urine Clear; Color Urine Yellow; Glucose Urine UA Negative (Negative); Leukocyte Esterase Urine Negative (Negative); Nitrite Urine Negative (Negative); PH 6.5 (5.0-9.0); Specific Gravity - Urine 1.015 (1.005-1.025); Urine Blood Negative (Negative); Urine Ketones Negative (Negative); Urine Protein Negative (Neg-Trace)
[2024-09-10 13:28] LABS: Bacteria Urine None Seen (None Seen); Basophils Percent Auto 0.7 % (0-2); Eosinophils Absolute Auto 0.1 X10*3/uL (0.0-0.4); Eosinophils Percent Auto 2.2 % (0-4); Hematocrit 34.8 % (37.0-47.0); Hemoglobin 11.2 g/dl (12.0-16.0); Hyaline Casts Urine 0-2 /LPF (0-2); Imm Gran Abs Auto 0.01 X10*3/uL (0.00-0.03); Imm Gran Pct Auto 0.2 % (0.0-0.4); Lymphocytes Absolute Auto 1.7 X10*3/uL (1.2-4.9); Lymphocytes Percent Auto 31.1 % (20-40); Mean Corpuscular HGB Conc 32.2 g/dl (31.0-35.0); Mean Corpuscular Hemoglobin 26.8 pg (27.0-33.0); Mean Corpuscular Volume 83.3 fL (80.0-98.0); Mean Platelet Volume 9.3 fL (9.4-12.3); Monocytes Absolute Auto 0.4 X10*3/uL (0.1-1.2); Neutrophils Absolute Auto 3.1 x10*3/uL (2.0-8.3); Neutrophils Percent Auto 57.8 % (45-73); Platelet Count 239 X10*3/uL (160-400); RBC Urine 0-2 /HPF (0-2); Red Blood Count 4.18 X10*6/uL (4.20-5.50); Squamous Epithelial Cell Urine 0-2 /HPF (0-2); WBC Urine 0-5 /HPF (0-5); White Blood Count 5.4 X10*3/uL (4.8-10.8)
[2024-09-10 14:15] LABS: Alanine Aminotransferase 19 U/L (0-31); Alkaline Phosphatase 112 U/L (39-117); Anion Gap 11 (12-20); Aspartate Amino Transferase 26 U/L (5-31); Bilirubin Total 0.5 mg/dL (0.0-1.0); Blood Urea Nitrogen 18 mg/dL (9-16); C Reactive Protein 0.43 mg/dL (< or = 0.50); Calcium 9.4 mg/dL (8.4-10.2); Carbon Dioxide 27 mmol/L (22-29); Chloride 106 mmol/L (96-108); Erythrocyte Sedimentation Rate 25 MM/HR (0-20); Estimated Glomerular Filt Rate > 60; Glucose Random 88 mg/dL (60-115); Potassium 4.3 mmol/L (3.3-5.1); Sodium 140 mmol/L (135-145); Total Protein 7.4 g/dL (6.5-8.0)
[2024-09-10 14:24] LABS: TSH reflex Free T4 < 0.01 uIU/mL (0.32-4.0)
[2024-09-10 14:25] LABS: Creatinine Urine 48.48 mg/dL; Protein/Creatinine Ratio, Ur 0.17 (<0.2); Total Protein Urine Random 8 mg/dL (<12)
[2024-09-10 18:25] LABS: Free T4 (Free Thyroxine) 1.85 ng/dL (0.71-1.85)
[2024-09-13 13:43] LABS: Myeloperoxidase Antibody <1.0 AI; Proteinase 3 PR3 Antibodies <1.0 AI
[2024-09-15 21:23] LABS: Vitamin D 25-OH, D2 <4 ng/mL; Vitamin D 25-OH, D3 20 ng/mL; Vitamin D 25-OH, Total 20 ng/mL (30-100)
== END 2024-09-10 09:50 | disposition home or self-care (01) ==
LOC: HO.10HDL 09:49
PROVIDERS: Student in an Organized Health Care Education/Training Program; Visit Provider Student in an Organized Health Care Education/Training Program
DX: M31.30 Wegener's granulomatosis without renal involvement (principal); E55.9 Vitamin D deficiency, unspecified; E03.9 Hypothyroidism, unspecified; M79.7 Fibromyalgia
CPT/HCPCS: 36415; 80053; 81001; 82306; 82570; 84156; 84439; 84443; 85025; 85652; 86021; 86140; 99212

== ENCOUNTER 2024-10-17 08:00 | Outpatient (RCR) | payer MEDICARE, MEDICAID, SELFPAY ==
--- NOTE | 2024-07-01 09:07 | MHC.PT.EP ---
[facility] [place] Office [place] Office [place] Office [address] [phone] F: [phone] F: [phone] F: [phone] F: [phone] Physical Therapy Plan of Care Date of Evaluation: 07/01/24 Date of Surgery: Diagnosis: spondylosis, cervical region Assessment: Patient is a 68 year old R handed female who presents with s/s consistent with spondylosis, cervical spine, neck pain. She disabled and fairly sedentary during the day. Patient past medical history is complex and includes osteopenia, fibromyalgia, COPD and lung surgeries. Current impairments include pain, posture, ROM, strength, activity tolerance and functional mobility. Functional limitations include decreased ability to sleep, lift, work, read, work on computer and be active. Patient is motivated with good rehab potential. Skilled PT will address impairments and functional limitations in order to achieve goals. Frequency and Duration: The patient will be seen 2x/week for 5 weeks Short Term Goals: I with HEP - 2 weeks AROM rotation 55 b/l - 3 weeks Reduced pain with ADLs to 5/10 - 3 weeks Alf Goals: Reduced pain with ADLs to 3/10 - 5 weeks TrP absent in LS/UT - 5 weeks NPDI 30% or less - 5 weeks Treatment Plan: Modalities to reduce pain, spasms and effusion. Manual therapy to restore motion and function. Therapeutic exercise to improve strength and flexibility. Neuromuscular re-education for posture and balance. Therapeutic activities to return to functional activities of daily living. Electronically signed by: Lakhwinder Wynne, PT Please sign and return to therapist. Thank you for your referral.
--- NOTE | 2024-11-08 07:16 | MHC.PT.DC ---
[facility] [place] Office [place] Office [place] Office [address] Gianfranco Crystal [address] [phone] F: [phone] F: [phone] F: [phone] F: [phone] Physical Therapy Discharge Report Diagnosis: spondylosis, cervical region Date of Surgery: Date of Evaluation: 07/01/24 Date of Discharge: Treatments to Date: 8 Cancellations to Date: No Shows to Date: Discharge Status: Independent with HEP Recommend MD Follow-up Discharge Summary: 10/17/24: we have had difficulty with sustained progress due to subjective reports of pain. min progress towards goals has been achieved. we will d/c from PT at this time and refer back to MD. 10/10/24: pt progressing slowly. she is I With HEP. s/s stable. we will likely plan to d/c to HEP next visit as long as s/s are stable. 09/26/24: n/t in hands has limited some of the interventions we can do. seems to be associated with gripping and having arms above head. we will continue to progress as tolerated with posture and s/s management. 09/19/24: increased activity for posture today with edu on posture and purpose of each ex. continue to progress as toleraetd. 09/12/24: Pt has been dealing with some other health concerns over the last few weeks. She notes having many appts and having to follow up with cardiology. AROM rotation to 45 on L, 42 on R. Pain levels are same as evaluation as well. TrP present and TTP still present and significant. Pt is not I with HEP. NPDI same as eval. We will attempt to find some rhythm and progress on pain, ROM, strength, posture and functional mobility impairments as well as ability to sit, stand, lift, drive and sleep. We will continue 1x/week for 3 more weeks to pursue progress. 08/01/24: pt with reduced tissue tension. to hold for 3 weeks due to many other md appts. 07/18/24: pt progressing with less ttp, reduced tissue tension. responding well to IFC. 07/10; Pt c/s and sh mobility reduced. Pt fatigued quickly rested a few times. Pt liked ES. Patient is a 68 year old R handed female who presents with s/s consistent with spondylosis, cervical spine, neck pain. She disabled and fairly sedentary during the day. Patient past medical history is complex and includes osteopenia, fibromyalgia, COPD and lung surgeries. Current impairments include pain, posture, ROM, strength, activity tolerance and functional mobility. Functional limitations include decreased ability to sleep, lift, work, read, work on computer and be active. Patient is motivated with good rehab potential. Skilled PT will address impairments and functional limitations in order to achieve goals. Electronically signed by: Lakhwinder Wynne, PT Please sign and return to therapist. Thank you for your referral.
== END 2024-11-08 07:17 | disposition home or self-care (01) ==
LOC: HO.PTCHIC 08:00
PROVIDERS: PCP Student in an Organized Health Care Education/Training Program; Visit Provider Registered Nurse Emergency
DX: M54.2 Cervicalgia (principal); M43.02 Spondylolysis, cervical region
CPT/HCPCS: 97014; 97110; 97140; 97163; 97164

== ENCOUNTER 2024-10-29 14:10 | Outpatient (AMB) | payer MEDICARE, MEDICAID, SELFPAY ==
--- NOTE | 2024-10-29 14:12 | A.OFFVIS_ITS ---
Intake Visit Reasons: (OV) PO LSG 03/17/20 Allergies iron dextran complex (IRON DEXTRAN COMPLEX) Allergy (Unknown, Verified 09/10/24 08:59) Shakiness [facility] Medical History (Updated 09/10/24 @ 09:15 by Melba Caputo MD) Granulomatosis with polyangiitis Riggins esophagus COPD (chronic obstructive pulmonary disease) Congenital intra-abdominal adhesions Steatosis, liver Stress incontinence Diaphragmatic hernia Riggins's esophagus COVID-19 Cervical spondylosis Tricuspid valve regurgitation Hiatal hernia Paresthesia Granulomatous angiitis Osteoarthritis Fibromyalgia Anxiety GERD (gastroesophageal reflux disease) Sleep apnea Asthma Hypothyroidism Hypertension Obesity Surgical History History of sleeve gastrectomy S/P laparoscopic sleeve gastrectomy Hx of LASIK History of pneumonectomy Hx of biopsy Hx of biopsy History of bronchoscopy History of esophagogastroduodenoscopy (EGD) Hx of colonoscopy Family History Father Heart disease Mother Cirrhosis of liver Recurrent strokes Diabetes Sister Lupus Arthritis Daughter No problems noted. Son No problems noted. Social History Are you a primary insurance healthcare representative to a significant other at home: No Do you presently have visiting nurse or other home services: No Alcohol intake: never Patient Tobacco Use Status: Former Tobacco user Second Hand Smoke Exposure: No Coding
--- NOTE | 2024-10-29 14:18 | A.OFFVIS_ITS ---
VS Expanded 10/29/24 14:19 BP 149/66 H Blood Pressure Location Lt brachial Blood Pressure Position Sitting Pulse 76 Temp 97.9 F Pulse Oximetry 99 Height 5 ft 3 in Weight 164 lb BMI 29.0 Body Fat % 29.0 Body Fat Mass 5.8 Fat Free Mass 58.6 Visceral Fat Rating 105.2 Body Water % 10.0 Body Water Mass 74.0 Muscle Mass/Score 99.8 Basal Metabolic Rate/Score 1,421 Intake Visit Reasons: (OV) PO LSG 03/17/20 Allergies iron dextran complex (IRON DEXTRAN COMPLEX) Allergy (Unknown, Verified 10/29/24 14:18) Shakiness Medication List - Last Reconciled 10/29/24 by SHANA Berger acetaminophen 650 mg PO Q4-6H PRN albuterol sulfate 90 mcg/actuation 2 puffs PO Q4-6H PRN blood pressure test kit-large As directed cetirizine 10 mg PO DAILY cholecalciferol (vitamin D3) 50 mcg PO DAILY cyanocobalamin (vitamin B-12) 1,000 mcg PO DAILY hydrochlorothiazide 12.5 mg PO DAILY levothyroxine 100 mcg PO DAILY montelukast 10 mg PO BEDTIME naproxen 500 mg PO BID sumatriptan succinate 50 mg PO tizanidine 8 mg (2 x 4 mg) PO BEDTIME PRN tramadol 50 mg PO ONCE PRN umeclidinium 62.5 mcg/actuation (Incruse Ellipta) 1 inh inhalation DAILY HPI Comments Details: This?is a?69?yo F who is s/p LSG 03/17/2020. Weight gain of 5.8lbs since last OV in Mar 2022. Present meal plan includes: 2 Atkins shakes, 1 Atkins bar, 1 meal with 8 forks protein and 8 forks salad or vegetables. I get hungry kirsten in evenings. Gets meals (low sodium) from eldercare. Difficulty with meats- says she only really eats vegetables for lunch. Exercise routine includes: started walking but has arthritis, also does home exercises [facility] Medical History (Updated 09/10/24 @ 09:15 by Melba Caputo MD) Granulomatosis with polyangiitis Riggins esophagus COPD (chronic obstructive pulmonary disease) Congenital intra-abdominal adhesions Steatosis, liver Stress incontinence Diaphragmatic hernia Riggins's esophagus COVID-19 Cervical spondylosis Tricuspid valve regurgitation Hiatal hernia Paresthesia Granulomatous angiitis Osteoarthritis Fibromyalgia Anxiety GERD (gastroesophageal reflux disease) Sleep apnea Asthma Hypothyroidism Hypertension Obesity Surgical History History of sleeve gastrectomy S/P laparoscopic sleeve gastrectomy Hx of LASIK History of pneumonectomy Hx of biopsy Hx of biopsy History of bronchoscopy History of esophagogastroduodenoscopy (EGD) Hx of colonoscopy Family History Father Heart disease Mother Cirrhosis of liver Recurrent strokes Diabetes Sister Lupus Arthritis Daughter No problems noted. Son No problems noted. Social History Are you a primary personal care service provider to a significant other at home: No Do you presently have visiting nurse or other home services: No Alcohol intake: never Patient Tobacco Use Status: Former Tobacco user Second Hand Smoke Exposure: No Physical Exam Vital Signs: Last Vital Signs Temp 97.9 F 10/29/24 14:19 Pulse 76 10/29/24 14:19 BP 149/66 H 10/29/24 14:19 Pulse Ox 99 10/29/24 14:19 BMI result Body Mass Index 29.0 Assessment & Plan Assessment & Plan (1) S/P laparoscopic sleeve gastrectomy: Comment: 03/2020 Code(s): Z98.84 - Bariatric surgery status Category: Surgical (2) Overweight: Code(s): E66.3 - Overweight Category: Medical Plan It is possible pt is low in overall protein intake. I encouraged her to add additional protein to her meal plan although she seems hesitant to do this. Shake or bar in evening after dinner ok. I don't think she is a good candidate for phentermine based on her age and HTN. She has stage III CKD so prior to starting GLP1 she should clear with her die technician (Dr. Reed). She will call him to ask. RTC 2 months.
[2024-10-29 14:19] VITALS: BP 149/66; PULSE 76; TEMP 36.6; O2SAT 99; BMI 29.0
--- OUTSIDE RECORDS SUMMARY | 2024-10-29 15:22 | XMS_ITS | Patient Health Record ---
Author Organization [facility] Address [address] [place] [address] Care Team Providers Care Trout Farmer Name Role Phone MICKEY FAIR Primary Care Provider Machelle e Raul Perez Unavailable [phone] Reason For Referral No Information Medications Medication SIG (Take, Route, Frequency, Duration) Notes Start Date End Date Status Losartan Potassium 25 MG 1 tablet Orally Once a day Active Synthroid 112 MCG 1 tablet on an empty stomach in the morning Orally Once a day Active Singulair 10 MG 1 tablet in the even ing Orally Once a day Active Lasix 20 MG 1 tablet Orally Once a day Active Advair Diskus 100-50 MCG/DOSE 1 puff Inhalation Twice a day Active Calcium + D 500-1000-40 MG-UNT-MCG 1 tablet with meals Orally once a day Active traMADol HCl 50 MG 1 tablet as needed O rally every 6 hrs/prn Active Prevacid 30 MG 1 capsule Orally Onc e a day 03/20/2012 Active Immunizations Vaccine Route Administration Date Status Comme nts Flu vaccine no Preserv 3 and > Unknown 03/09/2016 Admin istered Social History Tobacco Use: Social History Observation Description Date Details (start date - stop date) Former Smoker NA - NA Tobacco Use/Smoking Question Answer Notes Patient is a former smoker How long has it been since you last smoked? > 10 years Section Notes: Nonsmoker; no alcohol Nonsmoker; no alcohol Problems Problem Type SNOMED Code ICD Code Onset Dates Problem Status W/U Status Risk Notes Problem 351225923 Encounter for screening for malignant neoplasm of colon (Z12.11) Active confirmed Problem 685632486 Barretts esophag us without dysplasia (K22.70) Active confirmed Problem 626456550 Gastroesophageal reflux disease, esophagitis presence not specified (K21.9) Active confirmed Problem 71253336 Constipation, unspecified constipation type (K59.00) Active confirmed Plan Of Treatment Pending Test Test Name Order Date GI BIOPSY 04/03/2017 Future Test Test Name Order Date UPPER GI ENDOSCOPY 03/20/2012 UPPER GI ENDOSCOPY 02/01/2017 COLONOSCOPY 02/01/2017 Insurance Providers Payer Name Payer Address Payer Phone Subscriber Number Group Number Insured Name Patient Relationship to Insured Coverage Start Date Coverage End Date MEDICARE OF [place] [address] [place] [address] [phone] [id number] SUSAN MUIR Self - patient is the insured [facility]ICA[facility] [address] [place] [address] [id number] SUSAN MUIR Self - patient is the insured Medical (General) History Medical History History ICD Code EGD 12/26/2008-negative for dysplasia, gastritis but neg. for Hpylori--EGD in 05/2012--no Riggins's, no esophagitis--small HH Riggins's esophagus-Dx'd in 2006---F/U E GD's as above GERD Gastritis, neg. Hpylori Hyperplastic polyps Hiatal Hernia Maurilio's granulomatosis/lungs & kidneys Obstructive sleep apnea-uses CPAP mask hypothyroidism Cervical spondylosis Fibromyalgia Depression Osteoporosis HTN Denies [place],DM,CVA,renal disease Negative colonoscopy in 09/2006 Rheumatoid arthritis-Dr. Albarran Hospitalized for pneumonia in 06/2016 Surgical History Surgery Date(Month/Year) Lung surgery-biopsy of rheumatoid nodule s
--- OUTSIDE RECORDS SUMMARY | 2024-10-29 15:22 | XMS_ITS | Clinical Summary ---
Author Organization [address] [facility] Address [address] [place] [address] Phone Care Team Providers Care Stringing Machine Tender Name Role Phone Fatuma Hardy MD Primary Care Provider [phone] Allergies No known active allergies Medications albuterol [...] THE SAME TIME EACH DAY 4 Active diclofenac (Voltaren Arthritis Pain) 1 % topical gel Apply 4 g topically 2 (two) times a day. 240 g 1 5 12/14/19 25 Active Active Problems Problem Noted Date Diagnosed Date Asthma 03/24/2024 Obesity 03/24/2024 Pulmonary nodules/lesions, multiple 03/24/2024 Primary hypertension 01/31/2024 Rhinosinusitis 03/31/2023 Hypertensive renal disease 10/08/2020 Proteinuria 10/08/2020 Stage 2 chronic kidney disease 10/08/2020 Obstructive sleep apnea syndrome 04/11/2012 Granulomatosis with polyangiitis ([facility] V24, [facility] [place] V28) 04/11/2012 Fibromyositis 04/11/2012 Acanthosis nigricans 04/11/2012 Hypothyroidism 04/11/2012 Resolved Problems Problem Noted Date Diagnosed Date Resolved Date Blood in urine 10/08/2020 05/15/2024 Encounters Date Type Department Care Team Description 10/14/2024 9:45 AM EDT Office Visit Orthopedic Surgery - [place] [address] [facility] [address] [place] [phone] Lino Francois, DPM Primary osteoarthritis of both feet (Primary Dx); Dermatophytosis of nail; Pain in toe of right foot; Pain in toe of left foot; Tinea pedis of both feet; Bilateral femoral artery stenosis ([facility] V24); Metatarsalgia of both feet; Verruca plantaris 09/11/2024 10:00 AM EDT Ancillary Procedure [facility] [address] [facility] [address] [place] [phone] Pulmonary hypertension associated with unclear multi-factorial mechanisms ([facility] V24, [facility] V28) from Last 3 Months Immunizations Name Administration [...] Sign Reading Time Taken Comments Blood Pressure 128/60 09/11/2024 10:04 AM EDT Pulse - - Temperature - - Respiratory Rate - - Oxygen Saturation - - Inhaled Oxygen Concentration - - Weight 75.3 kg (166 lb) 09/11/2024 10:04 AM EDT Height 160 cm (5' 3 ) 09/11/2024 10:04 AM EDT Body Mass Index 29.41 09/11/2024 10:04 AM EDT Plan of Treatment Upcoming Encounters Date Type Department Care Team (Late st Contact Info) Description 11/06/2024 1:15 PM EDT Office Visit Pulmonolgy - [place] [address] [phone] Maximus Thurston MD [address] [address] 11/26/2024 8:15 AM EDT Office Visit Orthopedic Surgery - [place] [address] [address] Lino Francois DPM [address] [address] Health Maintenance Due Date Last Done Comments Breast Cancer Screening 1955 Zoster Vaccines (1 of 2) 08/25/1975 Pneumococcal Vaccine: 50+ Years (2 of 2 [...] Procedure Name Priority Date/Time Associated Diagnosis Comments TRANSTHORACIC ECHOCARDIOGRAM (TTE) COMPLETE Routine 09/11/2024 10:04 AM EDT Pulmonary hypertension associated with unclear multi-factorial mechanisms (CMS/HCC V24, CMS/HCC V28) FIT-DNA Routine 06/05/2023 ANNUAL BMP BLOOD TEST Routine 05/22/2023 LIPID PANEL Routine 07/21/2022 from Last 3 Months or Most Recently Relevant to Health Maintenance Results * TRANSTHORACIC ECHOCARDIOGRAM (TTE) COMPLETE (09/11/2024 10:04 AM EDT) Left Atrium Minor [place] 5.6 cm CV PACS Left Atrium Major [place] 5.5 cm CV PACS LA Area Sys (A2C) 25 cm2 CV PACS LA Area Sys (A4C) 23 cm2 CV PACS LA Volume (BP) 79 mL CV PACS RA Area 14.2 cm2 CV PACS RA 2D Volume 37 mL CV PACS AV Mean Gradient 6 mmHg CV PACS Ao VTI 40.0 cm CV PACS AV Peak Rafal 1.7 m/s CV PACS AV Peak Gradient 11 mmHg CV PACS AV Area Continuity Equation 2.4 cm2 CV PACS AV Area Peak Velocity 2.6 cm2 CV PACS Aortic Sinus Valsalva 3.0 cm CV PACS Ascending Aorta 3.1 cm CV PACS IVC Proximal 2.1 cm CV PACS IVSD 0.9 0.6 - 0.9 cm CV PACS LVIDD 4.4 3.8 - 5.2 cm CV PACS LVIDS 2.4 2.2 - 3.5 cm CV PACS LVOT Diameter 2.0 cm CV PACS LVOT Mean Grad 4 mmHg CV PACS LVOT Peak VTI 30.8 cm CV PACS LVOT Mean Rafal 0.9 m/s CV PACS LVOT Peak Rafal 1.4 m/s CV PACS LVOT Peak Gradient 8 mmHg CV PACS LVPWD 0.9 0.6 - 0.9 cm CV PACS MV E' Tissue Velocity Lateral 10 cm/s CV PACS MV E' Tissue Velocity Septal 10 cm/s CV PACS LVOT Area 3.1 cm2 CV PACS LVOT Stroke Volume 97 mL CV PACS MR PISA Nyquist Rafal 34 cm/s CV PACS PISA MR Radius 0.50 cm CV PACS MR VTI 206.0 cm CV PACS MR PISA Max Velocity 0.1 m/s CV PACS MR Peak Gradient 118 mmHg CV PACS E Wave Deceleration Time 180 119 - 242 ms CV PACS MV Peak A Rafal 1.00 m/s CV PACS MV Peak E Rafal 1.10 m/s CV PACS PISA MR EROA 0.10 cm2 CV PACS PISA Regurgitant Volume 19 mL CV PACS PV Acceleration Time 120 ms CV PACS PV Peak Velocity 1.1 m/s CV PACS PV Peak Gradient 4 mmHg CV PACS RV Diastolic Basal Dimension 3.4 2.5 - 4.1 cm CV PACS RV S' 12 cm/s CV PACS TAPSE 23 mm CV PACS TR Peak Velocity 2.50 m/s CV PACS TR Peak Gradient 25 mmHg CV PACS E/E' Ratio Septal 11 CV PACS E/E' Ratio Averaged 11 CV PACS LVOT Stroke Index 0 mL/m2 CV PACS Relative Wall Thickness ratio 0.39 0.22 - 0.42 CV PACS LVOT:AV VTI Index 0.77 CV PACS FS 45 % CV PACS LV Mass 2D 131 66 - 150 g CV PACS Ascending Aorta Index 1.73 cm/m2 CV PACS LVOT flow 283 mL/s CV PACS RA 2D Volume Index 21 15 - 27 mL/m2 CV PACS MICHELLE Index (VTI) 1.35 cm2/m2 CV PACS MICHELLE Index (Pk Rafal) 1.45 cm2/m2 CV PACS LVIDD Index 2.46 cm/m2 CV PACS LVIDS Index 1.34 cm/m2 CV PACS AV Velocity Ratio 0.82 CV PACS E/A Ratio 1.1 0.8 - 2.0 CV PACS E/E' Ratio Lateral 11 CV PACS LA Volume Index (BP) 43 mL/m2 CV PACS LV Mass Index 2D 72 44 - 88 g/m2 CV PACS BSA 1.83 m2 CV PACS Right Ventricular Peak Systolic Pressure 33 mmHg CV PACS Est. RA Pressure 8 mmHg CV PACS LVOT Cardiac Output 0.0 L/min CV PACS LVOT Cardiac Index 3.4 L/min/m2 CV PACS RV Free Wall Peak S' 12 cm/s CV PACS RA Major [place] 4.3 cm CV PACS RA Major [place] Index 2.4 2.2 - 2.8 cm/m2 CV PACS MV PHT 52 ms CV PACS MV Regurgitant Volume 19 mL CV PACS AV Area 2D 2.6 cm2 CV PACS MICHELLE Index (2D) 1.45 cm2/m2 CV PACS Inferior Vena Cava Diameter At Expiration 2.1 cm CV PACS IVC Expiration Index 1.17 cm/m2 CV PACS Mitral Reguritant Flow 3 CV PACS AV Area Index 1.4 CV PACS Anatomical Region Laterality Modality Ultrasound Narrative 10/07/2024 10:15 AM EDT Left ventricle cavity size is normal. There is normal left ventricular wall thickness. There is normal left ventricular regional wall motion. Left ventricular systolic function is in the normal range with an ejection fraction of 55-60%. Right ventricle cavity is normal. Right ventricular systolic function is normal. There is normal left ventricular diastolic function with evidence of normal left atrial pressure. There is normal pulmonary artery systolic pressure of 33 mmHg. Moderate left atrial enlargement. Left Ventricle Left ventricle cavity size is normal. Wall thickness is normal. Systolic function is normal with an ejection fraction of 55-60%. There are no regional LV wall motion abnormalities. There is no diastolic dysfunction and normal left atrial pressure. Right Ventricle Right ventricle cavity appears normal. Systolic function is normal. Left Atrium Left atrium volume index is moderately increased. There is atrial septal bowing. There is no clear color Doppler evidence of patent foramen ovale however. Right Atrium Right atrium cavity is normal. IVC/SVC RA pressures is estimated to be 8 mmHg (IVC diameter <21 mm and decreases <50% during inspiration). Mitral Valve The leaflets are mildly thickened. There is mild regurgitation. There is no evidence of mitral valve stenosis. Tricuspid Valve The leaflets exhibit normal excursion. There is mild regurgitation. The RVSP is estimated at 33 mmHg. Aortic Valve The aortic valve is trileaflet. There is trace regurgitation. There is no evidence of aortic valve stenosis. Pulmonic Valve Pulmonic valve structure is normal. There is trace pulmonic valve regurgitation. Ascending Aorta The aorta appears normal in size. Pericardium Pericardium appears normal. Study Details Overall the study quality was adequate. us Maximus Thurston MD CV ECHO PROCEDURES Final Res ult * FIT-DNA (Cologuard) (06/05/2023) Pathologist [facility] Colorectal Cancer Screening: FIT-DNA (Cologuard) no interpretation , abstracted Historical Provider HEALTH MAINTENANCE Final Result * Annual BMP Blood Test (05/22/2023) Annual BMP Blood Test abstracted Historical Provider HEALTH MAINTENANCE Final Result * Lipid panel (07/21/2022) LDL/HDL Ratio 0 0 - 0 Triglycerides 0 0 - 0 mg/dL Cholesterol 0 0 - 0 mg/dL HDL 0 0 - 0 mg/dL LDL Cholesterol 0 0 - 0 mg/dL Blood Venous blood specimen / Unknown Historical Provider LAB BLOOD ORDERABLES Della l Result from Last 3 Months or Most Recently Relevant to Health Maintenance Insurance MEDICARE MEDICAID - [place] Care Teams Stringing Machine Tender Relationship Specialty Start Date End Date Fatuma Hardy MD [address] [place] [id number] PCP - General Family Medicine 07/02/24
--- OUTSIDE RECORDS SUMMARY | 2024-10-29 15:22 | XMS_ITS | Encounter Summary ---
Author Organization [employer] Address [address] [facility] 7[address] [place] [address] Care Team Providers Care Director Of Engineering Name Role Phone Fatuma Hardy MD Primary Care Provider [phone] Reason for Visit * Reason Onset Date Comments PT1 10/23/2024 Encounter Details Date Type Department Care Team ([facility] st Contact Info) Description 10/23/2024 Telephone [facility] [address] [place] [address] Fatuma Hardy MD [address] [place], [place] [id number] PT1 Social History Tobacco Use Types Packs/Day [...] encounter Miscellaneous Notes * Telephone Encounter - Estela Jones - 10/23/2024 11:25 AM EDT 1 of 2 Patient calling requesting PT1 Home Address verified: Y/N: Yes Provider name or facility name: [address] [place] [address] - Dr Queenie Abbott Escort needed: Y/N: No Do you have a wheelchair: Y/N: No If yes- Manual or electric: N/A Visits: (3x monthly) 2 of 2 Patient calling requesting PT1 Home Address verified: Y/N: Yes Provider name or facility name: [address] [place], [place] Escort needed: Y/N: No Do you have a wheelchair: Y/N: No If yes- Manual or electric: N/A Visits: (3x monthly) documented in this encounter Plan of Treatment Upcoming Encounters Date Type Department Care Team (Late st Contact Info) Description 02/26/2025 8:00 AM EDT Office Visit [facility] [address] [place] [address] Miriam Watson documented as of this encounter Visit Diagnoses Not on filedocumented in this encounter Care Teams Director Of Engineering Relationship Specialty Start Date End Date Fatuma Hardy MD [address] [place] [address] PCP - General Family Medicine 04/12/12 documented as of this encounter
--- OUTSIDE RECORDS SUMMARY | 2024-10-29 15:22 | XMS_ITS | Clinical Summary ---
Author Organization [facility] Address [address] [facility] [address] [place] [address] Phone Care Team Providers Care Content Development Manager Name Role Phone Fatuma Hardy MD Primary Care Provider [phone] Allergies No known active allergies Medications montelukast [...] Encounters Date Type Department Care Team Description 10/18/2024 Orders Only [facility] [address] [facility] [address] [place] [address] Vidal Reed MD Chronic kidney disease, stage 4 (severe) (HCC) (Primary Dx); Anemia in chronic kidney disease; Hyperkalemia; Hypertension from Last 3 Months Immunizations Immunization Administration [...] Office Visit [facility] [address] [address] Vidal Reed MD [address] [phone] Health Maintenance Due Date Last Done Comments [...] on patient's age to complete this topic Insurance Medicaid [place] Medicare Medicaid [place] Medicare Care Teams Content Development Manager Relationship Specialty Start Date End Date Fatuma Hardy MD [address] [place] [phone] PCP - General 05/11/20
== END 2024-10-29 15:11 | disposition home or self-care (01) ==
LOC: HO.HBS 14:11
PROVIDERS: PCP Student in an Organized Health Care Education/Training Program; Visit Provider Physician Assistant Surgical
DX: E66.3 Overweight (principal); Z68.29 Body mass index [BMI] 29.0-29.9, adult; Z90.3 Acquired absence of stomach [part of]; Z98.84 Bariatric surgery status
CPT/HCPCS: 99213; G2211

== ENCOUNTER → 2024-10-29 14:10 | Outpatient (BNVA) | payer MEDICARE, MEDICAID, SELFPAY | PROVIDERS: PCP Student in an Organized Health Care Education/Training Program; Visit Provider Physician Assistant Surgical | DX: E66.3 Overweight (principal); Z68.29 Body mass index [BMI] 29.0-29.9, adult; Z98.84 Bariatric surgery status | CPT/HCPCS: 99212 ==

== ENCOUNTER 2024-11-25 07:26 | Outpatient (REF) | payer MEDICARE, MEDICAID, SELFPAY ==
--- OUTSIDE RECORDS SUMMARY | 2024-11-25 07:28 | XMS_ITS | Clinical Summary ---
Author Organization [facility] Address [address] [facility] [address] 0 [place] [address] Phone Care Team Providers Care Cyber Incident Handler Name Role Phone Fatuma Hardy MD Primary Care Provider [phone] Allergies No known active allergies Medications montelukast (SINGULAIR) 10 MG tablet Active fluticasone-sa lmeterol (ADVAIR DISKUS) 250-50 MCG/DOSE diskus inhaler Activ e cyclobenzaprin e (AMRIX) 15 MG 24 hr capsule Take 1 capsule by mouth 1 (one) time each day Active cholecalcifero l (VITAMIN D-3) 25 MCG (1000 UT) capsule Take 1 capsule by mouth 1 (one) time each day Active albuterol HFA (PROVENTIL HFA;VENTOLIN HFA) 108 (90 Base) MCG/ACT inhaler 2 puffs by Other route 4 (four) times a day Active senna (SENOKOT) 8.6 MG tablet TAKE 1 TO 2 TABLETS BY MOUTH EVERY NIGHT AT BEDTIME IF NEEDED FOR CONSTIPATIO N. 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 [address] [phone] Vidal Reed MD 10/30/2024 Telephone [facility] [address] [phone] Iveth Patel [place] 10/18/2024 Orders Only [facility] [place] [id number] [phone] Vidal Reed MD Chronic kidney disease, stage [...] Office Visit [facility] [address] [phone] Vidal Reed MD [address] [phone] Health Maintenance Due Date Last Done Comments Breast Cancer Screening 1955 Colorectal Cancer Screening: Annual FOBT 2005 Colorectal Cancer Screening: Colonoscopy 2005 Colorectal Cancer Screening: Sigmoidoscopy 2005 Pneumococcal Vaccine: 50+ Years (3 of 3 - PCV) 08/08/2014 08/08/2013, 04/04/2006 Influenza Vaccine (#1) 2024 4, 03/09/2019, 03/29/2018, Additional history exists Pneumococcal Vaccine: Peds (0 to 5 Years) and At-Risk Patients (6 to 49 Years) Discontinued 08/08/2013, 04/04/2006 Hepatitis B Vaccine Aged Out No longe r eligible based on patient's age to complete this topic [place] Medicare Care Teams Cyber Incident Handler Relationship Specialty Start Date End Date Fatuma Hardy MD [address] [place] [id number] PCP - General 05/11/20
--- OUTSIDE RECORDS SUMMARY | 2024-11-25 07:28 | XMS_ITS | Encounter Summary ---
Author Organization [employer] Address [address] [facility] 7[address] [place] [address] Care Team Providers Care Form Tamping Machine Operator Name Role Phone Fatuma Hardy MD Primary Care Provider [phone] Reason for Visit * Reason Onset Date Comments PT1 10/23/2024 Encounter Details Date Type Department Care Team ([facility] st Contact Info) Description 10/23/2024 Telephone [facility] MEDICINE [address] [place] [address] Fatuma Hardy MD [address] [place], [place] [phone] PT1 Social History Tobacco Use Types Packs/Day [...] Yes Provider name or facility name: [address] [place] [address] - Dr Queenie Abbott Escort needed: Y/N: No Do you have a wheelchair: Y/N: No If yes- Manual or electric: N/A Visits: (3x monthly) 2 of 2 Patient calling requesting PT1 Home Address verified: Y/N: Yes Provider name or facility name: [address] [place], [place] Escort needed: Y/N: No Do you have a wheelchair: Y/N: No If yes- Manual or electric: N/A Visits: (3x monthly) documented in this encounter Plan of Treatment Upcoming Encounters Date Type Department Care Team (Late st Contact Info) Description 01/06/2025 8:30 AM EDT Office Visit [facility] MED & PEDS [address] [place] [address] Fatuma Hardy MD [address] [place] [address] 02/26/2025 8:00 AM EDT Office Visit [facility] ADULT DENTAL [address] [place] [address] Miriam Watson documented as of this encounter Visit Diagnoses Not on filedocumented in this encounter Care Teams Form Tamping Machine Operator Relationship Specialty Start Date End Date Fatuma Hardy MD [address] [place] [address] PCP - General Family Medicine 04/12/12 documented as of this encounter
--- OUTSIDE RECORDS SUMMARY | 2024-11-25 07:28 | XMS_ITS | Clinical Summary ---
Author Organization [address] [facility] Address [address] [place] [address] Phone Care Team Providers Care Assisted Living Administrator Name Role Phone Fatuma Hardy MD Primary Care Provider [phone] Allergies No known active allergies Medications cetirizine (ZyrTEC) 10 mg tablet Take 1 tablet (10 mg total) by mouth. Active montelukast (SINGULAIR) 10 mg tablet Take 1 tablet (10 mg total) by mouth at bedtime. Active cyclobenzaprine (FLEXERIL) 10 mg tablet Take [...] (10,000 unit) tablet Take by mouth daily. 08/02/19 23 Active calcium carbonate-vitam in D3 600 mg-5 mcg (200 unit) capsule Take 1 capsule by mouth. 07/14/19 13 Active ALPRAZolam (XANAX) 0.25 mg tablet TAKE 1 TABLET BY MOUTH 1 HOUR PRIOR TO PROCEDURE THEN TAKE 1 TABLET BY MOUTH EVERY DAY NEEDED AFTER PROCEDURE 11/08/19 24 Active BinaxNOW COVID-19 Ag Self Test kit TEST DIRECTED TODAY 04/16/20 24 Active famotidine (PEPCID) 20 mg tablet Take 1 tablet (20 mg total) by mouth. Active hydroCHLOROthia zide 12.5 mg tablet Take 1 tablet (12.5 mg total) by mouth 1 (one) time each day. 02/26/20 24 025 Active levothyroxine (SYNTHROID, LEVOTHROID) 150 mcg tablet Take 1 tablet (150 mcg total) by mouth. 05/23/19 24 Active SUMAtriptan (IMITREX) 50 mg tablet TAKE 1 TABLET(50 MG) BY MOUTH 1 TIME NEEDED FOR MIGRAINE. MAY REPEAT DOSE 1 TIME IN 2 HOURS IF NO RELIEF. DO NOT EXCEED 2 DOSES IN 24 HOURS 05/08/19 25 Active tiZANidine (ZANAFLEX) 4 mg capsule Take 1 capsule (4 mg total) by mouth. Active traMADoL (ULTRAM) 50 mg tablet Take 1 tablet (50 mg total) by mouth 1 (one) time each day if needed. Active Incruse Ellipta 62.5 mcg/actuation inhalation Take 1 puff by mouth 1 (one) time each day. INHALE 1 PUFF BY MOUTH ONCE DAILY AT THE SAME TIME EACH DAY 03/10/20 24 Active diclofenac (Voltaren Arthritis Pain) 1 % topical gel Apply 4 g topically 2 (two) times a day. 240 g 1 10/15/19 25 025 Active blood pressure test kit-large kit Check blood pressure on arm as directed EVERY DAY 08/09/19 25 Active cholecalciferol (VITAMIN D-3) 50 mcg (2,000 unit) capsule Take 1 capsule (2,000 Units total) by mouth 1 (one) time each day. 09/21/19 25 Active fluticasone propionate (FLONASE) 50 mcg/actuation nasal spray Administer 2 sprays into affected nostril(s) 1 (one) time each day. Active naproxen (NAPROSYN) 500 mg tablet Take 1 tablet (500 mg total) by mouth 2 (two) times a day with meals. 02/05/20 24 Active Stimulant Laxative Plus 8.6-50 mg per tablet Take 1 tablet by mouth 1 (one) time each day. Active albuterol HFA (Ventolin HFA) 90 mcg/actuation inhaler Inhale 2 puffs by mouth every 6 (six) hours if needed for wheezing. 6.7 g 11 11/07/19 25 026 Active albuterol HFA (PROAIR HFA ; PROVENTIL HFA ; VENTOLIN HFA) 90 mcg/actuation inhaler Inhale 2 puffs by mouth every 4 (four) hours if needed for wheezing. 6.7 g 2 11/07/19 25 Active albuterol 2.5 mg /3 mL (0.083 %) nebulizer solutionIndicat ions:Moderate asthma, unspecified whether complicated, unspecified whether persistent Take 3 mL (2.5 mg total) by nebulization every 4 (four) hours if needed for wheezing. 75 mL 3 11/07/19 25 Active albuterol HFA (PROAIR HFA ; PROVENTIL HFA ; VENTOLIN HFA) 90 mcg/actuation inhaler Inhale 2 puffs by mouth every 4 (four) hours if needed. 025 Discontin ued(Reord er) albuterol 2.5 mg /3 mL (0.083 %) nebulizer solution Take 3 mL (2.5 mg total) by nebulization every 4 (four) hours if needed for wheezing. 025 Discontin ued(Reord er) Active Problems Problem Noted Date Diagnosed Date Chronic obstructive pulmonar y disease ([facility] V24, [facility] V28) 09/02/2024 Asthma 03/24/2024 Obesity 03/24/2024 Pulmonary nodules/lesions, multiple 03/24/2024 Primary hypertension 01/31/2024 Rhinosinusitis 03/31/2023 Hypertensive renal disease 10/08/2020 Proteinuria 10/08/2020 Stage 2 chronic kidney disease 10/08/2020 Obstructive sleep apnea syndrome 04/11/2012 Granulomatosis with polyangiitis ([facility] V24, [facility] V28) 04/11/2012 Fibromyositis 04/11/2012 Acanthosis nigricans 04/11/2012 Hypothyroidism 04/11/2012 Resolved Problems Problem Noted Date Diagnosed Date Resolved Date Blood in urine 10/08/2020 05/15/2024 Encounters Date Type Department Care Team Description 11/06/2024 1:15 PM EDT Office Visit Pulmonolgy [facility] [address] [facility] 200 [place] [phone] Maximus Thurston MD Nocturnal hypoxemia (Primary Dx); Moderate asthma, unspecified whether complicated, unspecified whether persistent; CKD (chronic kidney disease) stage 4, GFR 15-29 ml/min ([facility] V24, [facility] V28); Maurilio's granulomatosis with renal involvement ([facility] V24, [facility] V28) 10/14/2024 9:45 AM EDT Office Visit Orthopedic Surgery [facility] [address] [facility] [address] [place] [phone] Lino Francois DPM Primary osteoarthritis of both feet (Primary Dx); Dermatophytosis of nail; Pain in toe of right foot; Pain in toe of left foot; Tinea pedis of both feet; Bilateral femoral artery stenosis ([facility] V24); Metatarsalgia of both feet; Verruca plantaris 09/11/2024 10:00 AM EDT Ancillary Procedure [facility] 101 [address] [facility] [address] [place] [phone] Pulmonary hypertension associated with unclear multi-factorial mechanisms ([facility] V24, [facility] V28) from Last 3 Months Immunizations Name [...] Packs/Day Years Used Date Smoking Tobacco: Former Cigarettes Smokeless Tobacco: Never Tobacco Cessation:Counseling Given: Not Answered Comments Unknown Sex and Gender Information Value Date Recorded Sex Assigned at Female 07/12/2024 10:42 AM EDT Legal Sex Female 3:42 PM EDT Gender Identity Female 07/12/2024 10:42 AM EDT Sexual Orientation Straight 07/12/2024 10 :42 AM EDT Obstetrics History Last Filed Vital Signs Vital Sign Reading Time Taken Comments Blood Pressure 143/64 11/06/2024 1:06 PM EDT Pulse 64 11/06/2024 1:06 PM EDT Temperature 36.8 C (98.2 F) 11/06/2024 1:06 PM EDT Respiratory Rate 20 11/06/2024 1:06 PM EDT Oxygen Saturation 100% 11/06/2024 1:06 PM EDT Inhaled Oxygen Concentration - - Weight 75.3 kg (166 lb) 11/06/2024 1:06 PM EDT Height 162.6 cm (5' 4 ) 11/06/2024 1:06 PM EDT Body Mass Index 28.49 11/06/2024 1:06 PM EDT Plan of Treatment Upcoming Encounters Date Type Department Care Team (Late st Contact Info) Description 11/26/2024 8:15 AM EDT Office Visit Orthopedic Surgery - [place] [address] [phone] Lino Francois DPM [address] [address] 02/06/2025 9:30 AM EDT Office Visit Pulmonolgy [facility] [address] [phone] Maximus Thurston MD [address] [address] Health Maintenance Due Date Last Done Comments Breast Cancer Screening 1955 Zoster Vaccines (1 of 2) 08/25/1975 Pneumococcal Vaccine: 50+ Years (2 of 2 - PCV) 08/08/2014 08/08/2013, 04/04/2006 RSV Immunization Adult Patients (1 - Risk 60-74 years 1-dose series) 2016 COVID-19 Vaccine (4 - season) 2023 06/16/2021, 10/07/2020, 09/02/2020 Falls Risk Assessment 02/07/2024 Hepatitis C Screening 02/07/2024 Medicare Annual Wellness Visit 02/07/2024 Osteoporosis Screening (Bone Density Screening) 02/07/2024 Social Influencers of Health Screening 02/07/2024 Depression Screening 05/01/2024 Hypertension/CHF/CAD Annual BMP Blood Test 05/22/2024 05/22/2023 Influenza Vaccine (#1) 2024 , 03/09/2019, 03/29/2018, Additional history exists DTaP,Tdap,and Td Vaccines (3 - Td or Tdap) 03/08/2026 03/08/2016, 11/21/2015 Colorectal Cancer Screening: FIT-DNA (Cologuard) 06/05/2026 06/05/2023, 06/05/2023 Cholesterol Screening (Lipid Panel) 02/04/2029 02/05/2024, 07/21/2022 HIB Vaccines Aged Out No longer eligi [...] (09/11/2024 10:04 AM EDT) Left [facility] Minor [place] 5.6 cm CV PACS Left [facility] Major [place] 5.5 cm CV PACS LA Area Sys [...] S' 12 cm/s CV PACS RA Major [place] 4.3 cm CV PACS RA Major [place] Index 2.4 2.2 - 2.8 cm/m2 CV [...] Details Overall the study quality was adequate. Maximus Thurston MD CV ECHO PROCEDURES Final Res ult * FIT-DNA (Cologuard) (06/05/2023) Pathologist [facility] Colorectal Cancer Screening: FIT-DNA (Cologuard) no interpretation , abstracted Historical Provider HEALTH MAINTENANCE Final Result * Annual BMP Blood Test (05/22/2023) Pathologist [facility] Annual BMP Blood Test abstracted Result [facility] Historical Provider [facility] Final Result * Lipid panel (07/21/2022) [facility] LDL/HDL Ratio 0 0 - 0 Triglycerides 0 0 - 0 mg/dL Cholesterol 0 0 - 0 mg/dL HDL 0 0 - 0 mg/dL LDL Cholesterol 0 0 - 0 mg/dL Blood Venous blood specimen / Unknown Result [facility] Historical Provider LAB BLOOD ORDERABLES Della l Result from Last 3 Months or Most Recently Relevant to Health Maintenance Insurance MEDICARE MEDICAID - [place] Care Teams Assisted Living Administrator Relationship Specialty Start Date End Date Fatuma Hardy MD [address] [place] [phone] PCP - General Family Medicine 07/02/24
[2024-11-25 07:43] LABS: MANUAL DIFF FLAG NO
[2024-11-25 08:17] LABS: Hematocrit 37.4 % (37.0-47.0); Hemoglobin 11.6 g/dl (12.0-16.0); Imm Gran Abs Auto 0.02 X10*3/uL (0.00-0.03); Imm Gran Pct Auto 0.4 % (0.0-0.4); Lymphocytes Absolute Auto 1.6 X10*3/uL (1.2-4.9); Mean Corpuscular HGB Conc 31.0 g/dl (31.0-35.0); Mean Corpuscular Hemoglobin 26.1 pg (27.0-33.0); Mean Corpuscular Volume 84.0 fL (80.0-98.0); NRBC Abs Auto 0.000 X10*3/uL (0.0-0.012); NRBC Pct Auto 0.0 /100WBC (0.0-0.2); Platelet Count 257 X10*3/uL (160-400); Red Blood Count 4.45 X10*6/uL (4.20-5.50); White Blood Count 5.4 X10*3/uL (4.8-10.8)
[2024-11-25 08:52] LABS: Anion Gap 9 (12-20); Blood Urea Nitrogen 16 mg/dL (9-16); Calcium 9.3 mg/dL (8.4-10.2); Carbon Dioxide 28 mmol/L (22-29); Chloride 109 mmol/L (96-108); Estimated Glomerular Filt Rate > 60; Iron 31 mcg/dL (30-160); Percent Iron Saturation 9 % (15-50); Potassium 4.3 mmol/L (3.3-5.1); Sodium 142 mmol/L (135-145); Total Iron Binding Capacity 351 mcg/dL (228-428); Unsaturated Iron Binding 320 ug/dL
[2024-11-25 09:01] LABS: Ferritin 6 ng/mL (10-250)
[2024-11-25 09:10] LABS: Protein/Creatinine Ratio, Ur 0.07 (<0.2); Total Protein Urine Random 23 mg/dL (<12)
== END 2024-11-25 07:27 | disposition home or self-care (01) ==
LOC: HO.LAB 07:26
PROVIDERS: PCP Student in an Organized Health Care Education/Training Program; Visit Provider Internal Medicine Nephrology
DX: I12.9 Hypertensive chronic kidney disease with stage 1 through stage 4 chronic kidney disease, or unspecified chronic kidney disease (principal); N18.4 Chronic kidney disease, stage 4 (severe); D63.1 Anemia in chronic kidney disease; E87.5 Hyperkalemia
CPT/HCPCS: 36415; 80051; 82306; 82310; 82565; 82570; 82728; 83540; 84156; 84520; 85025

== ENCOUNTER 2025-01-08 08:07 | Outpatient (REF) | payer MEDICARE, MEDICAID, SELFPAY ==
--- OUTSIDE RECORDS SUMMARY | 2025-01-08 09:09 | XMS_ITS | Encounter Summary ---
Author Organization [facility] Address [address] [place] [phone] Phone Care Team Providers Care Fish Cleaner Machine Tender Name Role Phone Fatuma Hardy MD Primary Care Provider [phone] Encounter Details Date Type Department Care Team (Late Contact Info) Description 11/25/2024 Office Communication [facility] [address] [phone] Vidal Reed MD [address] [phone] Social History Tobacco Use Types Packs/Day Years Used Date Smoking Tobacco: Former Alcohol Use Standard Drinks/Week Comments Yes 0 (1 standard drink = 0.6 oz pure alcohol) Alcoholic Drinks/day: Occasional social drink Comments Unknown Sex and Gender Information Value Date Recorded Sex Assigned at Not on file Legal Sex Female 4:58 PM EST Gender Identity Not on file Sexual Orientation Not on file documented as of this encounter Miscellaneous Notes * Telephone Encounter - Vidal Reed MD - 11/25/2024 9:31 AM EDT Pls call her and let her kinw that iron levels low so I sent a Rx to her harmacy to take iron--thx documented in this encounter Plan of Treatment Upcoming Encounters Date Type Department Care Team (Late Contact Info) Description 02/26/2025 1:00 PM EDT Office Visit [facility] [address] [place] [phone] Vidal Reed MD [facility] [address] [phone] documented as of this encounter Visit Diagnoses Not on filedocumented in this encounter Care Teams Fish Cleaner Machine Tender Relationship Specialty Start Date End Date Fatuma Hardy MD [address] [place] [phone] PCP - General 05/11/20 documented as of this encounter
--- OUTSIDE RECORDS SUMMARY | 2025-01-08 09:09 | XMS_ITS | Patient Health Record ---
Author Organization [facility] Address [address] [place] [phone] Care Team Providers Care Player Services Representative Name Role Phone MICKEY FAIR Primary Care Provider Machelle e Raul Perez Unavailable [phone] Reason For Referral No Information Medications Medication [...] Problem Status W/U Status Risk Notes Problem [id number] Encounter for screening for malignant neoplasm of colon (Z12.11) Active confirmed Problem 554044891 Barretts esophag us without dysplasia (K22.70) Active confirmed Problem [id number] Gastroesophageal reflux disease, esophagitis presence not specified (K21.9) Active confirmed Problem 43571767 Constipation, unspecified constipation type (K59.00) Active confirmed [...] OF [place] [address] [place] [address] [id number] SUSAN MUIR Self - patient is the insured MEDICAID OF [facility] [address] [place] [address] [id number] SUSAN MUIR Self - patient is the [...] Cervical spondylosis Fibromyalgia Depression Osteoporosis HTN Denies NC,DM,CVA,renal disease Negative colonoscopy in 09/2006 Rheumatoid arthritis-Dr. Albarran Hospitalized for pneumonia in 06/2016 Surgical History Surgery Date(Month/Year) Lung surgery-biopsy of rheumatoid nodule s
--- OUTSIDE RECORDS SUMMARY | 2025-01-08 09:09 | XMS_ITS | Clinical Summary ---
Author Organization [facility] Address [address] [facility] [address] 0 [place] [address] Phone Care Team Providers Care Metal Drawer Name Role Phone Fatuma Hardy MD Primary Care Provider [phone] Allergies No known active allergies Medications montelukast [...] 01/27/2024 Active hydroCHLOROthia zide 12.5 MG tablet TAKE 1 TABLET(12.5 MG) BY MOUTH 1 TIME EACH DAY 30 tablet 11 11/12/2024 Active Iron, Ferrous Sulfate, 325 (65 Fe) MG tablet Take 1 tablet by mouth 5 (five) times a week: Monday through Monday 45 tablet 1 11/25/2024 Active Active Problems Problem Noted Date Diagnosed Date 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 02/26/2024 Blood in urine 10/08/2020 Chronic kidney disease stage 2 10/08/2020 Hypertensive renal disease 10/08/2020 Hypertensive renal disease 10/08/2020 Proteinuria 10/08/2020 Encounters Date Type Department Care Team Description 11/25/2024 Office Communication [facility] [address] [phone] Vidal Reed MD 11/25/2024 Orders Only [facility] [address] [phone] Vidal Reed MD 11/11/2024 Refill [facility] [address] [phone] Vidal Reed MD 10/30/2024 Telephone [facility] [address] [phone] Iveth Patel [place] 10/18/2024 Orders Only [facility] [address] [address] Vidal Reed MD Chronic kidney disease, stage [...] Office Visit [facility] [address] [phone] Vidal Reed MD [address] [phone] Health Maintenance Due Date Last Done Comments [...] Comments PROTEIN / CREATININE RATIO, URINE Routine 11/25/2024 8:09 AM EDT Chronic kidney disease, stage 4 (severe) (HCC) Anemia in chronic kidney disease Hyperkalemia Hypertension FERRITIN Routine 11/25/2024 7:41 AM EDT CALCIUM Routine 11/25/2024 7:41 AM EDT CREATININE, BLOOD Routine 11/25/2024 7:4 1 AM EDT BUN Routine 11/25/2024 7:41 AM EDT ELECTROLYTE PANEL Routine 11/25/2024 7:4 1 AM EDT VITAMIN D 25 HYDROXY Routine 11/25/2024 7:41 AM EDT Chronic kidney disease, stage 4 (severe) (HCC) Anemia in chronic kidney disease Hyperkalemia Hypertension IRON PANEL (FE, TIBC, TSAT) Routine 11/25/2024 7:41 AM EDT Chronic kidney disease, stage 4 (severe) (HCC) Anemia in chronic kidney disease Hyperkalemia Hypertension CBC AND DIFFERENTIAL Routine 11/25/2024 7:41 AM EDT Chronic kidney disease, stage 4 (severe) (HCC) Anemia in chronic kidney disease Hyperkalemia Hypertension from Last 3 Months Results * (ABNORMAL) Protein, Total, Random Urine w/Creatinine (Protein/Creat Ratio) (11/25/2024 8:09 AM EDT) Creatinine, Urine 329.11 mg/dL See order comments Protein Urine Random 23(H) <12 mg/dL See order comments Protein/Creati nine Ratio, Urine 0.07 <0.2 See order comments Comment: The spot urine protein:creatinine ratio may increase to 0.3 during normal . Urine Urine specimen obtained by clean catch procedure / Unknown 11/25/2024 8:09 AM EDT 11/25/2024 8:09 AM EDT us Vidal Reed MD LAB URINE ORDERABLES Final Re sult Performing Organization Address [facility] de Phone Number [place] See order comments [place] [address] * Creatinine (11/25/2024 7:41 AM EDT) Creatinine Serum 0.58 0.5 - 1.4 mg/dL See order comments eGFR (Calc) >60 See orde r comments Comment: Chronic Kidney Disease: Estimated GFR < 60 mL/min/1.73m2 Severe Kidney Disease: Estimated GFR < 15 mL/min/1.73m2 11/25/2024 7:41 AM EDT 11/25/2024 7:41 AM EDT Vidal Reed MD LAB BLOOD ORDERABLES Final Re sult Performing Organization Address [facility] de Phone Number [place] See order comments [place] [address] * (ABNORMAL) Iron Panel (Fe, TIBC, TSAT) (11/25/2024 7:41 AM EDT) Pathologist [facility] Iron 31 30 - 160 mcg/dL See order comments TIBC 351 228 - 428 mcg/dL See order comments Iron Saturation (TSat) 9(L) 15 - 50 % See order comments UIBC 320 ug/dL See order comments Blood Venous blood / Unknown 11/25/2024 7:41 AM EDT 11/25/2024 7:41 AM EDT Vidal Reed MD LAB BLOOD ORDERABLES Final Re sult Performing Organization Address [facility] de Phone Number [place] See order comments [place] [address] * Vitamin D 25 Hydroxy (11/25/2024 7:41 AM EDT) Vitamin D, 25-Hydroxy 32.0 >30 ng/mL See order comments Comment: Health Based Reference Values* < 20 ng/mL Deficient 20-30 ng/mL Insufficient > 30 ng/mL Sufficient *Yg BENNETT. N Engl J Med. 2007;357:266-280 There is no well-established upper level of normal vitamin D levels. Some laboratories use 50 ng/mL as an upper limit of normal. However, toxicity is patient-dependent and may occur at any level. Careful correlation with the patient's presentation is necessary and, if there is concern for vitamin D toxicity, treatment should be considered irrespective of the serum level. Care must be taken in interpreting Vitamin D results from different laboratories and methodologies. Published data demonstrated that results from patients undergoing hemodialysis may show a negative bias when tested with various automated 25-OH vitamin D assays when compared to LC-MS/MS. When testing samples from patients whose predominant form of Vitamin D is Vitamin D2, such as patients receiving Vitamin D2 supplementation, results that are subtherapeutic should be confirmed with another method such as LC-MS/MS. Blood Venous blood / Unknown 11/25/2024 7:41 AM EDT 11/25/2024 7:41 AM EDT us Vidal Reed MD LAB BLOOD ORDERABLES Final Re sult [place] See order comments [place] [address] * (ABNORMAL) CBC and Differential (11/25/2024 7:41 AM EDT) WBC 5.4 4.8 - 10.8 X10*3/uL See order comments RBC 4.45 4.20 - 5.50 X10*6/uL See order comments Hgb 11.6(L) 12.0 - 16.0 g/dl See order comments Hematocrit 37.4 37.0 - 47.0 % See order comments MCV 84.0 80.0 - 98.0 fL See order comments MCH 26.1(L) 27.0 - 33.0 pg See order comments MCHC 31.0 31.0 - 35.0 g/dl See order comments RDW 16.4(H) 11.0 - 16.0 % See order comments Platelets 257 160 - 400 X10*3/uL See order comments MPV 9.4 9.4 - 12.3 fL See order comments Neutrophils % Auto 61.1 45 - 73 % See order comments Immature Granulocytes 0.4 0.0 - 0.4 % See order comments Lymphocytes Relative 28.9 20 - 40 % See order comments Monocytes 6.7 2 - 11 % See order comments Eosinophils Relative 2.2 0 - 4 % See order comments Basophils Relative 0.7 0 - 2 % See order comments nRBC Count 0.0 0.0 - 0.2 /100WBC See order comments Neutrophils Absolute 3.3 2.0 - 8.3 x10*3/uL See order comments Immature Grans (Absolute) 0.02 0.00 - 0.03 X10*3/uL See order comments Lymphocytes Absolute 1.6 1.2 - 4.9 X10*3/uL See order comments Monocytes Absolute 0.4 0.1 - 1.2 X10*3/uL See order comments Eosinophils Absolute 0.1 0.0 - 0.4 X10*3/uL See order comments Basophils Absolute 0.0 0.0 - 0.2 X10*3/uL See order comments NRBC Absolute 0.000 0.0 - 0.012 X10*3/uL See order comments Blood Venous blood / Unknown 11/25/2024 7:41 AM EDT 11/25/2024 7:41 AM EDT us Vidal Reed MD LAB BLOOD ORDERABLES Final Re sult [place] See order comments [place] [address] * BUN (11/25/2024 7:41 AM EDT) BUN 16 9 - 16 mg/dL See order comments 11/25/2024 7:41 AM EDT 11/25/2024 7:41 AM EDT Vidal Reed MD LAB BLOOD ORDERABLES Final Re sult [place] See order comments [place] [address] * (ABNORMAL) Ferritin (11/25/2024 7:41 AM EDT) Ferritin 6(L) 10 - 250 ng/mL See order comments 11/25/2024 7:41 AM EDT 11/25/2024 7:41 AM EDT Vidal Reed MD LAB BLOOD ORDERABLES Final Re sult Performing Organization Address [facility] de Phone Number [place] See order comments [place] [address] * Calcium (11/25/2024 7:41 AM EDT) Calcium 9.3 8.4 - 10.2 mg/dL See order comments 11/25/2024 7:41 AM EDT 11/25/2024 7:41 AM EDT Vidal Reed MD LAB BLOOD ORDERABLES Final Re sult Performing Organization Address [facility] de Phone Number [place] See order comments [place] [address] * (ABNORMAL) Electrolyte panel (11/25/2024 7:41 AM EDT) Sodium 142 135 - 145 mmol/L See order comments Potassium 4.3 3.3 - 5.1 mmol/L See order comments Chloride 109(H) 96 - 108 mmol/L See order comments Bicarbonate (CO2) 28 22 - 29 mmol/L See order comments Anion Gap 9(L) 12 - 20 See order comments 11/25/2024 7:41 AM EDT 11/25/2024 7:41 AM EDT Vidal Reed MD LAB BLOOD ORDERABLES Final Re sult Performing Organization Address [facility] de Phone Number [place] See order comments [place] [address] from Last 3 Months Insurance Medicaid [place] Medicare Medicaid [place] Medicare Care Teams Metal Drawer Relationship Specialty Start Date End Date Fatuma Hardy MD [address] [place] [id number] PCP - General 05/11/20
--- OUTSIDE RECORDS SUMMARY | 2025-01-08 09:09 | XMS_ITS | Clinical Summary ---
Author Organization [address] [facility] Address [address] [place] [address] Phone Care Team Providers Care Assistant Manager Quality Management Name Role Phone Fatuma Hardy MD Primary Care Provider [phone] Allergies No known active allergies Medications montelukast (SINGULAIR) 10 mg tablet Take 1 [...] mouth 1 (one) time each day. 4 025 Active levothyroxine (SYNTHROID, LEVOTHROID) 150 mcg [...] THE SAME TIME EACH DAY 4 Active blood pressure test kit-large kit Check blood pressure on arm as directed EVERY DAY 5 Active cholecalciferol (VITAMIN D-3) 50 mcg (2,000 unit) capsule Take 1 capsule (2,000 Units total) by mouth 1 (one) time each day. 5 Active fluticasone propionate (FLONASE) 50 mcg/actuation nasal spray Administer 2 sprays into affected nostril(s) 1 (one) time each day. Active naproxen (NAPROSYN) 500 mg tablet Take 1 tablet (500 mg total) by mouth 2 (two) times a day with meals. 4 Active Stimulant Laxative Plus 8.6-50 mg per tablet Take 1 tablet by mouth 1 (one) time each day. Active albuterol HFA (Ventolin HFA) 90 mcg/actuation inhaler Inhale 2 puffs by mouth every 6 (six) hours if needed for wheezing. 6.7 g 11 5 026 Active albuterol HFA (PROAIR HFA ; PROVENTIL HFA ; VENTOLIN HFA) 90 mcg/actuation inhaler Inhale 2 puffs by mouth every 4 (four) hours if needed for wheezing. 6.7 g 2 5 Active albuterol 2.5 mg /3 mL (0.083 %) nebulizer solutionIndicat ions:Moderate asthma, unspecified whether complicated, unspecified whether persistent Take 3 mL (2.5 mg total) by nebulization every 4 (four) hours if needed for wheezing. 75 mL 3 5 Active cetirizine (ZyrTEC) 10 mg tablet Take 1 tablet (10 mg total) by mouth 1 (one) time each day. 30 tablet 3 5 Active diclofenac (Voltaren Arthritis Pain) 1 % topical gel Apply 4 g topically 2 (two) times a day. 240 g 1 5 025 Active Problems Problem Noted Date Diagnosed Date Chronic obstructive pulmonar y disease ([facility] V24, [facility] V28) 09/02/2024 Asthma 03/24/2024 Obesity 03/24/2024 Pulmonary nodules/lesions, multiple 03/24/2024 Primary hypertension 01/31/2024 Rhinosinusitis 03/31/2023 Hypertensive renal disease 10/08/2020 Proteinuria 10/08/2020 Stage 2 chronic kidney disease 10/08/2020 Obstructive sleep apnea syndrome 04/11/2012 Granulomatosis with polyangiitis ([facility] V24, [facility] V28) 04/11/2012 Fibromyositis 04/11/2012 Acanthosis nigricans 04/11/2012 Hypothyroidism 04/11/2012 Resolved Problems Problem Noted Date Diagnosed Date Resolved Date Blood in urine 10/08/2020 05/15/2024 Encounters Date Type Department Care Team Description 11/26/2024 8:15 AM EDT Office Visit Orthopedic Surgery [address] [phone] Lino Francois, DPM Primary osteoarthritis of both feet (Primary Dx); Metatarsalgia of both feet; Verruca plantaris; Dermatophytosis of nail 11/06/2024 1:15 PM EDT Office Visit Pulmonolgy [facility] [address] [place] [phone] Maximus Thurston MD Nocturnal hypoxemia (Primary Dx); Moderate asthma, unspecified whether complicated, unspecified whether persistent; CKD (chronic kidney disease) stage 4, GFR 15-29 ml/min ([facility] V24, [facility] V28); Maurilio's granulomatosis with renal involvement ([facility] V24, [facility] V28) 10/14/2024 9:45 AM EDT Office Visit Orthopedic Surgery [facility] [address] [facility] [address] [place] [phone] Lino Francois DPM Primary osteoarthritis of both feet (Primary Dx); Dermatophytosis of nail; Pain in toe of right foot; Pain in toe of left foot; Tinea pedis of both feet; Bilateral femoral artery stenosis ([facility] V24); Metatarsalgia of both feet; Verruca plantaris from Last 3 Months Immunizations Name Administration [...] Concentration - - Weight 75.3 kg (166 lb 0.1 oz) 11/26/2024 8:04 A M EDT Height 162.6 cm (5' 4.02 ) 11/26/2024 8:04 AM ED T Body Mass Index 28.48 11/26/2024 8:04 AM EDT Plan of Treatment Upcoming Encounters Date Type Department Care Team (Late st Contact Info) Description 01/09/2025 8:15 AM EDT Office Visit Orthopedic Surgery - [place] [address] [facility] [address] [place] [phone] Lino Francois, DPM [address] [phone] 02/06/2025 9:30 AM EDT Office Visit Pul[facility]gy [facility] [address] [facility] 200 [place] [phone] Maximus Thurston MD [address] [place] [phone] Health Maintenance Due Date Last Done Comments Breast Cancer Screening 1955 Zoster Vaccines (1 of 2) 08/25/1975 Pneumococcal Vaccine: 50+ Years (2 of 2 - PCV) 08/08/2014 08/08/2013, 04/04/2006 RSV Immunization Adult Patients (1 - Risk 60-74 years 1-dose series) 2016 Falls Risk Assessment 02/07/2024 Hepatitis C Screening 02/07/2024 Medicare Annual Wellness Visit 02/07/2024 Osteoporosis Screening (Bone Density Screening) 02/07/2024 Social Influencers of Health Screening 02/07/2024 Depression Screening 05/01/2024 Hypertension/CHF/CAD Annual BMP Blood Test 05/22/2024 05/22/2023 COVID-19 Vaccine ( season) 2024 06/16/2021, 10/07/2020, 09/02/2020 Influenza Vaccine (#1) 2024 , 03/09/2019, 03/29/2018, [...] Procedure Name Priority Date/Time Associated Diagnosis Comments XR FOOT 3+ VIEWS BILAT Routine 11/26/2024 8:09 AM EDT Metatarsalgia of both feet FIT-DNA Routine 06/05/2023 ANNUAL BMP BLOOD TEST Routine 05/22/2023 LIPID PANEL Routine 07/21/2022 from Last 3 Months or Most Recently Relevant to Health Maintenance Results * XR Foot 3+ Views bilat (11/26/2024 8:09 AM EDT) Anatomical Region Laterality Modality Lower Extremities, Foot Bilateral Computed Radiography Narrative 11/26/2024 12:50 PM EDT Right foot 3 views No fracture. No radiopaque foreign joint spaces Arthritis mild moderate Foot position rectus Normal talus navicular position normal calcaneal inclination normal symes line talus navicular joint to calcaneal cuboid joint Posterior calcaneal spur noted Left foot 3 views No fracture. No radiopaque foreign joint spaces Arthritis mild moderate Foot position rectus Normal talus navicular position normal calcaneal inclination normal symes line talus navicular joint to calcaneal cuboid joint Posterior calcaneal spur noted Lino Francois DPM IMG XR PROCEDURES Final R esult * FIT-DNA (Cologuard) (06/05/2023) [facility] Colorectal Cancer Screening: FIT-DNA (Cologuard) no interpretation , abstracted [facility] Provider HEALTH MAINTENANCE Final Result * Annual BMP Blood Test (05/22/2023) [facility] Annual BMP Blood Test abstracted Result [facility] Provider HEALTH MAINTENANCE Final Result * Lipid panel (07/21/2022) [facility] LDL/HDL Ratio 0 0 - 0 Triglycerides 0 0 - 0 mg/dL Cholesterol 0 0 - 0 mg/dL HDL 0 0 - 0 mg/dL LDL Cholesterol 0 0 - 0 mg/dL Blood Venous blood specimen / Unknown Result [facility] Provider LAB BLOOD ORDERABLES Della l Result from Last 3 Months or Most Recently Relevant to Health Maintenance Insurance MEDICARE MEDICAID - [place] Care Teams Assistant Manager Quality Management Relationship Specialty Start Date End Date Fatuma Hardy MD [address] [place] [address] PCP - General Family Medicine 07/02/24
[2025-01-08 14:26] LABS: MANUAL DIFF FLAG NO
[2025-01-08 14:30] LABS: Appearance Urine Clear; Glucose Urine UA Negative (Negative); PH 6.0 (5.0-9.0); Specific Gravity - Urine 1.025 (1.005-1.025); UMIC TRIGGER UA YES
[2025-01-08 14:32] LABS: Hematocrit 39.6 % (37.0-47.0); Hemoglobin 13.2 g/dl (12.0-16.0); Imm Gran Abs Auto 0.02 X10*3/uL (0.00-0.03); Imm Gran Pct Auto 0.4 % (0.0-0.4); Lymphocytes Absolute Auto 1.4 X10*3/uL (1.2-4.9); Mean Corpuscular HGB Conc 33.3 g/dl (31.0-35.0); Mean Corpuscular Hemoglobin 27.4 pg (27.0-33.0); Mean Corpuscular Volume 82.2 fL (80.0-98.0); NRBC Abs Auto 0.000 X10*3/uL (0.0-0.012); NRBC Pct Auto 0.0 /100WBC (0.0-0.2); Platelet Count 250 X10*3/uL (160-400); Red Blood Count 4.82 X10*6/uL (4.20-5.50); White Blood Count 5.3 X10*3/uL (4.8-10.8)
[2025-01-08 15:23] LABS: Alanine Aminotransferase 19 U/L (0-31); Albumin Level 4.6 g/dL (3.5-5.0); Alkaline Phosphatase 114 U/L (39-117); Anion Gap 14 (12-20); Aspartate Amino Transferase 33 U/L (5-31); Blood Urea Nitrogen 12 mg/dL (9-16); Calcium 9.9 mg/dL (8.4-10.2); Carbon Dioxide 29 mmol/L (22-29); Chloride 103 mmol/L (96-108); Cholesterol 181 mg/dL (<200); Estimated Glomerular Filt Rate > 60; HDL Cholesterol 57 mg/dL (>40); Potassium 3.6 mmol/L (3.3-5.1); Sodium 142 mmol/L (135-145); Total Protein 8.1 g/dL (6.5-8.0); Triglycerides 75 mg/dL (<150)
[2025-01-08 15:30] LABS: Protein/Creatinine Ratio, Ur 0.14 (<0.2); Total Protein Urine Random 52 mg/dL (<12)
[2025-01-08 17:36] LABS: Free T4 (Free Thyroxine) 1.52 ng/dL (0.71-1.85)
[2025-01-10 15:39] LABS: Proteinase 3 PR3 Antibodies <1.0 AI
== END 2025-01-08 08:08 | disposition home or self-care (01) ==
LOC: HO.CHCLDS 08:07
PROVIDERS: PCP Student in an Organized Health Care Education/Training Program; Referring Provider Student in an Organized Health Care Education/Training Program; Visit Provider Student in an Organized Health Care Education/Training Program
DX: I10 Essential (primary) hypertension (principal); E03.9 Hypothyroidism, unspecified; M31.30 Wegener's granulomatosis without renal involvement
CPT/HCPCS: 36415; 80053; 80061; 80076; 81001; 82248; 82570; 84156; 84439; 84443; 85025; 85652; 86021; 86140

== ENCOUNTER 2025-01-14 07:43 | Outpatient (AMB) | payer MEDICARE, MEDICAID, SELFPAY ==
--- OUTSIDE RECORDS SUMMARY | 2025-01-09 08:15 | XMS_ITS | Encounter Summary ---
Author Organization [facility] Address [address] [place] [address] Care Team Providers Care Varnish Finisher Name Role Phone Fatuma Hardy MD Primary Care Provider [phone] Reason for Visit * Reason Comments Follow-up Primary osteoarthrit is of both feetMetatarsalgia of both feetVerruca plantarisDermatophytosis of nail Encounter Details Date Type Department Care Team (Late st Contact Info) Description 01/09/2025 8:15 AM EDT Office Visit Orthopedic Surgery - [place] [address] [phone] Lino Francois, DPM [address] [phone] Metatarsalgia of both feet (Primary Dx); Verruca plantaris; Dermatophytosis of nail; Primary osteoarthritis of both feet; Pain in toe of right foot; Bilateral femoral artery stenosis (CMS/HCC V24); Tinea pedis of both feet; Pain in toe of left foot Social History Tobacco Use Types Packs/Day Years Used Date Smoking Tobacco: Former Cigarettes Smokeless Tobacco: Never Comments Unknown Sex and Gender Information Value Date Recorded Sex Assigned at Female 07/12/2024 10:42 AM EDT Legal Sex Female 3:42 PM EDT Gender Identity Female 07/12/2024 10:42 AM EDT Sexual Orientation Straight 07/12/2024 10 :42 AM EDT documented as of this encounter Last Filed Vital Signs Vital Sign Reading Time Taken Comments Blood Pressure - - Pulse - - Temperature - - Respiratory Rate - - Oxygen Saturation - - Inhaled Oxygen Concentration - - Weight 75.3 kg (166 lb 0.1 oz) 01/09/2025 8:07 A M EDT Height 162.6 cm (5' 4.02 ) 01/09/2025 8:07 AM ED T Body Mass Index 28.48 01/09/2025 8:07 AM EDT documented in this encounter Ordered Prescriptions Prescription Sig Dispense Quantity Refills Last Filled Start Date End Date clotrimazole (LOTRIMIN) 1 % cream Apply topically 2 (two) times a day. 30 g 3 01/09/2025 diclofenac (Voltaren Arthritis Pain) 1 % topical gel Apply 4 g topically 2 (two) times a day. 240 g 1 01/09/2025 documented in this encounter Progress Notes * Lino Francois, DHEERAJ - 01/09/2025 8:15 AM EDT Last PCP visit:Referring MD: Fatuma Hardy MD 09/02/24 S Emergency with some new complaints she states she had a sharp shooting pain in her left foot she does not walk a small rock she is wondering if it is a wart she is very painful aching throbbing notesher nails very long and painful thickened bother her often she does suffer from fibromyalgia endorses occasional numbness burning tingling to both feet and cramps states she has not gotten more of Voltaren gel and would like a refill of medication as well as something for her fungus of both feet ROS: GENERAL: Pt denies nausea, fever, vomiting, chills, or shortness of breath. Pt in NAD. CARDIOLOGY: pt denies chest pain, palpitations LUNGS: pt denies shortness of breath MUSCULOSKELETAL: See HPI, otherwise no joint pain or swelling, back pain, or muscle pain. SKIN: see HPI, otherwise no lesions, rash or itching NEURO: No persistent headache, weakness or numbness The remainder of the review of systems is noncontributory PAST MEDICAL HISTORY: Patient Active Problem List Diagnosis Asthma Obesity Obstructive sleep apnea syndrome Pulmonary nodules/lesions, multiple Granulomatosis with polyangiitis (CMS/HCC V24, CMS/HCC V28) Fibromyositis Hypertensive renal disease Acanthosis nigricans Hypothyroidism Primary hypertension Proteinuria Rhinosinusitis Stage 2 chronic kidney disease Chronic obstructive pulmonary disease ([facility] V24, [facility] V28) SOCIAL HISTORY: Social History Tobacco Use Smoking status: Former Types: Cigarettes Smokeless tobacco: Never Substance Use Topics Alcohol use: Not on file ACTIVE MEDICATIONS: No outpatient medications have been marked as taking for the 01/09/25 encounter (Office Visit) with Lino Francois DPM. ALLERGIES: No Known Allergies PHYSICAL EXAM: Visit Vitals Ht 1.626 m (64.02 ) Wt 75.3 kg (166 lb 0.1 oz) BMI 28.48 kg/m?? Smoking Status Former BSA 1.81 m?? PODIATRIC EXAMINATION: GENERAL: Patient appears well nourished, with NAD. VASCULAR: Dorsalis pedis pulses are 1/4 bilaterally and Posterior tibial pulses are 0/4 bilaterally. Capillary filling time within normal limits the digits. No pallor on elevation or rubor on dependency. Positive hair growth. No varicosities. Denies rest pain or claudication pain. NEUROLOGICAL: Sharp/dull sensation intact, protective sensation intact 10/10 with 5.07 semmes dennis bilaterally, vibratory sensation with tuning fork intact to the tibial tuberosity. ORTHOPEDIC: Good muscle strength 5/5 of all flexors and extensors. Dorsi flexion of ankle ,10 degrees, plantar flexion WNL. No muscle atrophy. DERMATOLOGICAL:. Toenails: Left Toenail(s) 1-5: subungual debris, discoloration, hypertrophic, elongation, mycotic appearance, onychomycosis, pain and thickening. Right Toenail(s) 1-5: subungual debris, discoloration, hypertrophic, elongation, mycotic appearance, onychomycosis, pain and thickening. Annular scaling bilateral feet moccasin distribution Skin thinning texture shiny appearance diffuse hyperpigmentation bilaterally pedal hair decreased Annular scaling bilateral feet moccasin distribution Skin thinning texture shiny appearance diffuse hyperpigmentation bilaterally pedal hair decreased Abnormal skin formation subsecond metatarsal left foot with deep central core pathology pressure pinpoint bleeding on debridement BIOMECHANICS: Ankle ROM WNL, STJ ROM wnl, MTJ ROM crepitation midtarsal joint bilateral swelling irritation of both feet, 1st MPJ ROM wnl. Hammertoe contractures 2 through 5 bilateral semireducible IMAGING: IMPRESSION: 1. Metatarsalgia of both feet 2. Verruca plantaris 3. Dermatophytosis of nail 4. Primary osteoarthritis of both feet 5. Pain in toe of right foot 6. Bilateral femoral artery stenosis (CMS/HCC V24) 7. Tinea pedis of both feet 8. Pain in toe of left foot PLAN: Pt was seen and examined, history reviewed. Treatment options were discussed and reviewed including stretching exercises demonstrated for patient anti-inflammatory medications steroid injections orthotics and insoles Recommendations given for prefabricated insoles Referral offered physical therapy patient declined Voltaren gel prescribed Fungus of both feet discussed and reviewed Clotrimazole prescribed treatment options verrucous plantaris were discussed and reviewed including definitive diagnosis with biopsy Discussed with patient concerns for biopsy as it may lead to scar tissue formation but would have surgical cure and definitive diagnosis patient declined Would recommend destructive procedures patient is willing to proceed Follow-up in 1 month [id number]: Destruction of Plantar Verrucae: Verbal informed consent was obtained from the patient. Debrided wart(s) with a scalpel. Aggressive debridement dermal curette and 15 scalpel blade followed by chemical destruction and cauterization with silver nitrate sticks. Debridement of mycotic toenails 6-10: Verbal informed consent was obtained from the patient. Greater than 6 nails were aseptically debrided in thickness and length with nail nippers Lino Francois DPM documented in this encounter Plan of Treatment Upcoming Encounters Date Type Department Care Team (Late st Contact Info) Description 02/06/2025 9:30 AM EDT Office Visit Pulmonolgy [facility] 175 [facility] [address] [place] [phone] Maximus Thurston MD [address] [place] [phone] 02/27/2025 8:45 AM EDT Office Visit Orthopedic Surgery [facility] [address] [phone] Lino Francois DPM [address] [phone] documented as of this encounter Visit Diagnoses Diagnosis Metatarsalgia of both feet- Primary Verruca plantaris Plantar wart Dermatophytosis of nail Primary osteoarthritis of both feet Pain in toe of right foot Pain in soft tissues of limb Bilateral femoral artery stenosis (CMS/HCC V24) Stricture of artery Tinea pedis of both feet Pain in toe of left foot Pain in soft tissues of limb documented in this encounter Care Teams Varnish Finisher Relationship Specialty Start Date End Date Fatuma Hardy MD [address] [place] [address] PCP - General Family Medicine 07/02/24 documented as of this encounter
--- OUTSIDE RECORDS SUMMARY | 2025-01-14 07:46 | XMS_ITS | Encounter Summary ---
Author Organization [facility] Address [address] [facility] 7t [place] [address] Care Team Providers Care Cold Water Machine Operator Name Role Phone Fatuma Hardy MD Primary Care Provider [phone] Encounter Details Date Type Department Care Team (Late st Contact Info) Description 11/10/2023 Orders Only [facility] MED & PEDS [address] [place] [address] Provider, Historical, Social History Tobacco Use Types [...] Department Care Team (Late Contact Info) Description 03/21/2025 3:00 PM EST Office Visit [facility] ADULT DENTAL [address] [place] [address] Miriam Watson documented as of this encounter [...] on filedocumented in this encounter Care Teams Cold Water Machine Operator Relationship Specialty Start Date End Date Fatuma Hardy MD [address] [place] [address] PCP - General Family Medicine 04/12/12 documented as of this encounter
--- OUTSIDE RECORDS SUMMARY | 2025-01-14 07:46 | XMS_ITS | Patient Health Record ---
Author Organization [facility] Address [address] [place] [address] Care Team Providers Care Meter Changes Records Clerk Name Role Phone MICKEY FAIR Primary Care Provider Machelle e Raul Perez Unavailable [phone] Reason For Referral No Information Medications Medication [...] Problem Status W/U Status Risk Notes Problem [id number] Encounter for screening for malignant neoplasm of colon (Z12.11) Active confirmed Problem [id number] Barretts esophag us without dysplasia (K22.70) Active confirmed Problem [id number] Gastroesophageal reflux disease, esophagitis presence not specified (K21.9) Active confirmed Problem [id number] Constipation, unspecified constipation type (K59.00) Active confirmed [...] OF [place] [address] [place]WIS [address] [phone] [id number] SUSAN MUIR Self - patient is the insured MEDICAID OF [facility] [address] [place] [address] [id number] SUSAN MUIR Self - patient is the [...] Cervical spondylosis Fibromyalgia Depression Osteoporosis HTN Denies MD,DM,CVA,renal disease Negative colonoscopy in 09/2006 Rheumatoid arthritis-Dr. Albarran Hospitalized for pneumonia in 06/2016 Surgical History Surgery Date(Month/Year) Lung surgery-biopsy of rheumatoid nodule s
--- OUTSIDE RECORDS SUMMARY | 2025-01-14 07:46 | XMS_ITS | Encounter Summary ---
Author Organization [employer] Address [address] [facility] 7t [place] [address] Care Team Providers Care Veneer Measurer Name Role Phone Fatuma Hardy MD Primary Care Provider [phone] Reason for Visit * Reason Onset Date Comments PT1 10/23/2024 Encounter Details Date Type Department Care Team ([facility] st Contact Info) Description 10/23/2024 Telephone [facility] MEDICINE [address] [place] [address] Fatuma Hardy MD [address] [place], [place] [phone] PT1 Social History Tobacco Use Types Packs/Day [...] Yes Provider name or facility name: [address] [place] [address] - Dr Queenie Abbott Escort needed: Y/N: No Do you have a wheelchair: Y/N: No If yes- Manual or electric: N/A Visits: (3x monthly) 2 of 2 Patient calling requesting PT1 Home Address verified: Y/N: Yes Provider name or facility name: [address] [place], [place] Escort needed: Y/N: No Do you have a wheelchair: Y/N: No If yes- Manual or electric: N/A Visits: (3x monthly) documented in this encounter Plan of Treatment Upcoming Encounters Date Type Department Care Team (Late st Contact Info) Description 03/21/2025 3:00 PM EST Office Visit [facility] ADULT DENTAL [address] [place] [address] Miriam Watson documented as of this encounter Visit Diagnoses Not on filedocumented in this encounter Care Teams Veneer Measurer Relationship Specialty Start Date End Date Fatuma Hardy MD [address] [place] [address] PCP - General Family Medicine 04/12/12 documented as of this encounter
--- OUTSIDE RECORDS SUMMARY | 2025-01-14 07:47 | XMS_ITS | Encounter Summary ---
Author Organization [employer] Address [address] [facility] 7t [place] [address] Care Team Providers Care Event Producer Name Role Phone Fatuma Hardy MD Primary Care Provider [phone] Reason for Visit * Reason Onset Date Comments PT1 06/26/2024 Encounter Details Date Type Department Care Team ([facility] Contact Info) Description 06/26/2024 Telephone [facility] MED & PEDS [address] [place] [address] Fatuma Hardy MD [address] [place] [address] PT1 Social History Tobacco Use Types Packs/Day [...] Y/N: Yes Provider name or facility name: [facility] Facility Address: [address] [place] [address] [address] [address] Escort needed: Y/N: No Do you have a wheelchair: Y/N: No If yes- Manual or electric: n/a Visits: 1-2 for 6 months documented in this encounter Plan of Treatment Upcoming Encounters Date Type Department Care Team (Late st Contact Info) Description 03/21/2025 3:00 PM EST Office Visit [facility] ADULT DENTAL [address] [place] [address] Miriam Watson documented as of this encounter Visit Diagnoses Not on filedocumented in this encounter Care Teams Event Producer Relationship Specialty Start Date End Date Fatuma Hardy MD [address] [place] [address] PCP - General Family Medicine 04/12/12 documented as of this encounter
--- OUTSIDE RECORDS SUMMARY | 2025-01-14 07:47 | XMS_ITS | Clinical Summary ---
Author Organization [facility] Address [address] [facility] [address] [place] [address] Phone Care Team Providers Care Reports Developer Name Role Phone Fatuma Hardy MD Primary Care Provider [phone] Allergies No known active allergies Medications montelukast [...] 11/25/2024 Office Communication [facility] [address] [phone] Vidal Reed MD 11/25/2024 Orders Only [facility] [address] [phone] Vidal Reed MD 11/11/2024 Refill [facility] [address] [phone] Vidal Reed MD 10/30/2024 Telephone [facility] [address] [phone] Iveth Patel [place] 10/18/2024 Orders Only [facility] [address] [phone] Vidal Reed MD Chronic kidney disease, stage [...] Office Visit [facility] [address] [phone] Vidal Reed MD [address] [phone] Health Maintenance Due Date Last Done Comments [...] ORDERABLES Final Re sult Performing Organization Address [facility] de Phone Number [place] See order comments [place] [address] * Creatinine (11/25/2024 7:41 AM EDT) Creatinine Serum 0.58 0.5 - 1.4 mg/dL See order comments eGFR (Calc) >60 See orde r comments Comment: Chronic Kidney Disease: Estimated GFR < 60 mL/min/1.73m2 Severe Kidney Disease: Estimated GFR < 15 mL/min/1.73m2 11/25/2024 7:41 AM EDT 11/25/2024 7:41 AM EDT Vidal Reed MD LAB BLOOD ORDERABLES Final Re sult Performing Organization Address [facility] de Phone Number [place] See order comments [place] [address] * (ABNORMAL) Iron Panel (Fe, TIBC, TSAT) (11/25/2024 7:41 AM EDT) Pathologist [facility] Iron 31 30 - 160 mcg/dL See order comments TIBC 351 228 - 428 mcg/dL See order comments Iron Saturation (TSat) 9(L) 15 - 50 % See order comments UIBC 320 ug/dL See order comments Blood Venous blood / Unknown 11/25/2024 7:41 AM EDT 11/25/2024 7:41 AM EDT Vidal Reed MD LAB BLOOD ORDERABLES Final Re sult Performing Organization Address [facility] de Phone Number [place] See order comments [place] [address] * Vitamin D 25 Hydroxy (11/25/2024 7:41 [...] order comments [place] [address] * (ABNORMAL) CBC and Differential (11/25/2024 7:41 [...] order comments [place] [address] * BUN (11/25/2024 7:41 AM EDT) BUN 16 9 - 16 mg/dL See order comments 11/25/2024 7:41 AM EDT 11/25/2024 7:41 AM EDT Vidal Reed MD LAB BLOOD ORDERABLES Final Re sult [place] See order comments [place] [address] * (ABNORMAL) Ferritin (11/25/2024 7:41 AM EDT) Ferritin 6(L) 10 - 250 ng/mL See order comments 11/25/2024 7:41 AM EDT 11/25/2024 7:41 AM EDT Vidal Reed MD LAB BLOOD ORDERABLES Final Re sult Performing Organization Address [facility] de Phone Number [place] See order comments [place] [address] * Calcium (11/25/2024 7:41 AM EDT) Calcium 9.3 8.4 - 10.2 mg/dL See order comments 11/25/2024 7:41 AM EDT 11/25/2024 7:41 AM EDT Vidal Reed MD LAB BLOOD ORDERABLES Final Re sult Performing Organization Address [facility] de Phone Number [place] See order comments [place] [address] * (ABNORMAL) Electrolyte panel (11/25/2024 7:41 AM [...] ORDERABLES Final Re sult Performing Organization Address [facility] de Phone Number [place] See order comments [place] [address] from Last 3 Months Insurance Medicaid [place] Medicare Medicaid [place] Medicare Care Teams Reports Developer Relationship Specialty Start Date End Date Fatuma Hardy MD [address] [place] [phone] PCP - General 05/11/20
--- OUTSIDE RECORDS SUMMARY | 2025-01-14 07:47 | XMS_ITS | Encounter Summary ---
Author Organization [employer] Address [address] [facility] 7t [place] [address] Care Team Providers Care Supervisor Pre Wave Name Role Phone Fatuma Hardy MD Primary Care Provider [phone] Encounter Details Date Type Department Care Team (Late st Contact Info) Description 11/26/2024 Orders Only [facility] [address] [place] [address] Provider, MD Pipe Social History Tobacco Use [...] Description 03/21/2025 3:00 PM EST Office Visit [facility] ADULT DENTAL [address] [place] [address] Miriam Watson documented as of this encounter Procedures Procedure Name Priority Date/Time Associated Diagnosis Comments XR FOOT 3 OR MORE VIEWS BILATERAL Routine 11/26/2024 12:57 PM EDT documented in this encounter Results * XR FOOT 3 OR MORE VIEWS BILATERAL (11/26/2024 12:57 PM EDT) Anatomical Region Laterality Modality Radiographic Jaida ging us Historical Provider MD VILLASENOR XR PROCEDURES Final R esult documented in this encounter Visit Diagnoses Not on filedocumented in this encounter Care Teams Supervisor Pre Wave Relationship Specialty Start Date End Date Fatuma Hardy MD [address] [place] [address] PCP - General Family Medicine 04/12/12 documented as of this encounter
--- OUTSIDE RECORDS SUMMARY | 2025-01-14 07:47 | XMS_ITS | Encounter Summary ---
Author Organization [employer] Address [address] [facility] 7t [place] [address] Care Team Providers Care Outreach Representative Name Role Phone Fatuma Hardy MD Primary Care Provider [phone] Reason for Visit * Reason Onset Date Comments pt1 12/09/2024 Encounter Details Date Type Department Care Team ([facility] Contact Info) Description 12/09/2024 Telephone [facility] MED & PEDS [address] [place] [address] Fatuma Hardy MD [address] [place] [address] pt1 Social History Tobacco Use Types Packs/Day Years [...] encounter Miscellaneous Notes * Telephone Encounter - Edwina Baez - 12/09/2024 1:18 PM EDT Patient calling requesting PT1 Home Address verified: Y/N: Yes Provider name or facility name: [address] [place] [address] Dr Bere FIERRO Escort needed: Y/N: No Do you have a wheelchair: Y/N: No If yes- Manual or electric: Visits: 1x a year documented in this encounter Plan of Treatment Upcoming Encounters Date Type Department Care Team (Late st Contact Info) Description 03/21/2025 3:00 PM EST Office Visit [facility] ADULT DENTAL [address] [place] [address] Miriam Watson documented as of this encounter Visit Diagnoses Not on filedocumented in this encounter Care Teams Outreach Representative Relationship Specialty Start Date End Date Fatuma Hardy MD [address] [place] [address] PCP - General Family Medicine 04/12/12 documented as of this encounter
--- OUTSIDE RECORDS SUMMARY | 2025-01-14 07:47 | XMS_ITS | Clinical Summary ---
Author Organization [employer] Address [address] [facility] [address] [place] [address] Care Team Providers Care Shredder Picker Name Role Phone Fatuma Hardy MD Primary Care Provider [phone] Allergies No known active allergies Medications lidocaine [...] Active beta carotene (vitamin A) 3 MG (26192 UT) capsule Take by mouth in the morning. 3 Active traMADol (Ultram) 50 MG tabletIndicatio ns:Fibromyositi s TAKE 1 TABLET(50 MG) BY MOUTH EVERY 12 HOURS 10 tablet 4 Active cyclobenzaprine (Amrix) 15 MG 24 [...] EVERY DAY NEEDED AFTER PROCEDURE 4 Active Blood Pressure kit CHECK BLOOD PRESSURE DAILY 1 kit 5 Active furosemide (Lasix) 20 MG tablet Take 20 mg by mouth Once per day. Active tiZANidine (Zanaflex) 4 MG tabletIndicatio ns:Fibromyositi s Take 1 tablet (4 mg) by mouth every 8 (eight) hours if needed for muscle spasms. TAKE 1 TABLET(4 MG) BY MOUTH AT BEDTIME FOR 10 DAYS 30 tablet 3 5 Active senna-docusate sodium (Senokot-S) 8.6-50 MG tablet Take 1 tablet by mouth Once per day. 30 tablet 11 5 10/17/19 26 Active naproxen (Naprosyn) 500 MG tablet TAKE 1 TABLET(500 MG) BY MOUTH TWICE DAILY 60 tablet 5 Active levothyroxine (Synthroid) 100 MCG tablet TAKE 1 TABLET BY MOUTH BEFORE BREAKFAST 90 tablet 1 5 Active SUMAtriptan (Imitrex) 50 MG tablet TAKE 1 TABLET BY MOUTH 1 TIME NEEDED FOR MIGRAINE. MAY REPEAT DOSE 1 TIME IN 2 HOURS IF NO RELIEF. DO NOT EXCEED 2 DOSES IN 24 HOURS 9 tablet 5 Active Active Problems Problem Noted Date Diagnosed Date Multiple joint pain 10/16/2024 Chronic obstructive pulmonary disease 09/02/2024 Primary hypertension [...] Encounters Date Type Department Care Team Description 01/08/2025 Orders Only GENERIC EXTERNAL DATA DEPARTMENT Provider, Generic External Data 01/06/2025 8:30 AM EDT Office Visit [facility] [address] [place] [address] Fatuma Hardy MD Primary hypertension (Primary Dx); Hypothyroidism, unspecified type; Stage 2 chronic kidney disease 01/06/2025 Travel 01/03/2025 Telephone [facility] [address] [place] [address] Fatuma Hardy MD chart Prep 01/03/2025 Telephone [facility] [address] [place] [address] Fatuma Hardy MD chart prep 12/10/2024 Refill [facility] [address], [place] [phone] Fatuma Hardy MD 12/09/2024 Patient Outreach [facility] [address] [place] [phone] Fatuma Hardy MD [facility] Gisselle Tai) 12/09/2024 Telephone [facility] [address] [place] [address] Fatuma Hardy MD pt1 12/09/2024 Telephone [facility] [address] [place] [address] Fatuma Hardy MD pt1 11/27/2024 Refill [facility] [address] [place] [address] Aquiles Lugo MD 11/27/2024 Refill [facility] [address] [place] [address] Fatuma Hardy MD 11/26/2024 Orders Only [employer] [address] [place] [address] Pipe Galvez MD 11/13/2024 Telephone [facility] [address] [place] [address] Fatuma Hardy MD Durable Medical Equipment 11/13/2024 Telephone [facility] [address], [place] [phone] Fatuma Hardy MD PT1 10/23/2024 Patient Outreach [facility] [address] [place] [address] Fatuma Hardy MD 10/23/2024 Telephone [facility] [address] [place] [address] Fatuma Hardy MD PT1 10/22/2024 Refill [facility] [address] [place] [address] Fatuma Hardy MD 10/16/2024 11:15 AM EDT Telemedicine [facility] [address] [place] [address] Aquiles Lugo MD Fibromyositis (Primary Dx); Multiple joint pain 10/16/2024 Travel from Last 3 Months Immunizations Immunization Administration Dates Next Due Influenza, High Dose Seasonal, Preservative Free 01/31/2024 Pneumococcal Polysaccharide PPSV23 08/08/2013, Tdap 03/08/2016,11/21/2015 Social History Tobacco Use Types Packs/Day Years Used Date Smoking Tobacco: Never Smokeless Tobacco: Never Tobacco Cessation:Counseling Given: Not Answered Alcohol Use Standard Drinks/Week Comments Defer 0 (1 standard drink = 0.6 oz pur e alcohol) Depression Answer Date Recorded Patient Health Questionnaire-9 Score 1 01/06/2025 Patient Health Questionnaire-9 Score 1 01/06/2025 Last PHQ-9: Questionnaire Data Not on file 0 01/06/2025 Housing Stability Answer Date Recorded What is [...] off services in your home? No 01/23/2024 Depression Answer Date Recorded Patient Health Questionnaire-2 Score 0 01/06/2025 Internet Access Answer Date Recorded Internet Access [...] Sign Reading Time Taken Comments Blood Pressure 121/67 01/06/2025 8:46 AM EDT Pulse 66 01/06/2025 8:46 AM EDT Temperature 36.4 C (97.5 F) 01/06/2025 8:46 AM EDT Respiratory Rate 18 01/06/2025 8:46 AM EDT Oxygen Saturation 96% 09/02/2024 8:54 AM EDT Inhaled Oxygen Concentration - - Weight 70.3 kg (155 lb) 01/06/2025 8:46 AM EDT Height 160 cm (5' 3 ) 01/06/2025 8:46 AM EDT Body Mass Index 27.46 01/06/2025 8:46 AM EDT Plan of Treatment Upcoming Encounters Date Type Department Care Team (Late st Contact Info) Description 03/21/2025 3:00 PM EST Office Visit [facility] [address] [place] [phone] Miriam Watson Health Maintenance Due Date Last Done Comments CT Colonography 1955 Colonoscopy 1955 FIT 1955 Sigmoidoscopy 1955 Hepatitis A Vaccines (1 of 2 - Risk 2-dose series) 08/25/1975 Zoster Vaccines (1 of 2) 2006 Pneumococcal Vaccine: 50+ Years (2 of 2 - PCV) 08/08/2014 08/08/2013, 04/21/2012, 04/04/2006 Hepatitis B Vaccines (1 of 3 - Risk 3-dose series) 2016 RSV Patients and Patients Aged 60 years or older (1 - Risk 60-74 years 1-dose series) 2016 FOBT 06/05/2024 06/05/2023 COVID-19 Vaccine (4 - season) 2024 06/16/2021, 10/07/2020, 09/02/2020 Influenza Vaccine (#1) 2024 , 03/09/2019, 03/29/2018, Additional history exists SDOH Screening 01/22/2025 01/23/2024 Dental Oral Exam 02/27/2025 08/27/2024, , 12/21/2022, Additional history exists Dental Prophylaxis 02/27/2025 08/27/2024, 1 , 07/31/2023, Additional history exists Diagnostic Breast Imaging 08/11/20252024, 01/29/2024, 07/20/2023 Dental X-Ray: Bitewings 08/28/2025 08/28/19 25, 07/31/2023, 12/21/2022, Additional history exists Alcohol/Substance Use Screening 01/06/2026 01/06/2025 Depression Screening 01/06/2026 01/06/2025, 01/07/20 Tobacco Screening 01/06/2026 01/06/2025 DTaP/Tdap/Td Vaccines (3 - Td or Tdap) 03/08/2026 03/08/2016, 11/21/2015 Colorectal Cancer Screening 06/05/2026 FIT DNA/Cologuard 06/05/2026 06/05/2023 Dental X-Ray: Full Mouth 07/31/2026 07/31/2023 Lipid Panel 01/08/2030 01/08/2025, 10/0 10/2023, 07/21/2022, Additional history exists Cervical Cancer Screening Discontinued HPV/Cotest Discontinued 03/29/2016 Hepatitis C Screening Completed 02/05/2024 HIB Vaccines [...] Name Priority Date/Time Associated Diagnosis Comments PROTEIN CREATININE RATIO, URINE Routine 01/08/2025 8:20 AM EDT URINALYSIS, COMPLETE Routine 01/08/2025 8:20 AM EDT ANCA VASCULITIDES Routine 01/08/2025 8:1 0 AM EDT T4, FREE Routine 01/08/2025 8:10 AM EDT C-REACTIVE PROTEIN Routine 01/08/2025 8: 10 AM EDT COMPREHENSIVE METABOLIC PANEL Routine 01/08/2025 8:10 AM EDT SED RATE BY MODIFIED WESTERGREN Routine 01/08/2025 8:10 AM EDT CBC WITH AUTO DIFFERENTIAL Routine 01/08/2025 8:10 AM EDT TSH W/REFLEX TO FT4 Routine 01/08/2025 8 :10 AM EDT Hypothyroidism, unspecified type HEPATIC FUNCTION PANEL Routine 01/08/2025 8:10 AM EDT Primary hypertension LIPID PANEL, STANDARD Routine 01/08/2025 8:10 AM EDT Primary hypertension XR FOOT 3 OR MORE VIEWS BILATERAL Routine 11/26/2024 12:57 PM EDT PROPHYLAXIS - ADULT Routine 08/27/2024 9 :00 AM EDT BITEWINGS - 4 RADIOGRAPHIC IMAGES Routine 08/27/2024 9:00 AM EDT PERIODIC ORAL EVALUATION - ESTABLISHED PATIENT Routine 08/27/2024 9:00 AM EDT BI MAMMOGRAM DIAGNOSTIC TOMOSYNTHESIS BILATERAL Routine 08/07/2024 10:00 AM EDT HEPATITIS PANEL, GENERAL Routine 02/05/2024 8:23 AM EDT INTRAORAL - COMPLETE SERIES OF RADIOGRAPHIC IMAGES Routine 07/31/2023 8:00 AM EDT LAB COLOGUARD COLON CANCER SCREEN Routine 06/05/2023 1:00 PM EST Encounter for screening for malignant neoplasm of colon ZZZ HISTORICAL HPV MRNA E6/E7 Routine 03/29/2016 1:40 PM EST from Last 3 Months or Most Recently Relevant to Health Maintenance Results * (ABNORMAL) Protein Creatinine Ratio, Urine (01/08/2025 8:20 AM EDT) Creatinine, Urine 377.94 mg/dL [facility] Protein, Total, Random Urine 52(H) <12 mg/dL [facility] Protein/Creati nine Ratio, Ur 0.14 <0.2 [facility] Comment:The spot urine prote in:creatinine ratio may increase to 0.3during normal . 01/08/2025 8:20 AM EDT 01/08/2025 2:16 PM EDT us Generic External Data Provider LAB URINE ORDERAB LES Final Result [facility] [address] [place] [phone] * (ABNORMAL) Urinalysis Complete (01/08/2025 8:20 AM EDT) Color Urine Dark Yellow [facility] Appearance Urine Clear [facility] PH 6.0 5.0 - 9.0 [facility] Glucose Urine UA Negative Negative mg/dL [facility] Urine Blood Small (1+)(A) Negative [facility] Specific [place] - Urine 1.025 1.005 - 1.025 [facility] Urine Protein 100 (2+)(A) Neg-Trace mg/dL [facility] Urine Ketones Trace Negative mg/dL [facility] Nitrite Urine Negative Negative [facility] Leukocyte Esterase Urine Trace(A) Negative [facility] RBC Urine 6-10(A) 0 - 2 /HPF [facility] Urine WBC 0-5 0 - 5 /HPF [facility] Urine Squamous Epithelial Cell 3-5 0 - 2 /HPF [facility] Urine Bacteria None Seen None Seen [facility] Hyaline Casts, Urine 6-10 0 - 2 /LPF [facility] 01/08/2025 8:20 AM EDT 01/08/2025 2:16 PM EDT us Generic External Data Provider LAB URINE ORDERAB LES Final Result [facility] [address] [place] [phone] * ANCA Vasculitides (01/08/2025 8:10 AM EDT) Myeloperoxidase Antibody <1.0 [facility] Comment:Value Interpretation ----- <1.0 No Antibody Detected > or = 1.0 Antibody DetectedAutoantibodies to myeloperoxidase (MPO) are commonlyassociated with the following small-vesselvasculitides: microscopic polyangiitis,polyarteritis nodosa, Churg-Annette syndrome,necrotizing and crescentic glomerulonephritis andoccasionally granulomatosis with polyangiitis(GPA, Maurilio's). The perinuclear IFA pattern,(p-ANCA) is based largely on autoantibody tomyeloperoxidase which serves as the primary antigen.These autoantibodies are present in active disease. Proteinase-3 Antibody <1.0 [facility] Comment:Value Interpretation ----- <1.0 No Antibody Detected > or = 1.0 Antibody DetectedAutoantibodies to proteinase-3 (SC-3) are accepted ascharacteristic for granulomatosis with polyangiitis(GPA, Maurilio's), and are detectable in 95% of thehistologically proven cases. The cytoplasmic IFApattern, (c-ANCA), is based largely on autoantibody toPR-3 which serves as the primary antigen.These autoantibodies are present in active disease.THIS TEST WAS PERFORMED AT:[facility] [place] [phone] MAYEN MD 01/08/2025 8:10 AM EDT 01/08/2025 2:28 PM EDT Generic External Data Provider LAB BLOOD ORDERAB LES Final Result Performing Organization Address [facility]/ZIP Co de Phone Number [facility] [address] [place] [phone] * (ABNORMAL) TSH with Reflex to Free T4 (01/08/2025 8:10 AM EDT) TSH reflex Free T4 0.08(L) 0.32 - 4.0 uIU/mL [facility] Blood Venous blood specimen / Unknown 01/08/2025 8:10 AM EDT 01/08/2025 2:28 PM EDT us Fatuma Hardy MD LAB BLOOD ORDERABLES Final Resul t Performing Organization Address [facility]/ZIP Co de Phone Number [facility] [address] [place] [phone] * (ABNORMAL) CBC auto differential (01/08/2025 8:10 AM EDT) White Blood Count 5.3 4.8 - 10.8 X10*3/uL [facility] Red Blood Count 4.82 4.20 - 5.50 X10*6/uL [facility] Hemoglobin 13.2 12.0 - 16.0 g/dl [facility] Hematocrit 39.6 37.0 - 47.0 % [facility] Mean Corpuscular Volume 82.2 80.0 - 98.0 fL [facility] Mean Corpuscular Hemoglobin 27.4 27.0 - 33.0 pg [facility] Mean Corpuscular HGB Conc 33.3 31.0 - 35.0 g/dl [facility] Red Cell Distribution Width 16.2(H) 11.0 - 16.0 % [facility] Platelet Count 250 160 - 400 X10*3/uL [facility] Mean Platelet Volume 9.7 9.4 - 12.3 fL [facility] Neutrophils Percent Auto 62.6 45 - 73 % [facility] Imm Gran Pct Auto 0.4 0.0 - 0.4 % [facility] Lymphocytes Percent Auto 27.0 20 - 40 % [facility] Monocytes Percent Auto 7.5 2 - 11 % [facility] Eosinophils Percent Auto 1.9 0 - 4 % [facility] Basophils Percent Auto 0.6 0 - 2 % [facility] NRBC Pct Auto 0.0 0.0 - 0.2 /100WBC [facility] Neutrophils Absolute Auto 3.3 2.0 - 8.3 x10*3/uL [facility] Imm Gran Abs Auto 0.02 0.00 - 0.03 X10*3/uL [facility] Lymphocytes Absolute Auto 1.4 1.2 - 4.9 X10*3/uL [facility] Monocytes Absolute Auto 0.4 0.1 - 1.2 X10*3/uL [facility] Eosinophils Absolute Auto 0.1 0.0 - 0.4 X10*3/uL [facility] Basophils Absolute Auto 0.0 0.0 - 0.2 X10*3/uL [facility] NRBC Abs Auto 0.000 0.0 - 0.012 X10*3/uL [facility] 01/08/2025 8:10 AM EDT 01/08/2025 2:23 PM EDT us Generic External Data Provider LAB BLOOD ORDERAB LES Final Result [facility] [address] [place] [phone] * Sed Rate by Modified Westergren (01/08/2025 8:10 AM EDT) Erythrocyte Sedimentation Rate 20 0 - 20 MM/HR [facility] Comment:Patients with polycy themia and many hemoglobin abnormalitiesmay have depressed sed rates whereas patients with anemiamay have elevated sed rates. 01/08/2025 8:10 AM EDT 01/08/2025 2:23 PM EDT us Generic External Data Provider LAB BLOOD ORDERAB LES Final Result Performing Organization Address [facility] Co tx Phone Number [facility] [address] [place] [phone] * (ABNORMAL) C-reactive Protein (01/08/2025 8:10 AM EDT) Pathologist [facility] C Reactive Protein 0.55(H) < or = 0.50 mg/dL [facility] 01/08/2025 8:10 AM EDT 01/08/2025 2:28 PM EDT us Generic External Data Provider LAB BLOOD ORDERAB LES Final Result Performing Organization Address [facility] Co de Phone Number [facility] [address] [place] [phone] * T4, Free (01/08/2025 8:10 AM EDT) Free T4 (Free Thyroxine) 1.52 0.71 - 1.85 ng/dL [facility] 01/08/2025 8:10 AM EDT 01/08/2025 2:28 PM EDT us Fatuma Hardy MD LAB BLOOD ORDERABLES Final Resul t Performing Organization Address [facility] Co de Phone Number [facility] [address] [place] [address] [place] [phone] * Hepatic Function Panel (01/08/2025 8:10 AM EDT) Bilirubin, Direct 0.2 0.0 - 0.5 mg/dL [facility] Blood Venous blood specimen / Unknown 01/08/2025 8:10 AM EDT 01/08/2025 2:28 PM EDT Fatuma Hardy MD LAB BLOOD ORDERABLES Final Resul t [facility] [address] [place] [phone] * (ABNORMAL) Lipid Panel, Standard (01/08/2025 8:10 AM EDT) Triglycerides 75 <150 mg/dL [facility] Comment:Desirable Triglyceri de: less than 150 mg/dLBorderline High Triglyceride 150-199 mg/dLHigh Triglyceride: 200-499 mg/dLVery High Triglyceride: greater than or equal to 5OO mg/dL Cholesterol 181 <200 mg/dL [facility] Comment:Desirable Cholestero l: less than 200 mg/dLBorderline High Cholesterol: 200-239 mg/dLHigh Cholesterol: greater than 239 mg/dL LDL Cholesterol Calculated 109(H) <100 mg/dL [facility] Comment:Desirable LDL: less than 100 mg/dLNear Optimal/Above Optimal LDL: 110- 129 mg/dLBorderline High LDL: 130-159 mg/dLHigh LDL: 160-189 mg/dLVery High LDL: greater than or equal to 190 mg/dL HDL Cholesterol 57 >40 mg/dL [facility] Comment:Desirable HDL: great er than 40 mg/dL Note: This HDL assay may give artificially low results in patients with liver disease. Blood Venous blood specimen / Unknown 01/08/2025 8:10 AM EDT 01/08/2025 2:28 PM EDT Fatuma Hardy MD LAB BLOOD ORDERABLES Final Resul t Performing Organization Address City/[facility]/ZIP Co de Phone Number [facility] [address] [place] [phone] [phone] * (ABNORMAL) Comprehensive Metabolic Panel (01/08/2025 8:10 AM EDT) Sodium 142 135 - 145 mmol/L [facility] Potassium 3.6 3.3 - 5.1 mmol/L [facility] Chloride 103 96 - 108 mmol/L [facility] Carbon Dioxide 29 22 - 29 mmol/L [facility] Anion Gap 14 12 - 20 [facility] Urea Nitrogen (BUN) 12 9 - 16 mg/dL [facility] Creatinine, Serum 0.66 0.5 - 1.4 mg/dL [facility] Estimated Glomerular Filt Rate >60 [facility] Comment:Chronic Kidney Disea se: Estimated GFR < 60 mL/min/1.12o7Voznnw Kidney Disease: Estimated GFR < 15 mL/min/1.73m2 Glucose 76 60 - 115 mg/dL [facility] Calcium 9.9 8.4 - 10.2 mg/dL [facility] Bilirubin, Total 0.7 0.0 - 1.0 mg/dL [facility] Aspartate Amino Transferase 33(H) 5 - 31 U/L [facility] Alanine Aminotransferase 19 0 - 31 U/L [facility] Total Protein 8.1(H) 6.5 - 8.0 g/dL [facility] Albumin Level 4.6 3.5 - 5.0 g/dL [facility] Alkaline Phosphatase 114 39 - 117 U/L [facility] 01/08/2025 8:10 AM EDT 01/08/2025 2:28 PM EDT us Generic External Data Provider LAB BLOOD ORDERAB LES Final Result Performing Organization Address [facility]/ZIP Co de Phone Number [facility] [address] [place] [phone] [phone] * XR FOOT 3 OR MORE VIEWS BILATERAL (11/26/2024 12:57 PM EDT) Anatomical Region Laterality Modality Radiographic Jaida ging us Historical Provider MD VILLASENOR XR PROCEDURES Final R esult * BI Mammogram Diagnostic Tomosynthesis Bilateral (08/07/2024 10:00 AM EDT) Anatomical Region Laterality Modality Breast Bilateral Mammography 08/07/2024 10:0 0 AM EDT Narrative 08/07/2024 12:12 PM EDT [facility] [address] [place] [address] Mammography Report Signed Patient: Petra Meadows MR#: [id number] : 1955 Acct:[id number] Age/Sex: 68 / F ADM Date: 08/07/24 Loc: HO.MAMMO Attending Dr: Fatuma Hardy MD Ordering Physician: Fatuma Hardy MD Results: 3.12MPr obably Benign Finding - 12 month F/U Suggested Date of Service: 08/07/24 Follow Up: 12 month diagnos tic follow up Procedure(s): MM tomosynthesis diagnostic BI Accession Number(s): [id number] cc: Fatuma Hardy MD EXAMINATION: MM DIAGNOSTIC [...] Dolly Howard DO 08/07/2024 12:09 PM EDT RP Dictated By: Dolly Howard DO Signed By: <Electronically signed by Dolly Howard DO in OV> 08/07/24 1209 DD/ 1000 TD/TT: 08/07/24 1020 Business Transformation Consultant: Procedure Note Donotuseinterpreter, Image - 08/07/2024 [facility] [address] [place] [address] Mammography Report Signed Patient: Petra Meadows NMR#: [id number] : 7Acct:[id number] Age/Sex: 68 / FADM Date: 08/07/24 Loc: HO.MAMMO Attending Dr: Fatuma Hardy MD Ordering Physician: Fatuma Hardy MDResults: 3.12MPr obably Benign Finding - 12 month F/U Suggested Date of Service: 08/07/24Follow Up: 12 month diagnos tic follow up Procedure(s): MM tomosynthesis diagnostic BI Accession Number(s): [id number] cc: Fatuma Hardy MD EXAMINATION: MM DIAGNOSTIC [...] Dolly Howard DO 08/07/2024 12:09 PM EDT RP Dictated By: Dolly Howard DO Signed By: <Electronically signed by Dolly Howard DO in OV> 08/07/24 1209 DD/ 1000 TD/TT: 08/07/24 1020 Business Transformation Consultant: us Fatuma Hardy MD IMG BI PROCEDURES Final Result * Hepatitis Panel, General (02/05/2024 8:23 AM EDT) Hepatitis A IgM Nonreactive Nonreactive [facility] Comment:IgM antibodies to GONZALEZ V not detected; does not exclude earlyacute or recovered HAV infection. ~Hepatitis B Surface Antibody NONREACTIVE Nonreactive [facility] Comment:Nonreactive: < 8.00 mIU/mL Hepatitis B Core Antibody Nonreactive Nonreactive [facility] Hepatitis C Antibody Nonreactive Nonreactive [facility] Comment:Antibodies to HCV no t detected; does not exclude early acuteHCV infection. Hepatitis B Surface Ag Negative Negative [facility] 02/05/2024 8:23 AM EDT 02/05/2024 8:27 AM EDT us Generic External Data Provider LAB BLOOD ORDERAB LES Final Result [facility] [address] [place] [phone] * Cologuard?? colon cancer screening (06/05/2023 1:00 PM EST) Cologuard Result Negative Negative 06/18/19 24 9:01 AM [facility] (CLIA #:[id number]) Comment: NEGATIVE TEST RESULT. A negative Cologuard result indicates a low likelihood that a colorectal cancer (CRC) or advanced adenoma (adenomatous polyps with more advanced pre-malignant features) is present. The chance that a person with a negative Cologuard test has a colorectal cancer is less than 1 in 1500 (negative predictive value >99.9%) or has an advanced adenoma is less than 5.3% (negative predictive value 94.7%). These data are based on a prospective cross-sectional study of 10,000 individuals at average risk for colorectal cancer who were screened with both Cologuard and colonoscopy. (Alicia Jeter et al, N Engl J Med 2014;370(14):3055-6311) The normal value (reference range) for this assay is negative. COLOGUARD RE-SCREENING RECOMMENDATION: Periodic colorectal cancer screening is an important part of preventive healthcare for asymptomatic individuals at average risk for colorectal cancer. Following a negative Cologuard result, the [place] [employer] and U.S. Multi-Society Task Force screening guidelines recommend a Cologuard re-screening interval of 3 years. References: [place] [employer] Guideline for Colorectal Cancer Screening: https://www.cancer.org/cancer/cnieo-kputad-qynrab/zkbfvuxxc-bwadlyupg-tuzshvj/ac s-rec ommendations.html.; Julio WORTHINGTON, Vipin MCGOWAN, Moni CatherineK, Colorectal Cancer Screening: Recommendations for Physicians and Patients from the U.S. Multi-Society Task Force on Colorectal Cancer Screening , Am J Gastroenterology 2017; 112:9028-2185. TEST DESCRIPTION: Composite algorithmic analysis of stool DNA-biomarkers with hemoglobin immunoassay. Quantitative values of individual biomarkers are not [...] Jeter et al, N Engl J Med 2014;370(14):0375-2774.) Cologuard may produce a false negative or false positive result (no colorectal cancer or precancerous polyp present at colonoscopy follow up). A negative Cologuard test result does not guarantee the absence of CRC or advanced adenoma (pre-cancer). The current Cologuard screening interval is every 3 years. ([employer] [employer] and U.S. Multi-Society Task Force). Cologuard performance data in a 10,000 patient pivotal study using colonoscopy as the reference method can be accessed at the following location: www.SciGit/results. Additional description of the Cologuard test process, warnings and precautions can be found at www.Upheaval Artsrd.com. Stool specimen (specimen) 06/05/2023 1:00 PM EST 06/07/2023 2:46 PM EST Fatuma Hardy MD LAB MOLECULAR DIAGNOSTICS ORDERA BLES Final Result [facility] (CLIA #:[id number]) [place] [address], * HPV mRNA E6/E7 (03/29/2016 1:40 PM EST) HPV mRNA E6/E7 Not Detected NOT DETECTED [facility] Comment: This test was performed using the APTIMA(R) HPV Assay ([employer] This assay detects E6/E7 viral messenger RNA (mRNA) from 14 high-risk HPV types (16,18,31,33,35,39,45,51, 52,56,58,59,66,68). For additional information please refer to: http://education.The Bucket BBQ.Twyxt/faq/LNR099v4 (This link is being provided for informational/ educational purposes only.) Test Performed by [employer], [employer] [facility], [address] [place] [address] Jim Young M.D., Ph.D., Director of Laboratories , [facility] [id number] Please note: Effective 01/11/2016, HPV testing will be performed using [employer]'s APTIMA test which targets mRNA. Detecting mRNA instead of DNA, as in older methods, offers significant improvements in specificity. 03/29/2016 1:40 PM EST us Xochilt Alcaraz CNM HISTORICAL/NON ORDERABLE LABS Final Result [facility] Anywhere [address] from Last 3 Months or Most Recently Relevant to Health Maintenance Insurance MEDICARE [facility] MEDICAID STAND ADULT Care Teams Shredder Picker Relationship Specialty Start Date End Date Fatuma Hardy MD [address] [place] [address] PCP - General Family Medicine 04/12/12
--- OUTSIDE RECORDS SUMMARY | 2025-01-14 07:47 | XMS_ITS | Encounter Summary ---
Author Organization [employer] Address 75 [facility] 7t [place] [address] Care Team Providers Care Technical Sales Representative Name Role Phone Fatuma Hardy MD Primary Care Provider [phone] Reason for Visit * Reason Onset Date Comments PT-1 08/27/2024 Encounter Details Date Type Department Care Team ([facility] st Contact Info) Description 08/27/2024 Telephone [facility] 230 [place] [address] Fatuma Hardy MD [address] [place], [place] [phone] PT-1 Social History Tobacco Use Types Packs/Day [...] 3:00 PM EST Office Visit [facility] ADULT D[facility]AL [address] [place] [address] Miriam Watson documented as of this encounter Visit Diagnoses Not on filedocumented in this encounter Care Teams Technical Sales Representative Relationship Specialty Start Date End Date Fatuma Hardy MD [address] [place] [address] PCP - General Family Medicine 04/12/12 documented as of this encounter
--- OUTSIDE RECORDS SUMMARY | 2025-01-14 07:47 | XMS_ITS | Encounter Summary ---
Author Organization [employer] Address 75 [facility] 7 [place] [address] Care Team Providers Care Assayer Helper Name Role Phone Fatuma Hardy MD Primary Care Provider Reason for Visit * Reason Onset Date Comments PT1 11/03/2023 Encounter Details Date Type Department Care Team ([facility] st Contact Info) Description 11/03/2023 Telephone [facility] MEDICINE 230 [place] [address] Fatuma Hardy MD [address] [place], [place] [phone] PT1 Social History Tobacco Use Types Packs/Day [...] Y/N: Yes Provider name or facility name: [facility] Facility Address: [address] [place] [address] Escort needed: Y/N: No Do you have a wheelchair: Y/N: No If yes- Manual or electric: n/a Visits: 12 a year documented in this encounter Plan of Treatment Upcoming Encounters Date Type Department Care Team (Late st Contact Info) Description 03/21/2025 3:00 PM EST Office Visit [facility] ADULT DENTAL [address] [place] [address] Miriam Watson documented as of this encounter Visit Diagnoses Not on filedocumented in this encounter Care Teams Assayer Helper Relationship Specialty Start Date End Date Fatuma Hardy MD [address] [place] [address] PCP - General Family Medicine 04/12/12 documented as of this encounter
--- OUTSIDE RECORDS SUMMARY | 2025-01-14 07:47 | XMS_ITS | Encounter Summary ---
Author Organization [employer] Address [address] [place] [address] 7 [place] [address] Care Team Providers Care Patient Clerical Assistant Name Role Phone Fatuma Hardy MD Primary Care Provider [phone] Reason for Visit * Reason Onset Date Comments PT1 08/09/2022 Encounter Details Date Type Department Care Team (Late st Contact Info) Description 08/09/2022 Telephone [facility] MED & PEDS 505 [place] [address] Fatuma Hardy MD 505 [place] [address] PT1 Social History Tobacco Use Types Packs/Day [...] Tc from pt requesting a PT1 Location: [address] [place] [address] Specialty: roving technician Date&Time: N/a Counseling Services Manager: no No wheel chair or cane documented in this encounter Plan of Treatment Upcoming Encounters Date Type Department Care Team (Late st Contact Info) Description 03/21/2025 3:00 PM EST Office Visit [facility] ADULT DENTAL [address] [place] [address] Miriam Watson documented as of this encounter Visit Diagnoses Not on filedocumented in this encounter Care Teams Patient Clerical Assistant Relationship Specialty Start Date End Date Fatuma Hardy MD [address] [place] [address] PCP - General Family Medicine 04/12/12 documented as of this encounter
--- OUTSIDE RECORDS SUMMARY | 2025-01-14 07:47 | XMS_ITS | Encounter Summary ---
Author Organization [employer] Address 75 [facility] 7t [place] [address] Care Team Providers Care Senior Quality Assurance Analyst Name Role Phone Fatuma Hardy MD Primary Care Provider [phone] Reason for Visit * Reason Onset Date Comments pt1 12/09/2024 Encounter Details Date Type Department Care Team ([facility] Contact Info) Description 12/09/2024 Telephone [facility] MED & PEDS 505 [place] [address] Fatuma Hardy MD 505 [place] [address] pt1 Social History Tobacco Use Types Packs/Day [...] Telephone Encounter - Edwina Baez - 12/09/2024 1:16 PM EDT Patient calling requesting PT1 Home Address verified: Y/N: Yes Provider name or facility name: [address] [place] [address] Escort needed: Y/N: No Do you have a wheelchair: Y/N: No If yes- Manual or electric: Visits: 2x every 6 minths documented in this encounter Plan of Treatment Upcoming Encounters Date Type Department Care Team (Late st Contact Info) Description 03/21/2025 3:00 PM EST Office Visit [facility] ADULT DENTAL 505 [place] [address] Miriam Watson documented as of this encounter Visit Diagnoses Not on filedocumented in this encounter Care Teams Senior Quality Assurance Analyst Relationship Specialty Start Date End Date Fatuma Hardy MD [address] [place] [address] PCP - General Family Medicine 04/12/12 documented as of this encounter
--- OUTSIDE RECORDS SUMMARY | 2025-01-14 07:47 | XMS_ITS | Encounter Summary ---
Author Organization [employer] Address 75 [facility] 7t [place] [address] Care Team Providers Care Aquaculture And Fisheries Professor Name Role Phone Fatuma Hardy MD Primary Care Provider [phone] Reason for Visit * Reason Onset Date Comments PT-1 05/05/2023 Encounter Details Date Type Department Care Team (Late st Contact Info) Description 05/05/2023 Telephone [facility] MEDICINE 230 [place] [address] Fatuma Hardy MD [address] [place], [place] [phone] PT-1 Social History Tobacco Use Types Packs/Day [...] N/A Time: N/A Visits: 4 Address: 505 [facility] Facility: [facility] Wheel Chair: no Press Tender Needed: no PT1 needed Date: N/A Time: N/A Visits: 4 Address: [address] [facility] Facility: [employer] Wheel Chair: no Press Tender Needed: no PT1 needed Date: N/A Time: N/A Visits: 4 Address: [address] [place] [address] 3rd Floor, [place] [address] Facility:[facility] Wheel Chair: no Press Tender Needed: no documented in this encounter Plan of Treatment Upcoming Encounters Date Type Department Care Team (Late st Contact Info) Description 03/21/2025 3:00 PM EST Office Visit [facility] ADULT DENTAL 505 [place] [address] Miriam Watson documented as of this encounter Visit Diagnoses Not on filedocumented in this encounter Care Teams Aquaculture And Fisheries Professor Relationship Specialty Start Date End Date Fatuma Hardy MD [address] [place] [address] PCP - General Family Medicine 04/12/12 documented as of this encounter
--- OUTSIDE RECORDS SUMMARY | 2025-01-14 07:47 | XMS_ITS | Encounter Summary ---
Author Organization [employer] Address [address] [place] [address] 7 [place] [address] Care Team Providers Care Proj Mgr Name Role Phone Fatuma Hardy MD Primary Care Provider [phone] Reason for Visit * Reason Comments Med Refill Encounter Details Date Type Department Care Team (Late st Contact Info) Description 04/18/2023 Refill [facility] MED & PEDS 505 [place], [place] [phone] Fatuma Hardy MD 505 [place], [place] [phone] Fibromyositis Social History Tobacco Use Types Packs/Day [...] Description 03/21/2025 3:00 PM EST Office Visit [facility] ADULT DENTAL 505 [place], [place] [phone] Miriam Watson documented as of this encounter Visit Diagnoses Diagnosis Fibromyositis Unspecified myalgia and myositis documented in this encounter Care Teams Proj Mgr Relationship Specialty Start Date End Date Fatuma Hardy MD [address] [place] [address] PCP - General Family Medicine 04/12/12 documented as of this encounter
--- OUTSIDE RECORDS SUMMARY | 2025-01-14 07:47 | XMS_ITS | Encounter Summary ---
Author Organization [employer] Address 75 [facility] 7t [place] [address] Care Team Providers Care Sales Order Processor Name Role Phone Fatuma Hardy MD Primary Care Provider [phone] Reason for Visit * Reason Onset Date Comments PT-1 06/04/2024 Encounter Details Date Type Department Care Team ([facility] Contact Info) Description 06/04/2024 Telephone [facility] CH[facility] MED & PEDS 505 [place] [address] Fatuma Hardy MD 505 [place] [address] PT-1 Social History Tobacco Use Types Packs/Day [...] Y/N: Yes Provider name or facility name: [facility] Facility Address: [address] [facility] [address] [place] [address] Escort needed: Y/N: No Do you have a wheelchair: Y/N: No If yes- Manual or electric: n/a Visits: 2 times a month for 12 months 2.)Home Address verified: Y/N: Yes [facility] Facility Address: [address] [place] [address] Escort needed: Y/N: No Do you have a wheelchair: Y/N: No If yes- Manual or electric: N/a Visits: 2 times a month for 12 months documented in this encounter Plan of Treatment Upcoming Encounters Date Type Department Care Team (Late st Contact Info) Description 03/21/2025 3:00 PM EST Office Visit [facility] ADULT DENTAL [address] [place] [address] Miriam Watson documented as of this encounter Visit Diagnoses Not on filedocumented in this encounter Care Teams Sales Order Processor Relationship Specialty Start Date End Date Fatuma Hardy MD [address] [place] [address] PCP - General Family Medicine 04/12/12 documented as of this encounter
--- OUTSIDE RECORDS SUMMARY | 2025-01-14 07:47 | XMS_ITS | Encounter Summary ---
Author Organization [employer] Address 75 [facility] 7t [place] [address] Care Team Providers Care Mud Jack Operator Name Role Phone Fatuma Hardy MD Primary Care Provider [phone] Reason for Visit * Reason Onset Date Comments Durable Medical Equipment 10/08/2024 Encounter Details Date Type Department Care Team ([facility] st Contact Info) Description 10/08/2024 Telephone [facility] MEDICINE 230 [place] [address] Fatuma Hardy MD [address] [place], [place] [phone] Durable Medical Equipment Social History Tobacco Use Types Packs/Day Years [...] encounter Miscellaneous Notes * Telephone Encounter - Mandeep Huerta - 10/08/2024 2:33 PM EDT Telephone call received from patient requesting DME prescription for raised toilet seat with handlebars and grab bars for bathtub. documented in this encounter Plan of Treatment Upcoming Encounters Date Type Department Care Team (Late st Contact Info) Description 03/21/2025 3:00 PM EST Office Visit [facility] ADULT DENTAL [address] [place] [address] Miriam Watson documented as of this encounter Visit Diagnoses Not on filedocumented in this encounter Care Teams Mud Jack Operator Relationship Specialty Start Date End Date Fatuma Hardy MD [address] [place] [address] PCP - General Family Medicine 04/12/12 documented as of this encounter
--- OUTSIDE RECORDS SUMMARY | 2025-01-14 07:47 | XMS_ITS | Clinical Summary ---
Author Organization [facility] Address 175 [place] [address] Phone Care Team Providers Care Editor Map Name Role Phone Fatuma Hardy MD Primary Care Provider [phone] Allergies No known active allergies Medications montelukast [...] needed for wheezing. 6.7 g 11 5 11/07/19 26 Active albuterol HFA (PROAIR HFA ; PROVENTIL [...] times a day. 240 g 1 5 03/10/20 25 Active clotrimazole (LOTRIMIN) 1 % cream Apply topically 2 (two) times a day. 30 g 3 5 02/09/20 25 Active Active Problems Problem Noted Date Diagnosed Date Chronic obstructive pulmonar y disease ([facility] V24, [facility] V28) 09/02/2024 Asthma 03/24/2024 Obesity 03/24/2024 Pulmonary nodules/lesions, multiple 03/24/2024 Primary hypertension 01/31/2024 Rhinosinusitis 03/31/2023 Hypertensive renal disease 10/08/2020 Proteinuria 10/08/2020 Stage 2 chronic kidney disease 10/08/2020 Obstructive sleep apnea syndrome 04/11/2012 Granulomatosis with polyangiitis ([facility] V24, [facility] [place] V28) 04/11/2012 Fibromyositis 04/11/2012 Acanthosis nigricans 04/11/2012 Hypothyroidism 04/11/2012 Resolved Problems Problem Noted Date Diagnosed Date Resolved Date Blood in urine 10/08/2020 05/15/2024 Encounters Date Type Department Care Team Description 01/09/2025 8:15 AM EDT Office Visit Orthopedic Surgery [facility] [address] [place] [phone] Lino Francois, DPM Metatarsalgia of both feet (Primary Dx); Verruca plantaris; Dermatophytosis of nail; Primary osteoarthritis of both feet; Pain in toe of right foot; Bilateral femoral artery stenosis ([facility] V24); Tinea pedis of both feet; Pain in toe of left foot 11/26/2024 8:15 AM EDT Office Visit Orthopedic Surgery [facility] 250 175 [facility] 250 [place] [phone] Lino Francois DPM Primary osteoarthritis of both feet (Primary Dx); Metatarsalgia of both feet; Verruca plantaris; Dermatophytosis of nail 11/06/2024 1:15 PM EDT [facility] 200 [place] [phone] Maximus Thurston MD Nocturnal hypoxemia (Primary Dx); Moderate asthma, unspecified whether complicated, unspecified whether persistent; CKD (chronic kidney disease) stage 4, GFR 15-29 ml/min ([facility] V24, [facility] V28); Maurilio's granulomatosis with renal involvement ([facility] V24, [facility] V28) 10/14/2024 9:45 AM EDT Office Visit Orthopedic [facility] [address] [phone] Lino Francois DPM Primary osteoarthritis of both feet (Primary Dx); Dermatophytosis of nail; Pain in toe of right foot; Pain in toe of left foot; Tinea pedis of both feet; Bilateral femoral artery stenosis ([facility] V24); Metatarsalgia of both feet; Verruca plantaris [...] Mass Index 28.48 01/09/2025 8:07 AM EDT Plan of Treatment Upcoming Encounters Date Type Department Care Team (Late st Contact Info) Description 02/06/2025 9:30 AM EDT Office Visit Pulmon[facility]gy [facility] 175 [facility] 200 [place] [address] Maximus Thurston MD 230 [place] [address] 02/27/2025 8:45 AM EDT Office Visit Orthopedic Surgery [facility] 250 175 [facility] 250 [place] [address] Lino Francois, DPM 175 [facility] [address] [place] [address] Health Maintenance Due Date Last Done Comments [...] of Health Screening 02/07/2024 Depression Screening 05/01/2024 COVID-19 Vaccine ( season) 2024 06/16/2021, 10/07/2020, 09/02/2020 Influenza Vaccine (#1) 2024 , 03/09/2019, 03/29/2018, Additional history exists Hypertension/CHF/CAD Annual BMP Blood Test 01/08/2026 01/08/2025, 05/22/2023 DTaP,Tdap,and Td Vaccines (3 - Td or Tdap) 03/08/2026 03/08/2016, 11/21/2015 Colorectal Cancer Screening: FIT-DNA (Cologuard) 06/05/2026 06/05/2023, 06/05/2023 Cholesterol Screening (Lipid Panel) 01/08/2030 01/08/2025, 02/05/2024, 07/21/2022 HIB Vaccines Aged Out No [...] joint Posterior calcaneal spur noted Lino Francois DPMeghan IMG XR PROCEDURES Final R esult * FIT-DNA (Cologuard) (06/05/2023) Pathologist [facility] Colorectal Cancer Screening: FIT-DNA (Cologuard) no interpretation , abstracted Historical Provider MD HEALTH MAINTENANCE Final Result * Annual BMP Blood Test (05/22/2023) Pathologist [facility] Annual BMP Blood Test abstracted Historical Provider HEALTH MAINTENANCE Final Result * Lipid panel (07/21/2022) [facility] LDL/HDL Ratio 0 0 - 0 Triglycerides 0 0 - 0 mg/dL Cholesterol 0 0 - 0 mg/dL HDL 0 0 - 0 mg/dL LDL Cholesterol 0 0 - 0 mg/dL Blood Venous blood specimen / Unknown Historical Provider LAB BLOOD ORDERABLES Della l Result from Last 3 Months or Most Recently Relevant to Health Maintenance Insurance MEDICARE MEDICAID - [place] Care Teams Editor Map Relationship Specialty Start Date End Date Fatuma Hardy MD [address] [place] [address] PCP - General Family Medicine 07/02/24
--- OUTSIDE RECORDS SUMMARY | 2025-01-14 07:47 | XMS_ITS | Encounter Summary ---
Author Organization [employer] Address [address] [place] [address] 7t [place] [address] Care Team Providers Care Railroad Crane Operator Name Role Phone Fatuma Hardy MD Primary Care Provider [phone] Reason for Visit * Reason Onset Date Comments PA status 06/28/2022 Encounter Details Date Type Department Care Team (Late st Contact Info) Description 06/28/2022 Telephone [facility] CHC MED & PEDS 505 [place] [address] Fatuma Hardy MD 505 [place] [address] PA status Social History Tobacco Use Types [...] a previous PA Please contact pt at [phone] documented in this encounter Plan of Treatment Upcoming Encounters Date Type Department Care Team (Late st Contact Info) Description 03/21/2025 3:00 PM EST Office Visit [facility] ADULT DENTAL [address] [place] [address] Miriam Watson documented as of this encounter Visit Diagnoses Not on filedocumented in this encounter Care Teams Railroad Crane Operator Relationship Specialty Start Date End Date Fatuma Hardy MD 230 [place] [address] PCP - General Family Medicine 04/12/12 documented as of this encounter
--- OUTSIDE RECORDS SUMMARY | 2025-01-14 07:47 | XMS_ITS | Encounter Summary ---
Author Organization [employer] Address 75 [facility] 7t [place] [address] Care Team Providers Care Gameplay Programmer Name Role Phone Fatuma Hardy MD Primary Care Provider [phone] Reason for Visit * Reason Onset Date Comments Nurse Triage 06/26/2024 Encounter Details Date Type Department Care Team ([facility] st Contact Info) Description 06/26/2024 Telephone [facility] MED & PEDS 505 [place] [address] Fatuma Hardy MD 505 [place] [address] Nurse Triage Social History Tobacco Use Types [...] EST Triage call Pt reports was at Electrophysiology Scientist apt yesterday and was told BP was [...] Description 03/21/2025 3:00 PM EST Office Visit [facility] ADULT DENTAL [address] [place] [address] Miriam Watson documented as of this encounter Visit Diagnoses Not on filedocumented in this encounter Care Teams Gameplay Programmer Relationship Specialty Start Date End Date Fatuma Hardy MD [address] [place] [address] PCP - General Family Medicine 04/12/12 documented as of this encounter
--- OUTSIDE RECORDS SUMMARY | 2025-01-14 07:47 | XMS_ITS | Encounter Summary ---
Author Organization [facility] Address [address] [place] [phone] Phone Care Team Providers Care Kettle Cleaner Name Role Phone Fatuma Hardy MD Primary Care Provider Encounter Details Date Type Department Care Team (Late Contact Info) Description 11/25/2024 Office Communication [facility] [address] [address] Vidal Reed MD [address] [address] Social History Tobacco Use Types [...] Office Visit [facility] [address] [place] [phone] Vidal Reed MD [facility] [address] [address] documented as of this encounter Visit Diagnoses Not on filedocumented in this encounter Care Teams Kettle Cleaner Relationship Specialty Start Date End Date Fatuma Hardy MD [address] [place] [address] PCP - General 05/11/20 documented as of this encounter
--- OUTSIDE RECORDS SUMMARY | 2025-01-14 07:47 | XMS_ITS | Encounter Summary ---
Author Organization [employer] Address [address] [place] [address] 7t [place] [address] Care Team Providers Care Front End Driver Name Role Phone Fatuma Hardy MD Primary Care Provider [phone] Encounter Details Date Type Department Care Team (Late st Contact Info) Description 11/24/2022 Orders Only [facility] MED & PEDS 505 [place], [place] [phone] Fatuma Hardy MD 505 [place] [address] Social History Tobacco Use Types Packs/Day Years [...] Description 03/21/2025 3:00 PM EST Office Visit [facility] ADULT DENTAL 505 [place], [place] [phone] Miriam Watson documented as of this encounter Visit Diagnoses Not on filedocumented in this encounter Care Teams Front End Driver Relationship Specialty Start Date End Date Fatuma Hardy MD [address] [place] [address] PCP - General Family Medicine 12/13/12 documented as of this encounter
--- OUTSIDE RECORDS SUMMARY | 2025-01-14 07:47 | XMS_ITS | Encounter Summary ---
Author Organization [employer] Address [address] [place] [address] [address] [place] [address] Care Team Providers Care Rental Counter Clerk Name Role Phone Fatuma Hardy MD Primary Care Provider [phone] Reason for Visit * Reason Onset Date Comments Med Refill 04/17/2023 Encounter Details Date Type Department Care Team (Late st Contact Info) Description 04/17/2023 Telephone [facility] MEDICINE [address] [place] [address] Fatuma Hardy MD [address] [place] [address] Med Refill Social History Tobacco Use Types [...] Description 03/21/2025 3:00 PM EST Office Visit [facility] ADULT DENTAL [address] [place] [address] Miriam Watson documented as of this encounter Visit Diagnoses Not on filedocumented in this encounter Care Teams Rental Counter Clerk Relationship Specialty Start Date End Date Fatuma Hardy MD [address] [place] [id number] PCP - General Family Medicine 04/12/12 documented as of this encounter
--- OUTSIDE RECORDS SUMMARY | 2025-01-14 07:47 | XMS_ITS | Encounter Summary ---
Author Organization [employer] Address [address] [place] [address] [address] [place] [address] Care Team Providers Care Professor Of Industrial Technology Name Role Phone Fatuma Hardy MD Primary Care Provider [phone] Encounter Details Date Type Department Care Team (Latest Contact Info) Description 12/29/2020 Abstract [facility] CONVERSIONS Dental, Provider, DDS Social History Tobacco [...] Description 03/21/2025 3:00 PM EST Office Visit [facility] ADULT DENTAL [address] [place] [address] Miriam Watson documented as of this encounter Visit Diagnoses Not on filedocumented in this encounter Care Teams Professor Of Industrial Technology Relationship Specialty Start Date End Date Fatuma Hardy MD [address] [place] [id number] PCP - General Family Medicine 04/12/12 documented as of this encounter
--- NOTE | 2025-01-14 07:54 | A.OFFVIS_ITS ---
Vital Signs 01/14/25 08:00 Height 5 ft 3 in Weight 156 lb 11.979 oz BMI 27.8 BP 90/60 Blood Pressure Location Lt brachial Position Sitting Pulse 81 Pulse Source Pulse Oximeter Pulse Oximetry (%) 98 Oxygen Delivery Method Room Air Intake Visit Reasons: GPA/FMS Intake Note: Patient presents for GPA and FMS follow up. Allergies iron dextran complex (IRON DEXTRAN COMPLEX) Allergy (Unknown, Verified 01/14/25 07:59) Shakiness HPI Comments Details: Patient is a 69-year-old female with hypertension, hypothyroidism, migraine headaches, fibromyalgia and granulomatosis with polyangiitis here today for follow up Interval History: Patient last seen 09/10/24 with me - On tramadol and tizanidine - No hemoptysis, frothy urine, blood in the urine, recurrent sinus infections, or respiratory complaints - Still complains of shoulder, neck and hip stiffness - Plan to continue to monitor off immunosuppression Today - On tramadol and tizanidine - Complains of shoulder and neck pain/stiffness - Sees pulm next month - No weight loss or night sweats - Also complaining of leg cramps Rheumatologic History: GPA 2005 - polyarthritis RX with Plaquenil. rheumatoid nodule 2006 respirtatory complaints along with recurrent sinus infections. Complicated by respiratory failure and ICU stay. bx of lung showed GPA, sinuisitis. pneumothorax. Steroids 5033-3714 oral cytoxan [id number] Imuran. Hx kidney bx showing sclerosis/no vasculitis - ? date Has been off medication Current Rheumatology Medication(s): Tizanidine 8mg at night prn Tramadol 50mg prn PFSH Medical History (Updated 09/10/24 @ 09:15 by Melba Caputo MD) Granulomatosis with polyangiitis Riggins esophagus COPD (chronic obstructive pulmonary disease) Congenital intra-abdominal adhesions Steatosis, liver Stress incontinence Diaphragmatic hernia Riggins's esophagus COVID-19 Cervical spondylosis Tricuspid valve regurgitation Hiatal hernia Paresthesia Granulomatous angiitis Osteoarthritis Fibromyalgia Anxiety GERD (gastroesophageal reflux disease) Sleep apnea Asthma Hypothyroidism Hypertension Obesity Surgical History (Reviewed 01/14/25 @ 07:59 by Gisselle Moralez [facility]) History of sleeve gastrectomy S/P laparoscopic sleeve gastrectomy Hx of LASIK History of pneumonectomy Hx of biopsy Hx of biopsy History of bronchoscopy History of esophagogastroduodenoscopy (EGD) Hx of colonoscopy Family History Father Heart disease Mother Cirrhosis of liver Recurrent strokes Diabetes Sister Lupus Arthritis Daughter No problems noted. Son No problems noted. Social History Are you a primary primary care nurse practitioner to a significant other at home: No Do you presently have visiting nurse or other home services: No Alcohol intake: never Patient Tobacco Use Status: Former Tobacco user Second Hand Smoke Exposure: No Review of Systems Const Details: Review of Systems Constitutional: Denies fever, chills, weight loss ENT: Denies vision changes, eye pain or eye redness, dental caries, dry mouth GI: Denies nausea, vomiting, diarrhea, abdominal pain, change in BM Pulm: Denies SOB, BERNAL, hemoptysis, wheezing Cards: Denies chest pain, palpitations Skin: Denies Raynaud's, rash, nail changes, photosensitivity, PUBLISHER ASSISTANT: Denies headaches, weakness, paresthesias, recurrent falls MSK: as per HPI All other systems reviewed and are unremarkable except noted above Physical Exam Exam Exam: Vital signs reviewed Physical Examination CONSTITUITIONAL Patient alert and cooperative. Well appearing and in no apparent painful distress HEENT Conjunctiva and sclera clear. No lymphadenopathy. CHEST/RESPIRATORY SYSTEM Normal respiratory effort and able to speak in complete sentences. Clear to auscultation bilaterally. No crackles, rales, rhonchi, wheezes heard. CARDIAC SYSTEM Regular rate and rhythm. S1 and S2 heard no murmurs. Radial pulses intact bilaterally MSK Hands * Right Hand: Able to make a fist. No swelling or tenderness to palpation of the MCPs, PIPs or DIPs. Reducible swan neck deformity of the 4th digit * Left Hand: Able to make a fist. No swelling or tenderness to palpation of the MCPs, PIPs or DIPs. No deformities noted. Wrists * Right Wrist: Full ROM to flexion and extension. No swelling or TTP * Left Wrist: Full ROM to flexion and extension. No swelling or TTP Elbows * Right Elbow: Full ROM. No swelling or TTP. No TTP of the medial epicondyle. No TTP of the lateral epicondyle * Left Elbow: Full ROM. No swelling or TTP. No TTP of the medial epicondyle. No TTP of the lateral epicondyle Shoulders * Right shoulder: Full ROM. No swelling noted. No TTP of the AC joint. No TTP of the subacromial bursa. No TTP of the posterior shoulder * Left shoulder: Full ROM. No swelling noted. No TTP of the AC joint. No TTP of the subacromial bursa. No TTP of the posterior shoulder Knees * Right knee: Full ROM. No swelling noted. No TTP of the knee joint line. No TTP of pes anserine bursa * Left knee: Full ROM. No swelling noted. No TTP of the knee joint line. No TTP of pes anserine bursa. * Crepitations felt bilaterally Ankles * Right ankle: Good ankle dorsiflexion and plantar flexion. No swelling. No TTP of the ankle joint * Left ankle: Good ankle dorsiflexion and plantar flexion. No swelling. No TTP of the ankle joint Feet * Right foot: Negative squeeze test * Left foot: Negative squeeze test Tender points? * No tenderness to palpation of the supraspinatus, anterior costochondral junctions * TTP of the bilateral trapezius and suboccipital muscle insertions SKIN No rashes Vital Signs: Last Vital Signs Pulse 81 01/14/25 08:00 BP 90/60 01/14/25 08:00 Pulse Ox 98 01/14/25 08:00 Oxygen Delivery Method Room Air 01/14/25 08:00 BMI result Body Mass Index 27.8 Results Reviewed Results Reviewed: Laboratory Tests 09/10/24 01/08/25 09:56 08:10 WBC 5.3 RBC 4.82 Hgb 13.2 Hct 39.6 Plt Count 250 ESR 20 Sodium 142 Potassium 3.6 Chloride 103 Carbon Dioxide 29 BUN 12 Creatinine 0.66 AST 33 H ALT 19 C-Reactive Protein 0.43 0.55 H Laboratory Tests 01/08/25 08:20 Urine Color Dark Yellow Urine Protein 100 (2+) H Urine Blood Small (1+) H Urine RBC 6-10 H Protein/Creatinin Ratio 0.14 Laboratory Tests 01/08/25 08:10 Proteinase 3 (PR3) Ab <1.0 Myeloperoxidase Ab <1.0 Assessment & Plan Assessment & Plan (1) Granulomatosis with polyangiitis: Comment: 2006 - polyarthritis RX with Plaquenil. rheumatoid nodule 2006 bx of lung showed GPA, sinuisitis. pneumothorax 0516-8857 oral cytoxan 1222-9282 Imuran. Hx kidney bx showing sclerosis/no vasculitis - ? date Code(s): M3. 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 At this time patient appears to be in remission with no respiratory, sinus or renal complaints. Her previous urine studies showed blood in the urine which resolved at last check but today there is some blood in the urine. Her last PET scan done 11/2023 showed some dilatation of the ascending thoracic aorta with focal FDG activity in keeping with vasculitis. Will repeat PET scan Plan - Continue to monitor off immunosuppression - Repeat PET scan - RTC 6 months - Labs before visit: CBC, CMP,ESR, CRP, ANCA vasculitidies, UA and UPC (2) Fibromyalgia: Code(s): M79.7 - Fibromyalgia Category: Medical Plan: #Fibromyalgia Patient with fibromyalgia, overall doing okay. Main complaint is her shoulders. 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 Panel 6 Months - 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 C Reactive Protein 6 Months - Mauriloi's granulomatosis without renal involvement Protein Creatinine Ratio, Ur 6 Months - 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 XR DEXA axial skeleton Today M81.0 - Age-related osteoporosis without current pathological fracture ANCA Vasculitides 6 Months - 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 Erythrocyte Sedimentation Rate 6 Months M31.30 - 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 UA w Microscopic 6 Months M31.30 - 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 Vitamin D 25-OH Total 6 Months Z79.899 - Other manager long term care (current) drug therapy Coding Level of Care Code Est Pt Level 4 (89411) Complex EM visit Add On G2211 Diagnoses Granulomatosis with polyangiitis, unspecified whether renal involvement M31.30 Granulomatosis renal involvement: unspecified whether renal involvement Fibromyalgia M79.7 Screening for osteoporosis Z13.820
[2025-01-14 08:00] VITALS: BP 90/60; PULSE 81; O2SAT 98; BMI 27.8
== END 2025-01-14 08:27 | disposition home or self-care (01) ==
LOC: HO.RHES 07:44
PROVIDERS: PCP Student in an Organized Health Care Education/Training Program; Visit Provider Student in an Organized Health Care Education/Training Program
DX: M31.30 Wegener's granulomatosis without renal involvement (principal); M79.7 Fibromyalgia; Z13.820 Encounter for screening for osteoporosis
CPT/HCPCS: 99214; G2211

== ENCOUNTER → 2025-01-14 07:43 | Outpatient (BNVA) | payer MEDICARE, MEDICAID, SELFPAY | PROVIDERS: PCP Student in an Organized Health Care Education/Training Program; Visit Provider Student in an Organized Health Care Education/Training Program | DX: M79.7 Fibromyalgia (principal); M31.30 Wegener's granulomatosis without renal involvement; Z79.899 Other long term (current) drug therapy; Z13.820 Encounter for screening for osteoporosis | CPT/HCPCS: 99212 ==

== ENCOUNTER 2025-01-29 11:59 | Outpatient (AMB) | payer MEDICARE, MEDICAID, SELFPAY ==
--- NOTE | 2025-01-29 12:11 | MHC.OFFVISWM ---
Intake Visit Reasons: (OV) PO LSG 03/17/20 Allergies iron dextran complex (IRON DEXTRAN COMPLEX) Allergy (Unknown, Verified 01/29/25 12:21) Shakiness Medication List - Last Reconciled 01/29/25 by SHANA Berger acetaminophen 650 mg PO Q4-6H PRN albuterol sulfate 90 mcg/actuation 2 puffs PO Q4-6H PRN blood pressure test kit-large As directed cetirizine 10 mg PO DAILY cholecalciferol (vitamin D3) 50 mcg PO DAILY cyanocobalamin (vitamin B-12) 1,000 mcg PO DAILY hydrochlorothiazide 12.5 mg PO DAILY levothyroxine 100 mcg PO DAILY montelukast 10 mg PO BEDTIME naproxen 500 mg PO BID sumatriptan succinate 50 mg PO tirzepatide (weight loss) (Zepbound) 7.5 mg (0.5 mL) subcut QWEEK tizanidine 8 mg (2 x 4 mg) PO BEDTIME PRN tramadol 50 mg PO ONCE PRN umeclidinium 62.5 mcg/actuation (Incruse Ellipta) 1 inh inhalation DAILY HPI Comments Details: This is a 69 yo F who is s/p LSG 03/17/2020. Weight loss of 16.8lb since last OV 3mo ago. Pt currently on Zepbound, 7.5mg. Pt feels much better with the additional weight loss, feels that she is more mobile. She reports she would like to lose Present meal plan includes: 2 Atkins shakes, 1 Atkins bar, 1 meal with 8 forks protein and 8 forks salad or vegetables. Does get elder care meals, sometimes will only eat vegetable portion- doesn't like the meat that is served. Will eat meat/steak that her family prepares. has stopped snacking in evenings as much. Exercise routine includes: started walking but has arthritis, also does home exercises [facility] Medical History (Updated 09/10/24 @ 09:15 by Melba Caputo MD) Granulomatosis with polyangiitis Riggins esophagus COPD (chronic obstructive pulmonary disease) Congenital intra-abdominal adhesions Steatosis, liver Stress incontinence Diaphragmatic hernia Riggins's esophagus COVID-19 Cervical spondylosis Tricuspid valve regurgitation Hiatal hernia Paresthesia Granulomatous angiitis Osteoarthritis Fibromyalgia Anxiety GERD (gastroesophageal reflux disease) Sleep apnea Asthma Hypothyroidism Hypertension Obesity Surgical History History of sleeve gastrectomy S/P laparoscopic sleeve gastrectomy Hx of LASIK History of pneumonectomy Hx of biopsy Hx of biopsy History of bronchoscopy History of esophagogastroduodenoscopy (EGD) Hx of colonoscopy Family History Father Heart disease Mother Cirrhosis of liver Recurrent strokes Diabetes Sister Lupus Arthritis Daughter No problems noted. Son No problems noted. Social History Are you a primary md do resident urgent care to a significant other at home: No Do you presently have visiting nurse or other home services: No Alcohol intake: never Patient Tobacco Use Status: Former Tobacco user Second Hand Smoke Exposure: No Assessment & Plan Assessment & Plan (1) Overweight: Code(s): E66.3 - Overweight Category: Medical (2) S/P laparoscopic sleeve gastrectomy: Comment: 03/2020 Code(s): Z98.84 - Bariatric surgery status Category: Surgical Plan Pt to continue on Zepbound, doing well. Refilled today at same dose. She has improved her meal plan with less snacking. She tries to exercise as much as she is physically able. She will follow up with PCP regarding low TSH- due to weight loss her dose of levothyroxine may be too high for her now. She would like to lose some additional weight (125-130lb) and then wean off of Zepbound. Vitamin labs ordered. RTC 4mo. Orders: Orders Zinc Today Z98.84 - Bariatric surgery status Vitamin D 25-OH Total Today Z98.84 - Bariatric surgery status Vitamin A Today Z98.84 - Bariatric surgery status Vitamin B1 Today Z98.84 - Bariatric surgery status Vitamin B12 and Folate Today Z98.84 - Bariatric surgery status Medications: Refilled tirzepatide (weight loss) (Zepbound) 7.5 mg (0.5 mL) subcut QWEEK 2 mL 0RF
--- OUTSIDE RECORDS SUMMARY | 2025-01-29 13:31 | XMS_ITS | Encounter Summary ---
Author Organization [employer] Address [address] [facility] [address] [place] [address] Care Team Providers Care Claims Counsel Name Role Phone Fatuma Hardy MD Primary Care Provider [phone] Reason for Visit * Reason Onset Date Comments Nurse Triage 06/26/2024 Encounter Details Date Type Department Care Team ([facility] st Contact Info) Description 06/26/2024 Telephone [facility] MED & PEDS [address] [place] [address] Fatuma Hardy MD [address] [place] [address] Nurse Triage Social History Tobacco Use Types [...] EST Triage call Pt reports was at [employer] [facility] yesterday and was [facility] [...] [facility] [address] [place] [address] Miriam Watson documented as of this encounter Visit Diagnoses Not on filedocumented in this encounter Care Teams Claims Counsel Relationship Specialty Start Date End Date Fatuma Hardy MD [address] [place] [address] PCP - General Family Medicine 04/12/12 documented as of this encounter
--- OUTSIDE RECORDS SUMMARY | 2025-01-29 13:31 | XMS_ITS | Encounter Summary ---
Author Organization [employer] Address [address] [place] [address] [address] [place] [address] Care Team Providers Care Railroad Operating Engineer Name Role Phone Fatuma Hardy MD Primary Care Provider [phone] Reason for Visit * Reason Onset Date Comments Med Refill 04/17/2023 Encounter Details Date Type Department Care Team (Late st Contact Info) Description 04/17/2023 Telephone [facility] MEDICINE [address] [place] [address] Fatuma Hardy MD [address] [place] [address] Med Refill Social History Tobacco Use Types [...] Description 03/21/2025 3:00 PM EST Office Visit [facility] ADULT DENTAL [address] [place] [address] Miriam Watson documented as of this encounter Visit Diagnoses Not on filedocumented in this encounter Care Teams Railroad Operating Engineer Relationship Specialty Start Date End Date Fatuma Hardy MD [address] [place] [address] PCP - General Family Medicine 04/12/12 documented as of this encounter
--- OUTSIDE RECORDS SUMMARY | 2025-01-29 13:31 | XMS_ITS | Encounter Summary ---
Author Organization [facility] Address [address] [place] [address] Phone Care Team Providers Care Mandarin Teacher Name Role Phone Fatuma Hardy MD Primary Care Provider [phone] Encounter Details Date Type Department Care Team (Late Contact Info) Description 11/25/2024 Office Communication [facility] [address] [address] Vidal Reed MD [address] [address] Social History Tobacco Use Types [...] Office Visit [facility] [address] [place] [address] Vidal Reed MD [facility] [address] documented as of this encounter Visit Diagnoses Not on filedocumented in this encounter Care Teams Mandarin Teacher Relationship Specialty Start Date End Date Fatuma Hardy MD [address] [place] [address] PCP - General 05/11/20 documented as of this encounter
--- OUTSIDE RECORDS SUMMARY | 2025-01-29 13:31 | XMS_ITS | Encounter Summary ---
Author Organization [employer] Address [address] [place] [address] [address] [place] [address] Care Team Providers Care Pointer Helper Name Role Phone Fatuma Hardy MD Primary Care Provider [phone] Reason for Visit * Reason Onset Date Comments PT1 08/09/2022 Encounter Details Date Type Department Care Team (Late st Contact Info) Description 08/09/2022 Telephone [facility] MED & PEDS [address] [place] [address] Fatuma Hardy MD [address] [place] [address] PT1 Social History Tobacco Use Types Packs/Day [...] Tc from pt requesting a PT1 Location: [address] [place] [address] 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 Date&Time: N/a Desktop Engineer: no No wheel chair or cane documented in this encounter Plan of Treatment Upcoming Encounters Date Type Department Care Team (Late st Contact Info) Description 03/21/2025 3:00 PM EST Office Visit [facility] AD[facility] D[facility] [address] [place] [address] Miriam Watson documented as of this encounter Visit Diagnoses Not on filedocumented in this encounter Care Teams Pointer Helper Relationship Specialty Start Date End Date Fatuma Hardy MD [address] [place] [address] PCP - General Family Medicine 04/12/12 documented as of this encounter
--- OUTSIDE RECORDS SUMMARY | 2025-01-29 13:31 | XMS_ITS | Encounter Summary ---
Author Organization [employer] Address [address] [facility] [address] [place] [address] Care Team Providers Care Plaster Whittler Name Role Phone Fatuma Hardy MD Primary Care Provider [phone] Reason for Visit * Reason Onset Date Comments PT1 11/03/2023 Encounter Details Date Type Department Care Team ([facility] st Contact Info) Description 11/03/2023 Telephone [facility] MEDICINE [address] [place] [address] Fatuma Hardy MD [address] [place], [place] [id number] PT1 Social History Tobacco Use Types Packs/Day [...] Y/N: Yes Provider name or facility name: [facility] Facility Address: [address] [place] [address] Escort needed: Y/N: No Do you have a wheelchair: Y/N: No If yes- Manual or electric: n/a Visits: 12 a year documented in this encounter Plan of Treatment Upcoming Encounters Date Type Department Care Team (Late st Contact Info) Description 03/21/2025 3:00 PM EST Office Visit [facility] ADULT DENT[facility] [address] [place] [address] Miriam Watson documented as of this encounter Visit Diagnoses Not on filedocumented in this encounter Care Teams Plaster Whittler Relationship Specialty Start Date End Date Fatuma Hardy MD [address] [place] [phone] PCP - General Family Medicine 04/12/12 documented as of this encounter
--- OUTSIDE RECORDS SUMMARY | 2025-01-29 13:31 | XMS_ITS | Clinical Summary ---
Author Organization 175 [facility] Address 175 [place] [address] Phone Care Team Providers Care Car Pilot Name Role Phone Fatuma Hrady MD Primary Care Provider [phone] Allergies No known active allergies Medications montelukast [...] Diagnosed Date Chronic obstructive pulmonar y disease ([facility] V24, [facility] V28) 09/02/2024 Asthma 03/24/2024 Obesity 03/24/2024 Pulmonary nodules/lesions, multiple 03/24/2024 Primary hypertension 01/31/2024 Rhinosinusitis 03/31/2023 Hypertensive renal disease 10/08/2020 Proteinuria 10/08/2020 Stage 2 chronic kidney disease 10/08/2020 Obstructive sleep apnea syndrome 04/11/2012 Granulomatosis with polyangiitis ([facility] V24, [facility] V28) 04/11/2012 Fibromyositis 04/11/2012 Acanthosis nigricans 04/11/2012 Hypothyroidism 04/11/2012 Resolved Problems Problem Noted Date Diagnosed Date Resolved Date Blood in urine 10/08/2020 05/15/2024 Encounters Date Type Department Care Team Description 01/09/2025 8:15 AM EDT Office Visit Orthopedic Surgery [facility] [address] [place] [phone] Lino Francois, DPM Metatarsalgia of both feet (Primary Dx); Verruca plantaris; Dermatophytosis of nail; Primary osteoarthritis of both feet; Pain in toe of right foot; Bilateral femoral artery stenosis ([facility] V24); Tinea pedis of both feet; Pain in toe of left foot 11/26/2024 8:15 AM EDT Office Visit Orthopedic Surgery - [place] 250 175 [facility] 250 [place] [phone] Lino Francois DPM Primary osteoarthritis of both feet (Primary Dx); Metatarsalgia of both feet; Verruca plantaris; Dermatophytosis of nail 11/06/2024 1:15 PM EDT Office Visit Pulmonology - [place] 175 [facility] 200 [place] [phone] Maximus Thurston MD Nocturnal hypoxemia (Primary Dx); Moderate asthma, unspecified whether complicated, unspecified whether persistent; CKD (chronic kidney disease) stage 4, GFR 15-29 ml/min ([facility] V24, [facility] V28); Maurilio's granulomatosis with renal involvement ([facility] V24, [facility] V28) from Last 3 Months Immunizations Immunization Administration Dates Next Due Influenza Quadravalent, MDCK [...] Care Team (Late st Contact Info) Description 02/27/2025 8:45 AM EDT Office Visit Orthopedic Surgery - [place] [address] [phone] Lino Francois, DPM [address] [phone] Health Maintenance Due Date Last Done Comments [...] Final R esult * FIT-DNA (Cologuard) (06/05/2023) [facility] Colorectal Cancer Screening: FIT-DNA (Cologuard) no interpretation , abstracted [facility] Provider HEALTH MAINTENANCE Final Result * Annual BMP Blood Test (05/22/2023) [facility] Annual BMP Blood Test abstracted [facility] Provider HEALTH MAINTENANCE Final Result * Lipid panel (07/21/2022) [facility] LDL/HDL Ratio 0 0 - 0 Triglycerides 0 0 - 0 mg/dL Cholesterol 0 0 - 0 mg/dL HDL 0 0 - 0 mg/dL LDL Cholesterol 0 0 - 0 mg/dL Blood Venous blood specimen / Unknown Result [facility] Historical Provider LAB BLOOD ORDERABLES Della l Result from Last 3 Months or Most Recently [place]vant [place] [address] MEDICARE MEDICAID - [place] Care Teams Car Pilot Relationship Specialty Start Date End Date Fatuma Hardy MD [address] [place] [address] PCP - General Family Medicine 07/02/24
--- OUTSIDE RECORDS SUMMARY | 2025-01-29 13:31 | XMS_ITS | Encounter Summary ---
Author Organization [employer] Address [address] [place] [address] [address] [place] [address] Care Team Providers Care Field Account Manager Name Role Phone Fatuma Hardy MD Primary Care Provider [phone] Reason for Visit * Reason Onset Date Comments PA status 06/28/2022 Encounter Details Date Type Department Care Team (Late st Contact Info) Description 06/28/2022 Telephone [facility] MED & PEDS [address] [place] [address] Fatuma Hardy MD 505 [place] [address] PA status Social History Tobacco Use Types [...] a previous PA Please contact pt at [phone] documented in this encounter Plan of Treatment Upcoming Encounters Date Type Department Care Team (Late st Contact Info) Description 03/21/2025 3:00 PM EST Office Visit [facility] ADULT DENTAL [address] [place] [address] Miriam Watson documented as of this encounter Visit Diagnoses Not on filedocumented in this encounter Care Teams Field Account Manager Relationship Specialty Start Date End Date Fatuma Hardy MD [address] [place] [address] PCP - General Family Medicine 04/12/12 documented as of this encounter
--- OUTSIDE RECORDS SUMMARY | 2025-01-29 13:31 | XMS_ITS | Encounter Summary ---
Author Organization [employer] Address [address] [place] [address] [address] [place] [address] Care Team Providers Care Golf Course Ranger Name Role Phone Fatuma Hardy MD Primary Care Provider [phone] Reason for Visit * Reason Comments Med Refill Encounter Details Date Type Department Care Team (Late st Contact Info) Description 04/18/2023 Refill [facility] MED & PEDS [address] [place], [place] [phone] Fatuma Hardy MD 505 [place], [place] [phone] Fibromyositis Social History Tobacco Use Types Packs/Day [...] 03/21/2025 3:00 PM EST Office Visit [facility] ADULT DENTAL [address] [place], [place] [phone] Miriam Watson documented as of this encounter Visit Diagnoses Diagnosis Fibromyositis Unspecified myalgia and myositis documented in this encounter Care Teams Golf Course Ranger Relationship Specialty Start Date End Date Fatuma Hardy MD [address] [place] [address] PCP - General Family Medicine 04/12/12 documented as of this encounter
--- OUTSIDE RECORDS SUMMARY | 2025-01-29 13:31 | XMS_ITS | Encounter Summary ---
Author Organization [employer] Address [address] [place] [address] [address] [address] Care Team Providers Care Economic Development Manager Name Role Phone Fatuma Hardy MD Primary Care Provider [phone] Encounter Details Date Type Department Care Team (Latest Contact Info) Description 12/29/2020 Abstract [facility] CONVERSIONS Dental, Provider, DDS Social History [...] Description 03/21/2025 3:00 PM EST Office Visit [facility] CH[facility] ADULT DENTAL [address] [place] [address] Miriam Watson documented as of this encounter Visit Diagnoses Not on filedocumented in this encounter Care Teams Economic Development Manager Relationship Specialty Start Date End Date Fatuma Hardy MD [address] [place] [address] PCP - General Family Medicine 04/12/12 documented as of this encounter
--- OUTSIDE RECORDS SUMMARY | 2025-01-29 13:31 | XMS_ITS | Encounter Summary ---
Author Organization [employer] Address 75 [facility] 7t [place] [address] Care Team Providers Care Labor Representative Name Role Phone Fatuma Hardy MD Primary Care Provider Reason for Visit * Reason Onset Date Comments PT1 10/23/2024 Encounter Details Date Type Department Care Team ([facility] st Contact Info) Description 10/23/2024 Telephone [facility] MEDICINE [address] [place] [address] Fatuma Hardy MD [address] [place], [place] [phone] PT1 Social History Tobacco Use Types Packs/Day [...] Yes Provider name or facility name: [address] [place] [address] - Dr Queenie Abbott Escort needed: Y/N: No Do you have a wheelchair: Y/N: No If yes- Manual or electric: N/A Visits: (3x monthly) 2 of 2 Patient calling requesting PT1 Home Address verified: Y/N: Yes Provider name or facility name: [address] [place], [place] Escort needed: Y/N: No Do you have a wheelchair: Y/N: No If yes- Manual or electric: N/A Visits: (3x monthly) documented in this encounter Plan of Treatment Upcoming Encounters Date Type Department Care Team (Late st Contact Info) Description 03/21/2025 3:00 PM EST Office Visit [facility] CHC ADULT DENTAL [address] [place] [address] Miriam Watson documented as of this encounter Visit Diagnoses Not on filedocumented in this encounter Care Teams Labor Representative Relationship Specialty Start Date End Date Fatuma Hardy MD [address] [place] [address] PCP - General Family Medicine 04/12/12 documented as of this encounter
--- OUTSIDE RECORDS SUMMARY | 2025-01-29 13:31 | XMS_ITS | Encounter Summary ---
Author Organization [facility] Address 75 [facility] 7t [place] [address] Care Team Providers Care Counter Sales Representative Name Role Phone Fatuma Hardy MD Primary Care Provider [phone] Encounter Details Date Type Department Care Team (Late st Contact Info) Description 11/10/2023 Orders Only [facility] MED & PEDS [address] [place] [address] Provider, Historical, Social History Tobacco Use Types [...] 3:00 PM EST Office Visit [facility] ADULT DENTAL [address] [place] [address] Miriam Watson documented as of this encounter [...] on filedocumented in this encounter Care Teams Counter Sales Representative Relationship Specialty Start Date End Date Fatuma Hardy MD [address] [place] [address] PCP - General Family Medicine 04/12/12 documented as of this encounter
--- OUTSIDE RECORDS SUMMARY | 2025-01-29 13:31 | XMS_ITS | Encounter Summary ---
Author Organization [employer] Address 75 [facility] 7t [place] [address] Care Team Providers Care Adhesion Tester Name Role Phone Fatuma Hardy MD Primary Care Provider [phone] Reason for Visit * Reason Onset Date Comments pt1 12/09/2024 Encounter Details Date Type Department Care Team ([facility] Contact Info) Description 12/09/2024 Telephone [facility] MED & PEDS 505 [place] [address] Fatuma Hardy MD 505 [place] [address] pt1 Social History Tobacco Use Types Packs/Day [...] Y/N: Yes Provider name or facility name: [address] [place] [address] Dr Bere FIERRO Escort needed: Y/N: No Do you have a wheelchair: Y/N: No If yes- Manual or electric: Visits: 1x a year documented in this encounter Plan of Treatment Upcoming Encounters Date Type Department Care Team (Late st Contact Info) Description 03/21/2025 3:00 PM EST Office Visit [facility] ADULT DENTAL [address] [place] [address] Miriam Watson documented as of this encounter Visit Diagnoses Not on filedocumented in this encounter Care Teams Adhesion Tester Relationship Specialty Start Date End Date Fatuma Hardy MD [address] [place] [address] PCP - General Family Medicine 04/12/12 documented as of this encounter
--- OUTSIDE RECORDS SUMMARY | 2025-01-29 13:31 | XMS_ITS | Encounter Summary ---
Author Organization [employer] Address 75 [facility] 7t [place] [address] Care Team Providers Care Vine Pruner Name Role Phone Fatuma Hardy MD Primary Care Provider [phone] Reason for Visit * Reason Onset Date Comments pt1 12/09/2024 Encounter Details Date Type Department Care Team ([facility] Contact Info) Description 12/09/2024 Telephone [facility] MED & PEDS [address] [place] [address] Fatuma Hardy MD 505 [place] [address] pt1 Social History Tobacco Use Types Packs/Day [...] Y/N: Yes Provider name or facility name: [address] [place] [address] Escort needed: Y/N: No Do you have a wheelchair: Y/N: No If yes- Manual or electric: Visits: 2x every 6 minths documented in this encounter Plan of Treatment Upcoming Encounters Date Type Department Care Team (Late st Contact Info) Description 03/21/2025 3:00 PM EST Office Visit [facility] ADULT DENTAL [address] [place] [address] Miriam Watson documented as of this encounter Visit Diagnoses Not on filedocumented in this encounter Care Teams Vine Pruner Relationship Specialty Start Date End Date Fatuma Hardy MD [address] [place] [address] PCP - General Family Medicine 04/12/12 documented as of this encounter
--- OUTSIDE RECORDS SUMMARY | 2025-01-29 13:31 | XMS_ITS | Encounter Summary ---
Author Organization [employer] Address [address] [facility] 7t [place] [address] Care Team Providers Care Ordnance Officer Name Role Phone Fatuma Hardy MD Primary Care Provider [phone] Reason for Visit * Reason Onset Date Comments Durable Medical Equipment 10/08/2024 Encounter Details Date Type Department Care Team ([facility] st Contact Info) Description 10/08/2024 Telephone [facility] MEDICINE [address] [place] [address] Fatuma Hardy MD [address] [place], [place] [phone] Durable Medical Equipment Social History Tobacco Use [...] 3:00 PM EST Office Visit [facility] ADULT DENTAL [address] [place] [address] Miriam Watson documented as of this encounter Visit Diagnoses Not on filedocumented in this encounter Care Teams Ordnance Officer Relationship Specialty Start Date End Date Fatuma Hardy MD [address] [place] [address] PCP - General Family Medicine 04/12/12 documented as of this encounter
--- OUTSIDE RECORDS SUMMARY | 2025-01-29 13:31 | XMS_ITS | Encounter Summary ---
Author Organization [email or web address] Address 75 [facility] 7t [place] [address] Care Team Providers Care Senior Quality Technician Name Role Phone Fatuma Hardy MD Primary Care Provider [phone] Reason for Visit * Reason Onset Date Comments PT-1 06/04/2024 Encounter Details Date Type Department Care Team ([facility] Contact Info) Description 06/04/2024 Telephone [facility] CHC MED & PEDS 505 [place] [address] Fatuma Hardy MD [address] [place] [address] PT-1 Social History Tobacco Use Types Packs/Day [...] Y/N: Yes Provider name or facility name: [facility] Facility Address: [address] [facility] [address] [place] [address] Escort needed: Y/N: No Do you have a wheelchair: Y/N: No If yes- Manual or electric: n/a Visits: 2 times a month for 12 months 2.)Home Address verified: Y/N: Yes [facility] Facility Address: [address] [place] [address] Escort needed: Y/N: No Do you have a wheelchair: Y/N: No If yes- Manual or electric: N/a Visits: 2 times a month for 12 months documented in this encounter Plan of Treatment Upcoming Encounters Date Type Department Care Team (Late st Contact Info) Description 03/21/2025 3:00 PM EST Office Visit [facility] ADULT DENTAL [address] [place] [address] Miriam Watson documented as of this encounter Visit Diagnoses Not on filedocumented in this encounter Care Teams Senior Quality Technician Relationship Specialty Start Date End Date Fatuma Hardy MD [address] [place] [address] PCP - General Family Medicine 04/12/12 documented as of this encounter
--- OUTSIDE RECORDS SUMMARY | 2025-01-29 13:31 | XMS_ITS | Encounter Summary ---
Author Organization [employer] Address [address] [place] [address] 7t [place] [address] Care Team Providers Care Forensic Medical Examiner Name Role Phone Fatuma Hardy MD Primary Care Provider [phone] Encounter Details Date Type Department Care Team (Late st Contact Info) Description 11/24/2022 Orders Only [facility] MED & PEDS [address] [place], [place] [phone] Fatuma Hardy MD [address] [place] [address] Social History Tobacco Use Types Packs/Day Years [...] Description 03/21/2025 3:00 PM EST Office Visit [facility] ADULT DENTAL [address] [place], [place] [phone] Miriam Watson documented as of this encounter Visit Diagnoses Not on filedocumented in this encounter Care Teams Forensic Medical Examiner Relationship Specialty Start Date End Date Fatuma Hardy MD [address] [place] [address] PCP - General Family Medicine 12/13/12 documented as of this encounter
--- OUTSIDE RECORDS SUMMARY | 2025-01-29 13:31 | XMS_ITS | Clinical Summary ---
Author Organization [employer] Address [address] [facility] 7t [place] [address] Care Team Prov[address] Care Drive In Waiter/Waitress Name Role Phone Fatuma Hardy MD Primary Care Provider [phone] Allergies No known active allergies Medications lidocaine [...] Active beta carotene (vitamin A) 3 MG (74974 UT) capsule Take by mouth in the morning. 08/02/19 23 Active traMADol (Ultram) 50 MG tabletIndicati ons:Fibromyosi tis TAKE 1 TABLET(50 MG) BY MOUTH EVERY 12 HOURS 10 tablet 01/08/20 24 Active cyclobenzaprin e (Amrix) 15 MG [...] DAY NEEDED AFTER PROCEDURE 11/08/19 24 Active Blood Pressure kit CHECK BLOOD PRESSURE DAILY 1 kit 07/24/19 25 Active furosemide (Lasix) 20 MG tablet Take 20 mg by mouth Once per day. Active tiZANidine (Zanaflex) 4 MG tabletIndicati ons:Fibromyosi tis Take 1 tablet (4 mg) by mouth every 8 (eight) hours if needed for muscle spasms. TAKE 1 TABLET(4 MG) BY MOUTH AT BEDTIME FOR 10 DAYS 30 tablet 3 10/09/19 25 Active senna-docusate sodium (Senokot-S) 8.6-50 MG tablet Take 1 tablet by mouth Once per day. 30 tablet 11 10/17/19 25 026 Active naproxen (Naprosyn) 500 MG tablet TAKE 1 TABLET(500 MG) BY MOUTH TWICE DAILY 60 tablet 11/30/19 25 Active levothyroxine (Synthroid) 100 MCG tablet TAKE 1 TABLET BY MOUTH BEFORE BREAKFAST 90 tablet 1 11/30/19 25 Active SUMAtriptan (Imitrex) 50 MG tablet TAKE 1 TABLET BY MOUTH 1 TIME NEEDED FOR MIGRAINE. MAY REPEAT DOSE 1 TIME IN 2 HOURS IF NO RELIEF. DO NOT EXCEED 2 DOSES IN 24 HOURS 9 tablet 01/21/20 25 Active SUMAtriptan (Imitrex) 50 MG tablet TAKE 1 TABLET BY MOUTH 1 TIME NEEDED FOR MIGRAINE. MAY REPEAT DOSE 1 TIME IN 2 HOURS IF NO RELIEF. DO NOT EXCEED 2 DOSES IN 24 HOURS 9 tablet 12/12/19 25 025 Discontinued Active Problems Problem Noted Date Diagnosed Date Multiple joint pain 10/16/2024 Chronic obstructive pulmonary disease 09/02/2024 Primary hypertension 01/31/2024 Rhinosinusitis 03/31/2023 Assessment & Plan (03/31/2023 2:41 PM EST): Patient that presented visit with complaints of Rhinosinusitis will be prescribed antibiotics to treat symptoms. 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 (CMS/HCC) 04/11 Hypothyroidism 04/11/2012 Asthma 04/11/2012 Acanthosis nigricans 04/11/2012 Obstructive sleep apnea syndrome 04/11/2012 Encounters Date Type Department Care Team Description 01/18/2025 Refill [facility] [address] [place] [address] Fatuma Hardy MD 01/08/2025 Orders Only GENERIC EXTERNAL DATA DEPARTMENT Provider, Generic External Data 01/06/2025 8:30 AM EDT Office Visit [facility] [address] [place] [address] Fatuma Hardy MD Primary hypertension (Primary Dx); Hypothyroidism, unspecified type; Stage 2 chronic kidney disease 01/06/2025 Travel 01/03/2025 Telephone [facility] [address] [place] [address] Fatuma Hardy MD chart Prep 01/03/2025 Telephone [facility] [address] [place] [address] Fatuma Hardy MD chart prep 12/10/2024 Refill [facility] [address] [place] [address] Fatuma Hardy MD 12/09/2024 Patient Outreach [facility] [address] [place] [address] Fatuma Hardy MD Care Coordination (C3 W Gisselle Tai) 12/09/2024 Telephone [facility] [address] [place] [address] Fatuma Hardy MD pt1 12/09/2024 Telephone [facility] [address] [place] [address] Fatuma Hardy MD pt1 11/27/2024 Refill [facility] [address] [place] [address] Aquiles Lugo MD 11/27/2024 Refill [facility] [address] [place] [address] Fatuma Hardy MD 11/26/2024 Orders Only [facility] [address] [place] [address] ProviderPipe MD 11/13/2024 Telephone [facility] [address] [place], [place] [phone] Fatuma Hardy MD Durable Medical Equipment 11/13/2024 Telephone [facility] [address] [place], [place] [phone] Fatuma Hardy MD PT1 from Last 3 Months Immunizations Immunization Administration [...] 03/21/2025 3:00 PM EST Office Visit [facility] [address] [place] [phone] Miriam Watson Health Maintenance Due Date Last [...] series) 2016 FOBT 06/05/2024 06/05/2023 COVID-19 Vaccine ( - season) 2024 06/16/2021, 10/07/2020, 09/02/2020 Influenza [...] Mouth 07/31/2026 07/31/2023 Lipid Panel 01/08/2030 01/08/2025, 1010/2023, 07/21/2022, Additional history exists Cervical Cancer Screening [...] for screening for malignant neoplasm of colon ASHLY HISTORICAL HPV MRNA E6/E7 Routine 03/29/2016 1:40 PM EST from Last 3 Months or Most Recently Relevant to Health Maintenance Results * (ABNORMAL) Protein Creatinine Ratio, Urine (01/08/2025 8:20 AM EDT) Creatinine, Urine 377.94 mg/dL [facility] Protein, Total, Random Urine 52(H) <12 mg/dL [facility] Protein/Creati nine Ratio, Ur 0.14 <0.2 [facility] Comment:The spot urine prote in:creatinine ratio may increase to 0.3during normal . 01/08/2025 8:20 AM EDT 01/08/2025 2:16 PM EDT us Generic External Data Provider LAB URINE ORDERAB LES Final Result [facility] [address] [place] [address] [phone] * (ABNORMAL) Urinalysis Complete (01/08/2025 8:20 AM EDT) Color Urine Dark Yellow [facility] Appearance Urine Clear [facility] PH 6.0 5.0 - 9.0 [facility] Glucose Urine UA Negative Negative mg/dL [facility] Urine Blood Small (1+)(A) Negative [facility] Specific [place] - Urine 1.025 1.005 - 1.025 [facility] Urine Protein 100 (2+)(A) Neg-Trace mg/dL [facility] Urine Ketones Trace Negative mg/dL [facility] Nitrite Urine Negative Negative [facility] Leukocyte Esterase Urine Trace(A) Negative [facility] RBC Urine 6-10(A) 0 - 2 /HPF [facility] Urine WBC 0-5 0 - 5 /HPF [facility] Urine Squamous Epithelial Cell 3-5 0 - 2 /HPF [facility] Urine Bacteria None Seen None Seen [facility] Hyaline Casts, Urine 6-10 0 - 2 /LPF [facility] 01/08/2025 8:20 AM EDT 01/08/2025 2:16 PM EDT us Generic External Data Provider LAB URINE ORDERAB LES Final Result [facility] [address] [place] [phone] * ANCA Vasculitides (01/08/2025 8:10 AM EDT) Myeloperoxidase Antibody <1.0 [facility] Comment:Value Interpretation ----- <1.0 No Antibody Detected > or = 1.0 Antibody DetectedAutoantibodies to myeloperoxidase (MPO) are commonlyassociated with the following small-vesselvasculitides: microscopic polyangiitis,polyarteritis nodosa, Churg-Annette syndrome,necrotizing and crescentic glomerulonephritis andoccasionally granulomatosis with polyangiitis(GPA, Maurilio's). The perinuclear IFA pattern,(p-ANCA) is based largely on autoantibody tomyeloperoxidase which serves as the primary antigen.These autoantibodies are present in active disease. Proteinase-3 Antibody <1.0 [facility] Comment:Value Interpretation ----- <1.0 No Antibody Detected > or = 1.0 Antibody DetectedAutoantibodies to proteinase-3 (MA-3) are accepted ascharacteristic for granulomatosis with polyangiitis(GPA, Maurilio's), and are detectable in 95% of thehistologically proven cases. The cytoplasmic IFApattern, (c-ANCA), is based largely on autoantibody toPR-3 which serves as the primary antigen.These autoantibodies are present in active disease.THIS TEST WAS PERFORMED AT:[facility] [place] [phone] MAYEN MD 01/08/2025 8:10 AM EDT 01/08/2025 2:28 PM EDT us Generic External Data Provider LAB BLOOD ORDERAB LES Final Result Performing Organization Address [facility]/ZIP Co de Phone Number [facility] [address] [place] [phone] * (ABNORMAL) TSH with Reflex to Free T4 (01/08/2025 8:10 AM EDT) TSH reflex Free T4 0.08(L) 0.32 - 4.0 uIU/mL [facility] Blood Venous blood specimen / Unknown 01/08/2025 8:10 AM EDT 01/08/2025 2:28 PM EDT us Fatuma Hardy MD LAB BLOOD ORDERABLES Final Resul t Performing Organization Address [facility] Co de Phone Number [facility] [address] [place] [phone] * (ABNORMAL) CBC auto differential (01/08/2025 8:10 AM EDT) White Blood Count 5.3 4.8 - 10.8 X10*3/uL [facility] Red Blood Count 4.82 4.20 - 5.50 X10*6/uL [facility] Hemoglobin 13.2 12.0 - 16.0 g/dl [facility] Hematocrit 39.6 37.0 - 47.0 % [facility] Mean Corpuscular Volume 82.2 80.0 - 98.0 fL [facility] Mean Corpuscular Hemoglobin 27.4 27.0 - 33.0 pg [facility] Mean Corpuscular HGB Conc 33.3 31.0 - 35.0 g/dl [facility] Red Cell Distribution Width 16.2(H) 11.0 - 16.0 % [facility] Platelet Count 250 160 - 400 X10*3/uL [facility] Mean Platelet Volume 9.7 9.4 - 12.3 fL [facility] Neutrophils Percent Auto 62.6 45 - 73 % [facility] Imm Gran Pct Auto 0.4 0.0 - 0.4 % [facility] Lymphocytes Percent Auto 27.0 20 - 40 % [facility] Monocytes Percent Auto 7.5 2 - 11 % [facility] Eosinophils Percent Auto 1.9 0 - 4 % [facility] Basophils Percent Auto 0.6 0 - 2 % [facility] NRBC Pct Auto 0.0 0.0 - 0.2 /100WBC [facility] Neutrophils Absolute Auto 3.3 2.0 - 8.3 x10*3/uL [facility] Imm Gran Abs Auto 0.02 0.00 - 0.03 X10*3/uL [facility] Lymphocytes Absolute Auto 1.4 1.2 - 4.9 X10*3/uL [facility] Monocytes Absolute Auto 0.4 0.1 - 1.2 X10*3/uL [facility] Eosinophils Absolute Auto 0.1 0.0 - 0.4 X10*3/uL [facility] Basophils Absolute Auto 0.0 0.0 - 0.2 X10*3/uL [facility] NRBC Abs Auto 0.000 0.0 - 0.012 X10*3/uL [facility] 01/08/2025 8:10 AM EDT 01/08/2025 2:23 PM EDT us Generic External Data Provider LAB BLOOD ORDERAB LES Final Result [facility] [address] [place] [phone] * Sed Rate by Modified Deniz (01/08/2025 8:10 AM EDT) Erythrocyte Sedimentation Rate 20 0 - 20 MM/HR [facility] Comment:Patients with polycy themia and many hemoglobin abnormalitiesmay have depressed sed rates whereas patients with anemiamay have elevated sed rates. 01/08/2025 8:10 AM EDT 01/08/2025 2:23 PM EDT us Generic External Data Provider LAB BLOOD ORDERAB LES Final Result Performing Organization Address [facility] de Phone Number [facility] [address] [place] [phone] * (ABNORMAL) C-reactive Protein (01/08/2025 8:10 AM EDT) C Reactive Protein 0.55(H) < or = 0.50 mg/dL [facility] 01/08/2025 8:10 AM EDT 01/08/2025 2:28 PM EDT us Generic External Data Provider LAB BLOOD ORDERAB LES Final Result Performing Organization Address [facility] de Phone Number [facility] [address] [place] [phone] * T4, Free (01/08/2025 8:10 AM EDT) Free T4 (Free Thyroxine) 1.52 0.71 - 1.85 ng/dL [facility] 01/08/2025 8:10 AM EDT 01/08/2025 2:28 PM EDT Fatuma Hardy MD LAB BLOOD ORDERABLES Final Resul t Performing Organization Address [facility] de Phone Number [facility] [address] [place] [phone] * Hepatic Function Panel (01/08/2025 8:10 AM EDT) Bilirubin, Direct 0.2 0.0 - 0.5 mg/dL [facility] Blood Venous blood specimen / Unknown 01/08/2025 8:10 AM EDT 01/08/2025 2:28 PM EDT Fatuma Hardy MD LAB BLOOD ORDERABLES Final Resul t Performing Organization Address [facility] de Phone Number [facility] [address] [place] [phone] * (ABNORMAL) Lipid Panel, Standard (01/08/2025 8:10 AM EDT) Triglycerides 75 <150 mg/dL [facility] Comment:Desirable Triglyceri de: less than 150 mg/dLBorderline High Triglyceride 150-199 mg/dLHigh Triglyceride: 200-499 mg/dLVery High Triglyceride: greater than or equal to 5OO mg/dL Cholesterol 181 <200 mg/dL [facility] Comment:Desirable Cholestero l: less than 200 mg/dLBorderline High Cholesterol: 200-239 mg/dLHigh Cholesterol: greater than 239 mg/dL LDL Cholesterol Calculated 109(H) <100 mg/dL [facility] Comment:Desirable LDL: less than 100 mg/dLNear Optimal/Above Optimal LDL: 110- 129 mg/dLBorderline High LDL: 130-159 mg/dLHigh LDL: 160-189 mg/dLVery High LDL: greater than or equal to 190 mg/dL HDL Cholesterol 57 >40 mg/dL [facility] Comment:Desirable HDL: great er than 40 mg/dL Note: This HDL assay may give artificially low results in patients with liver disease. Blood Venous blood specimen / Unknown 01/08/2025 8:10 AM EDT 01/08/2025 2:28 PM EDT Fatuma Hardy MD LAB BLOOD ORDERABLES Final Resul t Performing Organization Address [facility] Co de Phone Number [facility] [address] [place] [phone] [phone] * (ABNORMAL) Comprehensive Metabolic Panel (01/08/2025 8:10 AM EDT) Sodium 142 135 - 145 mmol/L [facility] Potassium 3.6 3.3 - 5.1 mmol/L [facility] Chloride 103 96 - 108 mmol/L [facility] Carbon Dioxide 29 22 - 29 mmol/L [facility] Anion Gap 14 12 - 20 [facility] Urea Nitrogen (BUN) 12 9 - 16 mg/dL [facility] Creatinine, Serum 0.66 0.5 - 1.4 mg/dL [facility] Estimated Glomerular Filt Rate >60 [facility] Comment:Chronic Kidney Disea se: Estimated GFR < 60 mL/min/1.27k2Tfzrrn Kidney Disease: Estimated GFR < 15 mL/min/1.73m2 Glucose 76 60 - 115 mg/dL [facility] Calcium 9.9 8.4 - 10.2 mg/dL [facility] Bilirubin, Total 0.7 0.0 - 1.0 mg/dL [facility] Aspartate Amino Transferase 33(H) 5 - 31 U/L [facility] Alanine Aminotransferase 19 0 - 31 U/L [facility] Total Protein 8.1(H) 6.5 - 8.0 g/dL [facility] Albumin Level 4.6 3.5 - 5.0 g/dL [facility] Alkaline Phosphatase 114 39 - 117 U/L [facility] 01/08/2025 8:10 AM EDT 01/08/2025 2:28 PM EDT us Generic External Data Provider LAB BLOOD ORDERAB LES Final Result [facility] [address] [place] [phone] * XR FOOT 3 OR MORE VIEWS BILATERAL (11/26/2024 12:57 PM EDT) Anatomical Region Laterality Modality Radiographic Jaida ging us Historical Provider MD VILLASENOR XR PROCEDURES Final R esult * BI Mammogram Diagnostic Tomosynthesis Bilateral (08/07/2024 10:00 AM EDT) Anatomical Region Laterality Modality Breast Bilateral Mammography 08/07/2024 10:0 0 AM EDT Narrative 08/07/2024 12:12 PM EDT [facility] [address] [place] [address] Mammography Report Signed Patient: Petra Meadows MR#: [id number] : 1955 Acct:[id number] Age/Sex: 68 / F ADM Date: 08/07/24 Loc: HO.MAMMO Attending Dr: Fatuma Hardy MD Ordering Physician: Fatuma Hardy MD Results: 3.12MPr obably Benign Finding - 12 month F/U Suggested Date of Service: 08/07/24 Follow Up: 12 month diagnos tic follow up Procedure(s): MM tomosynthesis diagnostic BI Accession Number(s): [id number] cc: Fatuma Hardy MD EXAMINATION: MM DIAGNOSTIC [...] 08/07/24 1209 DD/ 1000 TD/TT: 08/07/24 1020 [employer] Product Development Manager: Procedure Note Donotuseinterpreter, Image - 08/07/2024 [facility] [address] [place] [address] Mammography Report Signed Patient: Petra Meadows NMR#: [id number] : 7Acct:[id number] Age/Sex: 68 / FADM Date: 08/07/24 Loc: HO.MAMMO Attending Dr: Fatuma Hardy MD Ordering Physician: Fatuma Hardy MDResults: 3.12MPr obably Benign Finding - 12 month F/U Suggested Date of Service: 08/07/24Follow Up: 12 month diagnos tic follow up Procedure(s): MM tomosynthesis diagnostic BI Accession Number(s): [id number] cc: Fatuma Hardy MD EXAMINATION: MM DIAGNOSTIC [...] 08/07/24 1209 DD/ 1000 TD/TT: 08/07/24 1020 [employer] Product Development Manager: us Fatuma Hardy MD IMG BI PROCEDURES Final Result * Hepatitis Panel, General (02/05/2024 8:23 AM EDT) Hepatitis A IgM Nonreactive Nonreactive [facility] Comment:IgM antibodies to GONZALEZ V not detected; does not exclude earlyacute or recovered HAV infection. ~Hepatitis B Surface Antibody NONREACTIVE Nonreactive [facility] Comment:Nonreactive: < 8.00 mIU/mL Hepatitis B Core Antibody Nonreactive Nonreactive [facility] Hepatitis C Antibody Nonreactive Nonreactive [facility] Comment:Antibodies to HCV no t detected; does not exclude early acuteHCV infection. Hepatitis B Surface Ag Negative Negative [facility] 02/05/2024 8:23 AM EDT 02/05/2024 8:27 AM EDT us Generic External Data Provider LAB BLOOD ORDERAB LES Final Result [facility] [address] [place] [phone] * Cologuard?? colon cancer screening (06/05/2023 1:00 PM EST) Cologuard Result Negative Negative 06/18/19 9:01 AM EST [employer] (CLIA #:[id number]) Comment: NEGATIVE TEST RESULT. A negative Cologuard [...] Jeter et al, N Engl J Med 2014;370(14):2955-2092) The normal value (reference range) for this assay is negative. COLOGUARD RE-SCREENING RECOMMENDATION: Periodic colorectal cancer screening is an important part of preventive healthcare for asymptomatic individuals at average risk for colorectal cancer. Following a negative Cologuard result, the [place] Cancer Society and U.S. Multi-Society Task Force screening guidelines recommend a Cologuard re-screening interval of 3 years. References: [place] [employer] Guideline for Colorectal Cancer Screening: https://www.cancer.org/cancer/vdvgs-setbgu-csmzwh/lsjhgejzr-usrikkywu-gtornch/ac s-rec ommendations.html.; Julio WORTHINGTON, Vipin MCGOWAN, Moni CatherineK, Colorectal Cancer Screening: Recommendations for Physicians and Patients from the U.S. Multi-Society Task Force on Colorectal Cancer Screening , Am J Gastroenterology 2017; 112:5956-8309. TEST DESCRIPTION: Composite algorithmic analysis of stool [...] Jeter et al, N Engl J Med 2014;370(14):5207-6715.) Cologuard may produce a false negative or false positive result (no colorectal cancer or precancerous polyp present at colonoscopy follow up). A negative Cologuard test result does not guarantee the absence of CRC or advanced adenoma (pre-cancer). The current Cologuard screening interval is every 3 years. ([place] Cancer Society and U.S. Multi-Society Task Force). Cologuard performance data in a 10,000 patient pivotal study using colonoscopy as the reference method can be accessed at the following location: www.Perfect [employer]/results. Additional description of the Cologuard test process, warnings and precautions can be found at www.Owl biomedicalrd.com. Stool specimen (specimen) 06/05/2023 1:00 PM EST 06/07/2023 2:46 PM EST us Fatuma Hardy MD LAB MOLECULAR DIAGNOSTICS ORDERA BLES Final Result [facility] (CLIA #:[id number]) Kehinde Walter . [place] [id number], * HPV mRNA E6/E7 (03/29/2016 1:40 PM EST) HPV mRNA E6/E7 Not Detected NOT DETECTED [facility] Comment: This test was performed using the APTIMA(R) HPV Assay ([employer] This assay detects E6/E7 viral messenger RNA (mRNA) from 14 high-risk HPV types (16,18,31,33,35,39,45,51, 52,56,58,59,66,68). For additional information please refer to: http://education.[employer].Angie's List/faq/TPN777u4 (This link is being provided for informational/ educational purposes only.) Test Performed by Reina Cavazos, [employer] [facility], [address] [place] [address] Jim Young M.D., Ph.D., Director of Laboratories , [facility] [id number] Please note: Effective 01/11/2016, HPV testing will be performed using [employer]'s APTIMA test which targets mRNA. Detecting mRNA instead of DNA, as in older methods, offers significant improvements in specificity. 03/29/2016 1:40 PM EST us Xochilt Alcaraz CNM HISTORICAL/NON ORDERABLE LABS Final Result [facility] [address] from Last 3 Months or Most Recently Relevant to Health Maintenance Insurance MEDICARE Member Subscriber Plan / Payer (Ef fective 2023-Present) Name:Petra Meadows Member ID:[id number] Relation to Subscriber:Self Name:Petra Meadows Subscriber ID:[id number] Payer ID:STATE Group ID:Not on file Type:Medicare Address: [facility] [address] [phone] [facility] STAND ADULT Care Teams Drive In Waiter/Waitress Relationship Specialty Start Date End Date Fatuma Hardy MD [address] [place] [phone] PCP - General Family Medicine 04/12/12
--- OUTSIDE RECORDS SUMMARY | 2025-01-29 13:31 | XMS_ITS | Clinical Summary ---
Author Organization [facility] Address 100 [facility] 20 0 [place] [address] Phone Care Team Providers Care Top Cutter Name Role Phone Fatuma Hardy MD Primary Care Provider [phone] Allergies No known active allergies Medications montelukast [...] Office Communication [facility] [address] [phone] Vidal Reed MD 11/25/2024 Orders Only [facility] [address] [phone] Vidal Reed MD 11/11/2024 Refill [facility] [address] [phone] Vidal Reed MD 10/30/2024 Telephone [facility] [address] [phone] Iveth Patel MA from Last 3 Months Immunizations Immunization Administration [...] Office Visit [facility] [address] [address] Vidal Reed MD [address] [address] Health Maintenance Due Date Last [...] order comments [place] [address] * Creatinine (11/25/2024 7:41 AM EDT) Creatinine [...] order comments [place] [address] * (ABNORMAL) Iron Panel (Fe, TIBC, TSAT) (11/25/2024 7:41 AM EDT) Iron 31 30 - 160 mcg/dL See order comments TIBC 351 228 - 428 mcg/dL See order comments Iron Saturation (TSat) 9(L) 15 - 50 % See order comments UIBC 320 ug/dL See order comments Blood Venous blood / Unknown 11/25/2024 7:41 AM EDT 11/25/2024 7:41 AM EDT Vidal Reed MD LAB BLOOD ORDERABLES Final Re sult Performing Organization Address [facility] Co de Phone Number [place] See order comments [place] [address] * Vitamin D 25 Hydroxy (11/25/2024 7:41 [...] order comments [place] [address] * (ABNORMAL) CBC and Differential (11/25/2024 7:41 [...] ORDERABLES Final Re sult Performing Organization Address [facility] de Phone Number [place] See order comments [place] [address] * BUN (11/25/2024 7:41 AM EDT) BUN 16 9 - 16 mg/dL See order comments 11/25/2024 7:41 AM EDT 11/25/2024 7:41 AM EDT Vidal Reed MD LAB BLOOD ORDERABLES Final Re sult Performing Organization Address [facility] Co de Phone Number [place] See order comments [place] [address] * (ABNORMAL) Ferritin (11/25/2024 7:41 AM EDT) Ferritin 6(L) 10 - 250 ng/mL See order comments 11/25/2024 7:41 AM EDT 11/25/2024 7:41 AM EDT us Vidal Reed MD LAB BLOOD ORDERABLES Final Re sult Performing Organization Address [facility] Co de Phone Number [place] See order comments [place] [address] * Calcium (11/25/2024 7:41 AM EDT) Calcium 9.3 8.4 - 10.2 mg/dL See order comments 11/25/2024 7:41 AM EDT 11/25/2024 7:41 AM EDT Vidal Reed MD LAB BLOOD ORDERABLES Final Re sult Performing Organization Address [facility] de Phone Number [place] See order comments [place] [address] * (ABNORMAL) Electrolyte panel (11/25/2024 7:41 AM [...] ORDERABLES Final Re sult Performing Organization Address [facility] de Phone Number [place] See order comments [place] [address] from Last 3 Months Insurance [place] Member Subscriber Plan / Payer (Ef fective 2020-Present) Name:Petra Meadows Relation to Subscriber:Self Name:Petra Meadows Payer ID:Not on file Group ID:Not on file Type:Not on file Address: [address] [id number] Medicare Care Teams Top Cutter Relationship Specialty Start Date End Date Fatuma Hardy MD [address] [place] [address] PCP - General 05/11/20
--- OUTSIDE RECORDS SUMMARY | 2025-01-29 13:31 | XMS_ITS | Encounter Summary ---
Author Organization [employer] Address 75 [facility] 7t [place] [address] Care Team Providers Care Education Spec Name Role Phone Fatuma Hardy MD Primary Care Provider Reason for Visit * Reason Onset Date Comments PT-1 05/05/2023 Encounter Details Date Type Department Care Team (Late st Contact Info) Description 05/05/2023 Telephone [facility] MEDICINE [address] [place] [address] Fatuma Hardy MD [address] [place], [place] [phone] PT-1 Social History Tobacco Use Types Packs/Day [...] N/A Time: N/A Visits: 4 Address: 505 [facility] Facility: [facility] Wheel Chair: no Shaping Machine Operator Needed: no PT1 needed Date: N/A Time: N/A Visits: 4 Address: [address] [facility] Facility: [facility] Wheel Chair: no Shaping Machine Operator Needed: no PT1 needed Date: N/A Time: N/A Visits: 4 Address: [address] [place] [address] [address]rd Floor, [place] [address] Facility:[facility] Wheel Chair: no Shaping Machine Operator Needed: no documented in this encounter Plan of Treatment Upcoming Encounters Date Type Department Care Team (Late st Contact Info) Description 03/21/2025 3:00 PM EST Office Visit [facility] ADULT DENTAL 505 [place] [address] Miriam Watson documented as of this encounter Visit Diagnoses Not on filedocumented in this encounter Care Teams Education Spec Relationship Specialty Start Date End Date Fatuma Hardy MD [address] [place] [address] PCP - General Family Medicine 04/12/12 documented as of this encounter
--- OUTSIDE RECORDS SUMMARY | 2025-01-29 13:31 | XMS_ITS | Encounter Summary ---
Author Organization [employer] Address 75 [facility] 7t [place] [address] Care Team Providers Care Pta Name Role Phone Fatuma Hardy MD Primary Care Provider [phone] Encounter Details Date Type Department Care Team (Late st Contact Info) Description 11/26/2024 Orders Only [facility] [address] [place] [address] Provider, MD Pipe Social History Tobacco Use [...] Description 03/21/2025 3:00 PM EST Office Visit [facility] ADULT DENTAL [address] [place] [address] Miriam Watson documented as of this encounter [...] on filedocumented in this encounter Care Teams Pta Relationship Specialty Start Date End Date Fatuma Hardy MD [address] [place] [address] PCP - General Family Medicine 04/12/12 documented as of this encounter
--- OUTSIDE RECORDS SUMMARY | 2025-01-29 13:31 | XMS_ITS | Encounter Summary ---
Author Organization [employer] Address 75 [facility] 7t [place] [address] Care Team Providers Care Sales Office Coordinator Name Role Phone Fatuma Hardy MD Primary Care Provider [phone] Reason for Visit * Reason Onset Date Comments PT-1 08/27/2024 Encounter Details Date Type Department Care Team ([facility] st Contact Info) Description 08/27/2024 Telephone [facility] MEDICINE 230 [place] [address] Fatuma Hardy MD [address] [place], [place] [phone] PT-1 Social History Tobacco Use Types Packs/Day [...] Description 03/21/2025 3:00 PM EST Office Visit [facility] ADULT DENTAL [address] [place] [address] Miriam Watson documented as of this encounter Visit Diagnoses Not on filedocumented in this encounter Care Teams Sales Office Coordinator Relationship Specialty Start Date End Date Fatuma Hardy MD [address] [place] [address] PCP - General Family Medicine 04/12/12 documented as of this encounter
--- OUTSIDE RECORDS SUMMARY | 2025-01-29 13:31 | XMS_ITS | Encounter Summary ---
Author Organization [employer] Address 75 [facility] 7t [place] [address] Care Team Providers Care Stone Operator Name Role Phone Fatuma Hardy MD Primary Care Provider [phone] Reason for Visit * Reason Onset Date Comments PT1 06/26/2024 Encounter Details Date Type Department Care Team ([facility] Contact Info) Description 06/26/2024 Telephone [facility] MED & PED[facility] 505 [place] [address] Fatuma Hardy MD 505 [place] [address] PT1 Social History Tobacco Use Types Packs/Day [...] Y/N: Yes Provider name or facility name: [facility] Facility Address: [address] [place] [address] [address], [place] [address] Escort needed: Y/N: No Do you have a wheelchair: Y/N: No If yes- Manual or electric: n/a Visits: 1-2 for 6 months documented in this encounter Plan of Treatment Upcoming Encounters Date Type Department Care Team (Late st Contact Info) Description 03/21/2025 3:00 PM EST Office Visit [facility] ADULT DENTAL [address] [place] [address] Miriam Watson documented as of this encounter Visit Diagnoses Not on filedocumented in this encounter Care Teams Stone Operator Relationship Specialty Start Date End Date Fatuma Hardy MD [address] [place] [address] PCP - General Family Medicine 04/12/12 documented as of this encounter
== END 2025-01-29 12:41 | disposition home or self-care (01) ==
LOC: HO.HBS 11:59
PROVIDERS: PCP Student in an Organized Health Care Education/Training Program; Visit Provider Physician Assistant Surgical
DX: E66.3 Overweight (principal); Z68.27 Body mass index [BMI] 27.0-27.9, adult; Z90.3 Acquired absence of stomach [part of]; Z98.84 Bariatric surgery status
CPT/HCPCS: 99214; G2211

== ENCOUNTER 2025-01-29 11:59 | Outpatient (REF) | payer MEDICARE, MEDICAID, SELFPAY ==
[2025-01-29 15:00] LABS: Folate 9.5 ng/mL (> or = 4.0); Vitamin B12 179 pg/mL (200-900)
== END 2025-01-29 12:00 | disposition home or self-care (01) ==
LOC: HO.LAB 11:59
PROVIDERS: PCP Student in an Organized Health Care Education/Training Program; Visit Provider Physician Assistant Surgical
DX: E66.3 Overweight (principal); Z79.85 Long-term (current) use of injectable non-insulin antidiabetic drugs; Z98.84 Bariatric surgery status
CPT/HCPCS: 36415; 82306; 82607; 82746; 84425; 84590; 84630; 99212

== ENCOUNTER 2025-03-19 15:04 | Outpatient (AMB) | payer MEDICARE, MEDICAID, SELFPAY ==
--- NOTE | 2025-03-19 15:35 | A.OFFVIS_ITS ---
Vital Signs 03/19/25 15:42 Height 5 ft 3 in Weight 139 lb 1.787 oz BMI 24.6 BP 132/64 Blood Pressure Location Lt brachial Position Sitting Pulse 72 Pulse Source Pulse Oximeter Pulse Oximetry (%) 98 Oxygen Delivery Method Room Air Intake Visit Reasons: review PET/CT scan Intake Note: Patient presents for review PET/CT Scan follow up. Allergies iron dextran complex (IRON DEXTRAN COMPLEX) Allergy (Unknown, Verified 03/19/25 15:40) Shakiness Medication List - Last Reconciled 03/19/25 by Melba Caputo MD acetaminophen 650 mg PO Q4-6H PRN albuterol sulfate 90 mcg/actuation 2 puffs PO Q4-6H PRN blood pressure test kit-large As directed cetirizine 10 mg PO DAILY cholecalciferol (vitamin D3) 50 mcg PO DAILY cyanocobalamin (vitamin B-12) 1,000 mcg PO DAILY hydrochlorothiazide 12.5 mg PO DAILY levothyroxine 75 mcg PO DAILY lorazepam (Ativan) 1 mg PO ONCE PRN losartan 25 mg PO DAILY montelukast 10 mg PO BEDTIME naproxen 500 mg PO BID sennosides-docusate sodium 8.6-50 mg (Stimulant Laxative Plus) 1 tab PO DAILY sumatriptan succinate 50 mg PO thiamine HCl (vitamin B1) 100 mg PO DAILY tirzepatide (weight loss) (Zepbound) 7.5 mg (0.5 mL) subcut QWEEK tizanidine 8 mg (2 x 4 mg) PO BEDTIME PRN tramadol 50 mg PO ONCE PRN umeclidinium 62.5 mcg/actuation (Incruse Ellipta) 1 inh inhalation DAILY vitamin A acetate 3,000 mcg PO DAILY HPI Comments Details: Patient is a 69-year-old female with hypertension, hypothyroidism, migraine headaches, fibromyalgia and granulomatosis with polyangiitis here today for follow up Interval History: Patient last seen 01/14/25 with me - On tramadol and tizanidine - Complains of shoulder and neck pain/stiffness - Sees pulm next month - No weight loss or night sweats - Also complaining of leg cramps - PET scan ordered to ensure remission Today - On tramadol and tizanidine - PET scan showing increased activity consistent with vasculitis, also a liver lesion Rheumatologic History: GPA 2005 - polyarthritis RX with Plaquenil. rheumatoid nodule 2007 respirtatory complaints along with recurrent sinus infections. Complicated by respiratory failure and ICU stay. bx of lung showed GPA, sinuisitis. pneumothorax. Steroids 2826-6097 oral cytoxan 6879-9940 Imuran. Hx kidney bx showing sclerosis/no vasculitis - ? date Has been off medication Current Rheumatology Medication(s): Tizanidine 8mg at night prn Tramadol 50mg prn PFSH Medical History (Updated 09/10/24 @ 09:15 by Melba Caputo MD) Granulomatosis with polyangiitis Riggins esophagus COPD (chronic obstructive pulmonary disease) Congenital intra-abdominal adhesions Steatosis, liver Stress incontinence Diaphragmatic hernia Riggins's esophagus COVID-19 Cervical spondylosis Tricuspid valve regurgitation Hiatal hernia Paresthesia Granulomatous angiitis Osteoarthritis Fibromyalgia Anxiety GERD (gastroesophageal reflux disease) Sleep apnea Asthma Hypothyroidism Hypertension Obesity Surgical History History of sleeve gastrectomy S/P laparoscopic sleeve gastrectomy Hx of LASIK History of pneumonectomy Hx of biopsy Hx of biopsy History of bronchoscopy History of esophagogastroduodenoscopy (EGD) Hx of colonoscopy Family History Father Heart disease Mother Cirrhosis of liver Recurrent strokes Diabetes Sister Lupus Arthritis Daughter No problems noted. Son No problems noted. Social History Are you a primary residential care facility manager to a significant other at home: No Do you presently have visiting nurse or other home services: No Alcohol intake: never Patient Tobacco Use Status: Former Tobacco user Second Hand Smoke Exposure: No Review of Systems Narrative per HPI Physical Exam Exam Exam: Deferred Vital Signs: Last Vital Signs Pulse 72 03/19/25 15:42 BP 132/64 03/19/25 15:42 Pulse Ox 98 03/19/25 15:42 Oxygen Delivery Method Room Air 03/19/25 15:42 BMI result Body Mass Index 24.6 Results Reviewed Results Reviewed: Laboratory Tests 09/10/24 01/08/25 01/29/25 09:56 08:10 13:02 WBC 5.3 RBC 4.82 Hgb 13.2 Hct 39.6 Plt Count 250 ESR 25 H 20 Sodium 142 Potassium 3.6 Chloride 103 Carbon Dioxide 29 BUN 12 Creatinine 0.66 AST 33 H ALT 19 C-Reactive Protein 0.55 H 25-OH Vitamin D Total 32.[address] Scan 02/14/25 Findings: Head and neck: No abnormal FDG activity Thorax: Ascending aorta again measures up to 0.8 cm axially. Intense activity along the ascending portion is fairly circumferential with SUV max of 8.5, previously 6.9 Persistent left hilar activity SUV max of 3.3, previously 4.2 No significant pulmonary or inguinal activity Abdomen/pelvis: Interval increase in activity associated with lesion either in the fundal portion of the gallbladder or the adjacent liver with SUV max of 7.8, previously 2.9 Musculoskeletal: Mild focal activity along the posterior right 9th rib with SUV max has been 0.9 is nonspecific without focal abnormality. Lower extremities: No abnormal FDG activity Impression: Intense metabolic activity along the ascending aorta is mildly increased from the prior study and is most consistent with vasculitis. Interval increased metabolic activity within lesion along the gallbladder fundus/adjacent liver. Recommend further imaging initially with right upper quadrant ultrasound. Neoplasm suspected. Mild interval decrease in left hilar metabolic activity Assessment & Plan Assessment & Plan (1) Granulomatosis with polyangiitis: Comment: 2006 - polyarthritis RX with Plaquenil. rheumatoid nodule 2006 bx of lung showed GPA, sinuisitis. pneumothorax 4893-6405 oral cytoxan 5003-3812 Imuran. Hx kidney bx showing sclerosis/no vasculitis - ? 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 Plan: #GPA Patient is a 69-year-old female with granulomatosis with polyangiitis without renal involvement here today to follow up after PET scan PET scan showing vasculitic activity PET scan also shows liver/gallbladder lesion concerning for neoplasm Discuss this with the patient Prior to treatment we need to evaluate this liver lesion for neoplasm Plan - US Abdomen (Urgent) - CT Scan Abd/pelvis with contrast (Urgent) - RTC 1 month Plan I spent 20 minutes reviewing the record and labs, taking a history, examining the patient, discussing the treatment plan, ordering diagnostic work up and documenting in the medical record Orders: Orders CT abdomen pelvis w IV con Today R16.0 - Hepatomegaly, not elsewhere classified US abdomen complete Today R16.0 - Hepatomegaly, not elsewhere classified Coding Level of Care Code Est Pt Level 3 (10657) Complex EM visit Add On G2211 Diagnoses Granulomatosis with polyangiitis, unspecified whether renal involvement M31.30 Granulomatosis renal involvement: unspecified whether renal involvement
[2025-03-19 15:42] VITALS: BP 132/64; PULSE 72; O2SAT 98; BMI 24.6
--- OUTSIDE RECORDS SUMMARY | 2025-03-20 03:39 | XMS_ITS | Encounter Summary ---
Author Organization [employer] Address 75 [facility] 7t [place] [address] Care Team Providers Care Nurse Transition Name Role Phone Melinda Jordan CNP Primary Care Provider [phone] Encounter Details Date Type Department Care Team (Late st Contact Info) Description 02/27/2025 Orders Only [facility] MED & PEDS [address] [place], [place] [phone] ProviderPipe MD Social History Tobacco Use Types Packs/Day Years [...] Team (Late st Contact Info) Description 03/21/2025 2:15 PM EST Office Visit [facility] ADULT DENTAL [address] [place], [place] [phone] Miriam Watson 05/21/2025 10:45 AM EST Office Visit [facility] [address] [place] [address] Melinda Jordan CNP [address] [place] [address] documented as of this encounter Procedures Procedure Name Priority Date/Time Associated Diagnosis Comments PET CT WHOLE BODY Routine 02/14/2025 8:49 AM EDT documented in this encounter Results * PET CT WHOLE BODY (02/14/2025 8:49 AM EDT) Anatomical Region Laterality Modality Computed Tomogra phy us Historical Provider MD VILLASENOR CT PROCEDURES Final R esult documented in this encounter Visit Diagnoses Not on filedocumented in this encounter Additional Health Concerns Assessment Noted Time PHQ-9 Depression Total Score: 1 01/07/20 8:48 AM EDT documented as of this encounter Care Teams Nurse Transition Relationship Specialty Start Date End Date Melinda Jordan CNP [address] [place] [address] PCP - General Family Medicine 02/25/25 documented as of this encounter
--- OUTSIDE RECORDS SUMMARY | 2025-03-20 03:39 | XMS_ITS | Encounter Summary ---
Author Organization [employer] Address 75 [facility] 7t [place] [address] Care Team Providers Care Licensing Engineer Name Role Phone Fatuma Hardy MD Primary Care Provider [phone] Melinda Jordan CNP Primary Care Provider [phone] Reason for Visit * Reason Onset Date Comments PT-1 06/04/2024 Encounter Details Date Type Department Care Team ([facility] st Contact Info) Description 06/04/2024 Telephone [facility] CHC MED & PEDS [address] [place] [address] Fatuma Hardy MD [address] [place] [address] PT-1 Social History Tobacco Use Types Packs/Day [...] facility name: [facility] Facility Address: [address] [address] Escort needed: Y/N: No Do you have a wheelchair: Y/N: No If yes- Manual or electric: n/a Visits: 2 times a month for 12 months 2.)Home Address verified: Y/N: Yes Provider name or facility name: [facility] Facility Address: [address] [place] [address] Escort needed: Y/N: No Do you have a wheelchair: Y/N: No If yes- Manual or electric: N/a Visits: 2 times a month for 12 months documented in this encounter Plan of Treatment Upcoming Encounters Date Type Department Care Team (Late st Contact Info) Description 03/21/2025 2:15 PM EST Office Visit [facility] ADULT DENTAL [address] [place], [place] [phone] Miriam Watson 05/21/2025 10:45 AM EST Office Visit [facility] MED & PEDS [address] [place] [address] Melinda Jordan, TONEY [address] [place] [address] documented as of this encounter Visit Diagnoses Not on filedocumented in this encounter Care Teams Licensing Engineer Relationship Specialty Start Date End Date Fatuma Hardy MD [address] [place] [address] PCP - General Family Medicine 04/12/12 02/24/25 Melinda Jordan CNP [address] [place] [address] PCP - General Family Medicine 02/25/25 documented as of this encounter
--- OUTSIDE RECORDS SUMMARY | 2025-03-20 03:39 | XMS_ITS | Encounter Summary ---
Author Organization [employer] Address [address] [place] [address] 7 [place] [address] Care Team Providers Care Curve Cleaner Name Role Phone Fatuma Hardy MD Primary Care Provider [phone] Melinda Jordan CNP Primary Care Provider [phone] Encounter Details Date Type Department Care Team (Late st Contact Info) Description 11/10/2023 Orders Only [facility] MED & PEDS [address] [place] [address] Provider, MD Pipe Social History Tobacco Use [...] Care Team (Late Contact Info) Description 03/21/2025 2:15 PM EST Office Visit [facility] ADULT DENTAL [address] [place], [place] [phone] Miriam Watson 05/21/2025 10:45 AM EST Office Visit [facility] MED & PEDS [address] [place] [address] Melinda Jordan CNP [address] [place] [address] documented as of this encounter Procedures Procedure [...] on filedocumented in this encounter Care Teams Curve Cleaner Relationship Specialty Start Date End Date Fatuma Hardy MD [address] [place] [address] PCP - General Family Medicine 04/12/12 02/24/25 Melinda Jordan CNP [address] [place] [address] PCP - General Family Medicine 02/25/25 documented as of this encounter
--- OUTSIDE RECORDS SUMMARY | 2025-03-20 03:39 | XMS_ITS | Encounter Summary ---
Author Organization [employer] Address 75 [facility] 7t [place] [address] Care Team Providers Care Dean Of [facility] Name Role Phone Fatuma Hardy MD Primary Care Provider [phone] Melinda Jordan CNP Primary Care Provider [phone] Reason for Visit * Reason Onset Date Comments PT-1 08/27/2024 Encounter Details Date Type Department Care Team (Late st Contact Info) Description 08/27/2024 Telephone [facility] MEDICINE [address] [place] [address] Fatuma Hardy MD [address] [place], [place] [phone] PT-1 Social History Tobacco Use Types Packs/Day [...] Description 03/21/2025 2:15 PM EST Office Visit [facility] ADULT DENTAL [address] [place] [address] Miriam Watson 05/21/2025 10:45 AM EST Office Visit [facility] MED & PEDS [address] [place] [address] Melinda Jordan CNP [address] [place] [address] documented as of this encounter Visit Diagnoses Not on filedocumented in this encounter Care Teams Dean Of [employer] Relationship Specialty Start Date End Date Fatuma Hardy MD [address] [place] [address] PCP - General Family Medicine 04/12/12 02/24/25 Melinda Jordan CNP [address] [place] [address] PCP - General Family Medicine 02/25/25 documented as of this encounter
--- OUTSIDE RECORDS SUMMARY | 2025-03-20 03:39 | XMS_ITS | Encounter Summary ---
Author Organization [employer] Address [address] [facility] 7t [place] [address] Care Team Providers Care Resident Program Specialist Name Role Phone Fatuma Hardy MD Primary Care Provider [phone] Melinda Jordan CNP Primary Care Provider [phone] Reason for Visit * Reason Onset Date Comments Nurse Triage 06/26/2024 Encounter Details Date Type Department Care Team ([facility] st Contact Info) Description 06/26/2024 Telephone [facility] CHC MED & PEDS [address] [place] [address] Fatuma Hardy MD 505 [place] [address] Nurse Triage Social History Tobacco Use Types [...] Miscellaneous Notes * Telephone Encounter - Danielle Dlecid RN - 06/26/2024 3:08 PM EST Pt called back to cancel apt for the due to transportation. [facility] apt scheduled for 07/03/24 @1100am with Dr. Hardy. Pt will call PT 1 now to secure transportation. * Telephone Encounter - Danielle Delcid RN - 06/26/2024 1:02 PM EST Triage call Pt reports was at [employer] apt yesterday and was told BP was [...] Description 03/21/2025 2:15 PM EST Office Visit [facility] [address] [place] [address] Miriam Watson 05/21/2025 10:45 AM EST Office Visit [facility] MED & PED[facility] [address] [place] [address] Melinda Jordan CNP 505 [place] [address] documented as of this encounter Visit Diagnoses Not on filedocumented in this encounter Care Teams Resident Program Specialist Relationship Specialty Start Date End Date Fatuma Hardy MD [address] [place] [address] PCP - General Family Medicine 04/12/12 02/24/25 Melinda Jordan CNP 505 [place] [address] PCP - General Family Medicine 02/25/25 documented as of this encounter
--- OUTSIDE RECORDS SUMMARY | 2025-03-20 03:39 | XMS_ITS | Encounter Summary ---
Author Organization [employer] Address 75 [facility] 7t [place] [address] Care Team Providers Care Resistance Brazer Name Role Phone Fatuma Hardy MD Primary Care Provider [phone] Melinda Jordan CNP Primary Care Provider [phone] Reason for Visit * Reason Onset Date Comments Med Refill 04/17/2023 Encounter Details Date Type Department Care Team (Late st Contact Info) Description 04/17/2023 Telephone [facility] MEDICINE [address] [place] [address] Fatuma Hardy MD 505 [place], [place] [phone] Med Refill Social History Tobacco Use Types [...] Description 03/21/2025 2:15 PM EST Office Visit [facility] ADULT DENTAL [address] [place], [place] [phone] Miriam Watson 05/21/2025 10:45 AM EST Office Visit [facility] MED & PEDS [address] [place] [address] Melinda Jordan CNP 505 [place] [address] documented as of this encounter Visit Diagnoses Not on filedocumented in this encounter Care Teams Resistance Brazer Relationship Specialty Start Date End Date Fatuma Hardy MD [address] [place] [address] PCP - General Family Medicine 04/12/12 02/24/25 Melinda Jordan CNP 505 [place] [address] PCP - General Family Medicine 02/25/25 documented as of this encounter
--- OUTSIDE RECORDS SUMMARY | 2025-03-20 03:39 | XMS_ITS | Encounter Summary ---
Author Organization [employer] Address 75 [facility] 7t [place] [address] Care Team Providers Care Food Service Counter Clerk Name Role Phone Fatuma Hardy MD Primary Care Provider [phone] Melinda Jordan CNP Primary Care Provider [phone] Reason for Visit * Reason Onset Date Comments PT1 10/23/2024 Encounter Details Date Type Department Care Team (Late st Contact Info) Description 10/23/2024 Telephone [facility] MEDICINE [address] [place], [place] [phone] Fatuma Hardy MD [address] [place], [place] [phone] PT1 Social History Tobacco Use Types Packs/Day [...] Y/N: Yes Provider name or facility name: [address] [place] [address] - Dr Queenie Deleonort needed: Y/N: No Do you have a wheelchair: Y/N: No If yes- Manual or electric: N/A Visits: (3x monthly) 2 of 2 Patient calling requesting PT1 Home Address verified: Y/N: Yes Provider name or facility name: [address] [place], [place] Escort needed: Y/N: No Do you have a wheelchair: Y/N: No If yes- Manual or electric: N/A Visits: (3x monthly) documented in this encounter Plan of Treatment Upcoming Encounters Date Type Department Care Team (Late st Contact Info) Description 03/21/2025 2:15 PM EST Office Visit [facility] 505 [place] [address] Miriam Watson 05/21/2025 10:45 AM EST Office Visit [facility] MED & PEDS 505 [place] [address] Melinda Jordan CNP 505 [place] [address] documented as of this encounter Visit Diagnoses Not on filedocumented in this encounter Care Teams Food Service Counter Clerk Relationship Specialty Start Date End Date Fatuma Hardy MD [address] [place] [address] PCP - General Family Medicine 04/12/12 02/24/25 Melinda Jordan CNP [address] [place] [address] PCP - General Family Medicine 02/25/25 documented as of this encounter
--- OUTSIDE RECORDS SUMMARY | 2025-03-20 03:39 | XMS_ITS | Clinical Summary ---
Author Organization [facility] Address [address] [address] Phone Care Team Providers Care Branch Credit Counselor Name Role Phone Fatuma Hardy MD Primary Care Provider [phone] Allergies No known active allergies Medications montelukast [...] EVERY NIGHT AT BEDTIME IF NEEDED FOR CONSTIPATION. 1 Active levothyroxine (SYNTHROID, LEVOTHROID) 100 MCG tablet Take 100 mcg by mouth 1 (one) time each day 1 Active traMADol (ULTRAM) 50 MG tablet Take 50 mg by mouth 2 (two) times a day if needed 1 Active tiZANidine (ZANAFLEX) 4 MG tablet TAKE 1 TABLET(4 MG) BY MOUTH AT BEDTIME FOR 10 DAYS 4 Active hydroCHLOROthia zide 12.5 MG tablet TAKE 1 TABLET(12.5 MG) BY MOUTH 1 TIME EACH DAY 30 tablet 11 5 Active Zepbound 7.5 MG/0.5ML solution auto-injector ADMINISTER 7.5 MG UNDER THE SKIN EVERY WEEK 5 Active losartan (Cozaar) 25 MG tablet Take 1 tablet (25 mg total) by mouth 1 (one) time each day 30 tablet 11 5 02/27/20 26 Active Iron, Ferrous Sulfate, 325 (65 Fe) MG tablet Take 1 tablet by mouth 5 (five) times a week: Monday through Monday 45 tablet 1 5 02/24/20 25 Active Problems Problem Noted Date Diagnosed Date Encounter for screening for malignant neoplasm o f colon 02/26/2025 Constipation 02/26/2025 Riggins's esophagus 02/26/2025 Chronic obstructive pulmonary disease 09/02/2024 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 02/26/2024 Blood in urine 10/08/2020 Chronic kidney disease stage 2 10/08/2020 Hypertensive renal disease 10/08/2020 Hypertensive renal disease 10/08/2020 Encounters Date Type Department Care Team Description 02/26/2025 1:00 PM EDT Office Visit [facility] [address] [address] Vidal Reed MD Chronic kidney disease stage 2 (Primary Dx); Hypertensive renal disease from Last 3 Months Immunizations Immunization Administration Dates Next Due Influenza Split 03/09/2016,01/15/2013 Influenza Split High Dose Preservative Free IM [...] Sign Reading Time Taken Comments Blood Pressure 142/74 02/26/2025 1:06 PM EDT Pulse 84 02/26/2025 1:06 PM EDT Temperature - - Respiratory Rate - - Oxygen Saturation 99% 02/26/2025 1:06 PM EDT Inhaled Oxygen Concentration - - Weight 65.7 kg (144 lb 12.8 oz) 02/26/2025 1:06 PM EDT Height 162.6 cm (5' 4 ) 05/02/2019 12:0 0 PM EST Body Mass Index 24.85 05/02/2019 12:00 PM EST Plan of Treatment Upcoming Encounters Date Type Department Care Team (Late st Contact Info) Description 09/01/2025 9:45 AM EDT Office Visit [facility] [address] [phone] Vidal Reed MD [address] [phone] Health Maintenance Due Date Last Done Comments Breast Cancer Screening 1955 Colorectal Cancer Screening: Annual FOBT 2005 Colorectal Cancer Screening: Colonoscopy 2005 Colorectal Cancer Screening: Sigmoidoscopy 2005 Pneumococcal Vaccine: 50+ Years (3 of 3 - PCV) 08/08/2014 08/08/2013, 04/04/2006 Influenza Vaccine (#1) 2024 , 03/09/2019, 03/29/2018, Additional history exists Pneumococcal Vaccine: Peds (0 to 5 Years) and At-Risk Patients (6 to 49 Years) Discontinued 08/08/2013, 04/04/2006 Hepatitis B Vaccine Aged Out No longe r eligible based on patient's age to complete this topic Insurance Medicaid [place] Medicare Medicaid [place] Medicare Care Teams Branch Credit Counselor Relationship Specialty Start Date End Date Fatuma Hardy MD [address] [place] [address] PCP - General 05/11/20
--- OUTSIDE RECORDS SUMMARY | 2025-03-20 03:39 | XMS_ITS | Encounter Summary ---
Author Organization [employer] Address [address] [place] [address] 7t [place] [address] Care Team Providers Care Patient Coordinator Front Desk Name Role Phone Fatuma Hardy MD Primary Care Provider Melinda Jordan CNP Primary Care Provider [phone] Reason for Visit * Reason Onset Date Comments PA status 06/28/2022 Encounter Details Date Type Department Care Team ([facility] st Contact Info) Description 06/28/2022 Telephone [facility] CHC MED & PEDS [address] [place] [address] Fatuma Hardy MD 505 [place] [address] PA status Social History Tobacco Use Types [...] a previous PA Please contact pt at [phone] documented in this encounter Plan of Treatment Upcoming Encounters Date Type Department Care Team (Late st Contact Info) Description 03/21/2025 2:15 PM EST Office Visit [facility] AD[facility] [address] [place], [place] [phone] Miriam Watson 05/21/2025 10:45 AM EST Office Visit [facility] MED & PEDS [address] [place] [address] Melinda Jordan CNP 505 [place] [address] documented as of this encounter Visit Diagnoses Not on filedocumented in this encounter Care Teams Patient Coordinator Front Desk Relationship Specialty Start Date End Date Fatuma Hardy MD [address] [place] [address] PCP - General Family Medicine 04/12/12 02/24/25 Melinda Jordan CNP 505 [place] [address] PCP - General Family Medicine 02/25/25 documented as of this encounter
--- OUTSIDE RECORDS SUMMARY | 2025-03-20 03:39 | XMS_ITS | Encounter Summary ---
Author Organization [employer] Address [address] [facility] 7t [place] [address] Care Team Providers Care Manager Of Radiology Name Role Phone Fatuma Hardy MD Primary Care Provider [phone] Melinda Jordan CNP Primary Care Provider [phone] Reason for Visit * Reason Onset Date Comments PT1 06/26/2024 Encounter Details Date Type Department Care Team ([facility] st Contact Info) Description 06/26/2024 Telephone [facility] CHC MED & PEDS [address] [place] [address] Fatuma Hardy MD 505 [place] [address] PT1 Social History Tobacco Use Types Packs/Day [...] Y/N: Yes Provider name or facility name: [facility] Facility Address: [address] [place] [address] [address], [place] [address] Escort needed: Y/N: No Do you have a wheelchair: Y/N: No If yes- Manual or electric: n/a Visits: 1-2 for 6 months documented in this encounter Plan of Treatment Upcoming Encounters Date Type Department Care Team ([facility] st Contact Info) Description 03/21/2025 2:15 PM EST Office Visit [facility] ADULT DENTAL [address] [place] [address] Miriam Watson 05/21/2025 10:45 AM EST Office Visit [facility] MED & PEDS [address] [place] [address] Melinda Jordan CNP 505 [place] [address] documented as of this encounter Visit Diagnoses Not on filedocumented in this encounter Care Teams Manager Of Radiology Relationship Specialty Start Date End Date Fatuma Hardy MD [address] [place] [address] PCP - General Family Medicine 04/12/12 02/24/25 Melinda Jordan CNP [address] [place] [address] PCP - General Family Medicine 02/25/25 documented as of this encounter
--- OUTSIDE RECORDS SUMMARY | 2025-03-20 03:39 | XMS_ITS | Encounter Summary ---
Author Organization [employer] Address 75 [facility] 7t [place] [address] Care Team Providers Care Finishing Supervisor Plastic Sheets Name Role Phone Fatuma Hardy MD Primary Care Provider [phone] Melinda Jordan CNP Primary Care Provider [phone] Encounter Details Date Type Department Care Team (Late st Contact Info) Description 11/26/2024 Orders Only [facility] [address] [place] [address] Provider, MD Pipe Social History Tobacco Use Types Packs/Day Years Used Date Smoking Tobacco: Never Smokeless Tobacco: Never Alcohol Use Standard Drinks/Week Comments Defer 0 (1 standard drink = 0.6 oz pur e alcohol) Housing Stability Answer Date Recorded What is your housing situation today? I have [facility] reyes 01/23/[address] you [...] Description 03/21/2025 2:15 PM EST Office Visit [facility] ADULT DENTAL 505 [place], [place] [phone] Miriam Watson 05/21/2025 10:45 AM EST Office Visit [facility] MED & PEDS [address] [place], [place] [phone] Melinda Jordan CNP 505 [place], [place] [phone] documented as of this encounter Procedures Procedure [...] on filedocumented in this encounter Care Teams Finishing Supervisor Plastic Sheets Relationship Specialty Start Date End Date Fatuma Hardy MD [address] [place] [address] PCP - General Family Medicine 04/12/12 02/24/25 Melinda Jordan CNP 505 [place], [place] [phone] PCP - General Family Medicine 02/25/25 documented as of this encounter
--- OUTSIDE RECORDS SUMMARY | 2025-03-20 03:39 | XMS_ITS | Encounter Summary ---
Author Organization [employer] Address [address] [place] [address] 7 [place] [address] Care Team Providers Care Associate Professor Plant Pathology Name Role Phone Fatuma Hardy MD Primary Care Provider [phone] Melinda Jordan CNP Primary Care Provider [phone] Encounter Details Date Type Department Care Team (Latest Contact Info) Description 12/29/2020 Abstract [facility] Dental, Provider, DDS Social History [...] 2:15 PM EST Office Visit [facility] ADULT D[facility] 505 [place] [address] Miriam Watson 05/21/2025 10:45 AM EST Office Visit [facility] MED & PEDS 505 [place], [place] [phone] Melinda Jordan CNP 505 [place] [address] documented as of this encounter Visit Diagnoses Not on filedocumented in this encounter Care Teams Associate Professor Plant Pathology Relationship Specialty Start Date End Date Fatuma Hardy MD [address] [place] [address] PCP - General Family Medicine 04/12/12 02/24/25 Melinda Jordan CNP [address] [place] [address] PCP - General Family Medicine 02/25/25 documented as of this encounter
--- OUTSIDE RECORDS SUMMARY | 2025-03-20 03:39 | XMS_ITS | Encounter Summary ---
Author Organization [employer] Address 75 [facility] 7t [place] [address] Care Team Providers Care Assistant Branch Manager Name Role Phone Fatuma Hardy MD Primary Care Provider [phone] Melinda Jordan CNP Primary Care Provider [phone] Reason for Visit * Reason Onset Date Comments pt1 12/09/2024 Encounter Details Date Type Department Care Team ([facility] st Contact Info) Description 12/09/2024 Telephone [facility] CHC MED & PEDS [address] [place] [address] Fatuma Hardy MD 505 [place] [address] pt1 Social History Tobacco Use Types Packs/Day [...] Y/N: Yes Provider name or facility name: [address] [place] [address] Dr Bere FIERRO Escort needed: Y/N: No Do you have a wheelchair: Y/N: No If yes- Manual or electric: Visits: 1x a year documented in this encounter Plan of Treatment Upcoming Encounters Date Type Department Care Team (Late st Contact Info) Description 03/21/2025 2:15 PM EST Office Visit [facility] ADULT DENTAL [address] [place] [address] Miriam Watson 05/21/2025 10:45 AM EST Office Visit [facility] MED & PEDS [address] [place] [address] Melinda Jordan CNP 505 [place] [address] documented as of this encounter Visit Diagnoses Not on filedocumented in this encounter Care Teams Assistant Branch Manager Relationship Specialty Start Date End Date Fatuma Hardy MD [address] [place] [address] PCP - General Family Medicine 04/12/12 02/24/25 Melinda Jordan CNP [address] [place] [address] PCP - General Family Medicine 02/25/25 documented as of this encounter
--- OUTSIDE RECORDS SUMMARY | 2025-03-20 03:39 | XMS_ITS | Encounter Summary ---
Author Organization [employer] Address [address] [place] [address] Care Team Providers Care Language Asst Name Role Phone Fatuma Hardy MD Primary Care Provider [phone] Melinda Jordan CNP Primary Care Provider [phone] Encounter Details Date Type Department Care Team (Late st Contact Info) Description 11/24/2022 Orders Only [facility] MED & PEDS [address] [place], [place] [phone] Fatuma Hardy MD [address] [place], [place] [phone] Social History Tobacco Use Types Packs/Day Years [...] Description 03/21/2025 2:15 PM EST Office Visit [facility] ADULT DENTAL [address] [place], [place] [phone] Miriam Watson 05/21/2025 10:45 AM EST Office Visit [facility] MED & PEDS [address] [place], [place] [phone] Melinda Jordan CNP 505 [place], [place] [phone] documented as of this encounter Visit Diagnoses Not on filedocumented in this encounter Care Teams Language Asst Relationship Specialty Start Date End Date Fatuma Hardy MD [address] [place] [address] PCP - General Family Medicine 04/12/12 02/24/25 Melinda Jordan CNP [address] [place] [address] PCP - General Family Medicine 02/25/25 documented as of this encounter
--- OUTSIDE RECORDS SUMMARY | 2025-03-20 03:39 | XMS_ITS | Encounter Summary ---
Author Organization [employer] Address [address] [place] [address] Care Team Providers Care Igniter Capper Name Role Phone Fatuma Hardy MD Primary Care Provider [phone] Melinda Jordan CNP Primary Care Provider [phone] Reason for Visit * Reason Comments Med Refill Encounter Details Date Type Department Care Team (Late st Contact Info) Description 04/18/2023 Refill [facility] MED & PEDS [address] [place] [address] Fatuma Hardy MD [address] [place] [address] Fibromyositis Social History Tobacco Use Types Packs/Day [...] 2:15 PM EST Office Visit [facility] ADULT DENTAL [address] [place] [address] Miriam Watson 05/21/2025 10:45 AM EST Office Visit [facility] MED & PEDS [address] [place] [address] Melinda Jordan CNP [address] [place] [address] documented as of this encounter Visit Diagnoses Diagnosis Fibromyositis Unspecified myalgia and myositis documented in this encounter Care Teams Igniter Capper Relationship Specialty Start Date End Date Fatuma Hardy MD [address] [place] [address] PCP - General Family Medicine 04/12/12 02/24/25 Melinda Jordan CNP [address] [place] [address] PCP - General Family Medicine 02/25/25 documented as of this encounter
--- OUTSIDE RECORDS SUMMARY | 2025-03-20 03:39 | XMS_ITS | Encounter Summary ---
Author Organization [employer] Address [address] [place] [address] 7t [place] [address] Care Team Providers Care Manager Intelligence Name Role Phone Fatuma Hardy MD Primary Care Provider [phone] Melinda Jordan CNP Primary Care Provider [phone] Reason for Visit * Reason Onset Date Comments PT1 08/09/2022 Encounter Details Date Type Department Care Team (Late st Contact Info) Description 08/09/2022 Telephone [facility] CHC MED & PEDS [address] [place] [address] Fatuma Hardy MD 505 [place] [address] PT1 Social History Tobacco Use Types Packs/Day [...] Tc from pt requesting a PT1 Location: [address] [place] [address] Specialty: interpreter deaf Date&Time: N/a Intake Manager: no No wheel chair or cane documented in this encounter Plan of Treatment Upcoming Encounters Date Type Department Care Team (Late st Contact Info) Description 03/21/2025 2:15 PM EST Office Visit [facility] ADULT DENTAL [address] [place], [place] [phone] Miriam Watson 05/21/2025 10:45 AM EST Office Visit [facility] MED & PEDS [address] [place], [place] [phone] Melinda Jordan CNP 505 [place] [address] documented as of this encounter Visit Diagnoses Not on filedocumented in this encounter Care Teams Manager Intelligence Relationship Specialty Start Date End Date Fatuma Hardy MD [address] [place] [address] PCP - General Family Medicine 04/12/12 02/24/25 Melinda Jordan CNP 505 [place] [address] PCP - General Family Medicine 02/25/25 documented as of this encounter
--- OUTSIDE RECORDS SUMMARY | 2025-03-20 03:39 | XMS_ITS | Encounter Summary ---
Author Organization [employer] Address 75 [facility] 7t [place] [address] Care Team Providers Care Alteration Specialist Name Role Phone Fatuma Hardy MD Primary Care Provider [phone] Melinda Jordan CNP Primary Care Provider [phone] Reason for Visit * Reason Onset Date Comments PT1 11/03/2023 Encounter Details Date Type Department Care Team ([facility] st Contact Info) Description 11/03/2023 Telephone [facility] MEDICINE [address] [place], [place] [phone] Fatuma Hardy MD [address] [place], [place] [phone] PT1 Social History Tobacco Use Types Packs/Day [...] Miscellaneous Notes * Telephone Encounter - Yasmin Clemente - 11/03/2023 1:53 PM EDT Patient calling requesting PT1 Home Address verified: Y/N: Yes Provider name or facility name: [facility] Facility Address: [address] [place] [address] Escort needed: Y/N: No Do you have a wheelchair: Y/N: No If yes- Manual or electric: n/a Visits: 12 a year documented in this encounter Plan of Treatment Upcoming Encounters Date Type Department Care Team (Late st Contact Info) Description 03/21/2025 2:15 PM EST Office Visit [facility] ADULT DENTAL [address] [place] [address] Miriam Watson 05/21/2025 10:45 AM EST Office Visit [facility] MED & PEDS [address] [place] [address] Melinda Jordan CNP 505 [place] [address] documented as of this encounter Visit Diagnoses Not on filedocumented in this encounter Care Teams Alteration Specialist Relationship Specialty Start Date End Date Fatuma Hardy MD [address] [place] [address] PCP - General Family Medicine 04/12/12 02/24/25 Melinda Jordan CNP 505 [place] [address] PCP - General Family Medicine 02/25/25 documented as of this encounter
--- OUTSIDE RECORDS SUMMARY | 2025-03-20 03:39 | XMS_ITS | Patient Health Record ---
Author Organization [facility] Address [address] [place] [id number] Care Team Providers Care Tunnel Miner Name Role Phone MICKEY FAIR Primary Care Provider Machelle e Raul Perez Unavailable [phone] Reason For Referral No Information Medications Medication SIG (Take, Route, Frequency, Duration) Notes Start Date End Date Status Losartan Potassium 25 MG Tablet 1 tablet Orally Once a day A ctive Synthroid 112 MCG Tablet 1 tablet on an empty stomach in the morning Orally Once a day Active Singulair 10 MG Tablet 1 tablet in the e vening Orally Once a day Active Lasix 20 MG Tablet 1 tablet Orally Once a day Active Advair Diskus 100-50 MCG/DOSE Aerosol Powder Breath Activated 1 puff Inhalation Twice a day Active Calcium + D 500-1000-40 MG-UNT-MCG Tablet Chewable 1 tablet with meals Orally once a day Active traMADol HCl 50 MG Tablet 1 tablet as ne eded Orally every 6 hrs/prn Active Prevacid 30 MG Capsule Delayed Release 1 capsule Orally Once a day 03/20/2012 Active Immunizations Vaccine Route Administration Date Status Comme nts Flu vaccine no Preserv 3 and > Unknown 03/09/2016 Admin istered Social History Tobacco Use: Social History Observation Description Date Details (start date - stop date) Former Smoker NA - NA Social History Tobacco Use: Social Info Question Answer Notes Tobacco Use/Smoking Patient is a former smoker How long has it been since you last smoked? 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) Barretts esophagus without dysplasia (K22.70) Active confirmed Problem Gastroesophageal reflux disease (759207480) Gastroesophageal reflux disease, esophagitis presence not specified (K21.9) Active confirmed Problem Constipation (63379785) Constipation, unspecified constipation type (K59.00) Active confirmed [...] OF [place] [address] [place] [address] [phone] [id number] SUSAN MUIR Self - patient is the insured MEDICAID [facility] [address] [place] [phone] [id number] SUSAN MUIR Self - patient is the [...] Cervical spondylosis Fibromyalgia Depression Osteoporosis HTN Denies CT,DM,CVA,renal disease Negative colonoscopy in 09/2006 Rheumatoid arthritis-Dr. Albarran Hospitalized for pneumonia in 06/2016 Surgical History Surgery Date(Month/Year) Lung surgery-biopsy of rheumatoid nodule s
--- OUTSIDE RECORDS SUMMARY | 2025-03-20 03:39 | XMS_ITS | Encounter Summary ---
Author Organization [employer] Address [address] [facility] [address] [place] [address] Care Team Providers Care Child And Adolescent Psychiatrist Name Role Phone Fatuma Hardy MD Primary Care Provider [phone] Melinda Jordan CNP Primary Care Provider [phone] Reason for Visit * Reason Onset Date Comments Durable Medical Equipment 10/08/2024 Encounter Details Date Type Department Care Team (Late st Contact Info) Description 10/08/2024 Telephone [facility] MED[facility] [address] [place] [address] Fatuma Hardy MD [address] [place], [place] [id number] Durable Medical Equipment Social History Tobacco Use [...] Description 03/21/2025 2:15 PM EST Office Visit [facility] ADULT DENTAL [address] [place] [address] Miriam Watson 05/21/2025 10:45 AM EST Office Visit [facility] MED & PEDS [address] [place] [address] Melinda Jordan CNP [address] [place] [address] documented as of this encounter Visit Diagnoses Not on filedocumented in this encounter Care Teams Child And Adolescent Psychiatrist Relationship Specialty Start Date End Date Fatuma Hardy MD [address] [place] [address] PCP - General Family Medicine 04/12/12 02/24/25 Melinda Jordan CNP [address] [place] [address] PCP - General Family Medicine 02/25/25 documented as of this encounter
--- OUTSIDE RECORDS SUMMARY | 2025-03-20 03:39 | XMS_ITS | Encounter Summary ---
Author Organization [employer] Address [address] [facility] [address] [place] [address] Care Team Providers Care Piped Buttonhole Machine Operator Name Role Phone Fatuma Hardy MD Primary Care Provider [phone] Melinda Jordan CNP Primary Care Provider [phone] Reason for Visit * Reason Onset Date Comments pt1 12/09/2024 Encounter Details Date Type Department Care Team ([facility] st Contact Info) Description 12/09/2024 Telephone [facility] MED & PEDS [address] [place] [address] Fatuma Hardy MD [address] [place] [address] pt1 Social History Tobacco Use Types Packs/Day [...] Y/N: Yes Provider name or facility name: [address] [place] [address] Escort needed: Y/N: No Do you have a wheelchair: Y/N: No If yes- Manual or electric: Visits: 2x every 6 minths documented in this encounter Plan of Treatment Upcoming Encounters Date Type Department Care Team (Late st Contact Info) Description 03/21/2025 2:15 PM EST Office Visit [facility] ADULT DENTAL [address] [place] [address] Miriam Watson 05/21/2025 10:45 AM EST Office Visit [facility] MED & PEDS [address] [place] [address] Melinda Jordan CNP [address] [place] [address] documented as of this encounter Visit Diagnoses Not on filedocumented in this encounter Care Teams Piped Buttonhole Machine Operator Relationship Specialty Start Date End Date Fatuma Hardy MD [address] [place] [address] PCP - General Family Medicine 04/12/12 02/24/25 Melinda Jordan CNP [address] [place] [address] PCP - General Family Medicine 02/25/25 documented as of this encounter
--- OUTSIDE RECORDS SUMMARY | 2025-03-20 03:39 | XMS_ITS | Clinical Summary ---
Author Organization [email or web address] Address [address] [place] [address] Care Team Providers Care Reservationist Name Role Phone Julian Darreledie ZIEGLER Primary Care Provider [phone] Allergies No known active allergies Medications lidocaine (Lidoderm) 5 % patchIndication s:Pain Apply 2 patches topically in the morning. Remove & discard patch within 12 hours or as directed by MD. 60 patch 11 3 Active albuterol 108 (90 Base) MCG/ACT inhaler Inhale 2 puffs every 4 (four) hours if needed. 3 Active Calcium Carbonate-Vitam in D (Liquid Calcium/Vitamin D) 600-5 MG-MCG capsule Take 1 tablet by mouth. 3 Active ibuprofen 600 MG tablet Take 1 tablet by mouth every 8 (eight) hours if needed. 3 Active beta carotene (vitamin A) 3 MG (19989 UT) capsule Take by mouth in the [...] MOUTH TWICE DAILY 60 tablet 5 Active SUMAtriptan (Imitrex) 50 MG tablet TAKE 1 TABLET BY MOUTH 1 TIME NEEDED FOR MIGRAINE. MAY REPEAT DOSE 1 TIME IN 2 HOURS IF NO RELIEF. DO NOT EXCEED 2 DOSES IN 24 HOURS 9 tablet 5 Active levothyroxine (Synthroid) 75 MCG tablet Take 1 tablet (75 mcg) by mouth before breakfast. 30 tablet 11 5 02/01/20 26 Active Active Problems Problem Noted Date Diagnosed [...] Encounters Date Type Department Care Team Description 03/07/2025 Patient Outreach [facility] [address] [place] [address] Melinda Jordan CNP Care Coordination (CHW outreach for SDOH PT-1 and food needs-referral completed /) 03/07/2025 Telephone [facility] [address] [place] [address] Melinda Jordan CNP PT1 02/27/2025 Orders Only [facility] [address] [place] [address] Pipe Galvez MD 01/31/2025 Orders Only [facility] [address] [place] [address] Fatuma Hardy MD Hypothyroidism, unspecified type (Primary Dx) 01/31/2025 Orders Only [facility] [address] [place] [address] Fatuma Hardy MD 01/30/2025 Telephone [facility] [address] [place] [address] Fatuma Hardy MD Call Back Request 01/29/2025 Orders Only GENERIC EXTERNAL DATA DEPARTMENT Provider, Generic External Data 01/18/2025 Refill [facility] [address] [place] [address] Fatuma Hardy MD 01/08/2025 Orders Only GENERIC EXTERNAL DATA DEPARTMENT Provider, Generic External Data 01/06/2025 8:30 AM EDT Office Visit [facility] [address] [place] [address] Fatuma Hardy MD Primary hypertension (Primary Dx); Hypothyroidism, unspecified type; Stage 2 chronic kidney disease 01/06/2025 Travel 01/03/2025 Telephone [facility] [address] [place] [address] Fatuma Hardy MD chart Prep 01/03/2025 Telephone [facility] [address] [place] [address] Fatuma Hardy MD chart prep from Last 3 Months Immunizations Immunization Administration [...] 2:15 PM EST Office Visit [facility] [address] [place], [place] [phone] Miriam Watson 05/21/2025 10:45 AM EST Office Visit [facility] [address] [place], [place] [phone] Melinda Jordan, BORING MACHINE OPERATOR V[employer]ICAL [address] [place], [place] [phone] Health Maintenance Due Date Last Done Comments CT Colonography 1955 Colonoscopy 1955 FIT 1955 Sigmoidoscopy 1955 Hepatitis A Vaccines (1 of 2 - Risk 2-dose series) 08/25/1975 RSV Patients and Patients Aged 60 years or older (1 - Risk 50-74 years 1-dose series) 2006 Zoster Vaccines (1 of 2) 2006 Pneumococcal Vaccine: 50+ Years (2 of 2 - PCV) 08/08/2014 08/08/2013, 04/21/2012, 04/04/2006 Hepatitis B Vaccines (1 of 3 - Risk 3-dose series) 2016 FOBT 06/05/2024 06/05/2023 COVID-19 Vaccine ( season) 2024 06/16/2021, 10/07/2020, [...] Mouth 07/31/2026 07/31/2023 Lipid Panel 01/08/2030 01/08/2025, 10/10/2023, 07/21/2022, Additional history exists Cervical Cancer Screening [...] Comments PET CT WHOLE BODY Routine 02/14/2025 8:4 9 AM EDT VITAMIN B1 Routine 01/29/2025 1:02 PM EDT VITAMIN A Routine 01/29/2025 1:02 PM EDT ZINC Routine 01/29/2025 1:02 PM EDT VITAMIN D,25-OH,TOTAL,IA Routine 01/29/2025 1:02 PM EDT VITAMIN B12/FOLATE, SERUM PANEL Routine 01/29/2025 1:02 PM EDT PROTEIN CREATININE RATIO, URINE Routine 01/08/2025 8:20 [...] Routine 01/08/2025 8:10 AM EDT Primary hypertension PROPHYLAXIS - ADULT Routine 08/27/2024 9 :00 [...] Recently Relevant to Health Maintenance Results * PET CT WHOLE BODY (02/14/2025 8:49 AM EDT) Anatomical Region Laterality Modality Computed Tomogra phy us Historical Provider MD VILLASENOR CT PROCEDURES Final R esult * Vitamin D, 25-Hydroxy, Total, Immunoassay (01/29/2025 1:02 PM EDT) Vitamin D 25-OH Total 32.8 >30 ng/mL [facility] Comment: Health Based Reference Values*< 20 ng/mL Yjaxeeepr46-13 ng/mL Insufficient> 30 ng/mL Sufficient*Yg BENNETT. N Engl J Med. 2007;357:266-280There is no well-established upper level of normal vitamin Dlevels. Some laboratories use 50 ng/mL as an upper limit ofnormal. However, toxicity is patient-dependent and may occurat any level. Careful correlation with the patient'spresentation is necessary and, if there is concern forvitamin D toxicity, treatment should be consideredirrespective of the serum level.Care must be taken in interpreting Vitamin D results fromdifferent laboratories and methodologies. Published datademonstrated that results from patients undergoinghemodialysis may show a negative bias when tested withvarious automated 25-OH vitamin D assays when compared toLC-MS/MS.When testing samples from patients whose predominant form ofVitamin D is Vitamin D2, such as patients receiving VitaminD2 supplementation, results that are subtherapeutic shouldbe confirmed with another method such as LC-MS/MS. 01/29/2025 1:02 PM EDT 01/29/2025 1:02 PM EDT Generic External Data Provider LAB BLOOD ORDERAB LES Final Result Performing Organization Address [facility] de Phone Number [facility] [address] [place] [phone] * (ABNORMAL) Vitamin B12 (Cobalamin) and Folate Panel, Serum (01/29/2025 1:02 PM EDT) Vitamin B12 179(L) 200 - 900 pg/mL [facility] Comment:NORMAL 200-900 PG/ML INDETERMINATE 160-199 PG/ML DEFICIENT < 160 PG/ML Folate 9.5 > or = 4.0 ng/mL [facility] Comment:Reference Values:> o r = 4.0 ng/mL< 4.0 ng/mL suggests folate deficiency Methotrexate, aminopterin and folinic acid(leucovorin) are chemotherapeutic agents whose molecularstructures are similar to folate; therefore, the Architectfolate assay cannot be used for patients using these drugs. 01/29/2025 1:02 PM EDT 01/29/2025 1:02 PM EDT Generic External Data Provider LAB BLOOD ORDERAB LES Final Result Performing Organization Address [facility] de Phone Number [facility] [address] [place] [address] [phone] * Zinc (01/29/2025 1:02 PM EDT) Zinc 69 60 - 130 mcg/dL [facility] Comment:This test was aaliyaho ped and its analytical performancecharacteristics have been determined by [facility] [place]. It hasnot been cleared or approved by the U.S. Food and DrugAdministration. This assay has been validated pursuantto the CLIA regulations and is used for clinicalpurposes.THIS TEST WAS PERFORMED AT:[employer] [id number] [place] [id number] CHAIDEZ MD,PHD 01/29/2025 1:02 PM EDT 01/29/2025 1:02 PM EDT Generic External Data Provider LAB BLOOD ORDERAB LES Final Result Performing Organization Address City/[facility]/ZIP Co de Phone Number [facility] [address] [place] [phone] * (ABNORMAL) Vitamin A (01/29/2025 1:02 PM EDT) Vitamin A (Retinol) 27(A) 38 - 98 mcg/dL [facility] Comment:Vitamin supplementat ion within 24 hours prior toblood draw may affect the accuracy of the results.This test was developed and its analytical performancecharacteristics have been determined by [employer] [place], [place]. It hasnot been cleared or approved by the U.S. Food and DrugAdministration. This assay has been validated pursuantto the CLIA regulations and is used for clinicalpurposes.THIS TEST WAS PERFORMED AT:[employer] [id number] [place] [address]RYCPKQBJIM CHAIDEZ MD,PHD 01/29/2025 1:02 PM EDT 01/29/2025 1:02 PM EDT us Generic External Data Provider LAB BLOOD ORDERAB LES Final Result Performing Organization Address [facility]/ZIP Co de Phone Number [facility] [address] [place] [phone] * (ABNORMAL) Vitamin B1 (01/29/2025 1:02 PM EDT) Vitamin B1 6(A) 8 - 30 nmol/L [facility] Comment:Vitamin supplementat ion within 24 hours prior toblood draw may affect the accuracy of the results.This test was developed and its analytical performancecharacteristics have been determined by [employer], [place]. It hasnot been cleared or approved by the U.S. Food and DrugAdministration. This assay has been validated pursuantto the CLIA regulations and is used for clinicalpurposes.THIS TEST WAS PERFORMED AT:[id number] [place] [address]ZSYQSJYJIM CHAIDEZ MD,PHD 01/29/2025 1:02 PM EDT 01/29/2025 1:02 PM EDT Generic External Data Provider LAB BLOOD ORDERAB LES Final Result Performing Organization Address [facility] Co de Phone Number [facility] [address] [place] [phone] * (ABNORMAL) Protein Creatinine Ratio, Urine (01/08/2025 8:20 AM EDT) Creatinine, Urine 377.94 mg/dL [facility] Protein, Total, Random Urine 52(H) <12 mg/dL [facility] Protein/Creati nine Ratio, Ur 0.14 <0.2 [facility] Comment:The spot urine prote in:creatinine ratio may increase to 0.3during normal . 01/08/2025 8:20 AM EDT 01/08/2025 2:16 PM EDT Generic External Data Provider LAB URINE ORDERAB LES Final Result Performing Organization Address [facility]/ZIP Co de Phone Number [facility] [address] [place] [phone] * (ABNORMAL) Urinalysis Complete (01/08/2025 8:20 AM EDT) Color Urine Dark Yellow [facility] Appearance Urine Clear [facility] PH 6.0 5.0 - 9.0 [facility] Glucose Urine UA Negative Negative mg/dL [facility] Urine Blood Small (1+)(A) Negative [facility] Specific [place] - Urine 1.025 1.005 - 1.025 [facility] Urine Protein 100 (2+)(A) Neg-Trace mg/dL [facility] Urine Ketones Trace Negative mg/dL [facility] Nitrite Urine Negative Negative [facility] Leukocyte Esterase Urine Trace(A) Negative [facility] RBC Urine 6-10(A) 0 - 2 /HPF [facility] Urine WBC 0-5 0 - 5 /HPF [facility] Urine Squamous Epithelial Cell 3-5 0 - 2 /HPF [facility] Urine Bacteria None Seen None Seen [facility] Hyaline Casts, Urine 6-10 0 - 2 /LPF [facility] 01/08/2025 8:20 AM EDT 01/08/2025 2:16 PM EDT us Generic External Data Provider LAB URINE ORDERAB LES Final Result [facility] [address] [place] [phone] * ANCA Vasculitides (01/08/2025 8:10 AM EDT) Myeloperoxidase Antibody <1.0 [facility] Comment:Value Interpretation ----- <1.0 No Antibody Detected > or = 1.0 Antibody DetectedAutoantibodies to myeloperoxidase (MPO) are commonlyassociated with the following small-vesselvasculitides: microscopic polyangiitis,polyarteritis nodosa, Churg-Annette syndrome,necrotizing and crescentic glomerulonephritis andoccasionally granulomatosis with polyangiitis(GPA, Maurilio's). The perinuclear IFA pattern,(p-ANCA) is based largely on autoantibody tomyeloperoxidase which serves as the primary antigen.These autoantibodies are present in active disease. Proteinase-3 Antibody <1.0 [facility] Comment:Value Interpretation ----- <1.0 No Antibody Detected > or = 1.0 Antibody DetectedAutoantibodies to proteinase-3 (NE-3) are accepted ascharacteristic for granulomatosis with polyangiitis(GPA, Maurilio's), and are detectable in 95% of thehistologically proven cases. The cytoplasmic IFApattern, (c-ANCA), is based largely on autoantibody toPR-3 which serves as the primary antigen.These autoantibodies are present in active disease.THIS TEST WAS PERFORMED AT:[employer] [place] [id number] MAYEN MD 01/08/2025 8:10 AM EDT 01/08/2025 2:28 PM EDT Generic External Data Provider LAB BLOOD ORDERAB LES Final Result Performing Organization Address [facility]/ZIP Co de Phone Number [facility] [address] [place] [phone] * (ABNORMAL) TSH with Reflex to Free T4 (01/08/2025 8:10 AM EDT) TSH reflex Free T4 0.08(L) 0.32 - 4.0 uIU/mL [facility] Blood Venous blood specimen / Unknown 01/08/2025 8:10 AM EDT 01/08/2025 2:28 PM EDT Fatuma Hardy MD LAB BLOOD ORDERABLES Final Resul t Performing Organization Address [facility]/ZIP Co de Phone Number [facility] [address] [place] [address] [phone] * (ABNORMAL) CBC auto differential (01/08/2025 8:10 AM EDT) White Blood Count 5.3 4.8 - 10.8 X10*3/uL [facility] Red Blood Count 4.82 4.20 - 5.50 X10*6/uL [facility] Hemoglobin 13.2 12.0 - 16.0 g/dl [facility] Hematocrit 39.6 37.0 - 47.0 % [facility] Mean Corpuscular Volume 82.2 80.0 - 98.0 fL [facility] Mean Corpuscular Hemoglobin 27.4 27.0 - 33.0 pg [facility] Mean Corpuscular HGB Conc 33.3 31.0 - 35.0 g/dl [facility] Red Cell Distribution Width 16.2(H) 11.0 - 16.0 % [facility] Platelet Count 250 160 - 400 X10*3/uL [facility] Mean Platelet Volume 9.7 9.4 - 12.3 fL [facility] Neutrophils Percent Auto 62.6 45 - 73 % [facility] Imm Gran Pct Auto 0.4 0.0 - 0.4 % [facility] Lymphocytes Percent Auto 27.0 20 - 40 % [facility] Monocytes Percent Auto 7.5 2 - 11 % [facility] Eosinophils Percent Auto 1.9 0 - 4 % [facility] Basophils Percent Auto 0.6 0 - 2 % [facility] NRBC Pct Auto 0.0 0.0 - 0.2 /100WBC [facility] Neutrophils Absolute Auto 3.3 2.0 - 8.3 x10*3/uL [facility] Imm Gran Abs Auto 0.02 0.00 - 0.03 X10*3/uL [facility] Lymphocytes Absolute Auto 1.4 1.2 - 4.9 X10*3/uL [facility] Monocytes Absolute Auto 0.4 0.1 - 1.2 X10*3/uL [facility] Eosinophils Absolute Auto 0.1 0.0 - 0.4 X10*3/uL [facility] Basophils Absolute Auto 0.0 0.0 - 0.2 X10*3/uL [facility] NRBC Abs Auto 0.000 0.0 - 0.012 X10*3/uL [facility] 01/08/2025 8:10 AM EDT 01/08/2025 2:23 PM EDT Generic External Data Provider LAB BLOOD ORDERAB LES Final Result Performing Organization Address [facility] de Phone Number [facility] [address] [place] [address] [phone] * Sed Rate by Modified Westergren (01/08/2025 8:10 AM EDT) Pathologist [facility] Erythrocyte Sedimentation Rate 20 0 - 20 MM/HR [facility] Comment:Patients with polycy themia and many hemoglobin abnormalitiesmay have depressed sed rates whereas patients with anemiamay have elevated sed rates. 01/08/2025 8:10 AM EDT 01/08/2025 2:23 PM EDT Generic External Data Provider LAB BLOOD ORDERAB LES Final Result Performing Organization Address [facility] de Phone Number [facility] [address] [place] [address] [phone] * (ABNORMAL) C-reactive Protein (01/08/2025 8:10 AM EDT) [facility] C Reactive Protein 0.55(H) < or = 0.50 mg/dL [facility] 01/08/2025 8:1 0 AM EDT 01/08/2025 2:28 PM EDT Generic External Data Provider LAB BLOOD ORDERAB LES Final Result Performing Organization Address [facility] Co de Phone Number [facility] [address] [place] [address] [phone] * T4, Free (01/08/2025 8:10 AM EDT) Pathologist [facility] Free T4 (Free Thyroxine) 1.52 0.71 - 1.85 ng/dL [facility] 01/08/2025 8:10 AM EDT 01/08/2025 2:28 PM EDT Fatuma Hardy MD LAB BLOOD ORDERABLES Final Resul t Performing Organization Address [facility] Co de Phone Number [facility] [address] [place] [address] [phone] * Hepatic Function Panel (01/08/2025 8:10 AM EDT) Bilirubin, Direct 0.2 0.0 - 0.5 mg/dL [facility] Blood Venous blood specimen / Unknown 01/08/2025 8:10 AM EDT 01/08/2025 2:28 PM EDT Fatuma Hardy MD LAB BLOOD ORDERABLES Final Resul t Performing Organization Address [facility] de Phone Number [facility] [address] [place] [address] [phone] * (ABNORMAL) Lipid Panel, Standard (01/08/2025 8:10 AM EDT) Triglycerides 75 <150 mg/dL [facility] Comment:Desirable Triglyceri de: less than 150 mg/dLBorderline High Triglyceride 150-199 mg/dLHigh Triglyceride: 200-499 mg/dLVery High Triglyceride: greater than or equal to 5OO mg/dL Cholesterol 181 <200 mg/dL [facility] Comment:Desirable Cholestero l: less than 200 mg/dLBorderline High Cholesterol: 200-239 mg/dLHigh Cholesterol: greater than 239 mg/dL LDL Cholesterol Calculated 109(H) <100 mg/dL [facility] Comment:Desirable LDL: less than 100 mg/dLNear Optimal/Above Optimal LDL: 110- 129 mg/dLBorderline High LDL: 130-159 mg/dLHigh LDL: 160-189 mg/dLVery High LDL: greater than or equal to 190 mg/dL HDL Cholesterol 57 >40 mg/dL [facility] Comment:Desirable HDL: great er than 40 mg/dL Note: This HDL assay may give artificially low results in patients with liver disease. Blood Venous blood specimen / Unknown 01/08/2025 8:10 AM EDT 01/08/2025 2:28 PM EDT us Fatuma Hardy MD LAB BLOOD ORDERABLES Final Resul t [facility] [address] [place] [phone] * (ABNORMAL) Comprehensive Metabolic Panel (01/08/2025 8:10 AM EDT) Sodium 142 135 - 145 mmol/L [facility] Potassium 3.6 3.3 - 5.1 mmol/L [facility] Chloride 103 96 - 108 mmol/L [facility] Carbon Dioxide 29 22 - 29 mmol/L [facility] Anion Gap 14 12 - 20 [facility] Urea Nitrogen (BUN) 12 9 - 16 mg/dL [facility] Creatinine, Serum 0.66 0.5 - 1.4 mg/dL [facility] Estimated Glomerular Filt Rate >60 [facility] Comment:Chronic Kidney Disea se: Estimated GFR < 60 mL/min/1.82j1Bnbqbi Kidney Disease: Estimated GFR < 15 mL/min/1.73m2 Glucose 76 60 - 115 mg/dL [facility] Calcium 9.9 8.4 - 10.2 mg/dL [facility] Bilirubin, Total 0.7 0.0 - 1.0 mg/dL [facility] Aspartate Amino Transferase 33(H) 5 - 31 U/L [facility] Alanine Aminotransferase 19 0 - 31 U/L [facility] Total Protein 8.1(H) 6.5 - 8.0 g/dL [facility] Albumin Level 4.6 3.5 - 5.0 g/dL [facility] Alkaline Phosphatase 114 39 - 117 U/L [facility] 01/08/2025 8:10 AM EDT 01/08/2025 2:28 PM EDT us Generic External Data Provider LAB BLOOD ORDERAB LES Final Result [facility] [address] [place] [phone] * BI Mammogram Diagnostic Tomosynthesis Bilateral (08/07/2024 10:00 AM EDT) Anatomical Region Laterality Modality Breast Bilateral Mammography 08/07/2024 10:0 0 AM EDT Narrative 08/07/2024 12:12 PM EDT [facility] [address] [place] [address] Mammography Report Signed Patient: Petra Meadows MR#: [id number] : 1955 Acct:[id number] Age/Sex: 68 / F ADM Date: 08/07/24 Loc: HO.MAMMO Attending Dr: Fatuma Hardy MD Ordering Physician: Fatuma Hardy MD Results: 3.12MPr obably Benign Finding - 12 month F/U Suggested Date of Service: 08/07/24 Follow Up: 12 month diagnos tic follow up Procedure(s): MM tomosynthesis diagnostic BI Accession Number(s): [id number] cc: Fatuma Hardy MD EXAMINATION: MM DIAGNOSTIC [...] 08/07/24 1209 DD/ 1000 TD/TT: 08/07/24 1020 Professor Of Biostatistics: Procedure Note Donotuseinterpreter, Image - 08/07/2024 [facility] [address] [place] [address] Mammography Report Signed Patient: Petra Meadows NMR#: [id number] : 7Acct:[id number] Age/Sex: 68 / FADM Date: 08/07/24 Loc: HO.MAMMO Attending Dr: Fatuma Hardy MD Ordering Physician: Fatuma Hardy MDResults: 3.12MPr obably Benign Finding - 12 month F/U Suggested Date of Service: 08/07/24Follow Up: 12 month diagnos tic follow up Procedure(s): MM tomosynthesis diagnostic BI Accession Number(s): [id number] cc: Fatuma Hardy MD EXAMINATION: MM DIAGNOSTIC [...] 08/07/24 1209 DD/ 1000 TD/TT: 08/07/24 1020 Professor Of Biostatistics: us Fatuma Hardy MD IMG BI PROCEDURES Final Result * Hepatitis Panel, General (02/05/2024 8:23 AM EDT) Hepatitis A IgM Nonreactive Nonreactive [facility] Comment:IgM antibodies to GONZALEZ V not detected; does not exclude earlyacute or recovered HAV infection. ~Hepatitis B Surface Antibody NONREACTIVE Nonreactive [facility] Comment:Nonreactive: < 8.00 mIU/mL Hepatitis B Core Antibody Nonreactive Nonreactive [facility] Hepatitis C Antibody Nonreactive Nonreactive [facility] Comment:Antibodies to HCV no t detected; does not exclude early acuteHCV infection. Hepatitis B Surface Ag Negative Negative [facility] 02/05/2024 8:23 AM EDT 02/05/2024 8:27 AM EDT us Generic External Data Provider LAB BLOOD ORDERAB LES Final Result [facility] [address] [place] [phone] * Cologuard?? colon cancer screening (06/05/2023 1:00 PM EST) Cologuard Result Negative Negative 06/18/19 24 9:01 AM [facility] [employer] (CLIA #:[id number]) Comment: NEGATIVE TEST RESULT. A negative Cologuard [...] Andrew. et al, N Engl J Med 2014;370(14):4915-2983) The normal value (reference range) for this assay is negative. COLOGUARD RE-SCREENING RECOMMENDATION: Periodic colorectal cancer screening is an important part of preventive healthcare for asymptomatic individuals at average risk for colorectal cancer. Following a negative Cologuard result, the [place] [employer] Society and U.S. Multi-Society Task Force screening guidelines recommend a Cologuard re-screening interval of 3 years. References: [place] [employer] Guideline for Colorectal Cancer Screening: https://www.cancer.org/cancer/qmbka-pslhut-kcfqgw/ihvijqpyv-hsjkmmiix-zpbpsle/ac s-rec ommendations.html.; Julio WORTHINGTON, Vipin MCGOWAN, Moni CatherineK, Colorectal Cancer Screening: Recommendations for Physicians and Patients from the U.S. Multi-Society Task Force on Colorectal Cancer Screening , Am J Gastroenterology 2017; 112:3913-2868. TEST DESCRIPTION: Composite algorithmic analysis of stool [...] Jeter et al, N Engl J Med 2014;370(14):7984-6431.) Cologuard may produce a false negative or false positive result (no colorectal cancer or precancerous polyp present at colonoscopy follow up). A negative Cologuard test result does not guarantee the absence of CRC or advanced adenoma (pre-cancer). The current Cologuard screening interval is every 3 years. ([place] [employer] and U.S. Multi-Society Task Force). Cologuard performance data in a 10,000 patient pivotal study using colonoscopy as the reference method can be accessed at the following location: www.SimpliField/results. Additional description of the Cologuard test process, warnings and precautions can be found at www.Metaspace Studiosrd.com. Stool specimen (specimen) 06/05/2023 1:00 PM EST 06/07/2023 2:46 PM EST Fatuma Hardy MD LAB MOLECULAR DIAGNOSTICS ORDERA BLES Final Result [facility] [employer] (CLIA #:[id number]) [place] [address], * HPV mRNA E6/E7 (03/29/2016 1:40 PM EST) HPV mRNA E6/E7 Not Detected NOT DETECTED [facility] [employer] Comment: This test was performed using the APTIMA(R) HPV Assay ([employer] This assay detects E6/E7 viral messenger RNA (mRNA) from 14 high-risk HPV types (16,18,31,33,35,39,45,51, 52,56,58,59,66,68). For additional information please refer to: http://education.StreetFire/faq/NHC332s6 (This link is being provided for informational/ educational purposes only.) Test Performed by [employer], [employer] [facility][1], [address] [place] [address] Jim Chaidez M.D., Ph.D., Director of Laboratories , [facility] [id number] Please note: Effective 01/11/2016, HPV testing will be performed using [employer]'s APTIMA test which targets mRNA. Detecting mRNA instead of DNA, as in older methods, offers significant improvements in specificity. 03/29/2016 1:40 PM EST us Xochilt Alcaraz CNM HISTORICAL/NON ORDERABLE LABS Final Result [facility] Anywhere [address] from Last 3 Months or Most Recently Relevant to Health Maintenance Insurance [facility] STAND ADULT Care Teams Reservationist Relationship Specialty Start Date End Date Melinda Jordan CNP [address] [place] [address] PCP - General Family Medicine 02/25/25
--- OUTSIDE RECORDS SUMMARY | 2025-03-20 03:39 | XMS_ITS | Encounter Summary ---
Author Organization [employer] Address [address] [facility] 7t [place] [address] Care Team Providers Care Court Manager Name Role Phone Melinda Jordan CNP Primary Care Provider [phone] Reason for Visit * Reason Onset Date Comments PT1 03/07/2025 Encounter Details Date Type Department Care Team ([facility] st Contact Info) Description 03/07/2025 Telephone [facility] MEDICINE [address] [place] [address] Melinda Jordan CNP [address] [place], [place] [phone] PT1 Social History Tobacco Use Types Packs/Day [...] Description 03/21/2025 2:15 PM EST Office Visit [facility] ADULT DENTAL [address] [place] [address] Miriam Watson 05/21/2025 10:45 AM EST Office Visit [facility] MED & PEDS [address] [place] [address] Melinda Jordan CNP [address] [place] [address] documented as of this encounter Visit Diagnoses Not on filedocumented in this encounter Additional Health Concerns Assessment Noted Time PHQ-9 Depression Total Score: 1 01/07/20 25 8:48 AM EDT documented as of this encounter Care Teams Court Manager Relationship Specialty Start Date End Date Melinda Jordan CNP [address] [place] [address] PCP - General Family Medicine 02/25/25 documented as of this encounter
--- OUTSIDE RECORDS SUMMARY | 2025-03-20 03:39 | XMS_ITS | Encounter Summary ---
Author Organization [facility] Address [address] [facility] 7t [place] [address] Care Team Providers Care Granite Fabricator Name Role Phone Fatuma Hardy MD Primary Care Provider [phone] Melinda Jordan CNP Primary Care Provider [phone] Reason for Visit * Reason Onset Date Comments PT-1 05/05/2023 Encounter Details Date Type Department Care Team (Late st Contact Info) Description 05/05/2023 Telephone [facility] MEDICINE [address] [place] [address] Fatuma Hardy MD [address] [place], [place] [phone] PT-1 Social History Tobacco Use Types Packs/Day [...] Time: N/A Visits: 4 Address: [address] [facility] Facility: [facility] Wheel Chair: no Improvement Manager Needed: no PT1 needed Date: N/A Time: N/A Visits: 4 Address: [address] [facility] Facility: 911 Emergency Dispatcher Wheel Chair: no Improvement Manager Needed: no PT1 needed Date: N/A Time: N/A Visits: 4 Address: [address] [place] [address] [address] Floor, [place] [address] Facility:[facility] Wheel Chair: no Improvement Manager Needed: no documented in this encounter Plan of Treatment Upcoming Encounters Date Type Department Care Team (Late st Contact Info) Description 03/21/2025 2:15 PM EST Office Visit [facility] ADULT DENTAL [address] [place] [address] Miriam Watson 05/21/2025 10:45 AM EST Office Visit [facility] MED & PEDS [address] [place] [address] Melinda Jordan CNP [address] [place] [address] documented as of this encounter Visit Diagnoses Not on filedocumented in this encounter Care Teams Granite Fabricator Relationship Specialty Start Date End Date Fatuma Hardy MD [address] [place] [address] PCP - General Family Medicine 04/12/12 02/24/25 Melinda Jordan CNP [address] [place] [address] PCP - General Family Medicine 02/25/25 documented as of this encounter
== END 2025-03-19 16:46 | disposition home or self-care (01) ==
LOC: HO.RHES 15:06
PROVIDERS: PCP Student in an Organized Health Care Education/Training Program; Visit Provider Student in an Organized Health Care Education/Training Program
DX: M31.30 Wegener's granulomatosis without renal involvement (principal)
CPT/HCPCS: 99213; G2211

== ENCOUNTER → 2025-03-19 | Outpatient (BNVA) | payer MEDICARE, MEDICAID, SELFPAY | PROVIDERS: PCP Student in an Organized Health Care Education/Training Program; Visit Provider Student in an Organized Health Care Education/Training Program | DX: M31.30 Wegener's granulomatosis without renal involvement (principal) | CPT/HCPCS: 99212 ==

== ENCOUNTER 2025-03-20 08:41 | Outpatient (REF) | payer MEDICARE, MEDICAID, SELFPAY ==
--- NOTE | ~2025-03-20 | MM_ITS ---
EXAMINATION: DXA BONE DENSITY AXIAL HISTORY: M81.0 - Age-related osteoporosis without current pathological fracture TECHNIQUE: [employer] Dual energy absorptiometry (DEXA) of the lumbar spine, total left hip, and femoral neck was performed. COMPARISON: Comparison is made with the prior examination dated 04/03/2012.. FINDINGS: The bone mineral density of the lumbar spine is 0.923 g/cm2, corresponding to a T-score of -2.1, and a Z-score of -0.4. This is indicative of osteopenia. This represents a BMD change of -9.0% compared to the prior exam. This is statistically significant. The bone mineral density of the left total hip is 0.708 g/cm2, corresponding to a T-score of -2.4, and a Z-score of -1.0. This is indicative of osteopenia. This represents a BMD change of -22.2% compared to the prior exam. This is statistically significant. The bone mineral density of the left femoral neck is 0.709 g/cm2, corresponding to a T-score of -2.4, and a Z-score of -0.7. This is indicative of osteopenia. This represents a BMD change of -17.2% compared to the prior exam. FRACTURE RISK: The FRAX index suggests a ten year probability of major osteoporotic fracture of 7.8%, and of hip fracture 1.7%. MM/XR DEXA axial skeleton IMPRESSION: Based on bone mineral density, and according to World Health Organization (WHO) criteria, the diagnosis is consistent with osteopenia. Statistically, 68% of repeat scans fall within 1 SD (+/- 0.010 g/cm2 for AP spine L1-L4) and 1 SD (+/- 0.012 g/cm2 for femur total) FRAX is a trademark of the [employer]'s [place] for Metabolic Bone Disease, a World Health Organization (WHO) Collaborating Center. Electronically signed by: Raul Trinh MD 03/20/2025 10:50 AM [facility]
== END 2025-03-20 08:42 | disposition home or self-care (01) ==
LOC: HO.MAMMO 08:41
PROVIDERS: PCP Student in an Organized Health Care Education/Training Program; Visit Provider Student in an Organized Health Care Education/Training Program
DX: M81.0 Age-related osteoporosis without current pathological fracture (principal)
CPT/HCPCS: 77080

== ENCOUNTER → 2025-03-20 08:45 | Outpatient (BNV) | payer MEDICARE, MEDICAID, SELFPAY | PROVIDERS: PCP Student in an Organized Health Care Education/Training Program; Visit Provider Radiology Diagnostic Radiology | DX: E28.39 Other primary ovarian failure (principal) | CPT/HCPCS: 77080 ==

== ENCOUNTER 2025-03-31 08:11 | Outpatient (REF) | payer MEDICARE, MEDICAID, SELFPAY ==
--- NOTE | ~2025-03-31 | CT_ITS ---
EXAMINATION: CT ABDOMEN PELVIS WITH IV CONTRAST HISTORY: R16.0 - Hepatomegaly, not elsewhere classified COMPARISON: Previous CT of the abdomen and pelvis December 2017, MR of the abdomen January 2018 and abdominal ultrasound December 2019 TECHNIQUE: CT scan of the abdomen and pelvis was performed following administration of 85 mL Omnipaque 350 using standard departmental protocol. Coronal and sagittal reformatted images were generated and reviewed. This CT exam was performed with one or more of the following dose reduction techniques: automated exposure control, adjustment of the mA and/or kV according to patient size, use of iterative reconstruction technique. DLP: 489 mGy-cm FINDINGS: LOWER CHEST: Postsurgical changes with surgical staple line and adjacent scarring or1 chronic subsegmental atelectasis and minimal pleural thickening at the left lung base. The right lung base is clear. CARDIOVASCULATURE: The heart is normal in size. There is no pericardial effusion. LIVER: The liver is normal in size and contour. No liver mass is identified. The hepatic and portal veins are patent. GALLBLADDER / BILE DUCTS: There is focal nodular wall thickening of the gallbladder measuring 1.8 x 2.3 x 1.0 cm axial image 41 series 5. Appearance worrisome for a gallbladder mass. This is a new finding from prior exams. No gallstones. No intra or extrahepatic biliary duct dilatation. SPLEEN: The spleen is normal in size. No focal splenic lesion is identified. PANCREAS: The pancreas is unremarkable in appearance. ADRENAL GLANDS: Within normal limits. KIDNEYS/RETROPERITONEUM: No renal calculi are identified. There is no hydronephrosis. 10 x 15 mm high attenuation lesion exophytic to the lateral mid to lower pole of the left kidney. Hounsfield units precontrast measure 72. Hounsfield units postcontrast measure 74 without appreciable enhancement. Appearance is consistent with a hyperdense cyst. This is increased in size from 1 x 1.2 cm on prior exams. Tiny 3 x 4 mm hypodensity in the medial lower pole right kidney for example 38 series. This is difficult to characterize due to small size but may represent a cyst or angiomyolipoma. This is new previous exams. LYMPH NODES: No abdominal or pelvic lymphadenopathy. VASCULATURE: Atherosclerotic disease. No aneurysm. MESENTERY/PERITONEUM: No free fluid. No masses. There is no free intraperitoneal gas. STOMACH: Postsurgical changes from gastric sleeve. SMALL BOWEL: The small bowel is normal in caliber. COLON: Diverticulosis. The colon is otherwise unremarkable. APPENDIX: Visualized appendix appears normal. BONES / SOFT TISSUES: No suspicious bony or soft tissue abnormalities. Degenerative changes of the spine. CT/CT abdomen pelvis w IV con IMPRESSION: 1.8 x 2.3 x 1 cm area of focal gallbladder wall thickening worrisome for mass. Differential would include a polyp or adherent sludge. This is a new finding from previous exams. Direct comparison with PET recommended. No liver lesion seen. Interval increase in size in now 1 x 1.5 cm hyperdense left renal cyst. Tiny 3 x 4 mm hypodensity in the right kidney. This may represent a cyst or angiomyolipoma. Diverticulosis of the colon. Postsurgical changes to the stomach from gastric sleeve. Electronically signed by: Suzie Dunlap MD 03/31/2025 10:11 AM [facility]
--- OUTSIDE RECORDS SUMMARY | 2025-03-31 08:22 | XMS_ITS | Encounter Summary ---
Author Organization [employer] Address [address] [facility] 7[address] [place] [address] Care Team Providers Care Emergency Management Consultant Name Role Phone aFtuma Hardy MD Primary Care Provider Melinda Jordan CNP Primary Care Provider [phone] Reason for Visit * Reason Onset Date Comments PT1 10/23/2024 Encounter Details Date Type Department Care Team (Late st Contact Info) Description 10/23/2024 Telephone [facility] MEDICINE [address] [place], [place] [phone] Fatuma Hardy MD [address] [place], [place] [phone] PT1 Social History Tobacco Use Types Packs/Day [...] Yes Provider name or facility name: [address] [place] [address] - Dr Queenie Mason needed: Y/N: No Do you have a wheelchair: Y/N: No If yes- Manual or electric: N/A Visits: (3x monthly) 2 of 2 Patient calling requesting PT1 Home Address verified: Y/N: Yes Provider name or facility name: [address] [place], [place] Escort needed: Y/N: No Do you have a wheelchair: Y/N: No If yes- Manual or electric: N/A Visits: (3x monthly) documented in this encounter Plan of Treatment Upcoming Encounters Date Type Department Care Team (Late st Contact Info) Description 04/04/2025 8:00 AM EST Office Visit [facility] ADULT D[facility]AL [address] [place] [address] Cornelius Herr DMD [address] [place] [address] 05/21/2025 10:45 AM EST Office Visit [facility] MED & PEDS [address] [place] [address] Melinda Jordan CNP [address] [place] [address] 09/23/2025 8:45 AM EDT Office Visit [facility] ADULT DENTAL [address] [place] [address] Miriam Watson documented as of this encounter Visit Diagnoses Not on filedocumented in this encounter Care Teams Emergency Management Consultant Relationship Specialty Start Date End Date Fatuma Hardy MD [address] [place] [address] PCP - General Family Medicine 04/12/12 02/24/25 Melinda Jordan CNP [address] [place] [address] PCP - General Family Medicine 02/25/25 documented as of this encounter
--- OUTSIDE RECORDS SUMMARY | 2025-03-31 08:22 | XMS_ITS | Patient Health Record ---
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 esophagus without dysplasia (K22.70) Active confirmed Problem Gastroesophageal reflux disease (731877437) Gastroesophageal reflux disease, esophagitis presence not specified (K21.9) Active confirmed Problem Constipation (70119561) Constipation, unspecified constipation type (K59.00) Active confirmed [...] OF [place] [address] [place] [address] [phone] [id number] SUSAN MUIR Self - patient is the insured [facility] [address] [place] [phone] [id number] SUSAN MUIR Self - patient is the [...] Cervical spondylosis Fibromyalgia Depression Osteoporosis HTN Denies MN,DM,CVA,renal disease Negative colonoscopy in 09/2006 Rheumatoid arthritis-Dr. Albarran Hospitalized for pneumonia in 06/2016 Surgical History Surgery Date(Month/Year) Lung surgery-biopsy of rheumatoid nodule s
--- OUTSIDE RECORDS SUMMARY | 2025-03-31 08:22 | XMS_ITS | Encounter Summary ---
Author Organization [employer] Address [address] [place] [address] [address] [place] [address] Care Team Providers Care Drop Hammer Set Up Operator Name Role Phone Fatuma Hardy MD Primary Care Provider [phone] Melinda Jordan CNP Primary Care Provider [phone] Encounter Details Date Type Department Care Team (Late Contact Info) Description 11/10/2023 Orders Only [facility] MED & PEDS [address] [place] [address] Provider, MD Pipe Social History Tobacco Use [...] Department Care Team (Late Contact Info) Description 04/04/2025 8:00 AM EST Office Visit [facility] ADULT DENTAL [address] [place] [address] Cornelius Herr, LAUREN [address] [place] [address] 05/21/2025 10:45 AM EST Office Visit [facility] MED & PEDS [address] [place] [address] Melinda Jordan CNP [address] [place], [place] [phone] 09/23/2025 8:45 AM EDT Office Visit [facility] ADULT DENTAL [address] [place] [address] Miriam Watson documented as of this encounter [...] on filedocumented in this encounter Care Teams Drop Hammer Set Up Operator Relationship Specialty Start Date End Date Fatuma Hardy MD [address] [place] [address] PCP - General Family Medicine 04/12/12 02/24/25 Melinda Jordan CNP [address] [place] [address] PCP - General Family Medicine 02/25/25 documented as of this encounter
--- OUTSIDE RECORDS SUMMARY | 2025-03-31 08:23 | XMS_ITS | Clinical Summary ---
Author Organization [employer] Address [address] [place] [address] Care Team Providers Care Mold Worker Name Role Phone Julian Darreledie ZIEGLER Primary Care Provider [phone] Allergies No known active allergies Medications lidocaine (Lidoderm) 5 % patchIndicatio ns:Pain Apply 2 patches topically in the morning. Remove & discard patch within 12 hours or as directed by MD. 60 patch 11 05/11/19 23 Active Additional Information Patient not taking.Reported on 03/21/2025 albuterol 108 (90 Base) MCG/ACT inhaler Inhale 2 puffs every 4 (four) hours if needed. 08/30/19 23 Active Calcium Carbonate-Zoya min D (Liquid Calcium/Vitami n D) 600-5 MG-MCG capsule Take 1 tablet by mouth. 07/14/19 13 Active ibuprofen 600 MG tablet Take 1 tablet by mouth every 8 (eight) hours if needed. 10/22/19 23 Active beta carotene (vitamin A) 3 MG (28814 UT) capsule Take by mouth in the [...] 60 tablet 11/30/19 25 Active levothyroxine (Synthroid) 75 MCG tablet Take 1 tablet (75 mcg) by mouth before breakfast. 30 tablet 11 02/01/20 25 026 Active Calcium-Vitami n D-Vitamin K 500-1000-40 MG-UNT-MCG chewable tablet 1 tablet in the morning. Active cetirizine (ZyrTEC) 10 MG tablet Take 10 mg by mouth Once per day. 12/18/19 21 Active cholecalcifero l VITAMIN D (Vitamin D-3) 50 MCG (2000 UT) capsule Take by mouth Once per day. Active cyanocobalamin (Vitamin B-12) 1000 MCG tablet Take 1 tablet by mouth Once per day. 02/28/20 25 Active hydroCHLOROthi azide 12.5 MG tablet Take 12.5 mg by mouth Once per day. 02/26/20 24 Active thiamine (Vitamin B-1) 100 MG tablet Take 1 tablet by mouth Once per day. 02/28/20 25 Active SUMAtriptan (Imitrex) 50 MG tablet TAKE 1 TABLET BY MOUTH 1 TIME NEEDED FOR MIGRAINE. MAY REPEAT DOSE 1 TIME IN 2 HOURS IF NO RELIEF. DO NOT EXCEED 2 DOSES IN 24 HOURS 9 tablet 03/25/20 25 Active SUMAtriptan (Imitrex) 50 MG tablet TAKE 1 TABLET BY MOUTH 1 TIME NEEDED FOR MIGRAINE. MAY REPEAT DOSE 1 TIME IN 2 HOURS IF NO RELIEF. DO NOT EXCEED 2 DOSES IN 24 HOURS 9 tablet 01/21/20 25 025 Discontinued Active Problems Problem Noted Date Diagnosed Date Multiple joint pain 10/16/2024 Chronic obstructive pulmonary disease 09/02/2024 Primary hypertension 01/31/2024 Rhinosinusitis 03/31/2023 Assessment & Plan (03/31/2023 2:41 PM EST): Patient that presented visit with complaints of Rhinosinusitis will be prescribed antibiotics to treat symptoms. 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 with polyangiitis (CMS/HCC) 04/11 Hypothyroidism 04/11/2012 Asthma 04/11/2012 Acanthosis nigricans 04/11/2012 Obstructive sleep apnea syndrome 04/11/2012 Resolved Problems Problem Noted Date Diagnosed Date Resolved Date Stage 2 chronic kidney disease 10/08/2020 03/21/2025 Encounters Date Type Department Care Team Description 03/24/2025 Refill [facility] [address] [place] [address] Fatuma Hardy MD 03/21/2025 2:15 PM EST Office Visit [facility] ADULT D[facility] [address] [place] [address] Miriam Watson Dental calculus (Primary Dx); Dental plaque 03/07/2025 Patient Outreach [facility] [address] [place] [address] Melinda Jordan CNP Care Coordination (CHW outreach for SDOH PT-1 and food needs-referral completed /) 03/07/2025 Telephone [facility] [address] [place] [address] Melinda Jordan CNP PT1 02/27/2025 Orders Only [facility] [address] [place] [address] Pipe Galvez MD 01/31/2025 Orders Only [facility] [address] [place] [address] Fatuma Hardy MD Hypothyroidism, unspecified type (Primary Dx) 01/31/2025 Orders Only [facility] [address] [place] [address] Fatuma Hardy MD 01/30/2025 Telephone [facility] [address] [place] [address] Fatuma Hardy MD Call Back Request 01/29/2025 Orders Only GENERIC EXTERNAL DATA DEPARTMENT Provider, Generic External Data 01/18/2025 Refill [facility] [address] [place] [address] Fatuma Hardy MD 01/08/2025 Orders Only GENERIC EXTERNAL DATA DEPARTMENT Provider, Generic External Data 01/06/2025 8:30 AM EDT Office Visit [facility] [address] [place] [address] Fatuma Hardy MD Primary hypertension (Primary Dx); Hypothyroidism, unspecified type; Stage 2 chronic kidney disease 01/06/2025 Travel 01/03/2025 Telephone [facility] [address] [place] [address] Fatuma Hardy MD chart Prep 01/03/2025 Telephone [facility] [address] [place] [address] Fatuma Hardy MD chart prep from Last [...] Sign Reading Time Taken Comments Blood Pressure 114/76 03/21/2025 2:30 PM EST Pulse 66 01/06/2025 8:46 AM EDT Temperature [...] Description 04/04/2025 8:00 AM EST Office Visit [facility] [address] [place] [address] Cornelius Herr DMD [address] [place] [address] 05/21/2025 10:45 AM EST Office Visit [facility] [address] [place], [place] [phone] Julian Darreledie, LEAD SYSTEMS ANALYST [address] [place], [place] [phone] 09/23/2025 8:45 AM EDT Office Visit [facility] [address] [place] [address], [place] [phone] Miriam Watson Health Maintenance Due Date Last [...] 02/27/2025 08/27/2024, , 12/21/2022, Additional history exists Diagnostic Breast Imaging 08/11/20252024, 01/29/2024, 07/20/2023 Dental X-Ray: Bitewings 08/28/2025 08/28/19 25, 07/31/2023, 12/21/2022, Additional history exists Dental Prophylaxis 09/19/2025 03/21/2025, 0 08/27/2024, 02/13/2024, Additional history exists Alcohol/Substance Use Screening 01/06/2026 01/06/2025 Depression Screening 01/06/2026 01/06/2025, 01/07/20 25 DTaP/Tdap/Td Vaccines (3 - Td or Tdap) 03/08/2026 03/08/2016, 11/21/2015 Tobacco Screening 03/21/2026 03/21/2025 Colorectal Cancer Screening 06/05/2026 FIT DNA/Cologuard 06/05/2026 06/05/2023 Dental X-Ray: Full Mouth 07/31/2026 07/31/2023 Lipid Panel 01/08/2030 01/08/2025, 10/2023, 07/21/2022, Additional history exists Cervical Cancer [...] Procedure Name Priority Date/Time Associated Diagnosis Comments ORAL HYGIENE INSTRUCTIONS Routine 03/21/2025 2:15 PM EST CASE PRESENTATION, DETAILED AND EXTENSIVE TREATMENT PLANNING Routine 03/21/2025 2:15 PM EST Full PROPHYLAXIS - ADULT Routine 03/21/2025 2:15 PM EST BD DEXA AXIAL Routine 03/20/2025 9:[address] WHOLE BODY Routine 02/14/2025 8:4 [...] Routine 01/08/2025 8:10 AM EDT Primary hypertension BITEWINGS - 4 RADIOGRAPHIC IMAGES Routine 08/27/2024 [...] Recently Relevant to Health Maintenance Results * BD DEXA Axial (03/20/2025 9:21 AM EST) Anatomical Region Laterality Modality Body Radiographic Jaida ging 03/20/2025 9:21 AM EST Narrative 03/20/2025 10:53 AM EST [address] [place] [address] Mammography Report Signed Patient: Petra Meadows MR#: [id number] : 1955 Acct:[id number] Age/Sex: 69 / F ADM Date: 03/20/25 Loc: HO.MAMMO Attending Dr: Melba Caputo MD Ordering Physician: Melba Caputo MD Results: Date of Service: 03/20/25 Follow Up: Procedure(s): XR DEXA axial skeleton Accession Number(s): [id number] cc: Melba Caputo MD; Fatuma Hardy MD Reason For Exam: M81.0 - Age-related osteoporosis without current pathological fracture EXAMINATION: DXA BONE DENSITY AXIAL HISTORY: M81.0 - Age-related osteoporosis without current pathological fracture TECHNIQUE: Minimally invasive devices Dual energy absorptiometry (DEXA) of the lumbar spine, total left hip, and femoral neck was performed. COMPARISON: Comparison is made with the prior examination dated 04/03/2012.. FINDINGS: The bone mineral density of the lumbar spine is 0.923 g/cm2, corresponding to a T-score of -2.1, and a Z-score of -0.4. This is indicative of osteopenia. This represents a BMD change of -9.0% compared to the prior exam. This is statistically significant. The bone mineral density of the left total hip is 0.708 g/cm2, corresponding to a T-score of -2.4, and a Z-score of -1.0. This is indicative of osteopenia. This represents a BMD change of -22.2% compared to the prior exam. This is statistically significant. The bone mineral density of the left femoral neck is 0.709 g/cm2, corresponding to a T-score of -2.4, and a Z-score of -0.7. This is indicative of osteopenia. This represents a BMD change of -17.2% compared to the prior exam. FRACTURE RISK: The FRAX index suggests a ten year probability of major osteoporotic fracture of 7.8%, and of hip fracture 1.7%. MM/XR DEXA axial skeleton IMPRESSION: Based on bone mineral density, and according to World Health Organization (WHO) criteria, the diagnosis is consistent with osteopenia. Statistically, 68% of repeat scans fall within 1 SD (+/- 0.010 g/cm2 for AP spine L1-L4) and 1 SD (+/- 0.012 g/cm2 for femur total) FRAX is a trademark of the [employer] [place] for Metabolic Bone Disease, a World Health Organization (WHO) Collaborating Center. Electronically signed by: Raul Trinh MD 03/20/2025 10:50 AM EST Dictated By: Raul Trinh MD Signed By: <Electronically signed by Raul Trinh MD in OV> 03/20/25 1050 DD/ 0 TD/TT: 03/20/25924 Adult Basic Studies Teacher: Procedure Note Donotuseinterpreter, Image - 03/20/2025 Bere [facility] [address] [place] [address] Mammography Report Signed Patient: Petra Meadows [facility]#: [id number] : 7Acct:[id number] Age/Sex: 69 / FADM Date: 03/20/25 Loc: VANDANA Attending Dr: Melba Caputo MD Ordering Physician: Melba Caputo MDResults: Date of Service: 03/20/25Follow Up: Procedure(s): XR DEXA axial skeleton Accession Number(s): [id number] cc: Melba Caputo MD; Fatuma Hardy MD Reason For Exam: M81.0 - Age-related osteoporosis without currentpathological fracture EXAMINATION: DXA BONE DENSITY AXIAL HISTORY: M81.0 - Age-related osteoporosis without current pathological fracture TECHNIQUE: Minimally invasive devices Dual energy absorptiometry (DEXA) of the lumbar spine, total left hip, and femoral neck was performed. COMPARISON: Comparison is made with the prior examination dated 04/03/2012.. FINDINGS: The bone mineral density of the lumbar spine is 0.923 g/cm2, corresponding to a T-score of -2.1, and a Z-score of -0.4. This is indicative of osteopenia. This represents a BMD change of -9.0% compared to the prior exam. This is statistically significant. The bone mineral density of the left total hip is 0.708 g/cm2, corresponding to a T-score of -2.4, and a Z-score of -1.0. This is indicative of osteopenia. This represents a BMD change of -22.2% compared to the prior exam. This is statistically significant. The bone mineral density of the left femoral neck is 0.709 g/cm2, corresponding to a T-score of -2.4, and a Z-score of -0.7. This is indicative of osteopenia. This represents a BMD change of -17.2% compared to the prior exam. FRACTURE RISK: The FRAX index suggests a ten year probability of major osteoporotic fracture of 7.8%, and of hip fracture 1.7%. MM/XR DEXA axial skeleton IMPRESSION: Based on bone mineral density, and according to World Health Organization (WHO) criteria, the diagnosis is consistent with osteopenia. Statistically, 68% of repeat scans fall within 1 SD (+/- 0.010 g/cm2 for AP spine L1-L4) and 1 SD (+/- 0.012 g/cm2 for femur total) FRAX is a trademark of the [employer] [place] for Metabolic Bone Disease, a World Health Organization (WHO) Collaborating Center. Electronically signed by: Raul Trinh MD 03/20/2025 10:50 AM EST RP Dictated By: Raul Trinh MD Signed By: <Electronically signed by Raul Trinh MD in OV> 03/20/25 1050 DD/ 0 TD/TT: 03/20/25924 Adult Basic Studies Teacher: [facility] External Provider IMG DXA PROCEDURES Final Result * PET CT WHOLE BODY (02/14/2025 8:49 AM EDT) Anatomical Region Laterality Modality Computed Tomogra phy Historical Provider IMTamra CT PROCEDURES Final R esult * Vitamin D, 25-Hydroxy, Total, Immunoassay (01/29/2025 1:02 PM EDT) Vitamin D 25-OH Total 32.8 >30 ng/mL [facility] Comment: Health Based Reference Values*< 20 ng/mL Hrulqlsbh89-69 ng/mL Insufficient> 30 ng/mL Sufficient*Yg BENNETT. N [...] ORDERAB LES Final Result Performing Organization Address [facility] Co de Phone Number [facility] [address] [place] [phone] * (ABNORMAL) Vitamin B12 (Cobalamin) and Folate Panel, Serum (01/29/2025 1:02 PM EDT) Pathologist [facility] Vitamin B12 179(L) 200 - 900 pg/mL [facility] Comment:NORMAL 200-900 PG/ML INDETERMINATE 160-199 PG/ML DEFICIENT < 160 PG/ML Folate 9.5 > or = 4.0 ng/mL [facility] Comment:Reference Values:> o r = 4.0 ng/mL< 4.0 ng/mL suggests folate deficiency Methotrexate, aminopterin and folinic acid(leucovorin) are chemotherapeutic agents whose molecularstructures are similar to folate; therefore, the Architectfolate assay cannot be used for patients using these drugs. 01/29/2025 1:02 PM EDT 01/29/2025 1:02 PM EDT Generic External Data Provider LAB BLOOD ORDERAB LES Final Result Performing Organization Address [facility] Co de Phone Number [facility] [address] [place] [phone] * Zinc (01/29/2025 1:02 PM EDT) Pathologist [facility] Zinc 69 60 - 130 mcg/dL [facility] Comment:This test was develo ped and its analytical performancecharacteristics have been determined by [employer] [place], [place]. It hasnot been cleared or approved by the U.S. Food and DrugAdministration. This assay has been validated pursuantto the CLIA regulations and is used for clinicalpurposes.THIS TEST WAS PERFORMED AT:[employer] [id number] [place] [address]JJLDQUIJIM CHAIDEZ MD,PHD 01/29/2025 1:02 PM EDT 01/29/2025 1:02 PM EDT Generic External Data Provider LAB BLOOD ORDERAB LES Final Result Performing Organization Address [facility]/ZIP Co de Phone Number [facility] [address] [place] [phone] * (ABNORMAL) Vitamin A (01/29/2025 1:02 PM EDT) Vitamin A (Retinol) 27(A) 38 - 98 mcg/dL [facility] Comment:Vitamin supplementat ion within 24 hours prior toblood draw may affect the accuracy of the results.This test was developed and its analytical performancecharacteristics have been determined by [employer] [place], [place]. It hasnot been cleared or approved by the U.S. Food and DrugAdministration. This assay has been validated pursuantto the CLIA regulations and is used for clinicalpurposes.THIS TEST WAS PERFORMED AT:[employer] [id number] [place] [address]BGCCDHVJIM CHAIDEZ MD,PHD 01/29/2025 1:02 PM EDT 01/29/2025 1:02 PM EDT Generic External Data Provider LAB BLOOD ORDERAB LES Final Result Performing Organization Address [facility] Co de Phone Number [facility] [address] [place] [phone] * (ABNORMAL) Vitamin B1 (01/29/2025 1:02 PM EDT) Vitamin B1 6(A) 8 - 30 nmol/L [facility] Comment:Vitamin supplementat ion within 24 hours prior toblood draw may affect the accuracy of the results.This test was developed and its analytical performancecharacteristics have been determined by [employer] [place], [place]. It hasnot been cleared or approved by the U.S. Food and DrugAdministration. This assay has been validated pursuantto the CLIA regulations and is used for clinicalpurposes.THIS TEST WAS PERFORMED AT:[employer]/[id number] [place] [address]TGQPMDP W. MASON,MD,PHD 01/29/2025 1:02 PM EDT 01/29/2025 1:02 PM EDT Generic External Data Provider LAB BLOOD ORDERAB LES Final Result Performing Organization Address [facility] Co de Phone Number [facility] [address] [place] [phone] * (ABNORMAL) Protein Creatinine Ratio, Urine (01/08/2025 8:20 AM EDT) Creatinine, Urine 377.94 mg/dL [facility] Protein, Total, Random Urine 52(H) <12 mg/dL [facility] Protein/Creati nine Ratio, Ur 0.14 <0.2 [facility] Comment:The spot urine prote in:creatinine ratio may increase to 0.3during normal . 01/08/2025 8:20 AM EDT 01/08/2025 2:16 PM EDT us Generic External Data Provider LAB URINE ORDERAB LES Final Result Performing Organization Address [facility] Co de Phone Number [facility] [address] [place] [phone] * (ABNORMAL) Urinalysis Complete (01/08/2025 8:20 AM EDT) Color Urine Dark Yellow [facility] Appearance Urine Clear [facility] PH 6.0 5.0 - 9.0 [facility] Glucose Urine UA Negative Negative mg/dL [facility] Urine Blood Small (1+)(A) Negative [facility] Specific Offerle - Urine 1.025 1.005 - 1.025 [facility] Urine Protein 100 (2+)(A) Neg-Trace mg/dL [facility] Urine Ketones Trace Negative mg/dL [facility] Nitrite Urine Negative Negative [facility] Leukocyte Esterase Urine Trace(A) Negative [facility] RBC Urine 6-10(A) 0 - 2 /HPF [facility] Urine WBC 0-5 0 - 5 /HPF [facility] Urine Squamous Epithelial Cell 3-5 0 - 2 /HPF [facility] Urine Bacteria None Seen None Seen [facility] Hyaline Casts, Urine 6-10 0 - 2 /LPF [facility] 01/08/2025 8:20 AM EDT 01/08/2025 2:16 PM EDT us Generic External Data Provider LAB URINE ORDERAB LES Final Result Performing Organization Address City/State/[facility] Co de Phone Number [facility] [address] [place] [phone] * ANCA Vasculitides (01/08/2025 8:10 AM EDT) Myeloperoxidase Antibody <1.0 AI [facility] Comment:Value Interpretation ----- <1.0 No Antibody Detected > or = 1.0 Antibody DetectedAutoantibodies to myeloperoxidase (MPO) are commonlyassociated with the following small-vesselvasculitides: microscopic polyangiitis,polyarteritis nodosa, Churg-Annette syndrome,necrotizing and crescentic glomerulonephritis andoccasionally granulomatosis with polyangiitis(GPA, Maurilio's). The perinuclear IFA pattern,(p-ANCA) is based largely on autoantibody tomyeloperoxidase which serves as the primary antigen.These autoantibodies are present in active disease. Proteinase-3 Antibody <1.0 AI [facility] Comment:Value Interpretation ----- <1.0 No Antibody Detected > or = 1.0 Antibody DetectedAutoantibodies to proteinase-3 (GA-3) are accepted ascharacteristic for granulomatosis with polyangiitis(GPA, Maurilio's), and are detectable in 95% of thehistologically proven cases. The cytoplasmic IFApattern, (c-ANCA), is based largely on autoantibody toPR-3 which serves as the primary antigen.These autoantibodies are present in active disease.THIS TEST WAS PERFORMED AT:[employer] [place] [id number] MAYEN MD 01/08/2025 8:10 AM EDT 01/08/2025 2:28 PM EDT Generic External Data Provider LAB BLOOD ORDERAB LES Final Result Performing Organization Address City/[facility]/ZIP Co de Phone Number [facility] [address] [place] [phone] * (ABNORMAL) TSH with Reflex to Free T4 (01/08/2025 8:10 AM EDT) TSH reflex Free T4 0.08(L) 0.32 - 4.0 uIU/mL [facility] Blood Venous blood specimen / Unknown 01/08/2025 8:10 AM EDT 01/08/2025 2:28 PM EDT Fatuma Hardy MD LAB BLOOD ORDERABLES Final Resul t Performing Organization Address [facility] Co de Phone Number [facility] [address] [place] [phone] * (ABNORMAL) CBC auto differential (01/08/2025 8:10 AM EDT) White Blood Count 5.3 4.8 - 10.8 X10*3/uL [facility] Red Blood Count 4.82 4.20 - 5.50 X10*6/uL [facility] Hemoglobin 13.2 12.0 - 16.0 g/dl [facility] Hematocrit 39.6 37.0 - 47.0 % [facility] Mean Corpuscular Volume 82.2 80.0 - 98.0 fL [facility] Mean Corpuscular Hemoglobin 27.4 27.0 - 33.0 pg [facility] Mean Corpuscular HGB Conc 33.3 31.0 - 35.0 g/dl [facility] Red Cell Distribution Width 16.2(H) 11.0 - 16.0 % [facility] Platelet Count 250 160 - 400 X10*3/uL [facility] Mean Platelet Volume 9.7 9.4 - 12.3 fL [facility] Neutrophils Percent Auto 62.6 45 - 73 % [facility] Imm Gran Pct Auto 0.4 0.0 - 0.4 % [facility] Lymphocytes Percent Auto 27.0 20 - 40 % [facility] Monocytes Percent Auto 7.5 2 - 11 % [facility] Eosinophils Percent Auto 1.9 0 - 4 % [facility] Basophils Percent Auto 0.6 0 - 2 % [facility] NRBC Pct Auto 0.0 0.0 - 0.2 /100WBC [facility] Neutrophils Absolute Auto 3.3 2.0 - 8.3 x10*3/uL [facility] Imm Gran Abs Auto 0.02 0.00 - 0.03 X10*3/uL [facility] Lymphocytes Absolute Auto 1.4 1.2 - 4.9 X10*3/uL [facility] Monocytes Absolute Auto 0.4 0.1 - 1.2 X10*3/uL [facility] Eosinophils Absolute Auto 0.1 0.0 - 0.4 X10*3/uL [facility] Basophils Absolute Auto 0.0 0.0 - 0.2 X10*3/uL [facility] NRBC Abs Auto 0.000 0.0 - 0.012 X10*3/uL [facility] 01/08/2025 8:10 AM EDT 01/08/2025 2:23 PM EDT us Generic External Data Provider LAB BLOOD ORDERAB LES Final Result Performing Organization Address [facility]/ZIP Co de Phone Number [facility] [address] [place] [phone] * Sed Rate by Modified Westergren (01/08/2025 8:10 AM EDT) Erythrocyte Sedimentation Rate 20 0 - 20 MM/HR [facility] Comment:Patients with polycy themia and many hemoglobin abnormalitiesmay have depressed sed rates whereas patients with anemiamay have elevated sed rates. 01/08/2025 8:10 AM EDT 01/08/2025 2:23 PM EDT Generic External Data Provider LAB BLOOD ORDERAB LES Final Result Performing Organization Address [facility] Co de Phone Number [facility] [address] [place] [phone] * (ABNORMAL) C-reactive Protein (01/08/2025 8:10 AM EDT) C Reactive Protein 0.55(H) < or = 0.50 mg/dL [facility] 01/08/2025 8:10 AM EDT 01/08/2025 2:28 PM EDT Generic External Data Provider LAB BLOOD ORDERAB LES Final Result Performing Organization Address [facility] Co de Phone Number [facility] [address] [place] [address] [phone] * T4, Free (01/08/2025 8:10 AM EDT) Free T4 (Free Thyroxine) 1.52 0.71 - 1.85 ng/dL [facility] 01/08/2025 8:10 AM EDT 01/08/2025 2:28 PM EDT Fatuma Hardy MD LAB BLOOD ORDERABLES Final Resul t Performing Organization Address City/[facility]/ZIP Co de Phone Number [facility] [address] [place] [address] [phone] * Hepatic Function Panel (01/08/2025 8:10 AM EDT) Bilirubin, Direct 0.2 0.0 - 0.5 mg/dL [facility] Blood Venous blood specimen / Unknown 01/08/2025 8:10 AM EDT 01/08/2025 2:28 PM EDT Fatuma Hardy MD LAB BLOOD ORDERABLES Final Resul t Performing Organization Address [facility] Co de Phone Number [facility] [address] [place] [address] [phone] * (ABNORMAL) Lipid Panel, Standard (01/08/2025 8:10 AM EDT) Triglycerides 75 <150 mg/dL [facility] Comment:Desirable Triglyceri de: less than 150 mg/dLBorderline High Triglyceride 150-199 mg/dLHigh Triglyceride: 200-499 mg/dLVery High Triglyceride: greater than or equal to 5OO mg/dL Cholesterol 181 <200 mg/dL [facility] Comment:Desirable Cholestero l: less than 200 mg/dLBorderline High Cholesterol: 200-239 mg/dLHigh Cholesterol: greater than 239 mg/dL LDL Cholesterol Calculated 109(H) <100 mg/dL [facility] Comment:Desirable LDL: less than 100 mg/dLNear Optimal/Above Optimal LDL: 110- 129 mg/dLBorderline High LDL: 130-159 mg/dLHigh LDL: 160-189 mg/dLVery High LDL: greater than or equal to 190 mg/dL HDL Cholesterol 57 >40 mg/dL [facility] Comment:Desirable HDL: great er than 40 mg/dL Note: This HDL assay may give artificially low results in patients with liver disease. Blood Venous blood specimen / Unknown 01/08/2025 8:10 AM EDT 01/08/2025 2:28 PM EDT us Fatuma Hardy MD LAB BLOOD ORDERABLES Final Resul t [facility] [address] [place] [phone] * (ABNORMAL) Comprehensive Metabolic Panel (01/08/2025 8:10 AM EDT) Sodium 142 135 - 145 mmol/L [facility] Potassium 3.6 3.3 - 5.1 mmol/L [facility] Chloride 103 96 - 108 mmol/L [facility] Carbon Dioxide 29 22 - 29 mmol/L [facility] Anion Gap 14 12 - 20 [facility] Urea Nitrogen (BUN) 12 9 - 16 mg/dL [facility] Creatinine, Serum 0.66 0.5 - 1.4 mg/dL [facility] Estimated Glomerular Filt Rate >60 [facility] Comment:Chronic Kidney Disea se: Estimated GFR < 60 mL/min/1.87w5Hdpslp Kidney Disease: Estimated GFR < 15 mL/min/1.73m2 Glucose 76 60 - 115 mg/dL [facility] Calcium 9.9 8.4 - 10.2 mg/dL [facility] Bilirubin, Total 0.7 0.0 - 1.0 mg/dL [facility] Aspartate Amino Transferase 33(H) 5 - 31 U/L [facility] Alanine Aminotransferase 19 0 - 31 U/L [facility] Total Protein 8.1(H) 6.5 - 8.0 g/dL [facility] Albumin Level 4.6 3.5 - 5.0 g/dL [facility] Alkaline Phosphatase 114 39 - 117 U/L [facility] 01/08/2025 8:10 AM EDT 01/08/2025 2:28 PM EDT us Generic External Data Provider LAB BLOOD ORDERAB LES Final Result [facility] [address] [place] [phone] * BI Mammogram Diagnostic Tomosynthesis Bilateral (08/07/2024 10:00 AM EDT) Anatomical Region Laterality Modality Breast Bilateral Mammography 08/07/2024 10:0 0 AM EDT Narrative 08/07/2024 12:12 PM EDT [address] [place] [address] Mammography Report Signed Patient: Petra Meadows MR#: [id number] : 1955 Acct:[id number] Age/Sex: 68 / F ADM Date: 08/07/24 Loc: HO.MAMMO Attending Dr: Fatuma Hardy MD Ordering Physician: Fatuma Hardy MD Results: 3.12MPr obably Benign Finding - 12 month F/U Suggested Date of Service: 08/07/24 Follow Up: 12 month diagnos tic follow up Procedure(s): MM tomosynthesis diagnostic BI Accession Number(s): [id number] cc: Fatuma Hardy MD EXAMINATION: MM DIAGNOSTIC [...] 08/07/24 1209 DD/ 1000 TD/TT: 08/07/24 1020 Adult Basic Studies Teacher: Procedure Note Donotuseinterpreter, Image - 08[facility]07[facility] [address] [place] [address] Mammography Report Signed Patient: Petra Meadows [facility]#: [id number] : 1955cct:[id number] Age/Sex: 68 / FADM Date: 08/07/24 Loc: HO.MAMMO Attending Dr: Fatuma Hardy MD Ordering Physician: Fatuma Hardy MDResults: 3.12MPr obably Benign Finding - 12 month F/U Suggested Date of Service: 08/07/24Follow Up: 12 month diagnos tic follow up Procedure(s): MM tomosynthesis diagnostic BI Accession Number(s): [id number] cc: Fatuma Hardy MD EXAMINATION: MM DIAGNOSTIC [...] Howard DO 08/07/2024 12:09 PM EDT RP Workstation: [employer] Dictated By: Dolly Howard DO Signed By: <Electronically signed by Dolly Howard DO in OV> 08/07/24 1209 DD/ 1000 TD/TT: 08/07/24 1020 Adult Basic Studies Teacher: us Fatuma Hardy MD IMG BI PROCEDURES Final Result * Hepatitis Panel, General (02/05/2024 8:23 AM EDT) Hepatitis A IgM Nonreactive Nonreactive [facility] Comment:IgM antibodies to GONZALEZ V not detected; does not exclude earlyacute or recovered HAV infection. ~Hepatitis B Surface Antibody NONREACTIVE Nonreactive [facility] Comment:Nonreactive: < 8.00 mIU/mL Hepatitis B Core Antibody Nonreactive Nonreactive [facility] Hepatitis C Antibody Nonreactive Nonreactive [facility] Comment:Antibodies to HCV no t detected; does not exclude early acuteHCV infection. Hepatitis B Surface Ag Negative Negative [facility] 02/05/2024 8:23 AM EDT 02/05/2024 8:27 AM EDT us Generic External Data Provider LAB BLOOD ORDERAB LES Final Result [facility] [address] [place] [phone] [phone] * Cologuard?? colon cancer screening (06/05/2023 1:00 PM EST) Cologuard Result Negative Negative 06/18/19 24 9:01 AM [facility] [employer] (CLIA #:[id number]) Comment: NEGATIVE TEST RESULT. A negative Cologuard [...] screened with both Cologuard and colonoscopy. (Alicia Perez al, N Engl J Med 2014;370(14):7977-5712) The normal value (reference range) for this assay is negative. COLOGUARD RE-SCREENING RECOMMENDATION: Periodic colorectal cancer screening is an important part of preventive healthcare for asymptomatic individuals at average risk for colorectal cancer. Following a negative Cologuard result, the [place] [employer] Society and U.S. Multi-Society Task Force screening guidelines recommend a Cologuard re-screening interval of 3 years. References: [place] [employer] Guideline for Colorectal Cancer Screening: https://www.cancer.org/cancer/rpdgn-kddsbg-aukicf/tnqwwsgyl-zvzpaxeqd-pjjrqjc/ac s-rec ommendations.html.; Julio DK, Vipin CR, Moni CatherineK, Colorectal Cancer Screening: Recommendations for Physicians and Patients from the U.S. Multi-Society Task Force on Colorectal Cancer Screening , Am J Gastroenterology 2017; 112:8962-7084. TEST DESCRIPTION: Composite algorithmic analysis of stool [...] screened with both Cologuard and colonoscopy. (Alicia Perez al, N Engl J Med 2014;370(14):0808-4909.) Cologuard may produce a false negative or false positive result (no colorectal cancer or precancerous polyp present at colonoscopy follow up). A negative Cologuard test result does not guarantee the absence of CRC or advanced adenoma (pre-cancer). The current Cologuard screening interval is every 3 years. ([place] [employer] Society and U.S. Multi-Society Task Force). Cologuard performance data in a 10,000 patient pivotal study using colonoscopy as the reference method can be accessed at the following location: www.[employer]/results. Additional description of the Cologuard test process, warnings and precautions can be found at www.[employer].OSG Records Management. Stool specimen (specimen) 06/05/2023 1:00 PM EST 06/07/2023 2:46 PM EST Fatuma Hardy MD LAB MOLECULAR DIAGNOSTICS ORDERA BLEMarisol Final Result [employer] (CLIA #:[id number]) [place] [address], * HPV mRNA E6/E7 (03/29/2016 1:40 PM EST) HPV mRNA E6/E7 Not Detected NOT DETECTED [employer] Comment: This test was performed using the APTIMA(R) HPV Assay ([employer] This assay detects E6/E7 viral messenger RNA (mRNA) from 14 high-risk HPV types (16,18,31,33,35,39,45,51, 52,56,58,59,66,68). For additional information please refer to: http://education.BemDireto/faq/DJF663t0 (This link is being provided for informational/ educational purposes only.) Test Performed by [employer], [facility], [address] [place] [id number] Jim Chaidez M.D., Ph.D., Director of Laboratories , [facility] [id number] Please note: Effective 01/11/2016, HPV testing will be performed using [employer]'s APTIMA test which targets mRNA. Detecting mRNA instead of DNA, as in older methods, offers significant improvements in specificity. 03/29/2016 1:40 PM EST us Xochilt Alcaraz CNM HISTORICAL/NON ORDERABLE LABS Final Result [facility] Anywhere [address] from Last 3 Months or Most Recently Relevant to Health Maintenance Insurance MEDICARE [facility] [place] STAND ADULT Care Teams Mold Worker Relationship Specialty Start Date End Date Melinda Jordan CNP [address] [place] [address] PCP - General Family Medicine 02/25/25
--- OUTSIDE RECORDS SUMMARY | 2025-03-31 08:23 | XMS_ITS | Encounter Summary ---
Author Organization [employer] Address [address] [place] [address] [address] [place] [address] Care Team Providers Care Hand Candy Cutter Name Role Phone Fatuma Hardy MD Primary Care Provider [phone] Melinda Jordan CNP Primary Care Provider [phone] Reason for Visit * Reason Comments Med Refill Encounter Details Date Type Department Care Team (Late st Contact Info) Description 04/18/2023 Refill [facility] MED & PEDS [address] [place] [address] Fatuma Hardy MD [address] [place] [address] Fibromyositis Social History Tobacco Use Types Packs/Day [...] Description 04/04/2025 8:00 AM EST Office Visit [facility] ADULT DENTAL [address] [place] [address] Cornelius Herr DMD [address] [place] [address] 05/21/2025 10:45 AM EST Office Visit [facility] MED & PEDS [address] [place] [address] Melinda Jordan CNP [address] [place] [address] 09/23/2025 8:45 AM EDT Office Visit [facility] ADULT DENTAL [address] [place] [address] Miriam Watson documented as of this encounter Visit Diagnoses Diagnosis Fibromyositis Unspecified myalgia and myositis documented in this encounter Care Teams Hand Candy Cutter Relationship Specialty Start Date End Date Fatuma Hardy MD [address] [place] [address] PCP - General Family Medicine 04/12/12 02/24/25 Melinda Jordan CNP [address] [place] [address] PCP - General Family Medicine 02/25/25 documented as of this encounter
--- OUTSIDE RECORDS SUMMARY | 2025-03-31 08:23 | XMS_ITS | Encounter Summary ---
Author Organization [employer] Address [address] [facility] 7t [place] [address] Care Team Providers Care Lighting Designer Name Role Phone Fatuma Hardy MD Primary Care Provider [phone] Melinda Jordan CNP Primary Care Provider [phone] Reason for Visit * Reason Onset Date Comments pt1 12/09/2024 Encounter Details Date Type Department Care Team ([facility] st Contact Info) Description 12/09/2024 Telephone [facility] MED & PEDS [address] [place] [address] Fatuma Hardy MD [address] [place] [address] pt1 Social History Tobacco Use Types Packs/Day [...] Y/N: Yes Provider name or facility name: [address] [place] [address] Escort needed: Y/N: No Do you have a wheelchair: Y/N: No If yes- Manual or electric: Visits: 2x every 6 minths documented in this encounter Plan of Treatment Upcoming Encounters Date Type Department Care Team ([facility] st Contact Info) Description 04/04/2025 8:00 AM EST Office Visit [facility] ADULT DENTAL [address] [place] [address] Cornelius Herr DMD [address] [place] [address] 05/21/2025 10:45 AM EST Office Visit [facility] MED & PEDS [address] [place] [address] Melinda Jordan CNP [address] [place] [address] 09/23/2025 8:45 AM EDT Office Visit [facility] ADULT DENTAL [address] [place] [address] Miriam Watson documented as of this encounter Visit Diagnoses Not on filedocumented in this encounter Care Teams Lighting Designer Relationship Specialty Start Date End Date Fatuma Hardy MD [address] [place] [address] PCP - General Family Medicine 04/12/12 02/24/25 Melinda Jordan CNP [address] [place] [address] PCP - General Family Medicine 02/25/25 documented as of this encounter
--- OUTSIDE RECORDS SUMMARY | 2025-03-31 08:23 | XMS_ITS | Encounter Summary ---
Author Organization [employer] Address [address] [facility] 7t [place] [address] Care Team Providers Care Tube Closing Machine Operator Name Role Phone Fatuma Hardy MD Primary Care Provider [phone] Melinda Jordan CNP Primary Care Provider [phone] Reason for Visit * Reason Onset Date Comments PT-1 06/04/2024 Encounter Details Date Type Department Care Team ([facility] st Contact Info) Description 06/04/2024 Telephone [facility] MED & PEDS [address] [place] [address] Fatuma Hardy MD [address] [place] [address] PT-1 Social History Tobacco Use Types Packs/Day [...] facility name: [facility] Facility Address: [address] [address] Escort needed: Y/N: No Do you have a wheelchair: Y/N: No If yes- Manual or electric: n/a Visits: 2 times a month for 12 months 2.)Home Address verified: Y/N: Yes Provider name or facility name: [facility] Facility Address: [address] [place] [address] Escort needed: Y/N: No Do you have a wheelchair: Y/N: No If yes- Manual or electric: N/a Visits: 2 times a month for 12 months documented in this encounter Plan of Treatment Upcoming Encounters Date Type Department Care Team (Late st Contact Info) Description 04/04/2025 8:00 AM EST Office Visit [facility] ADULT DENTAL [address] [place] [address] Cornelius Herr, LAUREN [address] [place] [address] 05/21/2025 10:45 AM EST Office Visit [facility] MED & PEDS [address] [place] [address] Melinda Jordan CNP [address] [place] [address] 09/23/2025 8:45 AM EDT Office Visit [facility] ADULT DENTAL [address] [place] [address] Miriam Watson documented as of this encounter Visit Diagnoses Not on filedocumented in this encounter Care Teams Tube Closing Machine Operator Relationship Specialty Start Date End Date Fatuma Hardy MD [address] [place] [address] PCP - General Family Medicine 04/12/12 02/24/25 Melinda Jordan CNP [address] [place] [address] PCP - General Family Medicine 02/25/25 documented as of this encounter
--- OUTSIDE RECORDS SUMMARY | 2025-03-31 08:23 | XMS_ITS | Encounter Summary ---
Author Organization [employer] Address [address] [facility] [address]t [place] [address] Care Team Providers Care Acrobatic Dancer Name Role Phone Melinda Jordan CNP Primary Care Provider [phone] Encounter Details Date Type Department Care Team (Late st Contact Info) Description 02/27/[address] [facility] CH[facility] MED & PEDS [address] [place], [place] [phone] Provider, MD Pipe Social History Tobacco Use [...] 8:00 AM EST Office Visit [facility] ADULT DENTAL [address] [place] [address] Cornelius Herr, DMD [address] [place] [address] 05/21/2025 10:45 AM EST Office Visit [facility] MED [facility] [address] [place] [address] Melinda Jordan, SOL[employer]ER [employer] [address] [place] [address] 09/23/2025 8:45 AM EDT Office Visit [facility] ADULT DENTAL [address] [place] [address] Miriam Watson documented as of this encounter Procedures Procedure Name Priority Date/Time Associated Diagnosis Comments BD DEXA AXIAL Routine 03/20/2025 9:[address] WHOLE BODY Routine 02/14/2025 8:4 9 AM EDT documented in this encounter Results * BD DEXA Axial (03/20/2025 9:21 AM EST) Anatomical Region Laterality Modality Body Radiographic Jaida ging 03/20/2025 9:21 AM EST Narrative 03/20/2025 10:53 AM EST [address] [place] [address] Mammography Report Signed Patient: Petra Meadows MR#: [id number] : 1955 Acct:[id number] Age/Sex: 69 / F ADM Date: 03/20/25 Loc: ANDRIY.MAMMO Attending Dr: Melba Caputo MD Ordering Physician: Melba Caputo MD Results: Date of Service: 03/20/25 Follow Up: Procedure(s): XR DEXA axial skeleton Accession Number(s): [id number] cc: Melba Caputo MD; Fatuma Hardy MD Reason For Exam: M81.0 - Age-related osteoporosis without current pathological fracture EXAMINATION: DXA BONE DENSITY AXIAL HISTORY: M81.0 - Age-related osteoporosis without current pathological fracture TECHNIQUE: Therapydia Dual energy absorptiometry (DEXA) of the lumbar [...] of the [employer] [place] for Metabolic Bone Disease, a World Health Organization (WHO) Collaborating Center. Electronically signed by: Raul Trinh MD 03/20/2025 10:50 AM EST Dictated By: Raul Trinh MD Signed By: <Electronically signed by Raul Trinh MD in OV> 03/20/25 1050 DD/ 0 TD/TT: 03/20/25924 [place] Line Attendant: Procedure Note Donotuseinterpreter, Image - 03/20/2025 [facility] [address] [place] [address] Mammography Report Signed Patient: Petra Meadows NMR#: [id number] : 1955cct:[id number] Age/Sex: 69 / FADM Date: 03/20/25 Loc: HO.MAMMO Attending Dr: Melba Caputo MD Ordering Physician: Melba Caputo MDResults: Date of Service: 03/20/25Follow Up: Procedure(s): XR DEXA axial skeleton Accession Number(s): [id number] cc: Melba Caputo MD; Fatuma Hardy MD Reason For Exam: M81.0 - Age-related osteoporosis without currentpathological fracture EXAMINATION: DXA BONE DENSITY AXIAL HISTORY: M81.0 - Age-related osteoporosis without current pathological fracture TECHNIQUE: Therapydia Dual energy absorptiometry (DEXA) of the lumbar [...] is a trademark of the [employer]'s [place] for Metabolic Bone Disease, a World Health Organization (WHO) Collaborating Center. Electronically signed by: Raul Trinh MD 03/20/2025 10:50 AM EST Dictated By: Raul Trinh MD Signed By: <Electronically signed by Raul Trinh MD in OV> 03/20/25 1050 DD/ 0 TD/TT: 03/20/25924 [place] Line Attendant: [facility] External Provider IMG DXA PROCEDURES Final Result [...] documented as of this encounter Care Teams Acrobatic Dancer Relationship Specialty Start Date End Date Melinda Jordan CNP [address] [place] [address] PCP - General Family Medicine 02/25/25 documented as of this encounter
--- OUTSIDE RECORDS SUMMARY | 2025-03-31 08:23 | XMS_ITS | Clinical Summary ---
Author Organization 175 [facility] Address 175 [place] [address] Phone Care Team Providers Care Pet Counselor Name Role Phone Fatuma Hardy MD Primary Care Provider [phone] Allergies No known active allergies Medications montelukast [...] 1 (one) time each day. 02/26/20 24 Active levothyroxine (SYNTHROID, LEVOTHROID) 150 mcg tablet [...] SAME TIME EACH DAY 03/10/20 24 Active blood pressure test kit-large kit Check blood pressure on arm as directed EVERY DAY 08/09/19 25 Active cholecalciferol (VITAMIN D-3) 50 mcg (2,000 unit) capsule Take 1 capsule (2,000 Units total) by mouth 1 (one) time each day. 09/21/19 25 Active naproxen (NAPROSYN) 500 mg tablet Take [...] wheezing. 75 mL 3 11/07/19 25 Active cetirizine (ZyrTEC) 10 mg tablet Take 1 tablet (10 mg total) by mouth 1 (one) time each day. 30 tablet 3 12/05/19 25 Active calcium-vitamin D3-vitamin K 500 mg-1,000 unit-40 mcg tablet,chewable 1 (one) time each day at the same time. Active lansoprazole (Prevacid) [address] capsule 1 capsule (30 mg total) 1 (one) time each day at the same time. 03/20/20 12 Active LORazepam (ATIVAN) 1 mg tablet 02/04/20 25 Active Zepbound 2.5 mg/0.5 mL injection 11/24/19 25 Active Zepbound 5 mg/0.5 mL injection ADMINISTER 5 MG UNDER THE SKIN EVERY WEEK 12/12/19 25 Active losartan (COZAAR) 25 mg tablet 02/27/20 25 Active fluticasone propionate (FLONASE) 50 mcg/actuation nasal spray Administer 2 sprays into each nostril 2 (two) times a day. 16 g 3 03/25/20 25 Active fluticasone propionate (FLONASE) 50 mcg/actuation nasal spray Administer 2 sprays into affected nostril(s) 1 (one) time each day. 025 Discontinu ed(Reorder ) diclofenac (Voltaren Arthritis Pain) 1 % topical gel Apply 4 g topically 2 (two) times a day. 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 Constipation 02/26/2025 Multiple joint pain 10/16/2024 Chronic obstructive pulmonar y disease ([facility] V24, [facility] V28) 09/02/2024 Asthma 03/24/2024 Obesity 03/24/2024 Pulmonary nodules/lesions, multiple 03/24/2024 Primary hypertension 01/31/2024 Rhinosinusitis 03/31/2023 Hypertensive renal disease 10/08/2020 Proteinuria 10/08/2020 Stage 2 chronic kidney disease 10/08/2020 Obstructive sleep apnea syndrome 04/11/2012 Granulomatosis with polyangiitis ([facility] V24, [facility] V28) 04/11/2012 Fibromyositis 04/11/2012 Acanthosis nigricans 04/11/2012 Hypothyroidism 04/11/2012 Resolved Problems Problem Noted Date Diagnosed Date Resolved Date Blood in urine 10/08/2020 05/15/2024 Encounters Date Type Department Care Team Description 03/25/2025 11:15 AM EST Office Visit Pulmonology [facility] 175 [facility] [address] [place] [phone] Maximus Thurston MD Moderate asthma, unspecified whether complicated, unspecified whether persistent (Primary Dx); Maurilio's granulomatosis with renal involvement ([facility] V24, [facility] V28); Seasonal allergic rhinitis due to pollen 02/14/2025 8:34 AM EDT - 02/14/2025 11:59 PM EDT Hospital Encounter [facility] PET Scan [address] [place] [phone] 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 ([facility] V24, [facility] V28) Discharge Disposition: Home or Self Care 01/09/2025 8:15 AM EDT Office Visit Orthopedic Surgery [facility] 250 [address] [facility] [address] [place] [phone] Lino Francois, DPM Metatarsalgia of both feet (Primary Dx); Verruca plantaris; Dermatophytosis of nail; Primary osteoarthritis of both feet; Pain in toe of right foot; Bilateral femoral artery stenosis ([facility] V24); Tinea pedis of both feet; Pain in toe of left foot from Last 3 Months Immunizations Immunization Administration Dates Next Due Influenza Quadravalent, MDCK , 0.5ml, preservative free (Flucelvax) 6mo and older 03/09/2019 Influenza Quadrivalent, with preservative (Fluzone; Afluria) 6mo and older 03/29/2018,03/08/2016 Influenza Split 03/09/2016,01/15/2013 Influenza trivalent, 0.5mL ( Fluzone High-dose) 65yo [...] Sign Reading Time Taken Comments Blood Pressure 124/74 03/25/2025 11:06 AM EST Pulse 79 03/25/2025 11:06 AM EST Temperature 35.9 C (96.6 F) 03/25/2025 11:06 AM EST Respiratory Rate 20 11/06/2024 1:06 PM EDT Oxygen Saturation 100% 03/25/2025 11:06 AM EST Inhaled Oxygen Concentration - - Weight 63 kg (139 lb) 03/25/2025 11:06 AM EST Height 162.6 cm (5' 4.02 ) 01/09/2025 8:07 AM ED T Body Mass Index 23.85 01/09/2025 8:07 AM EDT Plan of Treatment Upcoming Encounters Date Type Department Care Team (Late st Contact Info) Description 04/08/2025 10:30 AM EST Office Visit Orthopedic Surgery - [facility] [address] [address] Lino Francois, DPM [address] [address] 06/25/2025 9:15 AM EST Office Visit Pulmonology - [address] [place] [address] Maximus Thurston MD [address] [place] [address] Health Maintenance Due Date Last Done Comments Breast Cancer Screening 1955 Zoster Vaccines (1 of 2) 08/25/1975 RSV Immunization Adult Patients (1 - Risk 50-74 years 1-dose series) 2006 Pneumococcal Vaccine: 50+ Years (2 of 2 - PCV) 08/08/2014 08/08/2013, 04/04/2006 Falls Risk Assessment 02/07/2024 Hepatitis C Screening 02/07/2024 Medicare Annual Wellness Visit 02/07/2024 Social Influencers of Health Screening 02/07/2024 Depression Screening 05/01/2024 COVID-19 Vaccine ( - season) 2024 06/16/2021, 10/07/2020, 09/02/2020 Influenza Vaccine (#1) 2024 , 03/09/2019, 03/29/2018, Additional history exists Hypertension/CHF/CAD Annual BMP Blood Test 01/08/2026 01/08/2025, 05/22/2023 DTaP,Tdap,and Td Vaccines (3 - Td or Tdap) 03/08/2026 03/08/2016, 11/21/2015 Colorectal Cancer Screening: FIT-DNA (Cologuard) 06/05/2026 06/05/2023, 06/05/2023 Cholesterol Screening (Lipid Panel) 01/08/2030 01/08/2025, 02/05/2024, 07/21/2022 Osteoporosis Screening (Bone Density Screening) 03/20/2035 03/20/2025 HIB Vaccines Aged Out No longer eligi [...] Associated Diagnosis Comments PET CT WHOLE BODY SUBSEQUENT Routine 02/14/2025 11:00 AM EDT 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 (CMS/HCC V24, CMS/HCC V28) FIT-DNA Routine 06/05/2023 ANNUAL BMP BLOOD TEST Routine 05/22/2023 LIPID PANEL Routine 07/21/2022 from Last 3 Months or Most Recently Relevant to Health Maintenance Results * PET CT Whole Body Subsequent (02/14/2025 11:00 AM EDT) Anatomical Region Laterality Modality Body Radiographic Jaida ging 02/26/2025 9:30 AM EDT Impressions 02/26/2025 10:11 AM EDT Intense metabolic activity along the ascending aorta is mildly increased from the prior study and is most consistent with vasculitis. Interval increased metabolic activity within lesion along the gallbladder fundus/adjacent liver. Recommend further imaging initially with right upper quadrant ultrasound. Neoplasm is suspected. Mild interval decrease in left hilar metabolic activity. -------- FINAL REPORT -------- Dictated By: Mackenzie St Dictated Date: 02/26/2025 09:30 ET Assigned Physician: Mackenzie St Reviewed and Electronically Signed By: Mackenzie St Signed Date: 02/26/2025 10:11 ET Workstation ID: [id number] Transcribed By: Self Edit Transcribed Date: 02/26/2025 10:05 ET Narrative 02/26/2025 10:11 AM EDT INDICATION: Maurilio's granulomatosis, subsequent treatment strategy Prior relevant studies: December 05, 2023. Outside PET/CT from December 13, 2026 reviewed. Radiopharmaceutical: 12.2 mCi of F-18 FDG IV. Blood glucose: 88 mg/dl. PROCEDURE: Whole body FDG PET-CT imaging was performed from the top of the skull through the feet in a single acquisition with data set reconstructed in axial, coronal, and sagittal planes at the computer workstation with fused data from both the PET imaging study and attenuation correction CT. The CT portion of the examination was done strictly for attenuation correction and is not a true diagnostic CT examination. CTDI: 6.44 mGy Mediastinal reference SUV max 2.8 Liver reference SUV max 3.0 FINDINGS: HEAD AND NECK: No abnormal FDG activity. THORAX: Ascending aorta again measures up to 3.8 cm axially. Intense activity along the ascending portion is fairly circumferential with SUV max of 8.5, previously 6.9. Persistent left hilar activity SUV max of 3.3, previously 4.2. No significant pulmonary or inguinal activity. ABDOMEN/PELVIS: Interval increase in activity associated with lesion either in the fundal portion of the gallbladder or the adjacent liver with SUV max of 7.8, previously 2.9. MUSCULOSKELETAL: Mild focal activity along the posterior right ninth rib with SUV max of 1.9 is nonspecific without focal abnormality. LOWER EXTREMITIES: No abnormal FDG activity. Procedure Note Mackenzie St MD - 02/26/2025 INDICATION: Maurilio's granulomatosis, subsequent treatment strategy Prior relevant studies: December 05, 2023. Outside PET/CT from November reviewed. Radiopharmaceutical: 12.2 mCi of F-18 FDG IV. Blood glucose: 88 mg/dl. PROCEDURE: Whole body FDG PET-CT imaging was performed from the top of theskull through the feet in a single acquisition with data set reconstructedin axial, coronal, and sagittal planes at the computer workstation withfused data from both the PET imaging study and attenuation correction CT.The CT portion of the examination was done strictly for attenuationcorrection and is not a true diagnostic CT examination. CTDI: 6.44 mGy Mediastinal reference SUV max 2.8 Liver reference SUV max 3.0 FINDINGS: HEAD AND NECK: No abnormal FDG activity. THORAX: Ascending aorta again measures up to 3.8 cm axially. Intenseactivity along the ascending portion is fairly circumferential with SUVmax of 8.5, previously 6.9. Persistent left hilar activity SUV max of 3.3, previously 4.2. No significant pulmonary or inguinal activity. ABDOMEN/PELVIS: Interval increase in activity associated with lesioneither in the fundal portion of the gallbladder or the adjacent liver withSUV max of 7.8, previously 2.9. MUSCULOSKELETAL: Mild focal activity along the posterior right ninth ribwith SUV max of 1.9 is nonspecific without focal abnormality. LOWER EXTREMITIES: No abnormal FDG activity. IMPRESSION: Intense metabolic activity along the ascending aorta is mildly increasedfrom the prior study and is most consistent with vasculitis. Interval increased metabolic activity within lesion along the gallbladderfundus/adjacent liver. Recommend further imaging initially with rightupper quadrant ultrasound. Neoplasm is suspected. Mild interval decrease in left hilar metabolic activity. -------- FINAL REPORT -------- Dictated By: Mackenzie St Dictated Date: 02/26/2025 09:30 ET Assigned Physician: Mackenzie St Reviewed and Electronically Signed By: Mackenzie St Signed Date: 02/26/2025 10:11 ET Workstation ID: [id number] Transcribed By: Self Edit Transcribed Date: 02/26/2025 10:05 ET Melba Caputo MD [facility] [place] PROCEDURES Final Result * FIT-DNA (Cologuard) (06/05/2023) [facility] Colorectal Cancer Screening: FIT-DNA (Cologuard) no interpretation , abstracted Historical Provider HEALTH MAINTENANCE Final Result * Annual BMP Blood Test (05/22/2023) [facility] Annual BMP Blood Test abstracted Historical Provider [facility] MAINTENANCE Final Result * Lipid panel (07/21/2022) [facility] LDL/HDL Ratio 0 0 - 0 Triglycerides 0 0 - 0 mg/dL Cholesterol 0 0 - 0 mg/dL HDL 0 0 - 0 mg/dL LDL Cholesterol 0 0 - 0 mg/dL Blood Venous blood specimen / Unknown us Historical Provider LAB BLOOD ORDERABLES Della l Result from Last 3 Months or Most Recently Relevant to Health Maintenance Insurance MEDICARE MEDICAID [place] Care Teams Pet Counselor Relationship Specialty Start Date End Date Fatuma Hardy MD [address] [place] [address] PCP - General Family Medicine 07/02/24
--- OUTSIDE RECORDS SUMMARY | 2025-03-31 08:23 | XMS_ITS | Encounter Summary ---
Author Organization [employer] Address [address] [place] [address] [address] [place] [address] Care Team Providers Care On Air Talent Name Role Phone Fatuma Hardy MD Primary Care Provider [phone] Melinda Jordan CNP Primary Care Provider [phone] Reason for Visit * Reason Onset Date Comments PT1 08/09/2022 Encounter Details Date Type Department Care Team (Late st Contact Info) Description 08/09/2022 Telephone [facility] CHC MED & PEDS [address] [place] [address] Fatuma Hardy MD 505 [place] [address] PT1 Social History Tobacco Use Types Packs/Day [...] Tc from pt requesting a PT1 Location: [address] [place] [address] 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 Date&Time: N/a Lab Support Technician: no No wheel chair or cane documented in this encounter Plan of Treatment Upcoming Encounters Date Type Department Care Team (Late st Contact Info) Description 04/04/2025 8:00 AM EST Office Visit [facility] ADULT DENTAL [address] [place], [place] [phone] Cornelius Herr DMD 505 [place] [address] 05/21/2025 10:45 AM EST Office Visit [facility] MED & PEDS [address] [place] [address] Melinda Jordan CNP 505 [place] [address] 09/23/2025 8:45 AM EDT Office Visit [facility] ADULT DENTAL [address] [place] [address] Miriam Watson documented as of this encounter Visit Diagnoses Not on filedocumented in this encounter Care Teams On Air Talent Relationship Specialty Start Date End Date Fatuma Hardy MD [address] [place] [address] PCP - General Family Medicine 04/12/12 02/24/25 Melinda Jordan CNP [address] [place] [address] PCP - General Family Medicine 02/25/25 documented as of this encounter
--- OUTSIDE RECORDS SUMMARY | 2025-03-31 08:23 | XMS_ITS | Encounter Summary ---
Author Organization [employer] Address 75 [facility] 7t [place] [address] Care Team Providers Care Punch Press Operator Name Role Phone Fatuma Hardy MD Primary Care Provider [phone] Melinda Jordan CNP Primary Care Provider [phone] Reason for Visit * Reason Onset Date Comments PT1 06/26/2024 Encounter Details Date Type Department Care Team ([facility] st Contact Info) Description 06/26/2024 Telephone [facility] CHC MED & PEDS [address] [place] [address] Fatuma Hardy MD 505 [place] [address] PT1 Social History Tobacco Use Types Packs/Day [...] Y/N: Yes Provider name or facility name: [facility] Facility Address: [address] [place] [address] [address], [place] [address] Escort needed: Y/N: No Do you have a wheelchair: Y/N: No If yes- Manual or electric: n/a Visits: 1-2 for 6 months documented in this encounter Plan of Treatment Upcoming Encounters Date Type Department Care Team ([facility] st Contact Info) Description 04/04/2025 8:00 AM EST Office Visit [facility] ADULT DENTAL [address] [place] [address] Cornelius Herr DMD 505 [place] [address] 05/21/2025 10:45 AM EST Office Visit [facility] MED & PEDS [address] [place] [address] Melinda Jordan CNP 505 [place] [address] 09/23/2025 8:45 AM EDT Office Visit [facility] ADULT DENTAL [address] [place] [address] Miriam Watson documented as of this encounter Visit Diagnoses Not on filedocumented in this encounter Care Teams Punch Press Operator Relationship Specialty Start Date End Date Fatuma Hardy MD [address] [place] [address] PCP - General Family Medicine 04/12/12 02/24/25 Melinda Jordan CNP [address] [place] [address] PCP - General Family Medicine 02/25/25 documented as of this encounter
--- OUTSIDE RECORDS SUMMARY | 2025-03-31 08:23 | XMS_ITS | Encounter Summary ---
Author Organization [employer] Address 75 [facility] 7t [place] [address] Care Team Providers Care Automotive Machinist Apprentice Name Role Phone Melinda Jordan CNP Primary Care Provider [phone] Reason for Visit * Reason Onset Date Comments PT1 03/07/2025 Encounter Details Date Type Department Care Team ([facility] st Contact Info) Description 03/07/2025 Telephone [facility] [address] [place] [address] Melinda Jordan CNP [address] [place], [place] [phone] PT1 Social History Tobacco Use Types Packs/Day [...] 8:00 AM EST Office Visit [facility] ADULT DENTAL 505 [place] [address] Cornelius Herr DMD 505 [place] [address] 05/21/2025 10:45 AM EST Office Visit [facility] MED & PEDS 505 [place] [address] Melinda Jordan CNP 505 [place] [address] 09/23/2025 8:45 AM EDT Office Visit [facility] ADULT DENTAL 505 [place] [address] Miriam Watson documented as of this encounter Visit Diagnoses Not on filedocumented in this encounter Additional Health Concerns Assessment Noted Time PHQ-9 Depression Total Score: 1 01/07/20 25 8:48 AM EDT documented as of this encounter Care Teams Automotive Machinist Apprentice Relationship Specialty Start Date End Date Melinda Jordan CNP [address] [place] [address] PCP - General Family Medicine 02/25/25 documented as of this encounter
--- OUTSIDE RECORDS SUMMARY | 2025-03-31 08:23 | XMS_ITS | Encounter Summary ---
Author Organization [employer] Address 75 [facility] 7t [place] [address] Care Team Providers Care Latcher Name Role Phone Fatuma Hardy MD Primary Care Provider [phone] Melinda Jordan CNP Primary Care Provider [phone] Encounter Details Date Type Department Care Team (Late st Contact Info) Description 11/26/2024 Orders Only [facility] [address] [place] [address] Provider, MD Pipe Social History Tobacco Use [...] Description 04/04/2025 8:00 AM EST Office Visit [facility] ADULT DENTAL 505 [place] [address] Cornelius Herr DMD 505 [place] [address] 05/21/2025 10:45 AM EST Office Visit [facility] MED & PEDS [address] [place] [address] Melinda Jordan CNP 505 [place] [address] 09/23/2025 8:45 AM EDT Office Visit [facility] ADULT DENTAL 505 [place] [address] Miriam Watson documented as of this encounter [...] on filedocumented in this encounter Care Teams Latcher Relationship Specialty Start Date End Date Fatuma Hardy MD [address] [place] [address] PCP - General Family Medicine 04/12/12 02/24/25 Melinda Jordan CNP [address] [place] [address] PCP - General Family Medicine 02/25/25 documented as of this encounter
--- OUTSIDE RECORDS SUMMARY | 2025-03-31 08:23 | XMS_ITS | Encounter Summary ---
Author Organization [employer] Address 75 [facility] 7t [place] [address] Care Team Providers Care Windows Server Specialist Name Role Phone Fatuma Hardy MD Primary Care Provider [phone] Melinda Jordan CNP Primary Care Provider [phone] Reason for Visit * Reason Onset Date Comments pt1 12/09/2024 Encounter Details Date Type Department Care Team ([facility] st Contact Info) Description 12/09/2024 Telephone [facility] CHC MED & PEDS [address] [place] [address] Fatuma Hardy MD 505 [place] [address] pt1 Social History Tobacco Use Types Packs/Day [...] Y/N: Yes Provider name or facility name: [address] [place] [address] Dr Bere FIERRO Escort needed: Y/N: No Do you have a wheelchair: Y/N: No If yes- Manual or electric: Visits: 1x a year documented in this encounter Plan of Treatment Upcoming Encounters Date Type Department Care Team ([facility] st Contact Info) Description 04/04/2025 8:00 AM EST Office Visit [facility] ADULT DENTAL [address] [place] [address] Cornelius Herr DMD 505 [place] [address] 05/21/2025 10:45 AM EST Office Visit [facility] MED & PEDS [address] [place] [address] Melinda Jordan CNP 505 [place] [address] 09/23/2025 8:45 AM EDT Office Visit [facility] ADULT DENTAL 505 [place] [address] Walter, Miriam documented as of this encounter Visit Diagnoses Not on filedocumented in this encounter Care Teams Windows Server Specialist Relationship Specialty Start Date End Date Fatuma Hardy MD [address] [place] [address] PCP - General Family Medicine 04/12/12 02/24/25 Melinda Jordan CNP [address] [place] [address] PCP - General Family Medicine 02/25/25 documented as of this encounter
--- OUTSIDE RECORDS SUMMARY | 2025-03-31 08:23 | XMS_ITS | Encounter Summary ---
Author Organization [employer] Address [address] [place] [address] 7t [place] [address] Care Team Providers Care Accelerator Systems Director Name Role Phone Fatuma Hardy MD Primary Care Provider [phone] Melinda Jordan CNP Primary Care Provider [phone] Reason for Visit * Reason Onset Date Comments PA status 06/28/2022 Encounter Details Date Type Department Care Team ([facility] st Contact Info) Description 06/28/2022 Telephone [facility] CHC MED & PEDS [address] [place] [address] Fatuma Hardy MD [address] [place] [address] PA status Social History Tobacco Use Types [...] a previous PA Please contact pt at [phone] documented in this encounter Plan of Treatment Upcoming Encounters Date Type Department Care Team (Late st Contact Info) Description 04/04/2025 8:00 AM EST Office Visit [facility] ADULT DENTAL [address] [place], [place] [phone] Cornelius Herr DMD [address] [place] [address] 05/21/2025 10:45 AM EST Office Visit [facility] MED & PEDS [address] [place], [place] [phone] Melinda Jordan CNP 505 [place] [address] 09/23/2025 8:45 AM EDT Office Visit [facility] ADULT DENTAL [address] [place], [place] [phone] Miriam Watson documented as of this encounter Visit Diagnoses Not on filedocumented in this encounter Care Teams Accelerator Systems Director Relationship Specialty Start Date End Date Fatuma Hardy MD [address] [place] [address] PCP - General Family Medicine 04/12/12 02/24/25 Melinda Jordan CNP 505 [place] [address] PCP - General Family Medicine 02/25/25 documented as of this encounter
--- OUTSIDE RECORDS SUMMARY | 2025-03-31 08:23 | XMS_ITS | Encounter Summary ---
Author Organization [employer] Address 75 [facility] 7t [place] [address] Care Team Providers Care Corporate Representative Name Role Phone Fatuma Hardy MD Primary Care Provider [phone] Melinda Jordan CNP Primary Care Provider [phone] Reason for Visit * Reason Onset Date Comments Durable Medical Equipment 10/08/2024 Encounter Details Date Type Department Care Team (Late st Contact Info) Description 10/08/2024 Telephone [facility] MEDICINE [address] [place] [address] Fatuma Hardy MD [address] [place], [place] [phone] Durable Medical Equipment Social History Tobacco Use [...] Description 04/04/2025 8:00 AM EST Office Visit [facility] ADULT DENTAL 505 [place] [address] Cornelius Herr DMD 505 [place] [address] 05/21/2025 10:45 AM EST Office Visit [facility] MED & PEDS [address] [place] [address] Melinda Jordan CNP 505 [place] [address] 09/23/2025 8:45 AM EDT Office Visit [facility] ADULT DENTAL [address] [place] [address] Miriam Watson documented as of this encounter Visit Diagnoses Not on filedocumented in this encounter Care Teams Corporate Representative Relationship Specialty Start Date End Date Fatuma Hardy MD [address] [place] [address] PCP - General Family Medicine 04/12/12 02/24/25 Melinda Jordan CNP [address] [place] [address] PCP - General Family Medicine 02/25/25 documented as of this encounter
--- OUTSIDE RECORDS SUMMARY | 2025-03-31 08:23 | XMS_ITS | Encounter Summary ---
Author Organization [employer] Address 75 [facility] 7t [place] [address] Care Team Providers Care Brief Writer Name Role Phone Fatuma Hardy MD Primary Care Provider [phone] Melinda Jordan CNP Primary Care Provider [phone] Reason for Visit * Reason Onset Date Comments PT-1 05/05/2023 Encounter Details Date Type Department Care Team (Late st Contact Info) Description 05/05/2023 Telephone [facility] MEDICINE [address] [place] [address] Fatuma Hardy MD [address] [place], [place] [phone] PT-1 Social History Tobacco Use Types Packs/Day [...] N/A Time: N/A Visits: 4 Address: 505 [facility] Facility: [facility] Wheel Chair: no Patient Resource Specialist Needed: no PT1 needed Date: N/A Time: N/A Visits: 4 Address: [facility] [place] [facility] Facility: [employer] Wheel Chair: no Patient Resource Specialist Needed: no PT1 needed Date: N/A Time: N/A Visits: 4 Address: [address] [place] [address] [address] Floor, [place] [address] Facility:[facility] Wheel Chair: no Patient Resource Specialist Needed: no documented in this encounter Plan of Treatment Upcoming Encounters Date Type Department Care Team (Late st Contact Info) Description 04/04/2025 8:00 AM EST Office Visit [facility] ADULT D[facility]AL 505 [place] [address] Cornelius Herr DMD 505 [place] [address] 05/21/2025 10:45 AM EST Office Visit [facility] MED [facility] PEDS 505 [place] [address] Melinda Jordan CNP 505 [place] [address] 09/23/2025 8:45 AM EDT Office Visit [facility] ADULT D[facility]AL 505 [place] [address] Miriam Watson documented as of this encounter Visit Diagnoses Not on filedocumented in this encounter Care Teams Brief Writer Relationship Specialty Start Date End Date Fatuma Hardy MD 230 [place] [address] PCP - General Family Medicine 04/12/12 02/24/25 Melinda Jordan CNP 505 [place] [address] PCP - General Family Medicine 02/25/25 documented as of this encounter
--- OUTSIDE RECORDS SUMMARY | 2025-03-31 08:23 | XMS_ITS | Encounter Summary ---
Author Organization [employer] Address 75 [facility] 7t [place] [address] Care Team Providers Care [employer] Utility Worker Name Role Phone Fatuma Hardy MD Primary Care Provider [phone] Melinda Jordan CNP Primary Care Provider [phone] Reason for Visit * Reason Onset Date Comments Nurse Triage 06/26/2024 Encounter Details Date Type Department Care Team ([facility] st Contact Info) Description 06/26/2024 Telephone [facility] MED [facility]EDS [address] [place] [address] Fatuma Hardy MD 505 [place] [address] Nurse Triage Social History Tobacco Use Types [...] EST Triage call Pt reports was at [employer] [facility] yesterday and was told BP was [...] Description 04/04/2025 8:00 AM EST Office Visit [facility] ADULT DENTAL [address] [place] [address] Cornelius Herr, LAUREN 505 [place] [address] 05/21/2025 10:45 AM EST Office Visit [facility] MED & PEDS 505 [place] [address] Melinda Jordan CNP 505 [place] [address] 09/23/2025 8:45 AM EDT Office Visit [facility] ADULT DENTAL 505 [place] [address] Miriam Watson documented as of this encounter Visit Diagnoses Not on filedocumented in this encounter Care Teams [employer] Utility Worker Relationship Specialty Start Date End Date Fatuma Hardy MD [address] [place] [address] PCP - General Family Medicine 04/12/12 02/24/25 Melinda Jordan CNP 505 [place] [address] PCP - General Family Medicine 02/25/25 documented as of this encounter
--- OUTSIDE RECORDS SUMMARY | 2025-03-31 08:23 | XMS_ITS | Encounter Summary ---
Author Organization [employer] Address 75 [facility] 7t [place] [address] Care Team Providers Care Coronary Care Unit Nurse Name Role Phone Fatuma Hardy MD Primary Care Provider [phone] Melinda Jordan CNP Primary Care Provider [phone] Reason for Visit * Reason Onset Date Comments Med Refill 04/17/2023 Encounter Details Date Type Department Care Team (Late st Contact Info) Description 04/17/2023 Telephone [facility] MEDICINE 230 [place] [address] Fatuma Hardy MD 505 [place], [place] [phone] Med Refill Social History Tobacco Use Types [...] Description 04/04/2025 8:00 AM EST Office Visit [facility] ADULT DENTAL 505 [place] [address] Cornelius Herr DMD 505 [place] [address] 05/21/2025 10:45 AM EST Office Visit [facility] MED & PEDS 505 [place], [place] [phone] Melinda Jordan CNP 505 [place] [address] 09/23/2025 8:45 AM EDT Office Visit [facility] ADULT DENTAL 505 [place] [address] Miriam Watson documented as of this encounter Visit Diagnoses Not on filedocumented in this encounter Care Teams Coronary Care Unit Nurse Relationship Specialty Start Date End Date Fatuma Hardy MD [address] [place] [address] PCP - General Family Medicine 04/12/12 02/24/25 Melinda Jordan CNP 505 [place] [address] PCP - General Family Medicine 02/25/25 documented as of this encounter
--- OUTSIDE RECORDS SUMMARY | 2025-03-31 08:23 | XMS_ITS | Encounter Summary ---
Author Organization [email or web address] Address 75 [facility] 7t [place] [address] Care Team Providers Care Pipe [address] Service Name Role Phone Fatuma Hardy MD Primary Care Provider [phone] Melinda Jordan CNP Primary Care Provider [phone] Reason for Visit * Reason Onset Date Comments PT1 11/03/2023 Encounter Details Date Type Department Care Team ([facility] st Contact Info) Description 11/03/2023 Telephone [facility] MEDICINE [address] [place], [place] [phone] Fatuma Hardy MD [address] [place], [place] [phone] PT1 Social History Tobacco Use Types Packs/Day [...] Y/N: Yes Provider name or facility name: [facility] Facility Address: [address] [place] [address] Escort needed: Y/N: No Do you have a wheelchair: Y/N: No If yes- Manual or electric: n/a Visits: 12 a year documented in this encounter Plan of Treatment Upcoming Encounters Date Type Department Care Team (Late st Contact Info) Description 04/04/2025 8:00 AM EST Office Visit [facility] ADULT DENTAL 505 [place] [address] Cornelius Herr DMD 505 [place] [address] 05/21/2025 10:45 AM EST Office Visit [facility] MED & PEDS 505 [place], [place] [phone] Melinda Jordan CNP 505 [place] [address] 09/23/2025 8:45 AM EDT Office Visit [facility] ADULT DENTAL 505 [place] [address] Miriam Watson documented as of this encounter Visit Diagnoses Not on filedocumented in this encounter Care Teams P[address] Service Relationship Specialty Start Date End Date Fatuma Hardy MD [address] [place] [address] PCP - General Family Medicine 04/12/12 02/24/25 Melinda Jordan CNP 505 [place] [address] PCP - General Family Medicine 02/25/25 documented as of this encounter
--- OUTSIDE RECORDS SUMMARY | 2025-03-31 08:23 | XMS_ITS | Encounter Summary ---
Author Organization [employer] Address [address] [place] [address] 7 [place] [address] Care Team Providers Care Fixture Maker Name Role Phone Fatuma Hardy MD Primary Care Provider [phone] Melinda Jordan CNP Primary Care Provider [phone] Encounter Details Date Type Department Care Team (Latest Contact Info) Description 12/29/2020 Abstract [facility] CONVERSIONS Dental, Provider, DDS Social History [...] 04/04/2025 8:00 AM EST Office Visit [facility] ADULT DENTAL [address] [place] [address] Corneluis Herr, LAUREN 505 [place] [address] 05/21/2025 10:45 AM EST Office Visit [facility] MED & PEDS [address] [place] [address] Melinda Jordan CNP 505 [place] [address] 09/23/2025 8:45 AM EDT Office Visit [facility] ADULT DENTAL 505 [place] [address] Miriam Watson documented as of this encounter Visit Diagnoses Not on filedocumented in this encounter Care Teams Fixture Maker Relationship Specialty Start Date End Date Fatuma Hardy MD 230 [place] [address] PCP - General Family Medicine 04/12/12 02/24/25 Melinda Jordan CNP [address] [place] [address] PCP - General Family Medicine 02/25/25 documented as of this encounter
--- OUTSIDE RECORDS SUMMARY | 2025-03-31 08:23 | XMS_ITS | Encounter Summary ---
Author Organization [employer] Address 75 [facility] 7t [place] [address] Care Team Providers Care Release Engineer Name Role Phone Fatuma Hardy MD Primary Care Provider [phone] Melinda Jordan CNP Primary Care Provider [phone] Reason for Visit * Reason Onset Date Comments PT-1 08/27/2024 Encounter Details Date Type Department Care Team (Late st Contact Info) Description 08/27/2024 Telephone [facility] MEDICINE [address] [place] [address] Fatuma Hardy MD [address] [place], [place] [phone] PT-1 Social History Tobacco Use Types Packs/Day [...] 04/04/2025 8:00 AM EST Office Visit [facility] ADULT DENTAL [address] [place] [address] Cornelius Herr DMD 505 [place] [address] 05/21/2025 10:45 AM EST Office Visit [facility] MED & PEDS [address] [place] [address] Melinda Jordan CNP 505 [place] [address] 09/23/2025 8:45 AM EDT Office Visit [facility] ADULT DENTAL [address] [place] [address] Miriam Watson documented as of this encounter Visit Diagnoses Not on filedocumented in this encounter Care Teams Release Engineer Relationship Specialty Start Date End Date Fatuma Hardy MD [address] [place] [address] PCP - General Family Medicine 04/12/12 02/24/25 Melinda Jordan CNP 505 [place] [address] PCP - General Family Medicine 02/25/25 documented as of this encounter
--- OUTSIDE RECORDS SUMMARY | 2025-03-31 08:23 | XMS_ITS | Encounter Summary ---
Author Organization [employer] Address [address] [place] [address] 7 [place] [address] Care Team Providers Care Microsoft Bi Consultant Name Role Phone Fatuma Hardy MD Primary Care Provider [phone] Melinda Jordan CNP Primary Care Provider [phone] Encounter Details Date Type Department Care Team (Late st Contact Info) Description 11/24/2022 Orders Only [facility] MED & PEDS [address] [place] [address] Fatuma Hardy MD [address] [place] [address] Social History Tobacco Use Types Packs/Day Years [...] Description 04/04/2025 8:00 AM EST Office Visit [facility] ADULT DENTAL [address] [place] [address] Cornelius Herr DMD 505 [place] [address] 05/21/2025 10:45 AM EST Office Visit [facility] MED [facility] PED[facility] [address] [place] [address] Melinda Jordan CNP 505 [place] [address] 09/23/2025 8:45 AM EDT Office Visit [facility] ADULT DENTAL 505 [place] [address] Miriam Watson documented as of this encounter Visit Diagnoses Not on filedocumented in this encounter Care Teams Microsoft Bi Consultant Relationship Specialty Start Date End Date Fatuma Hardy MD [address] [place] [address] PCP - General Family Medicine 04/12/12 02/24/25 Melinda Jordan CNP 505 [place] [address] PCP - General Family Medicine 02/25/25 documented as of this encounter
[2025-03-31] MEDS: iohexoL 350 MG/ML 100 ML INFUS..BTL 85 ML IV (08:55)
[2025-04-01 16:56] LABS: Creatinine POC 0.7 mg/dL (0.5-1.4); GFR POC > 60
== END 2025-03-31 08:12 | disposition home or self-care (01) ==
LOC: HO.CT 08:11
PROVIDERS: Visit Provider Student in an Organized Health Care Education/Training Program
DX: R16.0 Hepatomegaly, not elsewhere classified (principal)
CPT/HCPCS: 74177; 82565; Q9967

== ENCOUNTER → 2025-03-31 08:14 | Outpatient (BNV) | payer MEDICARE, MEDICAID, SELFPAY | PROVIDERS: Visit Provider Radiology Diagnostic Radiology | DX: K57.30 Diverticulosis of large intestine without perforation or abscess without bleeding (principal); N28.1 Cyst of kidney, acquired; K82.8 Other specified diseases of gallbladder | CPT/HCPCS: 74177 ==

== ENCOUNTER 2025-04-08 09:40 | Outpatient (REF) | payer MEDICARE, MEDICAID, SELFPAY ==
--- NOTE | ~2025-04-08 | US_ITS ---
CLINICAL HISTORY: R16.0 - Hepatomegaly, not elsewhere classified US abdomen complete Comparison: CT/REG/AL/SR - CT ABDOMEN PELVIS WITH IV CONTRAST - 03/31/25 08:34 EST Findings: Liver measures 12 cm in long axis. Liver is of normal echotexture without focal lesion or intrahepatic biliary ductal dilatation. Common bile duct is within normal limits. There is an area of focal increased echotexture along the gallbladder wall measuring 2.7 x 1.2 x 1.6 cm in size. This corresponds to the abnormality seen on the patient's prior CT scan. There is documented blood flow within this lesion. Pancreas is not visualized due to overlying bowel gas. Spleen is unremarkable. Right kidney measures 10.4 cm in long axis. Scattered cortical calcifications of the right kidney without mass or hydronephrosis. Left kidney measures 11.5 cm in size. Simple cyst within the lower pole measures 1.6 x 1.1 x 1.5 cm in size. No hydronephrosis. Aorta and inferior vena cava are patent. No free fluid. Small pericardial effusion. IMPRESSION: Continued findings of concern for mass lesion along the gallbladder wall. Surgical consultation suggested. If further imaging is deemed clinically appropriate, MRI of the abdomen with and without intravenous contrast could be performed for further evaluation. This document has been electronically signed by: Isac Shea MD on 04/09/2025 04:03:41
== END 2025-04-08 09:41 | disposition home or self-care (01) ==
LOC: HO.US 09:40
PROVIDERS: Visit Provider Student in an Organized Health Care Education/Training Program
DX: R16.0 Hepatomegaly, not elsewhere classified (principal)
CPT/HCPCS: 76700

== ENCOUNTER → 2025-04-08 09:41 | Outpatient (BNV) | payer MEDICARE, MEDICAID, SELFPAY | PROVIDERS: Visit Provider Radiology Diagnostic Radiology | DX: R16.0 Hepatomegaly, not elsewhere classified (principal) | CPT/HCPCS: 76700 ==

== ENCOUNTER 2025-04-11 14:49 | Outpatient (AMB) | payer MEDICARE, MEDICAID, SELFPAY ==
[2025-04-11 14:50] VITALS: BP 153/69; PULSE 82; BMI 23.9
--- NOTE | 2025-04-11 14:50 | MHC.OFFVIS ---
Vital Signs 04/11/25 14:50 Height 5 ft 3 in Weight 135 lb BMI 23.9 BP 153/69 H Blood Pressure Location Rt brachial Position Sitting Pulse 82 Intake Visit Reasons: Other specified diseases of gallbladder Intake Note: Patient referred by Dr. Caputo for assessment of mass on gallbladder. Patient c/o: RUQ pain, pain spreads to back, nausea. Imaging: US abdomen~ 04-08-[address] abdomen/pelvis~ 03-31-2025 Non Licensed Nuclear Plant Operator Required: No Accompanied by: Self / Same As Patient Allergies iron dextran complex (IRON DEXTRAN COMPLEX) Allergy (Unknown, Verified 04/11/25 14:56) Shakiness Medication List - Last Reconciled 04/11/25 by Mustapha Koo MD acetaminophen 650 mg PO Q4-6H PRN albuterol sulfate 90 mcg/actuation 2 puffs PO Q4-6H PRN blood pressure test kit-large As directed cetirizine 10 mg PO DAILY cholecalciferol (vitamin D3) 50 mcg PO DAILY cyanocobalamin (vitamin B-12) 1,000 mcg PO DAILY hydrochlorothiazide 12.5 mg PO DAILY levothyroxine 75 mcg PO DAILY lorazepam (Ativan) 1 mg PO ONCE PRN losartan 25 mg PO DAILY montelukast 10 mg PO BEDTIME naproxen 500 mg PO BID sennosides-docusate sodium 8.6-50 mg (Stimulant Laxative Plus) 1 tab PO DAILY sumatriptan succinate 50 mg PO thiamine HCl (vitamin B1) 100 mg PO DAILY tirzepatide (weight loss) (Zepbound) 7.5 mg (0.5 mL) subcut QWEEK tizanidine 8 mg (2 x 4 mg) PO BEDTIME PRN tramadol 50 mg PO ONCE PRN umeclidinium 62.5 mcg/actuation (Incruse Ellipta) 1 inh inhalation DAILY vitamin A acetate 3,000 mcg PO DAILY HPI Comments Details: Patient presents for consideration of gallbladder lesion. She goes on to say that for a year so she has had epigastric discomfort and a feeling of fullness. This is not new. She has had a history of abdominal complaints for quite some time. She underwent remote laparoscopic sleeve gastrectomy and hiatal hernia repair for weight loss and has had constant problems with heartburn and reflux. (her only other abdominal surgeries are x2) She carries a diagnosis of Riggins's esophagus. She does not know when her last upper endoscopy was. Her abdominal complaints have been investigated with a series of studies including a right upper quadrant ultrasound on 04/09/2025 that was indicative of an area of focused increased echotexture along the gallbladder wall measuring 2.7 x 1.2 x 1.6 cm in size that was seen to have internal vascular flow. She also had a CT scan of her abdomen and pelvis on 03/31/2025 that showed a 1.8 x 2.3 x 1 cm area of focal gallbladder wall thickening worrisome for a mass. On 02/26/2025 she had a PET-CT that was read as showing increased metabolic activity within the gallbladder lesion along the gallbladder fundus and adjacent liver. It was felt that this represented a suspected neoplasm. She has a lost weight recently but this is purposeful and she actually takes injections to that end. She describes normal bowel and bladder habits. She does not recall any abnormal coloring of her urine or stools. [facility] Medical History Granulomatosis with polyangiitis Riggins esophagus COPD (chronic obstructive pulmonary disease) Congenital intra-abdominal adhesions Steatosis, liver Stress incontinence Diaphragmatic hernia Riggins's esophagus COVID-19 Cervical spondylosis Tricuspid valve regurgitation Hiatal hernia Paresthesia Granulomatous angiitis Osteoarthritis Fibromyalgia Anxiety GERD (gastroesophageal reflux disease) Sleep apnea Asthma Hypothyroidism Hypertension Obesity Surgical History History of sleeve gastrectomy S/P laparoscopic sleeve gastrectomy Hx of LASIK History of pneumonectomy Hx of biopsy Hx of biopsy History of bronchoscopy History of esophagogastroduodenoscopy (EGD) Hx of colonoscopy Family History Father Heart disease Mother Cirrhosis of liver Recurrent strokes Diabetes Sister Lupus Arthritis Daughter No problems noted. Son No problems noted. Social History Are you a primary vehicle care specialist to a significant other at home: No Do you presently have visiting nurse or other home services: No Alcohol intake: never Patient Tobacco Use Status: Former Tobacco user Second Hand Smoke Exposure: No Review of Systems Const All systems reviewed & are unremarkable except as noted in HPI and below Physical Exam Vital Signs: Last Vital Signs Pulse 82 04/11/25 14:50 BP 153/69 H 04/11/25 14:50 BMI result Body Mass Index 23.9 Const General: cooperative, healthy appearing and comfortable Orientation/consciousness: oriented to person, oriented to place and oriented to time HEENT Head: Yes normal to inspection, Yes normocephalic and Yes atraumatic Ears: hearing grossly normal bilaterally General nose exam: Normal external nose present Face and sinus: Yes normal facial exam Eyes Sclerae: sclerae normal Pupils: Equal, round and reactive pupils present EOM: EOMs intact bilaterally Neck Neck: Yes normal visual inspection Chest Chest palpation & inspection: normal inspection of the chest GI Other: Abdomen is soft scalloped nontender nondistended. She displays redundant anterior abdominal wall skin and soft tissue consistent with her history of high-volume weight loss. I can not appreciate any scars or masses or hernias. There was no evidence of hepatosplenomegaly. Back/Spine/Pelvis Other: Diffusely tender throughout her back upper and lower. 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 I told her that the neoplasm was of significant size and that she would need operative care for the problem. I added that her issue it was well outside my arena of clinical experience and felt she would need to undergo consultation with a hepatobiliary cancer surgeon for what I suspected was a malignancy. She indicated that she understood. We will refer her to Dr. Carrillo at [facility]. My assessment of her condition as well as the plans for continuing care described to her in detail and she indicated that she understood and wished to proceed with the plan as it was outlined to her. 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
--- OUTSIDE RECORDS SUMMARY | 2025-04-11 19:54 | XMS_ITS | Encounter Summary ---
Author Organization [employer] Address [address] [facility] 7t [place] [address] Care Team Providers Care Truck Car And Bus Cleaner Name Role Phone Melinda Jordan CNP Primary Care Provider [phone] Reason for Visit * Reason Onset Date Comments PT1 03/07/2025 Encounter Details Date Type Department Care Team ([facility] st Contact Info) Description 03/07/2025 Telephone [facility] MEDICINE [address] [place] [address] Melinda Jordan CNP [address] [place], [place] [phone] PT1 Social History Tobacco Use Types Packs/Day [...] Care Team (Late st Contact Info) Description 05/21/2025 10:45 AM EST Office Visit [facility] MED & PEDS [address] [place] [address] Melinda Jordan CNP [address] [place] [address] 09/23/2025 8:45 AM EDT Office Visit [facility] ADULT DENTAL [address] [place] [address] Miriam Watson documented as of this encounter Visit Diagnoses Not on filedocumented in this encounter Additional Health Concerns Assessment Noted Time PHQ-9 Depression Total Score: 1 01/07/20 25 8:48 AM EDT documented as of this encounter Care Teams Truck Car And Bus Cleaner Relationship Specialty Start Date End Date Melinda Jordan CNP [address] [place] [address] PCP - General Family Medicine 02/25/25 documented as of this encounter
--- OUTSIDE RECORDS SUMMARY | 2025-04-11 19:54 | XMS_ITS | Encounter Summary ---
Author Organization [employer] Address [address] [facility] 7t [place] [address] Care Team Providers Care Outside Food Server Name Role Phone Fatuma Hardy MD Primary Care Provider [phone] Melinda Jordan CNP Primary Care Provider [phone] Encounter Details Date Type Department Care Team (Late st Contact Info) Description 11/26/2024 Orders Only [facility] [address] [place] [address] Provider, MD Pipe Social History Tobacco Use [...] Description 05/21/2025 10:45 AM EST Office Visit [facility] MED & PEDS [address] [place], [place] [phone] Melinda Jordan CNP [address] [place] [address] 09/23/2025 8:45 AM EDT Office Visit [facility] ADULT DENTAL [address] [place], [place] [phone] Miriam Watson documented as of this encounter [...] on filedocumented in this encounter Care Teams Outside Food Server Relationship Specialty Start Date End Date Fatuma Hardy MD [address] [place] [address] PCP - General Family Medicine 04/12/12 02/24/25 Melinda Jordan CNP [address] [place] [address] PCP - General Family Medicine 02/25/25 documented as of this encounter
--- OUTSIDE RECORDS SUMMARY | 2025-04-11 19:54 | XMS_ITS | Encounter Summary ---
Author Organization [employer] Address [address] [facility] 7t [place] [address] Care Team Providers Care Cooler Conveyor Loader Name Role Phone Fatuma Hardy MD Primary Care Provider [phone] Melinda Jordan CNP Primary Care Provider [phone] Reason for Visit * Reason Onset Date Comments PT1 06/26/2024 Encounter Details Date Type Department Care Team ([facility] st Contact Info) Description 06/26/2024 Telephone [facility] CHC MED & PEDS [address] [place] [address] Fatuma Hardy MD [address] [place] [address] PT1 Social History Tobacco Use Types Packs/Day [...] Y/N: Yes Provider name or facility name: [facility] Facility Address: [address] [place] [address] [address], [place] [address] Escort needed: Y/N: No Do you have a wheelchair: Y/N: No If yes- Manual or electric: n/a Visits: 1-2 for 6 months documented in this encounter Plan of Treatment Upcoming Encounters Date Type Department Care Team ([facility] st Contact Info) Description 05/21/2025 10:45 AM EST Office Visit [facility] MED & PEDS [address] [place] [address] Melinda Jordan CNP [address] [place] [address] 09/23/2025 8:45 AM EDT Office Visit [facility] ADULT DENTAL [address] [place] [address] Miriam Watson documented as of this encounter Visit Diagnoses Not on filedocumented in this encounter Care Teams Cooler Conveyor Loader Relationship Specialty Start Date End Date Fatuma Hardy MD [address] [place] [address] PCP - General Family Medicine 04/12/12 02/24/25 Melinda Jordan CNP [address] [place] [address] PCP - General Family Medicine 02/25/25 documented as of this encounter
--- OUTSIDE RECORDS SUMMARY | 2025-04-11 19:54 | XMS_ITS | Encounter Summary ---
Author Organization [employer] Address [address] [facility] 7t [place] [address] Care Team Providers Care Film Loader Name Role Phone Fatuma Hardy MD Primary Care Provider [phone] Melinda Jordan CNP Primary Care Provider [phone] Reason for Visit * Reason Onset Date Comments PT-1 08/27/2024 Encounter Details Date Type Department Care Team (Late st Contact Info) Description 08/27/2024 Telephone [facility] MEDICINE [address] [place] [address] Fatuma Hardy MD [address] [place], [place] [phone] PT-1 Social History Tobacco Use Types Packs/Day [...] 05/21/2025 10:45 AM EST Office Visit [facility] MED & PEDS [address] [place] [address] Melinda Jordan CNP [address] [place] [address] 09/23/2025 8:45 AM EDT Office Visit [facility] ADULT DENTAL [address] [place] [address] Miriam Watson documented as of this encounter Visit Diagnoses Not on filedocumented in this encounter Care Teams Film Loader Relationship Specialty Start Date End Date Fatuma Hardy MD [address] [place] [address] PCP - General Family Medicine 04/12/12 02/24/25 Melinda Jordan CNP [address] [place] [address] PCP - General Family Medicine 02/25/25 documented as of this encounter
--- OUTSIDE RECORDS SUMMARY | 2025-04-11 19:54 | XMS_ITS | Encounter Summary ---
Author Organization [employer] Address [address] [place] [address] 7 [place] [address] Care Team Providers Care Employment Program Representative Name Role Phone Fatuma Hardy MD Primary Care Provider [phone] Melinda Jordan CNP Primary Care Provider [phone] Encounter Details Date Type Department Care Team (Latest Contact Info) Description 12/29/2020 Abstract [facility] Dental, Provider, DDS Social History [...] Description 05/21/2025 10:45 AM EST Office Visit [facility] MED & PEDS [address] [place] [address] Melinda Jordan CNP [address] [place] [address] 09/23/2025 8:45 AM EDT Office Visit [facility] ADULT DENTAL [address] [place] [address] Miriam Watson documented as of this encounter Visit Diagnoses Not on filedocumented in this encounter Care Teams Employment Program Representative Relationship Specialty Start Date End Date Fatuma Hardy MD [address] [place] [address] PCP - General Family Medicine 04/12/12 02/24/25 Melinda Jordan CNP [address] [place] [address] PCP - General Family Medicine 02/25/25 documented as of this encounter
--- OUTSIDE RECORDS SUMMARY | 2025-04-11 19:54 | XMS_ITS | Encounter Summary ---
Author Organization [employer] Address [address] [place] [address] 7t [place] [address] Care Team Providers Care Stave Planer Tender Name Role Phone Fatuma Hardy MD Primary Care Provider [phone] Melinda Jordan CNP Primary Care Provider [phone] Reason for Visit * Reason Onset Date Comments PA status 06/28/2022 Encounter Details Date Type Department Care Team ([facility] st Contact Info) Description 06/28/2022 Telephone [facility] CHC MED & PEDS [address] [place] [address] Fatuma Hardy MD [address] [place] [address] PA status Social History Tobacco Use Types [...] a previous PA Please contact pt at [phone] documented in this encounter Plan of Treatment Upcoming Encounters Date Type Department Care Team (Late st Contact Info) Description 05/21/2025 10:45 AM EST Office Visit [facility] MED & PEDS [address] [place] [address] Melinda Jordan CNP [address] [place] [address] 09/23/2025 8:45 AM EDT Office Visit [facility] ADULT DENTAL [address] [place], [place] [phone] Miriam Watson documented as of this encounter Visit Diagnoses Not on filedocumented in this encounter Care Teams Stave Planer Tender Relationship Specialty Start Date End Date Fatuma Hardy MD [address] [place] [address] PCP - General Family Medicine 04/12/12 02/24/25 Melinda Jordan CNP [address] [place] [address] PCP - General Family Medicine 02/25/25 documented as of this encounter
--- OUTSIDE RECORDS SUMMARY | 2025-04-11 19:54 | XMS_ITS | Encounter Summary ---
Author Organization [employer] Address [address] [facility] 7t [place] [address] Care Team Providers Care Biology Professor Name Role Phone Melinda Jordan CNP Primary Care Provider [phone] Reason for Visit * Reason Onset Date Comments Error (VOID this visit) 04/11/2025 Encounter Details Date Type Department Care Team ([facility] st Contact Info) Description 04/11/2025 Telephone [facility] MEDICINE [address] [place] [address] Melinda Jordan CNP [address] [place] [address] Error (VOID this visit) (/) Social History Tobacco Use Types Packs/Day Years [...] Description 05/21/2025 10:45 AM EST Office Visit [facility] MED & PEDS [address] [place] [address] Melinda Jordan CNP [address] [place] [address] 09/23/2025 8:45 AM EDT Office Visit [facility] ADULT DENTAL [address] [place] [address] Miriam Watson documented as of this encounter Visit Diagnoses Not on filedocumented in this encounter Additional Health Concerns Assessment Noted Time PHQ-9 Depression Total Score: 1 01/07/20 8:48 AM EDT documented as of this encounter Care Teams Biology Professor Relationship Specialty Start Date End Date Melinda Jordan CNP [address] [place] [address] PCP - General Family Medicine 02/25/25 documented as of this encounter
--- OUTSIDE RECORDS SUMMARY | 2025-04-11 19:54 | XMS_ITS | Encounter Summary ---
Author Organization [employer] Address [address] [facility] 7t [place] [address] Care Team Providers Care Dinkey Engine Firer/Fireman Name Role Phone Fatuma Hardy MD Primary Care Provider [phone] Melinda Jordan CNP Primary Care Provider [phone] Reason for Visit * Reason Onset Date Comments Durable Medical Equipment 10/08/2024 Encounter Details Date Type Department Care Team (Late st Contact Info) Description 10/08/2024 Telephone [facility] MEDICINE [address] [place] [address] Fatuma Hardy MD [address] [place], [place] [phone] Durable Medical Equipment Social History Tobacco Use [...] [facility] MED & PEDS [address] [place] [address] Melinda Jordan CNP [address] [place] [address] 09/23/2025 8:45 AM EDT Office Visit [facility] ADULT DENTAL [address] [place] [address] Miriam Watson documented as of this encounter Visit Diagnoses Not on filedocumented in this encounter Care Teams Dinkey Engine Firer/Fireman Relationship Specialty Start Date End Date Fatuma Hardy MD [address] [place] [address] PCP - General Family Medicine 04/12/12 02/24/25 Melinda Jordan CNP [address] [place], [place] [phone] PCP - General Family Medicine 02/25/25 documented as of this encounter
--- OUTSIDE RECORDS SUMMARY | 2025-04-11 19:54 | XMS_ITS | Encounter Summary ---
Author Organization [employer] Address [address] [facility] 7t [place] [address] Care Team Providers Care Gamemaster Name Role Phone Melinda Jordan CNP Primary Care Provider [phone] Encounter Details Date Type Department Care Team (Late st Contact Info) Description 02/27/2025 Orders Only [facility] CHC MED & PEDS [address] [place], [place] [phone] Provider, MD Pipe Social History Tobacco Use [...] Description 05/21/2025 10:45 AM EST Office Visit [facility] MED & PEDS [address] [place] [address] Melinda Jordan, DRIFT MINER [address] [place] [address] 09/23/2025 8:45 AM EDT Office Visit [facility] ADULT DENTAL [address] [place] [address] Miriam Watson documented as of this encounter Procedures Procedure Name Priority Date/Time Associated Diagnosis Comments BD DEXA AXIAL Routine 03/20/2025 9:[address] WHOLE BODY Routine 02/14/2025 8:4 9 AM EDT documented in this encounter Results * BD DEXA Axial (03/20/2025 9:21 AM EST) Anatomical Region Laterality Modality Body Radiographic Jaida ging 03/20/2025 9:21 AM EST Narrative 03/20/2025 10:53 AM EST [facility] [address] [place] [address] Mammography Report Signed Patient: Petra Meadows MR#: [id number] : 1955 Acct:[id number] Age/Sex: 69 / F ADM Date: 03/20/25 Loc: HO.MAMMO Attending Dr: Melba Caputo MD Ordering Physician: Melba Caputo MD Results: Date of Service: 03/20/25 Follow Up: Procedure(s): XR DEXA axial skeleton Accession Number(s): [id number] cc: Melba Caputo MD; Fatuma Hardy MD Reason For Exam: M81.0 - Age-related osteoporosis without current pathological fracture EXAMINATION: DXA BONE DENSITY AXIAL HISTORY: M81.0 - Age-related osteoporosis without current pathological fracture TECHNIQUE: [employer] Dual energy absorptiometry (DEXA) of the lumbar [...] of the [employer] for Metabolic Bone Disease, a World Health Organization (WHO) Collaborating Center. Electronically signed by: Raul Trinh MD 03/20/2025 10:50 AM EST Dictated By: Raul Trinh MD Signed By: <Electronically signed by Raul Trinh MD in OV> 03/20/25 1050 DD/ 0 TD/TT: 03/20/25924 Paper Sheeter: Procedure Note Donotuseinterpreter, Image - 03/20/2025 [facility] [address] [place] [address] Mammography Report Signed Patient: Petra Meadows NMR#: [id number] : 7Acct:[id number] Age/Sex: 69 / FADM Date: 03/20/25 Loc: HO.MAMMO Attending Dr: Melba Caputo MD Ordering Physician: Melba Caputo MDResults: Date of Service: 03/20/25Follow Up: Procedure(s): XR DEXA axial skeleton Accession Number(s): [id number] cc: Melba Caputo MD; Fatuma Hardy MD Reason For Exam: M81.0 - Age-related osteoporosis without currentpathological fracture EXAMINATION: DXA BONE DENSITY AXIAL HISTORY: M81.0 - Age-related osteoporosis without current pathological fracture TECHNIQUE: [employer] Dual energy absorptiometry (DEXA) of the lumbar [...] is a trademark of the [employer] Metabolic Bone Disease, a World Health Organization (WHO) Collaborating Center. Electronically signed by: Raul Trinh MD 03/20/2025 10:50 AM EST Dictated By: Raul Trinh MD Signed By: <Electronically signed by Raul Trinh MD in OV> 03/20/25 1050 DD/ 09 TD/TT: 03/20/25924 Paper Sheeter: [facility] External Provider IMG DXA PROCEDURES Final Result * PET CT WHOLE BODY (02/14/2025 8:49 AM EDT) Anatomical Region Laterality Modality Computed Tomogra phy Historical Provider IMTamra CT PROCEDURES Final R esult documented in this encounter Visit Diagnoses Not on filedocumented in this encounter Additional Health Concerns Assessment Noted Time PHQ-9 Depression Total Score: 1 01/07/20 8:48 AM EDT documented as of this encounter Care Teams Gamemaster Relationship Specialty Start Date End Date Melinda Jordan CNP [address] [place] [address] [facility] [place] [address] PCP - General Family Medicine 02/25/25 documented as of this encounter
--- OUTSIDE RECORDS SUMMARY | 2025-04-11 19:54 | XMS_ITS | Encounter Summary ---
Author Organization [employer] Address [address] [facility] 7t [place] [address] Care Team Providers Care Maintenance Superintendent Name Role Phone Fatuma Hardy MD Primary Care Provider [phone] Melinda Jordan CNP Primary Care Provider [phone] Reason for Visit * Reason Onset Date Comments Med Refill 04/17/2023 Encounter Details Date Type Department Care Team (Late st Contact Info) Description 04/17/2023 Telephone [facility] MEDICINE [address] [place] [address] Fatuma Hardy MD [address] [place], [place] [phone] Med Refill Social History Tobacco Use Types [...] Description 05/21/2025 10:45 AM EST Office Visit [facility] MED & PEDS [address] [place] [address] Melinda Jordan CNP [address] [place] [address] 09/23/2025 8:45 AM EDT Office Visit [facility] ADULT DENTAL [address] [place] [address] Miriam Watson documented as of this encounter Visit Diagnoses Not on filedocumented in this encounter Care Teams Maintenance Superintendent Relationship Specialty Start Date End Date Fatuma Hardy MD [address] [place] [address] PCP - General Family Medicine 04/12/12 02/24/25 Melinda Jordan CNP [address] [place] [address] PCP - General Family Medicine 02/25/25 documented as of this encounter
--- OUTSIDE RECORDS SUMMARY | 2025-04-11 19:54 | XMS_ITS | Encounter Summary ---
Author Organization [employer] Address [address] [place] [address] [address] [place] [address] Care Team Providers Care Slitting Machine Feeder Name Role Phone Fatuma Hardy MD Primary Care Provider [phone] Melinda Jordan CNP Primary Care Provider [phone] Reason for Visit * Reason Onset Date Comments PT1 08/09/2022 Encounter Details Date Type Department Care Team (Late st Contact Info) Description 08/09/2022 Telephone [facility] [address] [place] [address] Fatuma Hardy MD [address] [place] [address] PT1 Social History Tobacco Use Types Packs/Day [...] Tc from pt requesting a PT1 Location: [address] [place] [address] Specialty: production planner scheduler Date&Time: N/a Quality Assurance Tester: no No wheel chair or cane documented in this encounter Plan of Treatment Upcoming Encounters Date Type Department Care Team (Late st Contact Info) Description 05/21/2025 10:45 AM EST Office Visit [facility]ED[facility] [address] [place] [address] Melinda Jordan CNP [address] [place] [address] 09/23/2025 8:45 AM EDT Office Visit [facility] AD[facility] [address] [place] [address] Miriam Watson documented as of this encounter Visit Diagnoses Not on filedocumented in this encounter Care Teams Slitting Machine Feeder Relationship Specialty Start Date End Date Fatuma Hardy MD [address] [place] [id number] PCP - General Family Medicine 04/12/12 02/24/25 Melinda Jordan CNP [address] [place] [address] PCP - General Family Medicine 02/25/25 documented as of this encounter
--- OUTSIDE RECORDS SUMMARY | 2025-04-11 19:54 | XMS_ITS | Clinical Summary ---
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 Remove & discard patch within 12 hours or as directed by MD. 60 patch 11 05/11/19 23 Active Additional Information Patient not taking.Reported on 04/04/2025 albuterol 108 (90 Base) MCG/ACT inhaler Inhale 2 puffs every 4 (four) hours if needed. 08/30/19 23 Active Calcium Carbonate-Zoya min D (Liquid Calcium/Vitami n D) 600-5 MG-MCG capsule Take 1 tablet by mouth. 07/14/19 13 Active ibuprofen 600 MG tablet Take 1 tablet by mouth every 8 (eight) hours if needed. 10/22/19 23 Active beta carotene (vitamin A) 3 MG (71866 UT) capsule Take by mouth in the [...] 24 HOURS 9 tablet 03/25/20 25 Active ergocalciferol (Vitamin D-2) 1.25 MG (52093 UT) capsule Take 1 capsule by mouth once a week. 11/18/19 Active losartan (Cozaar) 25 MG tablet 02/27/20 Active fluticasone (Flonase) 50 MCG/ACT nasal spray Administer 2 sprays into each nostril 2 times daily. 03/25/20 Active Sodium Fluoride 1.1 % cream [place] teeth for 2 minutes, morning and night. Spit, do not rinse. Do not eat or drink anything for 30 minutes following use. 112 g 3 04/04/20 Active SUMAtriptan (Imitrex) 50 MG tablet TAKE 1 TABLET BY MOUTH 1 TIME NEEDED FOR MIGRAINE. MAY REPEAT DOSE 1 TIME IN 2 HOURS IF NO RELIEF. 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 Cough 04/04/2025 COVID-19 04/04/2025 Degenerative cervical disc 04/04/2025 Diaphragmatic hernia 04/04/2025 Fibromyalgia 04/04/2025 Myofascial neck pain 04/04/2025 Obesity with body mass index 30 or greater 04/04 Overweight 04/04/2025 Pharyngitis 04/04/2025 Pre-procedural examination 04/04/2025 Respiratory crackles at left lung base S/P laparoscopic sleeve gastrectomy 04/04/2025 Overview (04/04/2025): 03/2020 S/P repair of paraesophageal hernia 04/04/2025 Steatosis, liver 04/04/2025 Stress incontinence 04/04/2025 Vitamin D deficiency 04/04/2025 Gastroesophageal reflux disease 03/03/2025 Constipation 02/26/2025 Encounter for screening for malignant neoplasm o f colon 02/26/2025 Multiple joint pain 10/16/2024 Chronic obstructive pulmonary disease 09/02/2024 Pulmonary nodules/lesions, multiple 03/24/2024 Primary hypertension 01/31/2024 Rhinosinusitis 03/31/2023 Assessment & Plan (03/31/2023 2:41 PM EST): Patient that presented visit with complaints of Rhinosinusitis will be prescribed antibiotics to treat symptoms. Hypertensive renal disease 10/08/2020 Proteinuria 10/08/2020 Blood in urine 10/08/2020 Fibromyositis 04/11/2012 Granulomatosis with polyangiitis (CMS/HCC) 04/11 Hypothyroidism 04/11/2012 Asthma 04/11/2012 Acanthosis nigricans 04/11/2012 Obstructive sleep apnea syndrome 04/11/2012 Riggins's esophagus 04/11/2012 Resolved Problems Problem Noted Date Diagnosed Date Resolved Date Stage 2 chronic kidney disease 10/08/2020 03/21/2025 Encounters Date Type Department Care Team Description 04/11/2025 Telephone [facility] [address] [place] [phone] Melinda Jordan CNP Error (VOID this visit) (/) 04/04/2025 8:00 AM EST Office Visit [facility] [address] [place] [address] Cornelius Herr DMD Xerostomia (Primary Dx); Dental plaque 03/31/2025 Orders Only [facility] External Provider, [facility] 03/24/2025 Refill [facility] [address] [place] [address] Fatuma Hardy MD 03/21/2025 2:15 PM EST Office Visit [facility] [address] [place] [address] Miriam Watson Dental calculus (Primary Dx); Dental plaque 03/07/2025 Patient Outreach [facility] [address] [place] [address] Melinda Jordan CNP Care Coordination (CHW outreach for SDOH PT-1 and food needs-referral completed /) 03/07/2025 Telephone [facility] [address] [place] [address] Melinda Jordan CNP PT1 02/27/2025 Orders Only [facility] [address] [place] [address] Provider, MD Pipe 01/31/2025 Orders Only [facility] [address] [place] [address] Fatuma Hardy MD Hypothyroidism, unspecified type (Primary Dx) 01/31/2025 Orders Only [facility] [address] Fatuma Hardy MD 01/30/2025 Telephone [facility] [address] Fatuma Hardy MD Call Back Request 01/29/2025 Orders Only GENERIC EXTERNAL DATA DEPARTMENT Provider, Generic External Data 01/18/2025 Refill [facility] [address] [place] [address] Fatuma Hardy MD from Last 3 Months Immunizations Immunization Administration [...] Description 05/21/2025 10:45 AM EST Office Visit [facility] [address] [place] [address] Melinda Jordan CNP [address] [place] [address] 09/23/2025 8:45 AM EDT Office Visit [facility] [address] [place] [address] Miriam Watson Health Maintenance Due Date Last [...] Additional history exists SDOH Screening 01/22/2025 01/23/2024 Diagnostic Breast Imaging 08/11/20252024, 01/29/2024, 07/20/2023 Dental X-Ray: Bitewings 08/28/2025 08/28/19 25, 07/31/2023, 12/21/2022, Additional history exists Dental Prophylaxis 09/19/2025 03/21/2025, 0 08/27/2024, 02/13/2024, Additional history exists Dental Oral Exam 10/04/2025 04/04/2025, , 02/13/2024, Additional history exists Alcohol/Substance Use Screening 01/06/2026 01/06/2025 Depression Screening 01/06/2026 01/06/2025, 01/07/20 25 DTaP/Tdap/Td Vaccines (3 - Td or Tdap) 03/08/2026 03/08/2016, 11/21/2015 Tobacco Screening 04/04/2026 04/04/2025 Colorectal Cancer Screening 06/05/2026 FIT DNA/Cologuard 06/05/2026 [...] Procedure Name Priority Date/Time Associated Diagnosis Comments US ABDOMEN COMPLETE Routine 04/09/2025 4 :03 AM EST CASE PRESENTATION, DETAILED AND EXTENSIVE TREATMENT PLANNING Routine 04/04/2025 8:00 AM EST Xerostomia Dental plaque PERIODIC ORAL EVALUATION - ESTABLISHED PATIENT Routine 04/04/2025 8:00 AM EST Xerostomia Dental plaque CT ABDOMEN PELVIS W CONTRAST Routine 03/31/2025 8:34 AM EST POCT CREATININE GFR Routine 03/31/2025 8 :31 AM EST ORAL HYGIENE INSTRUCTIONS Routine 03/21/2025 2:15 PM [...] SERUM PANEL Routine 01/29/2025 1:02 PM EDT LIPID PANEL, STANDARD Routine 01/08/2025 8:10 AM EDT Primary hypertension BITEWINGS - 4 RADIOGRAPHIC IMAGES Routine 08/27/2024 9:00 AM EDT BI MAMMOGRAM [...] Recently Relevant to Health Maintenance Results * US Abdomen Complete (04/09/2025 4:03 AM EST) Anatomical Region Laterality Modality Abdomen Ultrasound 04/09/2025 4:03 AM EST Narrative 04/09/2025 4:05 AM EST [place] [address] Ultrasound Report Signed Patient: Petra Meadows MR#: [id number] : 1955 Acct:[id number] Age/Sex: 69 / F ADM Date: 04/08/25 Loc: HO.US Attending Dr: Melba Caputo MD Ordering Physician: Melba Caputo MD Date of Service: 04/08/25 Procedure(s): US abdomen complete Accession Number(s): [id number] cc: Melba Caputo MD; Melinda Jordan NP Reason for Exam: R16.0 - Hepatomegaly, not elsewhere classified CLINICAL HISTORY: R16.0 - Hepatomegaly, not elsewhere classified US abdomen complete Comparison: CT/REG/WI/SR - CT ABDOMEN PELVIS WITH IV CONTRAST - 03/31/25 08:34 EST Findings: Liver measures 12 cm in long axis. Liver is of normal echotexture without focal lesion or intrahepatic biliary ductal dilatation. Common bile duct is within normal limits. There is an area of focal increased echotexture along the gallbladder wall measuring 2.7 x 1.2 x 1.6 cm in size. This corresponds to the abnormality seen on the patient's prior CT scan. There is documented blood flow within this lesion. Pancreas is not visualized due to overlying bowel gas. Spleen is unremarkable. Right kidney measures 10.4 cm in long axis. Scattered cortical calcifications of the right kidney without mass or hydronephrosis. Left kidney measures 11.5 cm in size. Simple cyst within the lower pole measures 1.6 x 1.1 x 1.5 cm in size. No hydronephrosis. Aorta and inferior vena cava are patent. No free fluid. Small pericardial effusion. IMPRESSION: Continued findings of concern for mass lesion along the gallbladder wall. Surgical consultation suggested. If further imaging is deemed clinically appropriate, MRI of the abdomen with and without intravenous contrast could be performed for further evaluation. This document has been electronically signed by: Isac Shea MD on 04/09/2025 04:03:41 Dictated By: Isac Shea MD Signed By: <Electronically signed by Isac Shea MD in OV> 04/09/25404 DD/ 2 TD/TT: 04/09/25402 Rn Bone Marrow Transplant: Procedure Note Donotuseinterpreter, Image - 04/09/2025 [place] [address] Ultrasound Report Signed Patient: Petra Meadows [facility]#: [id number] : 7Acct:[id number] Age/Sex: 69 / FADM Date: 04/08/25 Loc: HO.US Attending Dr: Melba Caputo MD Ordering Physician: Melba Caputo MD Date of Service: 04/08/25 Procedure(s): US abdomen complete Accession Number(s): [id number] cc: Melba Caputo MD; Melinda Jordan NP Reason for Exam: R16.0 - Hepatomegaly, not elsewhere classified CLINICAL HISTORY: R16.0 - Hepatomegaly, not elsewhere classified US abdomen complete Comparison: CT/REG/WI/SR - CT ABDOMEN PELVIS WITH IV CONTRAST - 03/31/25 08:34 EST Findings: Liver measures 12 cm in long axis. Liver is of normal echotexture without focal lesion or intrahepatic biliary ductal dilatation. Common bile duct is within normal limits. There is an area of focal increased echotexture along the gallbladder wall measuring 2.7 x 1.2 x 1.6 cm in size. This corresponds to the abnormality seen on the patient's prior CT scan. There is documented blood flow within this lesion. Pancreas is not visualized due to overlying bowel gas. Spleen is unremarkable. Right kidney measures 10.4 cm in long axis. Scattered cortical calcifications of the right kidney without mass or hydronephrosis. Left kidney measures 11.5 cm in size. Simple cyst within the lower pole measures 1.6 x 1.1 x 1.5 cm in size. No hydronephrosis. Aorta and inferior vena cava are patent. No free fluid. Small pericardial effusion. IMPRESSION: Continued findings of concern for mass lesion along the gallbladder wall. Surgical consultation suggested. If further imaging is deemed clinically appropriate, MRI of the abdomen with and without intravenous contrast could be performed for further evaluation. This document has been electronically signed by: Isac Shea MD on 04/09/2025 04:03:41 Dictated By: Isac Shea MD Signed By: <Electronically signed by Isac Shea MD in OV> 04/09/25404 DD/ 2 TD/TT: 04/09/25402 Rn Bone Marrow Transplant: us [facility] External Provider IMG US PROCEDURES Final Result * CT Abdomen Pelvis w/ Contrast (03/31/2025 8:34 AM EST) Anatomical Region Laterality Modality Body, Pelvis, Abdomen Computed T omography 03/31/2025 8:34 AM EST Narrative 03/31/2025 10:14 AM EST [address] [address] [address] Scan Report Signed Patient: Petra Meadows MR#: [id number] : 1955 Acct:[id number] Age/Sex: 69 / F ADM Date: 03/31/25 Loc: HO.CT Attending Dr: Melba Caputo MD Ordering Physician: Melba Caputo MD Date of Service: 03/31/25 Procedure(s): CT abdomen pelvis w IV con Accession Number(s): [id number] cc: Melba Caputo MD; Melinda Jordan PROJECT MANAGEMENT CONSULTANT Report Number: [id number]: Total DLP = 489.00 mGy-cm Reason for Exam: R16.0 - Hepatomegaly, not elsewhere classified EXAMINATION: CT ABDOMEN PELVIS WITH IV CONTRAST HISTORY: R16.0 - Hepatomegaly, not elsewhere classified COMPARISON: Previous CT of the abdomen and pelvis December 2017, MR of the abdomen January 2018 and abdominal ultrasound December 2019 TECHNIQUE: CT scan of the abdomen and pelvis was performed following administration of 85 mL Omnipaque 350 using standard departmental protocol. Coronal and sagittal reformatted images were generated and reviewed. This CT exam was performed with one or more of the following dose reduction techniques: automated exposure control, adjustment of the mA and/or kV according to patient size, use of iterative reconstruction technique. DLP: 489 mGy-cm FINDINGS: LOWER CHEST: Postsurgical changes with surgical staple line and adjacent scarring or1 chronic subsegmental atelectasis and minimal pleural thickening at the left lung base. The right lung base is clear. CARDIOVASCULATURE: The heart is normal in size. There is no pericardial effusion. LIVER: The liver is normal in size and contour. No liver mass is identified. The hepatic and portal veins are patent. GALLBLADDER / BILE DUCTS: There is focal nodular wall thickening of the gallbladder measuring 1.8 x 2.3 x 1.0 cm axial image 41 series 5. Appearance worrisome for a gallbladder mass. This is a new finding from prior exams. No gallstones. No intra or extrahepatic biliary duct dilatation. SPLEEN: The spleen is normal in size. No focal splenic lesion is identified. PANCREAS: The pancreas is unremarkable in appearance. ADRENAL GLANDS: Within normal limits. KIDNEYS/RETROPERITONEUM: No renal calculi are identified. There is no hydronephrosis. 10 x 15 mm high attenuation lesion exophytic to the lateral mid to lower pole of the left kidney. Hounsfield units precontrast measure 72. Hounsfield units postcontrast measure 74 without appreciable enhancement. Appearance is consistent with a hyperdense cyst. This is increased in size from 1 x 1.2 cm on prior exams. Tiny 3 x 4 mm hypodensity in the medial lower pole right kidney for example 38 series. This is difficult to characterize due to small size but may represent a cyst or angiomyolipoma. This is new previous exams. LYMPH NODES: No abdominal or pelvic lymphadenopathy. VASCULATURE: Atherosclerotic disease. No aneurysm. MESENTERY/PERITONEUM: No free fluid. No masses. There is no free intraperitoneal gas. STOMACH: Postsurgical changes from gastric sleeve. SMALL BOWEL: The small bowel is normal in caliber. COLON: Diverticulosis. The colon is otherwise unremarkable. APPENDIX: Visualized appendix appears normal. BONES / SOFT TISSUES: No suspicious bony or soft tissue abnormalities. Degenerative changes of the spine. CT/CT abdomen pelvis w IV con IMPRESSION: 1.8 x 2.3 x 1 cm area of focal gallbladder wall thickening worrisome for mass. Differential would include a polyp or adherent sludge. This is a new finding from previous exams. Direct comparison with PET recommended. No liver lesion seen. Interval increase in size in now 1 x 1.5 cm hyperdense left renal cyst. Tiny 3 x 4 mm hypodensity in the right kidney. This may represent a cyst or angiomyolipoma. Diverticulosis of the colon. Postsurgical changes to the stomach from gastric sleeve. Electronically signed by: Suzie Dunlap MD 03/31/2025 10:11 AM [facility] Dictated By: Suzie Dunlap MD Signed By: <Electronically signed by Suzie Dunlap MD in OV> 03/31/25 1011 DD/ 0834 TD/TT: 03/31/25 0855 Rn Bone Marrow Transplant: MARIJA Procedure Note Donotuseinterpreter, Image - 03/31/[address] [address] [address] Scan Report Signed Patient: Petra Meadows [facility]#: [id number] : 7Acct:[id number] Age/Sex: 69 / FADM Date: 03/31/25 Loc: HO.CT Attending Dr: Melba Caputo MD Ordering Physician: Melba Caputo MD Date of Service: 03/31/25 Procedure(s): CT abdomen pelvis w IV con Accession Number(s): [id number] cc: Melba Caputo MD; Melinda Jordan PROJECT MANAGEMENT CONSULTANT Report Number: [id number]: Total DLP = 489.00 mGy-cm Reason for Exam: R16.0 - Hepatomegaly, not elsewhere classified EXAMINATION: CT ABDOMEN PELVIS WITH IV CONTRAST HISTORY: R16.0 - Hepatomegaly, not elsewhere classified COMPARISON: Previous CT of the abdomen and pelvis December 2017, MR of the abdomen January 2018 and abdominal ultrasound December 2019 TECHNIQUE: CT scan of the abdomen and pelvis was performed following administration of 85 mL Omnipaque 350 using standard departmental protocol. Coronal and sagittal reformatted images were generated and reviewed. This CT exam was performed with one or more of the following dose reduction techniques: automated exposure control, adjustment of the mA and/or kV according to patient size, use of iterative reconstruction technique. DLP: 489 mGy-cm FINDINGS: LOWER CHEST: Postsurgical changes with surgical staple line and adjacent scarring or1 chronic subsegmental atelectasis and minimal pleural thickening at the left lung base. The right lung base is clear. CARDIOVASCULATURE: The heart is normal in size. There is no pericardial effusion. LIVER: The liver is normal in size and contour. No liver mass is identified. The hepatic and portal veins are patent. GALLBLADDER / BILE DUCTS: There is focal nodular wall thickening of the gallbladder measuring 1.8 x 2.3 x 1.0 cm axial image 41 series 5. Appearance worrisome for a gallbladder mass. This is a new finding from prior exams. No gallstones. No intra or extrahepatic biliary duct dilatation. SPLEEN: The spleen is normal in size. No focal splenic lesion is identified. PANCREAS: The pancreas is unremarkable in appearance. ADRENAL GLANDS: Within normal limits. KIDNEYS/RETROPERITONEUM: No renal calculi are identified. There is no hydronephrosis. 10 x 15 mm high attenuation lesion exophytic to the lateral mid to lower pole of the left kidney. Hounsfield units precontrast measure 72. Hounsfield units postcontrast measure 74 without appreciable enhancement. Appearance is consistent with a hyperdense cyst. This is increased in size from 1 x 1.2 cm on prior exams. Tiny 3 x 4 mm hypodensity in the medial lower pole right kidney for example 38 series. This is difficult to characterize due to small size but may represent a cyst or angiomyolipoma. This is new previous exams. LYMPH NODES: No abdominal or pelvic lymphadenopathy. VASCULATURE: Atherosclerotic disease. No aneurysm. MESENTERY/PERITONEUM: No free fluid. No masses. There is no free intraperitoneal gas. STOMACH: Postsurgical changes from gastric sleeve. SMALL BOWEL: The small bowel is normal in caliber. COLON: Diverticulosis. The colon is otherwise unremarkable. APPENDIX: Visualized appendix appears normal. BONES / SOFT TISSUES: No suspicious bony or soft tissue abnormalities. Degenerative changes of the spine. CT/CT abdomen pelvis w IV con IMPRESSION: 1.8 x 2.3 x 1 cm area of focal gallbladder wall thickening worrisome for mass. Differential would include a polyp or adherent sludge. This is a new finding from previous exams. Direct comparison with PET recommended. No liver lesion seen. Interval increase in size in now 1 x 1.5 cm hyperdense left renal cyst. Tiny 3 x 4 mm hypodensity in the right kidney. This may represent a cyst or angiomyolipoma. Diverticulosis of the colon. Postsurgical changes to the stomach from gastric sleeve. Electronically signed by: Suzie Dunlap MD 03/31/2025 10:11 AM EST Dictated By: Suzie Dnulap MD Signed By: <Electronically signed by Suzie Dunlap MD in OV> 03/31/25 1011 DD/ 0834 TD/TT: 03/31/25 0855 Rn Bone Marrow Transplant: MARIJA us [facility] External Provider IMG CT PROCEDURES Edited Result - Final * POCT Creatinine GFR (03/31/2025 8:31 AM EST) POCT Creatinine 0.7 0.5 - 1.4 mg/dL [facility] GFR POC >60 [facility] Comment:Chronic Kidney Disea se: Estimated GFR < 60 mL/min/1.73v5Qkyoel Kidney Disease: Estimated GFR < 15 mL/min/1.73m2 03/31/2025 8:31 AM EST 04/01/2025 4:53 PM EST Narrative [facility] - 04/01/2025 4:56 PM EST [id number] [facility] POINT OF CARE TEST DO CKED DEVICE ORDERABLES Final Result [facility] [address] [place] [address] [phone] * BD DEXA Axial (03/20/2025 9:21 AM EST) Anatomical Region Laterality Modality Body Radiographic Jaida ging 03/20/2025 9:21 AM EST Narrative 03/20/2025 10:53 AM EST [address] [place] [address] Mammography Report Signed Patient: Petra Meadows MR#: [id number] : 1955 Acct:[id number] Age/Sex: 69 / F ADM Date: 03/20/25 Loc: HO.MAMMO Attending Dr: Melba Caputo MD Ordering Physician: Melba Caputo MD Results: Date of Service: 03/20/25 Follow Up: Procedure(s): XR DEXA axial skeleton Accession Number(s): [id number] cc: Melba Caputo MD; Fatuma Hardy MD Reason For Exam: M81.0 - Age-related osteoporosis without current pathological fracture EXAMINATION: DXA BONE DENSITY AXIAL HISTORY: M81.0 - Age-related osteoporosis without current pathological fracture TECHNIQUE: [employer] Dual energy absorptiometry (DEXA) of the lumbar [...] of the [employer] [place] for Metabolic Bone Disease, a World Health Organization (WHO) Collaborating Center. Electronically signed by: Raul Trinh MD 03/20/2025 10:50 AM EST Dictated By: Raul Trinh MD Signed By: <Electronically signed by Raul Trinh MD in OV> 03/20/25 1050 DD/ 0 TD/TT: 03/20/25924 Rn Bone Marrow Transplant: Procedure Note Donotuseinterpreter, Image - 03/20/2025 [facility] [address] [place] [address] Mammography Report Signed Patient: Petra Meadows [facility]#: [id number] : 7Acct:[id number] Age/Sex: 69 / FADM Date: 03/20/25 Loc: VANDANA Attending Dr: Melba Caputo MD Ordering Physician: Melba Caputo MDResults: Date of Service: 03/20/25Follow Up: Procedure(s): XR DEXA axial skeleton Accession Number(s): [id number] cc: Melba Caputo MD; Fatuma Hardy MD Reason For Exam: M81.0 - Age-related osteoporosis without currentpathological fracture EXAMINATION: DXA BONE DENSITY AXIAL HISTORY: M81.0 - Age-related osteoporosis without current pathological fracture TECHNIQUE: [employer] Dual energy absorptiometry (DEXA) of the lumbar [...] of the [employer] [place] for Metabolic Bone Disease, a World Health Organization (WHO) Collaborating Center. Electronically signed by: Raul Trinh MD 03/20/2025 10:50 AM EST RP Dictated By: Raul Trinh MD Signed By: <Electronically signed by Raul Trinh MD in OV> 03/20/25 1050 DD/ 0 TD/TT: 03/20/25924 Rn Bone Marrow Transplant: [facility] External Provider IMG DXA PROCEDURES Final Result * PET CT WHOLE BODY (02/14/2025 8:49 AM EDT) Anatomical Region Laterality Modality Computed Tomogra phy Historical Provider IMTamra CT PROCEDURES Final R esult * Vitamin D, 25-Hydroxy, Total, Immunoassay (01/29/2025 1:02 PM EDT) Vitamin D 25-OH Total 32.8 >30 ng/mL [facility] Comment: Health Based Reference Values*< 20 ng/mL [id number] ng/mL Insufficient> 30 ng/mL Sufficient*Yg BENNETT. N [...] ORDERAB LES Final Result Performing Organization Address [facility] Co de Phone Number [facility] [address] [place] [phone] * (ABNORMAL) Vitamin B12 (Cobalamin) and Folate Panel, Serum (01/29/2025 1:02 PM EDT) Vitamin B12 179(L) 200 - 900 pg/mL [facility] Comment:NORMAL 200-900 PG/ML INDETERMINATE 160-199 PG/ML DEFICIENT < 160 PG/ML Folate 9.5 > or = 4.0 ng/mL [facility] Comment:Reference Values:> o r = 4.0 ng/mL< 4.0 ng/mL suggests folate deficiency Methotrexate, aminopterin and folinic acid(leucovorin) are chemotherapeutic agents whose molecularstructures are similar to folate; therefore, the Architectfolate assay cannot be used for patients using these drugs. 01/29/2025 1:02 PM EDT 01/29/2025 1:02 PM EDT Generic External Data Provider LAB BLOOD ORDERAB LES Final Result Performing Organization Address [facility] Co de Phone Number [facility] [address] [place] [phone] * Zinc (01/29/2025 1:02 PM EDT) Pathologist [facility] Zinc 69 60 - 130 mcg/dL [facility] Comment:This test was develo ped and its analytical performancecharacteristics have been determined by [facility] [place], [place]. It hasnot been cleared or approved by the U.S. Food and DrugAdministration. This assay has been validated pursuantto the CLIA regulations and is used for clinicalpurposes.THIS TEST WAS PERFORMED AT:[email or web address] [email or web address] [place] [address]HVZOBPPJIM CHAIDEZ MD,PHD 01/29/2025 1:02 PM EDT 01/29/2025 1:02 PM EDT Generic External Data Provider LAB BLOOD ORDERAB LES Final Result Performing Organization Address [facility]/ZIP Co de Phone Number [facility] [address] [place] [phone] * (ABNORMAL) Vitamin A (01/29/2025 1:02 PM EDT) Vitamin A (Retinol) 27(A) 38 - 98 mcg/dL [facility] Comment:Vitamin supplementat ion within 24 hours prior toblood draw may affect the accuracy of the results.This test was developed and its analytical performancecharacteristics have been determined by [facility] [place], [place]. It hasnot been cleared or approved by the U.S. Food and DrugAdministration. This assay has been validated pursuantto the CLIA regulations and is used for clinicalpurposes.THIS TEST WAS PERFORMED AT:[email or web address] [place] [address]TQQZNFWJIM CHAIDEZ MD,PHD 01/29/2025 1:02 PM EDT 01/29/2025 1:02 PM EDT Generic External Data Provider LAB BLOOD ORDERAB LES Final Result Performing Organization Address [facility] Co de Phone Number [facility] [address] [place] [phone] * (ABNORMAL) Vitamin B1 (01/29/2025 1:02 PM EDT) Vitamin B1 6(A) 8 - 30 nmol/L [facility] Comment:Vitamin supplementat ion within 24 hours prior toblood draw may affect the accuracy of the results.This test was developed and its analytical performancecharacteristics have been determined by [facility] [place], [place]. It hasnot been cleared or approved by the U.S. Food and DrugAdministration. This assay has been validated pursuantto the CLIA regulations and is used for clinicalpurposes.THIS TEST WAS PERFORMED AT:[email or web address]/[email or web address] [place] [address]HEATVXWJIM CHAIDEZ MD,PHD 01/29/2025 1:02 PM EDT 01/29/2025 1:02 PM EDT us Generic External Data Provider LAB BLOOD ORDERAB LES Final Result [facility] [address] [place] [phone] * (ABNORMAL) Lipid Panel, Standard (01/08/2025 8:10 AM EDT) Triglycerides 75 <150 mg/dL [facility] Comment:Desirable Triglyceri de: less than 150 mg/dLBorderline High Triglyceride 150-199 mg/dLHigh Triglyceride: 200-499 mg/dLVery High Triglyceride: greater than or equal to 5OO mg/dL Cholesterol 181 <200 mg/dL [facility] Comment:Desirable Cholestero l: less than 200 mg/dLBorderline High Cholesterol: 200-239 mg/dLHigh Cholesterol: greater than 239 mg/dL LDL Cholesterol Calculated 109(H) <100 mg/dL [facility] Comment:Desirable LDL: less than 100 mg/dLNear Optimal/Above Optimal LDL: 110- 129 mg/dLBorderline High LDL: 130-159 mg/dLHigh LDL: 160-189 mg/dLVery High LDL: greater than or equal to 190 mg/dL HDL Cholesterol 57 >40 mg/dL [facility] Comment:Desirable HDL: great er than 40 mg/dL Note: This HDL assay may give artificially low results in patients with liver disease. Blood Venous blood specimen / Unknown 01/08/2025 8:10 AM EDT 01/08/2025 2:28 PM EDT Fatuma Hardy MD LAB BLOOD ORDERABLES Final Resul t [facility] [address] [place] [phone] [phone] * BI Mammogram Diagnostic Tomosynthesis Bilateral (08/07/2024 10:00 AM EDT) Anatomical Region Laterality Modality Breast Bilateral Mammography 08/07/2024 10:0 0 AM EDT Narrative 08/07/2024 12:12 PM EDT [address] [place] [address] Mammography Report Signed Patient: Petra Meadows MR#: [id number] : 1955 Acct:[id number] Age/Sex: 68 / F ADM Date: 08/07/24 Loc: HO.MAMMO Attending Dr: Fatuma Hardy MD Ordering Physician: Fatuma Hardy MD Results: 3.12MPr obably Benign Finding - 12 month F/U Suggested Date of Service: 08/07/24 Follow Up: 12 month diagnos tic follow up Procedure(s): MM tomosynthesis diagnostic BI Accession Number(s): [id number] cc: Fatuma Hardy MD EXAMINATION: MM DIAGNOSTIC [...] 08/07/24 1209 DD/ 1000 TD/TT: 08/07/24 1020 Rn Bone Marrow Transplant: Procedure Note Donotuseinterpreter, Image - 08[facility]07[facility] [address] [place] [address] Mammography Report Signed Patient: Petra Meadows NMR#: [id number] : 7Acct:[id number] Age/Sex: 68 / FADM Date: 08/07/24 Loc: HO.MAMMO Attending Dr: Fatuma Hardy MD Ordering Physician: Fatuma Hardy MDResults: 3.12MPr obably Benign Finding - 12 month F/U Suggested Date of Service: 08/07/24Follow Up: 12 month diagnos tic follow up Procedure(s): MM tomosynthesis diagnostic BI Accession Number(s): [id number] cc: Fatuma Hardy MD EXAMINATION: MM DIAGNOSTIC [...] 08/07/24 1209 DD/ 1000 TD/TT: 08/07/24 1020 Rn Bone Marrow Transplant: us Fatuma Hardy MD IMG BI PROCEDURES Final Result * Hepatitis Panel, General (02/05/2024 8:23 AM EDT) Hepatitis A IgM Nonreactive Nonreactive [facility] Comment:IgM antibodies to GONZALEZ V not detected; does not exclude earlyacute or recovered HAV infection. ~Hepatitis B Surface Antibody NONREACTIVE Nonreactive [facility] Comment:Nonreactive: < 8.00 mIU/mL Hepatitis B Core Antibody Nonreactive Nonreactive [facility] Hepatitis C Antibody Nonreactive Nonreactive [facility] Comment:Antibodies to HCV no t detected; does not exclude early acuteHCV infection. Hepatitis B Surface Ag Negative Negative [facility] 02/05/2024 8:23 AM EDT 02/05/2024 8:27 AM EDT us Generic External Data Provider LAB BLOOD ORDERAB LES Final Result [facility] [address] [place] [phone] * Cologuard?? colon cancer screening (06/05/2023 1:00 PM EST) Cologuard Result Negative Negative 06/18/19 9:01 AM EST [employer] (CLIA #:[id number]) Comment: NEGATIVE TEST RESULT. A negative Cologuard [...] Andrew. et al, N Engl J Med 2014;370(14):7908-2667) The normal value (reference range) for this assay is negative. COLOGUARD RE-SCREENING RECOMMENDATION: Periodic colorectal cancer screening is an important part of preventive healthcare for asymptomatic individuals at average risk for colorectal cancer. Following a negative Cologuard result, the [place] Cancer Society and U.S. Multi-Society Task Force screening guidelines recommend a Cologuard re-screening interval of 3 years. References: [place] Cancer Society Guideline for Colorectal Cancer Screening: https://www.cancer.org/cancer/qcjqh-oepzys-psfdwn/wzhmmqvju-rnesijvls-vrcfvby/ac s-rec ommendations.html.; Julio WORTHINGTON, Vipin MCGOWAN, Moni CatherineK, Colorectal Cancer Screening: Recommendations for Physicians and Patients from the U.S. Multi-Society Task Force on Colorectal Cancer Screening , Am J Gastroenterology 2017; 112:8726-8130. TEST DESCRIPTION: Composite algorithmic analysis of stool [...] Jeter et al, N Engl J Med 2014;370(14):5095-9786.) Cologuard may produce a false negative or false positive result (no colorectal cancer or precancerous polyp present at colonoscopy follow up). A negative Cologuard test result does not guarantee the absence of CRC or advanced adenoma (pre-cancer). The current Cologuard screening interval is every 3 years. ([place] Cancer Society and U.S. Multi-Society Task Force). Cologuard performance data in a 10,000 patient pivotal study using colonoscopy as the reference method can be accessed at the following location: www.[place]/results. Additional description of the Cologuard test process, warnings and precautions can be found at www.[employer]ang[employer].com. Stool specimen (specimen) 06/05/2023 1:00 PM EST 06/07/2023 2:46 PM EST us Fatuma Hardy MD LAB MOLECULAR DIAGNOSTICS ORDERA BLES Final Result [employer] [facility] (CLIA #:[id number]) [place] [place] [address], * HPV mRNA E6/E7 (03/29/2016 1:40 PM EST) HPV mRNA E6/E7 Not Detected NOT DETECTED [employer] [facility] Comment: This test was performed using the APTIMA(R) HPV Assay ([employer] This assay detects E6/E7 viral messenger RNA (mRNA) from 14 high-risk HPV types (16,18,31,33,35,39,45,51, 52,56,58,59,66,68). For additional information please refer to: http://[employer].Mercari/faq/XTS558x2 (This link is being provided for informational/ educational purposes only.) Test Performed by [facility], [facility], [address] [place] [address] Jim Chaidez M.D., Ph.D., Director of Laboratories , [facility] [id number] Please note: Effective 01/11/2016, HPV testing will be performed using [employer]'s APTIMA test which targets mRNA. Detecting mRNA instead of DNA, as in older methods, offers significant improvements in specificity. 03/29/2016 1:40 PM EST us Xochilt Alcaraz CNM HISTORICAL/NON ORDERABLE LABS Final Result [facility] Anywhere [address] from Last 3 Months or Most Recently Relevant to Health Maintenance Insurance [place] [address] [place] [id number] [facility] STAND ADULT Care Teams Shrimp Peeling Machine Tender Relationship Specialty Start Date End Date Melinda Jordan CNP [address] [place] [address] PCP - General Family Medicine 02/25/25
--- OUTSIDE RECORDS SUMMARY | 2025-04-11 19:54 | XMS_ITS | Encounter Summary ---
Author Organization [employer] Address [address] [place] [address] 7 [place] [address] Care Team Providers Care Marble Installer Name Role Phone Fatuma Hardy MD Primary Care Provider [phone] Melinda Jordan CNP Primary Care Provider [phone] Encounter Details Date Type Department Care Team (Late Contact Info) Description 11/10/2023 Orders Only [facility] [address] [place] [address] Provider, MD Pipe Social History Tobacco Use [...] Department Care Team (Late Contact Info) Description 05/21/2025 10:45 AM EST Office Visit [facility] [address] [place] [address] Melinda Jordan CNP [address] [place] [address] 09/23/2025 8:45 AM EDT Office Visit [facility] [address] [place] [address] Miriam Watson documented as of this encounter [...] on filedocumented in this encounter Care Teams Marble Installer Relationship Specialty Start Date End Date Fatuma Hardy MD [address] [place] [phone] PCP - General Family Medicine 04/12/12 02/24/25 Melinda Jordan CNP [address] [place] [address] PCP - General Family Medicine 02/25/25 documented as of this encounter
--- OUTSIDE RECORDS SUMMARY | 2025-04-11 19:54 | XMS_ITS | Patient Health Record ---
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
--- OUTSIDE RECORDS SUMMARY | 2025-04-11 19:54 | XMS_ITS | Encounter Summary ---
Author Organization [employer] Address [address] [facility] 7t [place] [address] Care Team Providers Care Supervisor Ore Dressing Name Role Phone Fatuma Hardy MD Primary Care Provider [phone] Melinda Jordan CNP Primary Care Provider [phone] Reason for Visit * Reason Onset Date Comments PT1 11/03/2023 Encounter Details Date Type Department Care Team ([facility] st Contact Info) Description 11/03/2023 Telephone [facility] [address] [place], [place] [phone] Fatuma Hardy MD [address] [place], [place] [phone] PT1 Social History Tobacco Use Types Packs/Day [...] Y/N: Yes Provider name or facility name: [facility] Facility Address: [address] [place] [address] Escort needed: Y/N: No Do you have a wheelchair: Y/N: No If yes- Manual or electric: n/a Visits: 12 a year documented in this encounter Plan of Treatment Upcoming Encounters Date Type Department Care Team (Late st Contact Info) Description 05/21/2025 10:45 AM EST Office Visit [facility] [address] [place] [address] Melinda Jordan CNP [address] [place] [address] 09/23/2025 8:45 AM EDT Office Visit [facility] [address] [place], [place] [phone] Miriam Watson documented as of this encounter Visit Diagnoses Not on filedocumented in this encounter Care Teams Supervisor Ore Dressing Relationship Specialty Start Date End Date Fatuma Hardy MD [address] [place] [address] PCP - General Family Medicine 04/12/12 02/24/25 Melinda Jordan CNP [address] [place] [address] PCP - General Family Medicine 02/25/25 documented as of this encounter
--- OUTSIDE RECORDS SUMMARY | 2025-04-11 19:54 | XMS_ITS | Encounter Summary ---
Author Organization [employer] Address [address] [facility] [address]t [place] [address] Care Team Providers Care Multi Care Technician Name Role Phone Fatuma Hardy MD Primary Care Provider [phone] Melinda Jordan CNP Primary Care Provider [phone] Reason for Visit * Reason Onset Date Comments PT1 10/23/2024 Encounter Details Date Type Department Care Team (Late st Contact Info) Description 10/23/[address] [facility] [address] [place], [place] [phone] Fatuma Hardy MD [address] [place], [place] [phone] PT1 Social History Tobacco Use Types Packs/Day [...] Y/N: Yes Provider name or facility name: [address] [place] [address] - Dr Queenie Abbott Escort needed: Y/N: No Do you have a wheelchair: Y/N: No If yes- Manual or electric: N/A Visits: (3x monthly) 2 of 2 Patient calling requesting PT1 Home Address verified: Y/N: Yes Provider name or facility name: [address] [place], [place] Escort needed: Y/N: No Do you have a wheelchair: Y/N: No If yes- Manual or electric: N/A Visits: (3x monthly) documented in this encounter Plan of Treatment Upcoming Encounters Date Type Department Care Team (Late st Contact Info) Description 05/21/2025 10:45 AM EST Office Visit [facility] [address] [place] [address] Melinda Jordan CNP [address] [place] [address] 09/23/2025 8:45 AM EDT Office Visit [facility] [address] [place] [address] Miriam Watson documented as of this encounter Visit Diagnoses Not on filedocumented in this encounter Care Teams Multi Care Technician Relationship Specialty Start Date End Date Fatuma Hardy MD [address] [place] [address] PCP - General Family Medicine 04/12/12 02/24/25 Melinda Jordan CNP [address] [place] [address] PCP - General Family Medicine 02/25/25 documented as of this encounter
--- OUTSIDE RECORDS SUMMARY | 2025-04-11 19:54 | XMS_ITS | Encounter Summary ---
Author Organization [employer] Address [address] [facility] 7t [place] [address] Care Team Providers Care Delivery Route Driver Name Role Phone Fatuma Hardy MD Primary Care Provider [phone] Melinda Jordan CNP Primary Care Provider [phone] Reason for Visit * Reason Onset Date Comments PT-1 06/04/2024 Encounter Details Date Type Department Care Team ([facility] st Contact Info) Description 06/04/2024 Telephone [facility] [address] [place] [address] Fatuma Hardy MD [address] [place] [address] PT-1 Social History Tobacco Use Types Packs/Day [...] facility name: [facility] Facility Address: [address] [address] Escort needed: Y/N: No Do you have a wheelchair: Y/N: No If yes- Manual or electric: n/a Visits: 2 times a month for 12 months 2.)Home Address verified: Y/N: Yes Provider name or facility name: [facility] Facility Address: [address] [place] [address] Escort needed: Y/N: No Do you have a wheelchair: Y/N: No If yes- Manual or electric: N/a Visits: 2 times a month for 12 months documented in this encounter Plan of Treatment Upcoming Encounters Date Type Department Care Team (Late st Contact Info) Description 05/21/2025 10:45 AM EST Office Visit [facility] [address] [place] [address] Melinda Jordan, TONEY [address] [place] [address] 09/23/2025 8:45 AM EDT Office Visit [facility] [address] [place] [address] Miriam Watson documented as of this encounter Visit Diagnoses Not on filedocumented in this encounter Care Teams Delivery Route Driver Relationship Specialty Start Date End Date Fatuma Hardy MD [address] [place] [address] PCP - General Family Medicine 04/12/12 02/24/25 Melinda Jordan CNP [address] [place] [address] PCP - General Family Medicine 02/25/25 documented as of this encounter
--- OUTSIDE RECORDS SUMMARY | 2025-04-11 19:54 | XMS_ITS | Encounter Summary ---
Author Organization [employer] Address [address] [facility] 7t [place] [address] Care Team Providers Care Molecular Genetic Pathologist Name Role Phone Fatuma Hardy MD Primary Care Provider [phone] Melinda Jordan CNP Primary Care Provider [phone] Reason for Visit * Reason Onset Date Comments Nurse Triage 06/26/2024 Encounter Details Date Type Department Care Team ([facility] st Contact Info) Description 06/26/2024 Telephone [facility] [address] [place] [address] Fatuma Hardy MD [address] [place] [address] Nurse Triage Social History Tobacco Use Types [...] EST Triage call Pt reports was at Supervisor [employer] apt yesterday and was told BP was [...] [facility] [address] [place] [address] Melinda Jordan CNP [address] [place] [address] 09/23/2025 8:45 AM EDT Office Visit [facility] [address] [place], [place] [phone] Miriam Watson documented as of this encounter Visit Diagnoses Not on filedocumented in this encounter Care Teams Molecular Genetic Pathologist Relationship Specialty Start Date End Date Fatuma Hardy MD [address] [place] [address] PCP - General Family Medicine 04/12/12 02/24/25 Melinda Jordan CNP [address] [place] [address] PCP - General Family Medicine 02/25/25 documented as of this encounter
--- OUTSIDE RECORDS SUMMARY | 2025-04-11 19:55 | XMS_ITS | Encounter Summary ---
Author Organization [employer] Address [address] [place] [address] Care Team Providers Care Hand Inspector Name Role Phone Fatuma Hardy MD Primary Care Provider [phone] Melinda Jordan CNP Primary Care Provider [phone] Reason for Visit * Reason Comments Med Refill Encounter Details Date Type Department Care Team (Late st Contact Info) Description 04/18/2023 Refill [facility] [address] [place] [address] Fatuma Hardy MD [address] [place] [address] Fibromyositis Social History Tobacco Use Types Packs/Day [...] Description 05/21/2025 10:45 AM EST Office Visit [facility] [address] [place] [address] Melinda Jordan CNP [address] [place] [address] 09/23/2025 8:45 AM EDT Office Visit [facility] [address] [place] [address] Miriam Watson documented as of this encounter Visit Diagnoses Diagnosis Fibromyositis Unspecified myalgia and myositis documented in this encounter Care Teams Hand Inspector Relationship Specialty Start Date End Date Fatuma Hardy MD [address] [place] [address] PCP - General Family Medicine 04/12/12 02/24/25 Melinda Jordan CNP [address] [place] [address] PCP - General Family Medicine 02/25/25 documented as of this encounter
--- OUTSIDE RECORDS SUMMARY | 2025-04-11 19:55 | XMS_ITS | Clinical Summary ---
Author Organization 175 [facility] Address [address] [place] [address] Phone Care Team Providers Care Survey Operations Director Name Role Phone Fatuma Hardy MD Primary Care Provider [phone] Allergies No known active allergies Medications montelukast [...] nostril(s) 1 (one) time each day. 025 Discontin ued(Reord er) Active Problems Problem Noted Date Diagnosed Date Gastroesophageal reflux disease 03/03/2025 Riggins's esophagus 02/26/2025 Constipation 02/26/2025 Multiple joint pain 10/16/2024 Chronic obstructive pulmonary disease 09/02/2024 Asthma 03/24/2024 Obesity 03/24/2024 Pulmonary nodules/lesions, [...] 03/25/2025 11:15 AM EST Office Visit Pulmonology - [place] [address] [facility] [address] [place] [address] Maximus Thurston MD Moderate asthma, unspecified whether complicated, unspecified whether persistent (Primary Dx); Maurilio's granulomatosis with renal involvement ([facility] V24, [facility] V28); Seasonal allergic rhinitis due to pollen 02/14/2025 8:34 AM EDT - 02/14/2025 11:59 PM EDT Hospital Encounter [facility] PET Scan [address] [place] [id number] 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 ([facility] V24, [facility] V28) Discharge Disposition: Home or Self Care from Last 3 Months Immunizations Immunization Administration [...] Orientation Straight 07/12/2024 10 :42 AM EDT Last Filed Vital Signs Vital [...] Care Team (Late st Contact Info) Description 05/19/2025 2:30 PM EST Office Visit Orthopedic Surgery - [place] [address] [facility] [address] [place] [address] Lino Francois DPM [address] [facility] [address] [place] [phone] 06/25/2025 9:15 AM EST Office Visit Pulmonology - [place] [address] [facility] [address] [place] [phone] Maximus Thurston MD [address] [place] [phone] Health Maintenance Due Date Last Done Comments Breast Cancer Screening 1955 Drug Screen 1955 Non-Opioid Controlled Substance Agreement 1955 Hepatitis A Vaccines (1 of 2 - Risk 2-dose series) 08/25/1975 Zoster Vaccines (1 of 2) 08/25/1975 RSV Immunization Adult Patients (1 - Risk 50-74 years 1-dose series) 2006 Pneumococcal Vaccine: 50+ Years (2 of 2 - PCV) 08/08/2014 08/08/2013, 04/21/2012, 04/04/2006 Hepatitis B Vaccines (1 of 3 - Risk 3-dose series) 2016 Falls Risk Assessment 02/07/2024 Hepatitis [...] Signed Date: 02/26/2025 10:11 ET Workstation ID: [id number] Transcribed By: Self Edit Transcribed Date: 02/26/2025 [...] Signed Date: 02/26/2025 10:11 ET Workstation ID: [id number] Transcribed By: Self Edit Transcribed Date: 02/26/2025 10:05 ET Melba Caputo MD IM NM PROCEDURES Final Result * FIT-DNA (Cologuard) (06/05/2023) [facility] Colorectal Cancer Screening: FIT-DNA (Cologuard) no interpretation , abstracted [facility] Provider HEALTH MAINTENANCE Final Result * Annual BMP Blood Test (05/22/2023) [facility] Annual BMP Blood Test abstracted [facility] Provider [facility] Final Result * Lipid panel (07/21/2022) [facility] LDL/HDL Ratio 0 0 - 0 Triglycerides 0 0 - 0 mg/dL Cholesterol 0 0 - 0 mg/dL HDL 0 0 - 0 mg/dL LDL Cholesterol 0 0 - 0 mg/dL Blood Venous blood specimen / Unknown Historical Provider LAB BLOOD ORDERABLES Della l Result from Last 3 Months or Most Recently Relevant to Health Maintenance Insurance MEDICARE [place]ICAID [place] Care Teams Survey Operations Director Relationship Specialty Start Date End Date Fatuma Hardy MD [address] [place] [id number] PCP - General Family Medicine 07/02/24
--- OUTSIDE RECORDS SUMMARY | 2025-04-11 19:55 | XMS_ITS | Encounter Summary ---
Author Organization [employer] Address [address] [facility] [address] [place] [address] Care Team Providers Care Seed Tester Name Role Phone Fatuma Hardy MD Primary Care Provider [phone] Melinda Jordan CNP Primary Care Provider [phone] Reason for Visit * Reason Onset Date Comments PT-1 05/05/2023 Encounter Details Date Type Department Care Team (Late st Contact Info) Description 05/05/2023 Telephone [facility] [address] [place] [address] Fatuma Hardy MD [address] [place], [place] [phone] PT-1 Social History Tobacco Use Types Packs/Day [...] N/A Time: N/A Visits: 4 Address: [address] [facility] Facility: [facility] Wheel Chair: no Build And Deployment Engineer Needed: no PT1 needed Date: N/A Time: N/A Visits: 4 Address: [address] [facility] Facility: Social Work Coordinator Wheel Chair: no Build And Deployment Engineer Needed: no PT1 needed Date: N/A Time: N/A Visits: 4 Address: [address] [place] [address] [address] Floor, [place] [address] Facility:[facility] Wheel Chair: no Build And Deployment Engineer Needed: no documented in this encounter Plan of Treatment Upcoming Encounters Date Type Department Care Team (Late st Contact Info) Description 05/21/2025 10:45 AM EST Office Visit [facility] MED & PEDS [address] [place] [address] Melinda Jordan CNP [address] [place] [address] 09/23/2025 8:45 AM EDT Office Visit [facility] ADULT DENTAL [address] [place] [address] Miriam Watson documented as of this encounter Visit Diagnoses Not on filedocumented in this encounter Care Teams Seed Tester Relationship Specialty Start Date End Date Fatuma Hardy MD [address] [place] [id number] PCP - General Family Medicine 04/12/12 02/24/25 Melinda Jordan CNP [address] [place] [address] PCP - General Family Medicine 02/25/25 documented as of this encounter
--- OUTSIDE RECORDS SUMMARY | 2025-04-11 19:55 | XMS_ITS | Encounter Summary ---
Author Organization [employer] Address [address] [place] [address] [address] [place] [address] Care Team Providers Care Thread Puller Name Role Phone Fatuma Hardy MD Primary Care Provider [phone] Melinda Jordan CNP Primary Care Provider [phone] Encounter Details Date Type Department Care Team (Late st Contact Info) Description 11/24/2022 Orders Only [facility] MED & PEDS [address] [place] [address] Fatuma Hardy MD [address] [place] [address] Social History Tobacco Use Types Packs/Day Years [...] 10:45 AM EST Office Visit [facility] MED & PEDS [address] [place], [place] [phone] Melinda Jordan CNP [address] [place] [address] 09/23/2025 8:45 AM EDT Office Visit [facility] AD[facility] [address] [place] [address] Miriam Watson documented as of this encounter Visit Diagnoses Not on filedocumented in this encounter Care Teams Thread Puller Relationship Specialty Start Date End Date Fatuma Hardy MD [address] [place] [address] PCP - General Family Medicine 04/12/12 02/24/25 Melinda Jordan CNP [address] [place] [address] PCP - General Family Medicine 02/25/25 documented as of this encounter
== END 2025-04-11 15:22 | disposition home or self-care (01) ==
LOC: HO.HGS 14:50
PROVIDERS: Visit Provider Surgery
DX: D49.0 Neoplasm of unspecified behavior of digestive system (principal)
CPT/HCPCS: 99203

== ENCOUNTER → 2025-04-11 14:49 | Outpatient (BNVA) | payer MEDICARE, MEDICAID, SELFPAY | PROVIDERS: Visit Provider Surgery | DX: Z71.2 Person consulting for explanation of examination or test findings (principal); R10.13 Epigastric pain; D49.0 Neoplasm of unspecified behavior of digestive system | CPT/HCPCS: 99202 ==